=== PATIENT | male | born 1935 | race Caucasian/White ===

== ENCOUNTER → 2016-10-29 | Outpatient (CLI) | payer MEDICARE, BC ==
[2016-10-29 09:39] LABS: Anisocytosis Slight; CH 21.2; CHCM 30.3; HCT 38.3 % (39.0-53.0); HDW 3.11; HGB 11.6 gm/dL (13.0-17.5); Hypochromasia Marked; MCH 21.3 pg (25.0-35.0); MCHC 30.3 g/dL (31.0-37.0); MCV 70.6 fL (80.0-100.0); Mean Platelet Volume 7.3; Microcytosis Moderate; RBC 5.43 m/uL (4.30-5.90); RDW 16.1 % (11.5-15.5); WBC 7.7 k/uL (3.8-10.6)
[2016-10-29 09:56] LABS: Anion Gap 10 mmol/L; Blood Urea Nitrogen 33 mg/dL (9-20); Carbon Dioxide 24 mmol/L (22-30); Chloride 109 mmol/L (98-107); Non-African American GFR(MDRD) 51 (>60 ml/min/1.73 sqM); Potassium 4.8 mmol/L (3.5-5.1); Sodium 143 mmol/L (137-145)
== END | disposition home or self-care (01) ==
LOC: LABPAT 09:22
PROVIDERS: ATTEND Internal Medicine Interventional Cardiology
DX: Z01.812 Encounter for preprocedural laboratory examination (principal); I25.10 Atherosclerotic heart disease of native coronary artery without angina pectoris
CPT/HCPCS: 80051; 82565; 84520; 85027

== ENCOUNTER 2016-11-04 07:33 | Day surgery (SDC) | payer MEDICARE, BC ==
[2016-10-31 11:23] VITALS: BMI 36.6
[~2016-11-04 07:33] MED LIST: ALPRAZolam 0.25 MG TAB PO PRN; ALPRAZolam 0.5 MG TAB PO PRN; ASPIRIN 325 MG TAB PO STA; ATORVASTATIN 80 MG TAB PO STA; NITROGLYCERIN SL TABS 0.4 MG TAB SUBLINGUAL PRN
[2016-11-04] MEDS: SODIUM CHLORIDE 0.9% 1,000 ML in EMPTY BAG 1 BAG IV ONE ×2 (08:16→13:55)
[2016-11-04] MEDS ORDERED: LIDOCAINE 2% INJ 20 MG/ML (20 ML MDV) ONE (11:56)
[2016-11-04] MEDS ORDERED: MIDAZOLAM 2 MG/2 ML VIAL ONE (12:08)
[2016-11-04] MEDS ORDERED: MIDAZOLAM 2 MG/2 ML VIAL IVP ONE (12:10)
[2016-11-04] MEDS ORDERED: LIDOCAINE 2% INJ 20 MG/ML SQ ONE (12:13)
[2016-11-04] MEDS ORDERED: NITROGLYCERIN SL TABS 0.4 MG TAB SUBLINGUAL ONE ×2 (12:45→12:48)
[2016-11-04] MEDS ORDERED: RX INFO: IV CONTRAST WAS GIVEN 1 EACH MISC MISCELLANE PRN (12:56)
[2016-11-04] MEDS ORDERED: IOHEXOL 350 MG/ML 100 ML BOTTLE INJ ONE (12:58)
[2016-11-04] MEDS ORDERED: SODIUM CHLORIDE 0.9% 1,000 ML IV SCH (13:00)
[2016-11-04] MEDS ORDERED: amLODIPine 5 MG TAB ONE (13:04)
[2016-11-04 16:40] VITALS: RESP 16; TEMP 97
[2016-11-04 16:42] VITALS: BP 142/76; PULSE 59
[2016-11-04] MEDS ORDERED: ACETAMINOPHEN TAB 500 MG TAB PO STA (18:05)
[2016-11-04 20:01] LABS: Glucose,Whole Blood 139 mg/dL (75-99)
--- NOTE | 2016-11-05 05:38 | CC ---
DATE OF SERVICE: 11/04/2016 PROCEDURE: Left heart catheterization, coronary angiography, selective injection of bypass grafts. PERFORMED BY: Dr. Ha Messer. CLINICAL INFORMATION: Mr. Zoran Camp is an 81-year-old gentleman with a known history of coronary artery disease with aortocoronary bypass surgery in 2001 with a BAKER to LAD, vein graft to the PDA branch of RCA and the diagonal branch of LAD. In 2003, I performed stenting of his mid/distal RCA, which provided blood flow into PLV branch. The vein graft at that time to the PDA was widely patent. He presented to the office with increasing symptoms of angina. He has also developed some calcification of the aortic valve leaflets with mild gradient. He has developed chronic atrial fibrillation and is well anticoagulated. Given his symptoms of chest discomfort suggestive of angina, he was advised coronary angiography after adequate discussion of risks, benefits, options and oral and IV hydration. PROCEDURE NOTE: Under local anesthesia and strict aseptic precautions, a 6 Mohawk introducer was placed in the right femoral artery. I used a JL 3.5 catheter to perform selective coronary angiography of the left system. I then used a Jennifer catheter to perform selective angiography of the right coronary artery and also the BAKER injection as well as the vein graft to the PDA. Using an AR 2 catheter, I performed selective coronary angiography of the diagonal graft as well as the PDA graft again. An LV gram was not performed but LV pressures were checked using a pigtail catheter. There was no significant gradient across the aortic valve. CARDIAC CATHETERIZATION FINDINGS: The left ventricle end-diastolic pressure was about 15 mmHg and the gradient across the aortic valve was less than 10 mmHg. CORONARY ANGIOGRAPHIC FINDINGS: LEFT MAIN CORONARY ARTERY: This is a long patent, disease-free vessel that bifurcates or almost trifurcates into 3 branches. Left main is free of significant disease. LEFT ANTERIOR DESCENDING CORONARY ARTERY: This vessel is highly diseased in the midportion. There is a subtotal occlusion with competitive flow, heavy calcification. In the proximal portion, there is a 40% to 50% narrowing ( ) small diagonal comes off free of significant disease. There is a big septal which is free of significant disease. Mid LAD has a subtotal occlusion with competitive flow. LEFT POSTERIOR CIRCUMFLEX CORONARY ARTERY: Small caliber, small distribution vessel that runs in the AV groove, has minor irregularities appears to be diffusely diseased and probably totally occluded in the midportion. RAMUS INTERMEDIUS: This vessel has mild disease of about 30% to 35%, mild irregularities distally. It bifurcates into 3 branches. No significant disease in the ramus intermedius. RIGHT CORONARY ARTERY: Dominant vessel, distally at the site of prior stenting, the vessel is patent with no more than 30% to 35% narrowing. Distally it bifurcates into PLV that is totally occluded and a PDA that is patent and appears to be grafted. Very tortuous RCA. In the proximal and midportion, there is at least a 40% to 50% narrowing unchanged from 2004. The stented segment is patent. SAPHENOUS VEIN GRAFT TO THE PDA BRANCH OF RCA. This graft is widely patent at origin, course, and insertion site and opacified PDA is also free of significant disease. LEFT INTERNAL MAMMARY ARTERY GRAFT TO LEFT ANTERIOR DESCENDING ARTERY: This graft is widely patent at origin, course, and insertion site and the opacified LAD has minor diffuse irregularities and supplies a sizable amount of myocardium, runs all the way to the apex. The LAD, however, is small. SAPHENOUS VEIN GRAFT TO THE DIAGONAL BRANCH OF LEFT ANTERIOR DESCENDING ARTERY: This graft is widely patent at origin, course and insertion site and the opacified diagonal is small in caliber distribution but has no significant disease. FINAL IMPRESSION: This patient has a right dominant system, total occlusion of the PLV. Left anterior descending artery is totally occluded in the midportion. Circumflex is totally occluded in the midportion. Ramus is free of significant disease. The vein graft to the diagonal and to the PDA branch of right coronary artery are patent. Previously stented mid right coronary artery is widely patent with a 30% to 40% narrowing. The left internal mammary artery to left anterior descending artery is patent with a good distal flow. RECOMMENDATIONS: Findings were discussed with the patient in detail. I am recommending continued aggressive medical therapy with risk factor modification, but no intervention necessary at this time. He will be hydrated and discharged later in the day. I will see him in the office next week. Discharge instructions were given. Aggressive medical therapy with risk factor modification was advised. The patient will be discharged later on today. Patient received moderate conscious sedation for a total duration of 32 minutes.
--- NOTE | 2016-11-05 05:41 | LTR ---
November 04, 2016 LUCINA REESE MD RE: Conrado Zoran Alicia Dear Dr. Reese; Thank you for the opportunity to participate in the care of Mr. Camp. Please find enclosed my detailed cardiac catheterization report for your records. He has some progression of disease in the LAD system, but the BAKER to LAD is patent. I am recommending aggressive medical therapy with risk factor modification. No intervention necessary and there is no significant gradient across the aortic valve. Thank you for your referral and please call for questions. With kindest regards. Sincerely yours, TONE GILL MD
== END 2016-11-04 21:00 | disposition home or self-care (01) ==
LOC: CATHCVL 07:33 → 3OBS 12:49 → CATHCVL 21:00
PROVIDERS: ATTEND Internal Medicine Interventional Cardiology
DX: I10 Essential (primary) hypertension (principal); I25.110 Atherosclerotic heart disease of native coronary artery with unstable angina pectoris; I25.84 Coronary atherosclerosis due to calcified coronary lesion; I25.82 Chronic total occlusion of coronary artery; Z95.5 Presence of coronary angioplasty implant and graft; Z95.1 Presence of aortocoronary bypass graft; Z87.891 Personal history of nicotine dependence; I48.2 Chronic atrial fibrillation; Z79.01 Long term (current) use of anticoagulants; I35.0 Nonrheumatic aortic (valve) stenosis; Z79.82 Long term (current) use of aspirin; Z79.899 Other long term (current) drug therapy
CPT/HCPCS: 93459; C1894; C1769 ×2; J2001; J2250; Q9967

== ENCOUNTER 2018-06-01 19:49 | Inpatient (IN) | payer MEDICARE, BC ==
[2018-06-01 21:00] LABS: Amylase 59 U/L (30-110); Lipase 142 U/L (23-300)
[2018-06-01 21:30] LABS: Anisocytosis Slight; Basophils # (A) 0.1 k/uL (0-0.2); Basophils % (A) 0 %; Eosinophils # (A) 0.1 k/uL (0-0.7); Eosinophils % (A) 1 %; HCT 29.9 % (39.0-53.0); HGB 9.4 gm/dL (13.0-17.5); Hypochromasia Slight; Lymphocytes # (A) 1.7 k/uL (1.0-4.8); Lymphocytes % (A) 13 %; MCH 21.4 pg (25.0-35.0); MCHC 31.6 g/dL (31.0-37.0); MCV 67.8 fL (80.0-100.0); Mean Platelet Volume 7.1; Microcytosis Marked; Monocytes # (A) 0.4 k/uL (0-1.0); Monocytes % (A) 3 %; Neutrophils # (A) 10.8 k/uL (1.3-7.7); Neutrophils % (A) 81 %; Platelet Count 167 k/uL (150-450); Poikilocytosis Slight; RBC 4.41 m/uL (4.30-5.90); RDW 17.4 % (11.5-15.5); WBC 13.3 k/uL (3.8-10.6)
--- NOTE | 2018-06-01 21:35 | ED ---
SOB HPI - General Chief Complaint: Shortness of Breath Stated Complaint: SOB, sweaty, Abd ekg sent by dr dailey Time Seen by Provider: 06/01/18 19:54 Source: patient, RN notes reviewed Mode of arrival: wheelchair Limitations: no limitations - History of Present Illness Initial Comments: This is a 83-year-old male who presents with complaints of shortness of breath is been going on for about a week or so he does demonstrate he states exertional dyspnea. He states he did have some chest pain when he bends over. He has a nonproductive cough no fevers chills nausea vomiting sweats. No other symptoms. MD Complaint: shortness of breath - Related Data Home Medications Medication Instructions Recorded Confirmed Atorvastatin [Lipitor] 20 mg PO DAILY 02/09/16 06/01/18 Levothyroxine Sodium [Synthroid] 150 mcg PO DAILY 02/09/16 06/01/18 Ciprofloxacin HCl [Cipro] 250 mg PO Q12H 06/01/18 06/01/18 Doxazosin Mesylate [Cardura Xl] 4 mg PO HS 06/01/18 06/01/18 Finasteride [Proscar] 5 mg PO DAILY 06/01/18 06/01/18 Furosemide [Lasix] 40 mg PO DAILY 06/01/18 06/01/18 Losartan/Hydrochlorothiazide 1 tab PO DAILY 06/01/18 06/01/18 [Losartan-Hctz 100-12.5 mg Tab] Metoprolol Tartrate [Lopressor] 25 mg PO HS 06/01/18 06/01/18 Metoprolol Tartrate [Lopressor] 50 mg PO QAM 06/01/18 06/01/18 Allergies Allergy/AdvReac Type Severity Reaction Status Date / Time No Known Allergies Allergy Verified 06/01/18 20:25 Review of Systems ROS Statement: Those systems with pertinent positive or pertinent negative responses have been documented in the HPI. ROS Other: All systems not noted in ROS Statement are negative. Past Medical History Past Medical History: Atrial Fibrillation, Coronary Artery Disease (CAD), Chest Pain / Angina, CVA/TIA, GERD/Reflux, Hyperlipidemia, Hypertension, Myocardial Infarction (NC), Thyroid Disorder Additional Past Medical History / Comment(s): Thalassemia trait, chronic kidney disease stage II, elevated PSA in the past, Last Myocardial Infarction Date:: 2000 History of Any Multi-Drug Resistant Organisms: None Reported Past Surgical History: Coronary Bypass/CABG, Heart Catheterization With Stent, Tonsillectomy Additional Past Surgical History / Comment(s): CABG May 2000, angioplasty in 2000 and February 2004, bilateral cataract removal and intraocular lens implants,, 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 Past Anesthesia/Blood Transfusion Reactions: No Reported Reaction Date of Last Stent Placement:: unknown Past Psychological History: No Psychological Hx Reported Smoking Status: Never smoker Past Alcohol Use History: None Reported Past Drug Use History: None Reported - Past Family History Father Family Medical History: No Reported History Additional Family Medical History / Comment(s): Father at age 87 from myocardial infarction. Mother Family Medical History: No Reported History Additional Family Medical History / Comment(s): . Brother(s) Additional Family Medical History / Comment(s): Patient has 3 brothers and all 3 have passed. Unknown causes. Sister(s) Additional Family Medical History / Comment(s): Patient has has 4 sister that of all from old age. Daughter(s) Additional Family Medical History / Comment(s): Patient has 4 children, 2 boys and 2 girls with no major medical problems. General Exam - General Exam Comments Initial Comments: Is a well-developed well-nourished awake alert oriented 3 female Limitations: no limitations General appearance: alert, anxious Head exam: Present: atraumatic, normocephalic, normal inspection Eye exam: Present: normal appearance, PERRL, EOMI. Absent: scleral icterus, conjunctival injection, periorbital swelling ENT exam: Present: normal exam, mucous membranes moist Neck exam: Present: normal inspection. Absent: tenderness, meningismus, lymphadenopathy Respiratory exam: Present: decreased breath sounds. Absent: respiratory distress, wheezes, rales, rhonchi, stridor Cardiovascular Exam: Present: tachycardia. Absent: systolic murmur, diastolic murmur, rubs, gallop, clicks GI/Abdominal exam: Present: soft, normal bowel sounds, other (Small superior rectal hernia seen with the patient tries to sit upright. It is reducible). Absent: distended, tenderness, guarding, rebound, rigid Extremities exam: Present: normal inspection, full ROM, normal capillary refill , pedal edema. Absent: tenderness, joint swelling, calf tenderness Back exam: Present: normal inspection Neurological exam: Present: alert, oriented X3, CN II-XII intact Psychiatric exam: Present: normal affect, normal mood Skin exam: Present: warm, dry, intact, normal color. Absent: rash Course Vital Signs 06/01/18 06/01/18 06/01/18 19:51 21:45 22:10 Temperature 98.5 F Pulse Rate 109 H 88 89 Respiratory 22 16 Rate Blood Pressure 149/84 172/110 160/95 O2 Sat by Pulse 92 L 97 Oximetry - Reevaluation(s) Reevaluation #1: 06/01/18 22:43 Reevaluation patient after initial treatment reveals some improvement in his breathing he says exertional dyspnea however still demonstrates diminished breath sounds Medical Decision Making - Medical Decision Making I did discuss the findings with the patient and with Dr. Daigle. Patient will be admitted cardiology consultation morning patient does have evidence of CHF with bronchospasm. He also has a mildly elevated troponin he also does have evidence of renal insufficiency and anemia as well as chronic atrial fibrillation. - Lab Data Result diagrams: 06/01/18 20:30 06/01/18 20:30 Lab Results 06/01/18 06/01/18 06/01/18 Range/Units 20:30 20:30 20:30 WBC (3.8-10.6) k/uL RBC (4.30-5.90) m/uL Hgb (13.0-17.5) gm/dL Hct (39.0-53.0) % MCV (80.0-100.0) fL MCH (25.0-35.0) pg MCHC (31.0-37.0) g/dL RDW (11.5-15.5) % Plt Count (150-450) k/uL Neutrophils % % Lymphocytes % % Monocytes % % Eosinophils % % Basophils % % Neutrophils # (1.3-7.7) k/uL Lymphocytes # (1.0-4.8) k/uL Monocytes # (0-1.0) k/uL Eosinophils # (0-0.7) k/uL Basophils # (0-0.2) k/uL Hypochromasia Poikilocytosis Anisocytosis Microcytosis PT (9.0-12.0) sec INR (<1.2) APTT (22.0-30.0) sec Sodium (137-145) mmol/L Potassium (3.5-5.1) mmol/L Chloride (98-107) mmol/L Carbon Dioxide (22-30) mmol/L Anion Gap mmol/L BUN (9-20) mg/dL Creatinine (0.66-1.25) mg/dL Est GFR (CKD-EPI)AfAm (>60 ml/min/1.73 sqM) Est GFR (CKD-EPI)NonAf (>60 ml/min/1.73 sqM) Glucose (74-99) mg/dL Calcium (8.4-10.2) mg/dL Magnesium (1.6-2.3) mg/dL Total Bilirubin (0.2-1.3) mg/dL AST (17-59) U/L ALT (21-72) U/L Alkaline Phosphatase (38-126) U/L Total Creatine Kinase 126 (55-170) U/L CK-MB (CK-2) 1.1 (0.0-2.4) ng/mL CK-MB (CK-2) Rel Index 0.9 Troponin I 0.046 H* (0.000-0.034) ng/mL NT-Pro-B Natriuret Pep 6280 pg/mL Total Protein (6.3-8.2) g/dL Albumin (3.5-5.0) g/dL Amylase 59 (30-110) U/L Lipase 142 (23-300) U/L 06/01/18 06/01/18 06/01/18 Range/Units 20:30 20:30 20:30 WBC 13.3 H (3.8-10.6) k/uL RBC 4.41 (4.30-5.90) m/uL Hgb 9.4 L (13.0-17.5) gm/dL Hct 29.9 L (39.0-53.0) % MCV 67.8 L (80.0-100.0) fL MCH 21.4 L (25.0-35.0) pg MCHC 31.6 (31.0-37.0) g/dL RDW 17.4 H (11.5-15.5) % Plt Count 167 (150-450) k/uL Neutrophils % 81 % Lymphocytes % 13 % Monocytes % 3 % Eosinophils % 1 % Basophils % 0 % Neutrophils # 10.8 H (1.3-7.7) k/uL Lymphocytes # 1.7 (1.0-4.8) k/uL Monocytes # 0.4 (0-1.0) k/uL Eosinophils # 0.1 (0-0.7) k/uL Basophils # 0.1 (0-0.2) k/uL Hypochromasia Slight Poikilocytosis Slight Anisocytosis Slight Microcytosis Marked PT 12.1 H (9.0-12.0) sec INR 1.2 H (<1.2) APTT 28.1 (22.0-30.0) sec Sodium 141 (137-145) mmol/L Potassium 3.9 (3.5-5.1) mmol/L Chloride 110 H (98-107) mmol/L Carbon Dioxide 22 (22-30) mmol/L Anion Gap 9 mmol/L BUN 33 H (9-20) mg/dL Creatinine 1.49 H (0.66-1.25) mg/dL Est GFR (CKD-EPI)AfAm 49 (>60 ml/min/1.73 sqM) Est GFR (CKD-EPI)NonAf 43 (>60 ml/min/1.73 sqM) Glucose 109 H (74-99) mg/dL Calcium 8.8 (8.4-10.2) mg/dL Magnesium 1.6 (1.6-2.3) mg/dL Total Bilirubin 2.1 H (0.2-1.3) mg/dL AST 27 (17-59) U/L ALT 26 (21-72) U/L Alkaline Phosphatase 40 (38-126) U/L Total Creatine Kinase (55-170) U/L CK-MB (CK-2) (0.0-2.4) ng/mL CK-MB (CK-2) Rel Index Troponin I (0.000-0.034) ng/mL NT-Pro-B Natriuret Pep pg/mL Total Protein 7.2 (6.3-8.2) g/dL Albumin 3.7 (3.5-5.0) g/dL Amylase (30-110) U/L Lipase (23-300) U/L - EKG Data -: EKG Interpreted by Me (Atrial fibrillation rate of 89 QRS 110 daily since QTC 360/447 middle also ) - Radiology Data Radiology results: report reviewed (I did review the imaging and report is consistent with congestive heart failure.), image reviewed Critical Care Time Critical Care Time: Yes Critical Care Time: 33 minutes of critical care time which includes initial presentation with history physical labs x-rays several reevaluation the patient to responsive therapy review of old charting was available. Discussed with Dr. Daigle. Admission orders and documentation of the above Disposition Clinical Impression: Congestive heart failure, Acute bronchospasm, Renal insufficiency syndrome, Atrial fibrillation, Anemia, Elevated troponin Disposition: ADMITTED IP TO THIS [facility] Condition: Serious Referrals: Bhavana Dailey MD [Primary Care Provider] - 1-2 days
--- NOTE | 2018-06-01 21:37 | XR ---
EXAMINATION TYPE: XR chest 2V DATE OF EXAM: 06/01/2018 COMPARISON: 02/09/2016 HISTORY: Short of breath TECHNIQUE: Frontal and lateral views of the chest are obtained. FINDINGS: Heart is enlarged. There is pulmonary edema. There is slight blunting of the costophrenic angles. There are sternal wires. There are chest leads. IMPRESSION: Congestive heart failure. Small pleural effusions. Chest appears worse than old exam.
[2018-06-01 21:49] LABS: Creatine Kinase MB 1.1 ng/mL (0.0-2.4)
[2018-06-01] MEDS ORDERED: FUROSEMIDE 10 MG/ML 4 ML VIAL IV STA (21:52)
[2018-06-01 21:58] LABS: Troponin I 0.046 ng/mL (0.000-0.034)
[2018-06-01 22:00] LABS: Albumin 3.7 g/dL (3.5-5.0); Calcium 8.8 mg/dL (8.4-10.2); Magnesium 1.6 mg/dL (1.6-2.3); Potassium 3.9 mmol/L (3.5-5.1); Total Bilirubin 2.1 mg/dL (0.2-1.3); Total Protein 7.2 g/dL (6.3-8.2)
[2018-06-01 22:32] LABS: INR 1.2 (<1.2); Partial Thromboplastin Time 28.1 sec (22.0-30.0); Prothrombin Time 12.1 sec (9.0-12.0)
[2018-06-01] MEDS ORDERED: IPRATROPIUM-ALBUTEROL 3 ML NEB INHALATION STA (22:49)
[2018-06-01] MEDS ORDERED: HEPARIN SODIUM,PORCINE 5,000 UNIT/ML 1 ML VIAL IV ONE (22:50)
[2018-06-01] MEDS ORDERED: HEPARIN SODIUM,PORCINE 5,000 UNIT/ML 1 ML VIAL IV PRN (22:50)
[2018-06-01] MEDS ORDERED: HEPARIN SOD,PORK IN 0.45% NACL 25,000 UNIT in 0.45% NACL 1 250ML.BAG IV SCH (23:00)
[2018-06-01] MEDS ORDERED: IPRATROPIUM-ALBUTEROL 3 ML NEB INHALATION PRN (23:21)
[2018-06-01] MEDS: FUROSEMIDE 10 MG/ML 4 ML VIAL IV SCH (23:35)
[2018-06-02] MEDS ORDERED: IPRATROPIUM-ALBUTEROL 3 ML NEB INHALATION SCH
[2018-06-02] MEDS ORDERED: NITROGLYCERIN OINT 1 INCH/GM PACKET TOPICAL STA (01:02)
[2018-06-02 02:00] VITALS: BMI 37.8
[2018-06-02 04:33] VITALS: TEMP 98.9
[2018-06-02] MEDS ORDERED: LEVOTHYROXINE 50 MCG TAB PO SCH (06:30)
[2018-06-02] MEDS: FUROSEMIDE 10 MG/ML 4 ML VIAL IV SCH (06:38)
[2018-06-02] MEDS ORDERED: METOPROLOL TARTRATE 25 MG TAB PO SCH ×2 (09:00→21:00)
[2018-06-02] MEDS ORDERED: NITROGLYCERIN OINT 1 INCH/GM PACKET TOPICAL SCH (09:00)
[2018-06-02] MEDS ORDERED: FINASTERIDE 5 MG TAB PO SCH (09:00)
[2018-06-02] MEDS ORDERED: LOSARTAN 50 MG TAB PO SCH (09:00)
[2018-06-02] MEDS ORDERED: FUROSEMIDE 40 MG TAB PO SCH ×2 (09:00→16:00)
[2018-06-02] MEDS ORDERED: ATORVASTATIN 20 MG TAB PO SCH (09:00)
[2018-06-02] MEDS ORDERED: HYDROCHLOROTHIAZIDE 25 MG TAB PO SCH (09:00)
[2018-06-02] MEDS ORDERED: METOPROLOL TARTRATE 50 MG TAB PO SCH (09:00)
[2018-06-02] MEDS ORDERED: amLODIPine 5 MG TAB PO SCH (09:00)
--- NOTE | 2018-06-02 09:32 | CONS ---
CONSULTATION Zoran Camp is an 83-year-old gentleman with history of coronary artery disease, status post CABG, chronic atrial fibrillation, prior angioplasty, dyslipidemia and hypertension who presented to the hospital because of shortness of breath. He initially called our office with shortness of breath. Subsequently had been evaluated by Dr. Dailey his primary care physician who sent him to the emergency room. His predominant symptom is exertional shortness of breath that has been going on for the last one week was particularly worse over the last few days. There is no history of leg edema, paroxysmal nocturnal dyspnea or orthopnea. An EKG on him showed atrial fibrillation with rapid ventricular rate. He is admitted to hospital, treated with intravenous diuretics and IV heparin and at the time of my evaluation, he appears comfortable at rest. Heart rate is well controlled and he is eager to go home. The patient normally takes Xarelto 15 mg daily. Admission EKG showed atrial fibrillation with nonspecific ST-T wave changes. Since admission, he has had 2 sets of cardiac enzymes that are elevated at 0.04, 0.04, but there is no real pattern to it. This probably related to the renal insufficiency with a BUN of 39 and a creatinine of 1.4. BNP is elevated at 6280. Hemoglobin is low at 9.4. The patient's clinical presentation is consistent with acute exacerbation of chronic diastolic heart failure. The patient has known moderate aortic stenosis and on a cardiac catheterization in October of 2016 he was found to have patent BAKER to LAD, patent stent within the right coronary artery, patent vein graft to the diagonal and PDA. PAST MEDICAL HISTORY: Past medical history is significant for coronary artery disease, status post CABG, hypertension, hypothyroidism, and dyslipidemia. CURRENT MEDICATIONS: Current medications include Lopressor 50 in the morning, 25 in the evening, losartan 100/12.5 q. daily, Synthroid, Lasix, Proscar, Cardura, Cipro, and Lipitor 20 mg daily. ALLERGIES: There are no known drug allergies. FAMILY HISTORY: Negative for premature coronary artery disease. SOCIAL HISTORY: Negative for smoking, EtOH abuse or drug abuse. REVIEW OF SYSTEMS: HEENT is unremarkable. CARDIAC: As described above. RESPIRATORY: As described above. GI: Negative. GENITOURINARY: Negative. ALLERGY/IMMUNOLOGY: Negative. SKIN: Negative. MUSCULOSKELETAL: Significant for arthritis. PSYCHOSOCIAL: Negative. ENDOCRINE: Negative. DERM: Negative. CONSTITUTIONAL: Negative. ONCOLOGICAL: Negative. Rest of the system review is not relevant. PHYSICAL EXAMINATION: On exam, patient is comfortable at rest. O2 sat is 96% on room air. Heart rate is 86 beats per minute. Blood pressure is 136/95. Respiratory rate is 16. There is no jugular venous distention. Carotid upstroke is normal. There is no bruit. Chest exam reveals good air entry bilaterally. I do not hear any crackles or rhonchi. Heart exam reveals first and second heart sounds. A grade 4/6 ejection systolic murmur in the aortic area and an apical systolic murmur. Abdomen is soft, nontender. Examination of the extremities did not reveal any edema. Foot pulses are intact. LABS: Labs show a hemoglobin of 9.4. Potassium is 3.9. BUN is 33, creatinine is 1.4. BNP is elevated. Tropes are mildly elevated. EKG shows atrial fibrillation with controlled ventricular rate. ASSESSMENT: 1. Acute exacerbation of chronic diastolic heart failure. 2. Moderate aortic stenosis. 3. Elevated troponin probably related to renal insufficiency. 4. Coronary artery disease, status post coronary artery bypass grafting. 5. Chronic renal insufficiency. PLAN: Patient is feeling much better this morning. We can switch him to oral diuretics, DC nitro paste, put him on , obtain a 2D echo. Continue rest of his medications including beta blockers, DANIEL inhibitors. I am going to increase the dose of Lopressor to 50 b.i.d. from 50 in the morning, 25 in the evening, which helps control his heart rate also better and helps control his blood pressure is better. We can discharge him home and arrange outpatient followup through Dr. Ha Messer's office. His aortic valve needs evaluation if it has not been done in the past to see if it is significant enough to be contributing to the heart failure and needs corrective surgery. MMODL / IJN: [id number] /
[2018-06-02] MEDS: IPRATROPIUM-ALBUTEROL 3 ML NEB INHALATION SCH ×2 (09:56→10:43)
[2018-06-02 10:48] VITALS: RESP 16
--- NOTE | 2018-06-02 11:17 | ECHOF ---
Referral Reason:chf MEASUREMENTS -------- HEIGHT: 167.6 cm WEIGHT: 106.1 kg BP: 149/71 RVIDd: 4.1 cm (< 3.3) IVSd: 1.5 cm (0.6 - 1.1) LVIDd: 5.4 cm (3.9 - 5.3) LVPWd: 1.5 cm (0.6 - 1.1) IVSs: 2.0 cm LVIDs: 4.2 cm LVPWs: 2.0 cm LA Diam: 4.9 cm (2.7 - 3.8) LAESV Index (A-L): 43.26 ml/m Ao Diam: 3.8 cm (2.0 - 3.7) AV Cusp: 1.1 cm (1.5 - 2.6) MV EXCURSION: 12.907 mm (> 18.000) MV EF SLOPE: 89 mm/s (70 - 150) EPSS: 1.4 cm AV maxP.92 mmHg AV meanP.03 mmHg AR PHT: 1295 ms RAP: 5.00 mmHg RVSP: 43.81 mmHg FINDINGS -------- Atrial fibrillation. This was a technically adequate study. The left ventricular size is normal. There is moderate concentric left ventricular hypertrophy. O verall left ventricular systolic function is low-normal with, an EF between 50 - 55 %. Basal inferi or LV wall motion is hypokinetic. The right ventricle is moderately enlarged. LA is severely dilated >40 ml/m2 The right atrium is normal in size. There is severe aortic valve sclerosis. There is mild aortic regurgitation. There is mild aortic stenosis present. Peak/mean gradient across the Aortic Valve is 28.92mmHg / 15.03mmHg. The mitral valve leaflets are moderately thickened. Mild mitral annular calcification present. Mo derate mitral regurgitation is present. Mild tricuspid regurgitation present. There is mild pulmonary hypertension. The right ventricular systolic pressure, as measured by Doppler, is 43.81mmHg. Trace/mild (physiologic) pulmonic regurgitation. The aortic root is dilated measuring 3.8cm. Normal inferior vena cava with normal inspiratory collapse consistent with estimated right atrial pre ssure of 5 mmHg. The inferior vena cava is mildly dilated. There is no pericardial effusion. CONCLUSIONS -------- 1. Atrial fibrillation. 2. This was a technically adequate study. 3. The left ventricular size is normal. 4. There is moderate concentric left ventricular hypertrophy. 5. Basal inferior LV wall motion is hypokinetic. 6. The right ventricle is moderately enlarged. 7. LA is severely dilated >40 ml/m2 8. The right atrium is normal in size. 9. There is severe aortic valve sclerosis. 10. There is mild aortic regurgitation. 11. There is mild aortic stenosis present. 12. Peak/mean gradient across the Aortic Valve is 28.92mmHg / 15.03mmHg. 13. The mitral valve leaflets are moderately thickened. 14. Mild mitral annular calcification present. 15. Moderate mitral regurgitation is present. 16. Mild tricuspid regurgitation present. 17. There is mild pulmonary hypertension. 18. The right ventricular systolic pressure, as measured by Doppler, is 43.81mmHg. 19. Trace/mild (physiologic) pulmonic regurgitation. 20. The aortic root is dilated measuring 3.8cm. 21. Normal inferior vena cava with normal inspiratory collapse consistent with estimated right atrial pressure of 5 mmHg. 22. The inferior vena cava is mildly dilated. 23. There is no pericardial effusion. GOVERNMENT SERVICES PROFESSIONAL: Meche Tomlin RDCS
[2018-06-02 12:07] VITALS: BP 128/73; PULSE 111
[2018-06-02] MEDS ORDERED: DOXAZOSIN 2 MG TAB PO SCH (21:00)
--- NOTE | 2018-06-03 15:04 | P.HPIM ---
History of Present Illness H&P Date: 06/02/18 Chief Complaint: Shortness of breath with exertion This is an 83-year-old male. His primary care physician is Dr. Dailey. 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 Sethi. Patient willing to shortness of breath has been going on for about a week and worse with any exertion. He did have some chest pain when he bends over. He has a nonproductive cough. No fever or chills. No nausea or vomiting. No sweats. Patient came into [facility] emergency center for evaluation. He was afebrile, heart rate initially 109, respirations 22, blood pressure 149/ 84, pulse ox is 92% on room air. Troponin was 0.046, proBNP 6280, amylase and lipase within normal limits, white count 13.3, hemoglobin 9.4, platelet count 167, electrolytes essentially normal, BUN 33 and creatinine 1.49, total bilirubin 2.1, liver function tests within normal limits. EKG was atrial fibrillation with a rate of 89. Chest x-ray reveals congestive heart failure, small pleural effusion, chest appears worse than old exam. Patient was admitted to the selective care stepdown unit and cardiology consult requested. Echocardiogram reveals EF of 50-55%, moderate concentric left ventricular hypertrophy, LA severely dilated greater than 40, mild aortic regurgitation, mild aortic stenosis, moderate mitral regurgitation, mild tricuspid regurgitation, mild pulmonary hypertension. Patient was seen in consultation by cardiology with recommendations to switch to oral diuretics, DC Nitropaste and continue same medications. Lopressor was increased to 50 mg twice daily versus 50 mg in the morning and 25 mg in the evening. Recommended for follow- up with Dr. Rosamaria Messer in the office. Aortic valve needs evaluation if not already done. Patient's shortness of breath had resolved and he was anxious for discharge home. Patient will be discharged home today in stable condition. Discharge Medication List Atorvastatin [Lipitor] 20 mg PO DAILY 02/09/16 [History] Levothyroxine Sodium [Synthroid] 150 mcg PO DAILY 02/09/16 [History] Ciprofloxacin HCl [Cipro] 250 mg PO Q12H 06/01/18 [History] Doxazosin Mesylate [Cardura Xl] 4 mg PO HS 06/01/18 [History] Finasteride [Proscar] 5 mg PO DAILY 06/01/18 [History] Furosemide [Lasix] 40 mg PO BID@0900,1600 #60 tab 06/02/18 [Rx] 40 mg in the morning and 20 mg in the afternoon. Losartan/Hydrochlorothiazide [Losartan-Hctz 100-12.5 mg Tab] 1 tab PO DAILY #30 tablet 06/02/18 [Rx] Metoprolol Tartrate [Lopressor] 50 mg PO BID #60 tab 06/02/18 [Rx] Potassium Chloride ER [K-Dur 20] 20 meq PO DAILY #30 tab 06/02/18 [Rx] amLODIPine [Norvasc] 5 mg PO DAILY #30 tab 06/02/18 [Rx] Review of Systems All systems: negative Constitutional: Denies anorexia, Denies chills, Denies fatigue, Denies fever, Denies lethargy, Denies malaise, Denies poor appetite, Denies weakness, Denies weight loss Eyes: denies blurred vision, denies pain Ears, nose, mouth and throat: Denies dental pain, Denies dysphagia, Denies headache, Denies nasal congestion, Denies sore throat Cardiovascular: Reports decreased exercise tolerance, Reports dyspnea on exertion, Denies chest pain, Denies edema, Denies leg edema, Denies palpitations , Denies shortness of breath, Denies syncope Respiratory: Reports cough, Reports dyspnea, Denies cough with sputum, Denies excessive sputum, Denies hemoptysis, Denies home oxygen, Denies wheezing Gastrointestinal: Denies abdominal pain, Denies diarrhea, Denies nausea, Denies vomiting Genitourinary: Denies dysuria Musculoskeletal: Denies frequent falls, Denies gait dysfunction, Denies muscle weakness, Denies myalgias Integumentary: Denies pruritus, Denies rash Neurological: Denies aphasia, Denies change in mentation, Denies confusion, Denies gait dysfunction, Denies head injury, Denies headaches, Denies numbness, Denies seizures, Denies weakness Psychiatric: Denies anxiety, Denies depression Endocrine: Denies fatigue, Denies weight change Past Medical History Past Medical History: Atrial Fibrillation, Coronary Artery Disease (CAD), Chest Pain / Angina, CVA/TIA, GERD/Reflux, Hyperlipidemia, Hypertension, Myocardial Infarction (NM), Thyroid Disorder Additional Past Medical History / Comment(s): Thalassemia trait, chronic kidney disease stage II, elevated PSA in the past, Last Myocardial Infarction Date:: 2000 History of Any Multi-Drug Resistant Organisms: None Reported Past Surgical History: Coronary Bypass/CABG, Heart Catheterization With Stent, Tonsillectomy Additional Past Surgical History / Comment(s): CABG May 2000, angioplasty in 2000 and February 2004, bilateral cataract removal and intraocular lens implants,, 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 Past Anesthesia/Blood Transfusion Reactions: No Reported Reaction Date of Last Stent Placement:: unknown Past Psychological History: No Psychological Hx Reported Smoking Status: Never smoker Past Alcohol Use History: None Reported Additional Past Alcohol Use History / Comment(s): Patient is a lifelong nonsmoker. No medical marijuana, marijuana, street drug or alcohol use. Past Drug Use History: None Reported - Past Family History Father Family Medical History: No Reported History Additional Family Medical History / Comment(s): Father at age 87 from myocardial infarction. Mother Family Medical History: No Reported History Additional Family Medical History / Comment(s): Mother at age 82 from old age. Brother(s) Additional Family Medical History / Comment(s): Patient has 3 brothers and all 3 have passed. Unknown causes. Sister(s) Additional Family Medical History / Comment(s): Patient has has 4 sister that of all from old age. Daughter(s) Additional Family Medical History / Comment(s): Patient has 4 children, 2 boys and 2 girls with no major medical problems. Medications and Allergies Home Medications Medication Instructions Recorded Confirmed Type Atorvastatin [Lipitor] 20 mg PO DAILY 02/09/16 06/01/18 History Levothyroxine Sodium [Synthroid] 150 mcg PO DAILY 02/09/16 06/01/18 History Ciprofloxacin HCl [Cipro] 250 mg PO Q12H 06/01/18 06/01/18 History Doxazosin Mesylate [Cardura Xl] 4 mg PO HS 06/01/18 06/01/18 History Finasteride [Proscar] 5 mg PO DAILY 06/01/18 06/01/18 History Furosemide [Lasix] 40 mg PO BID@0900,1600 #60 tab 06/02/18 Rx Losartan/Hydrochlorothiazide 1 tab PO DAILY #30 tablet 06/02/18 Rx [Losartan-Hctz 100-12.5 mg Tab] Metoprolol Tartrate [Lopressor] 50 mg PO BID #60 tab 06/02/18 Rx Potassium Chloride ER [K-Dur 20] 20 meq PO DAILY #30 tab 06/02/18 Rx amLODIPine [Norvasc] 5 mg PO DAILY #30 tab 06/02/18 Rx Allergies Allergy/AdvReac Type Severity Reaction Status Date / Time No Known Allergies Allergy Verified 06/01/18 20:25 Physical Exam Vitals: Vital Signs Temp Pulse Pulse Resp BP BP Pulse Ox 06/02/18 12:00 111 H 16 128/73 94 L 06/02/18 10:53 104 H 06/02/18 10:47 16 06/02/18 10:44 90 14 06/02/18 08:00 86 16 136/95 96 06/02/18 04:00 98.9 F 100 18 149/71 95 06/02/18 01:52 97.8 F 98 20 162/92 96 06/02/18 01:20 92 96 06/01/18 23:44 109 H 18 163/97 96 06/01/18 23:28 88 06/01/18 23:24 89 06/01/18 22:10 89 160/95 06/01/18 21:45 88 16 172/110 97 06/01/18 19:51 98.5 F 109 H 22 149/84 92 L Intake and Output 06/01/18 06/02/18 06/02/18 22:59 06:59 14:59 Intake Total 312.638 Balance 312.638 Intake: Intake, IV Titration 72.638 Amount Heparin Sod,Pork in 0.45% 72.638 NaCl 25,000 unit In 0.45 % NaCl 1 250ml.bag @ 9 UNITS/KG/HR 9.75 mls/hr IV .Q24H [facility] Rx#: [id number] Oral 240 Other: Voiding Method Toilet Toilet # Voids 1 Weight 108.409 kg 106.4 kg 106.4 kg Gen: This is an 83-year-old male. He is sitting up in bed and appears to be in no acute distress. HEENT: Head is atraumatic, normocephalic. Pupils equal, round. Sclerae is anicteric. Conjunctiva pink. Mucous members of the mouth are somewhat dry. NECK: Supple. No JVD. No lymphadenopathy. No thyromegaly. LUNGS: Clear to auscultation. No wheezes or rhonchi. No intercostal retractions. HEART: Regular rate and rhythm. Systolic murmur right sternal border murmur. ABDOMEN: Soft. Bowel sounds are present. No masses. No tenderness. EXTREMITIES: No pedal edema. No calf tenderness. NEUROLOGICAL: Patient is awake, alert and oriented x3. Cranial nerves 2 through 12 are grossly intact. Speech is clear. Short-term memory intact. Results CBC & Chem 7: 06/01/18 20:30 06/01/18 20:30 Labs: Abnormal Lab Results - Last 24 Hours (Table) 06/01/18 06/01/18 06/01/18 Range/Units 20:30 20:30 20:30 WBC 13.3 H (3.8-10.6) k/uL Hgb 9.4 L (13.0-17.5) gm/dL Hct 29.9 L (39.0-53.0) % MCV 67.8 L (80.0-100.0) fL MCH 21.4 L (25.0-35.0) pg RDW 17.4 H (11.5-15.5) % Neutrophils # 10.8 H (1.3-7.7) k/uL PT (9.0-12.0) sec INR (<1.2) APTT (22.0-30.0) sec Chloride 110 H (98-107) mmol/L BUN 33 H (9-20) mg/dL Creatinine 1.49 H (0.66-1.25) mg/dL Glucose 109 H (74-99) mg/dL Total Bilirubin 2.1 H (0.2-1.3) mg/dL Troponin I 0.046 H* (0.000-0.034) ng/mL 06/01/18 06/02/18 06/02/18 Range/Units 20:30 05:30 05:30 WBC (3.8-10.6) k/uL Hgb (13.0-17.5) gm/dL Hct (39.0-53.0) % MCV (80.0-100.0) fL MCH (25.0-35.0) pg RDW (11.5-15.5) % Neutrophils # (1.3-7.7) k/uL PT 12.1 H (9.0-12.0) sec INR 1.2 H (<1.2) APTT 35.9 H (22.0-30.0) sec Chloride (98-107) mmol/L BUN (9-20) mg/dL Creatinine (0.66-1.25) mg/dL Glucose (74-99) mg/dL Total Bilirubin (0.2-1.3) mg/dL Troponin I 0.046 H* (0.000-0.034) ng/mL 06/02/18 Range/Units 07:53 WBC (3.8-10.6) k/uL Hgb (13.0-17.5) gm/dL Hct (39.0-53.0) % MCV (80.0-100.0) fL MCH (25.0-35.0) pg RDW (11.5-15.5) % Neutrophils # (1.3-7.7) k/uL PT (9.0-12.0) sec INR (<1.2) APTT (22.0-30.0) sec Chloride (98-107) mmol/L BUN (9-20) mg/dL Creatinine (0.66-1.25) mg/dL Glucose (74-99) mg/dL Total Bilirubin (0.2-1.3) mg/dL Troponin I 0.044 H* (0.000-0.034) ng/mL Thrombosis Risk Factor Assmnt - Choose All That Apply Any of the Below Risk Factors Present?: Yes Each Factor Represents 1 point: Obesity (BMI >25), Swollen legs (current) Other Risk Factors: Yes Each Risk Factor Represents 3 Points: Age 75 years or older Other congenital or acquired thrombophilia - If yes, enter type in comment: No Thrombosis Risk Factor Assessment Total Risk Factor Score: 5 Thrombosis Risk Factor Assessment Level: High Risk Assessment and Plan Plan: 1. Acute on chronic diastolic heart failure. 2. Atrial fibrillation, chronic. 3. Chronic kidney disease stage II, stable. 4. Hyperlipidemia. 5. Hypertension. . 6. Elevated PSA. 7. Hypothyroidism. 8. Thalassemia trait, stable. 9. Valvular heart disease with mild aortic stenosis with moderate mitral regurgitation, mild tricuspid regurgitation, mild pulmonary hypertension with previous EF 50-55%. Patient admitted to the hospital for minimum of one night stay. Discharge plan: Return home Impression and plan of care have been directed as dictated by the signing physician. Ladonna Werner nurse practitioner acting as scribe for signing physician.
== END 2018-06-02 15:30 | disposition home or self-care (01) | DRG 291 ==
LOC: EC 19:49 → 3SCARD 22:46
PROVIDERS: ADMIT Family Medicine; ATTEND Family Medicine
DX: I13.0 Hypertensive heart and chronic kidney disease with heart failure and stage 1 through stage 4 chronic kidney disease, or unspecified chronic kidney disease (principal); I50.33 Acute on chronic diastolic (congestive) heart failure; E03.9 Hypothyroidism, unspecified; E78.5 Hyperlipidemia, unspecified; I25.10 Atherosclerotic heart disease of native coronary artery without angina pectoris; I25.2 Old myocardial infarction; I35.0 Nonrheumatic aortic (valve) stenosis; I48.2 Chronic atrial fibrillation; J98.01 Acute bronchospasm; K21.9 Gastro-esophageal reflux disease without esophagitis; N18.2 Chronic kidney disease, stage 2 (mild); D56.3 Thalassemia minor; R77.9 Abnormality of plasma protein, unspecified; D64.9 Anemia, unspecified; Z79.899 Other long term (current) drug therapy; Z79.01 Long term (current) use of anticoagulants; Z79.890 Hormone replacement therapy; Z86.73 Personal history of transient ischemic attack (TIA), and cerebral infarction without residual deficits; Z95.1 Presence of aortocoronary bypass graft; Z89.021 Acquired absence of right finger(s); Z95.5 Presence of coronary angioplasty implant and graft; Z98.42 Cataract extraction status, left eye; Z98.41 Cataract extraction status, right eye; Z96.1 Presence of intraocular lens; Z82.49 Family history of ischemic heart disease and other diseases of the circulatory system
CPT/HCPCS: 36415; 71046; 80053; 82150; 82550; 82553; 83690; 83735; 83880; 84484; 85025; 85610; 85730; 93306; 94640; 96365; 96366; 96375; 96376; 99291

== ENCOUNTER → 2019-05-17 | Outpatient (CLI) | payer MEDICARE, BC ==
--- NOTE | 2019-05-17 13:15 | XR ---
EXAMINATION TYPE: XR chest 2V DATE OF EXAM: 05/17/2019 COMPARISON: 06/01/2018 HISTORY: Shortness of breath. Respiratory illness. Bronchitis. History of open heart surgery. TECHNIQUE: Frontal and lateral views of the chest are obtained. FINDINGS: There is overall improved aeration of the lungs in comparison the prior. Post CABG changes are seen in the chest with enlarged cardiac mediastinal silhouette. Interstitial prominence remains throughout. Pulmonary hyperinflation and flattening of the right compatible with COPD. Diffuse osseou s demineralization and mild degenerative change of the spine. IMPRESSION: Improved aeration of lungs. No focal consolidation remains. Underlying COPD.
== END | disposition home or self-care (01) ==
LOC: RADXRMAIN 12:49
PROVIDERS: ATTEND Internal Medicine
DX: J20.9 Acute bronchitis, unspecified (principal)
CPT/HCPCS: 71046

== ENCOUNTER → 2019-06-30 | Day surgery (SDC) | payer MEDICARE, BC ==
[2019-06-29 10:18] VITALS: BMI 36.6
[~2019-06-30] MED LIST changes: +ACETAMINOPHEN TAB 325 MG TAB ONE; +ACETAMINOPHEN TAB 325 MG TAB PO PRN; +IOPAMIDOL-370 100ML BTL INJ ONE; +IOPAMIDOL-370 50ML BTL INJ ONE; +LIDOCAINE 1% INJ 10MG/ML (20 ML MDV) ONE; +LIDOCAINE 1% INJ 10MG/ML (20 ML MDV) SQ ONE; +MIDAZOLAM 2 MG/2 ML VIAL IV ONE; +NITROGLYCERIN 1000MCG/10ML SYRINGE INTRACORON ONE; +NITROGLYCERIN SL TABS 0.4 MG TAB SUBLINGUAL ONE; +SODIUM CHLORIDE 0.9% 1,000 ML IV ONE; +SODIUM CHLORIDE 0.9% 1,000 ML IV SCH; +SODIUM CHLORIDE 0.9% 1,000 ML in EMPTY BAG 1 BAG IV ONE; +amLODIPine 5 MG TAB ONE; +amLODIPine 5 MG TAB PO ONE
[2019-06-30 07:31] VITALS: RESP 16; TEMP 97.5
--- NOTE | 2019-06-30 12:06 | CC ---
CARDIAC CATHETERIZATION REPORT DATE OF SERVICE: 06/30/2019. PROCEDURE: 1. Left heart catheterization and coronary angiography. 2. Selective injection of saphenous vein grafts and the left internal mammary artery graft. PERFORMED BY: Dr. Ha Messer. Moderate conscious sedation time was 32 minutes. The patient was administered Versed. His oxygen saturation, hemodynamics and EKG were monitored closely. CLINICAL INFORMATION: Mr. Zoran Camp is an 84-year-old gentleman with a known history of CAD, hypertension, chronic atrial fibrillation, and hyperlipidemia. In 2001, he underwent aortocoronary bypass surgery with a BAKER to LAD, vein graft to the PDA branch of RCA and diagonal branch of LAD. In 2003, I performed stenting of his mid/distal RCA which was providing blood flow into the PLV branch. Since then, he has done well. In October 2016, I performed cardiac cath which revealed that the 3 grafts were patent. The PLV branch of RCA was occluded. He was advised medical therapy. Because of increasing symptoms of angina and shortness of breath, I advised coronary angiography. Patient also has a mild aortic stenosis by echo. PROCEDURE NOTE: Under local anesthesia and strict aseptic precautions, a 6-Scottish introducer was placed in the right femoral artery. A JL3.5 catheter was used to perform selective coronary angiography of the left system. A Jennifer catheter was used to perform the BAKER injection. An AR 2 catheter was used to perform selective coronary angiography of the [place] RCA and the vein graft to the diagonal and vein graft to the PDA branch of RCA. The same AR2 catheter was used to check LV pressure but LV gram was not performed. The sheath was taken out and Angio-Seal device used to secure hemostasis and patient was sent to the room in stable condition. Results were discussed with the patient but no family was available. CARDIAC CATHETERIZATION FINDINGS: The left ventricular end-diastolic pressure was about 12 mmHg without any gradient across the aortic valve. CORONARY ANGIOGRAPHY FINDINGS: RIGHT CORONARY ARTERY: A very dominant tortuous vessel, has no significant disease at its origin. In the midportion at the site of previous stenting, the vessel is widely patent with brisk flow. Distally it bifurcates into PDA and PLV. The PDA is open. There is a stent seen in the PDA. There is a computed flow in the distal PDA. The PLV is totally occluded. The RCA therefore is a dominant vessel with total occlusion of the PLV branch. PDA is patent and there is a stent noted. Mid RCA stent is widely patent. LEFT MAIN CORONARY ARTERY: This is a long patent, disease-free vessel that bifurcates into LAD and circumflex. Left main itself is free of significant disease. LEFT ANTERIOR DESCENDING CORONARY ARTERY: This vessel is totally occluded in the midportion after the origin of a small septal and diagonal branch. RAMUS INTERMEDIUS OR HIGH OBTUSE MARGINAL BRANCH: This vessel is patent has minor irregularities no significant disease. Divides into 2 small branches and runs laterally. The ramus or high first obtuse marginal is free of significant disease. LEFT POSTERIOR CIRCUMFLEX CORONARY a small caliber vessel that runs in the AV groove has no significant disease. Minor irregularities are noted. SAPHENOUS VEIN GRAFT TO THE PDA BRANCH OF RCA: This graft is widely patent with brisk flow. No significant disease in the PDAs opacified without significant disease. SAPHENOUS VEIN GRAFT TO THE DIAGONAL BRANCH OF LAD: This graft is widely patent in its origin, course insertion site,opacified diagonal has small in caliber distribution, has no significant disease. Left internal mammary artery graft to lad this graft is widely patent in its origin course insertion site opacified LAD is small in caliber. The graft itself is free of significant disease. Compared to the previous angiogram from October 2016, there is no significant change. Left ventriculogram was not performed. FINAL IMPRESSION: This patient has a total occlusion of LAD after 2 small septal and diagonal branch. Total occlusion of the PDA, PLV branch of RCA. The [place] ramus and circumflex are free of significant disease. The vein graft to the diagonal and vein graft to the PDA branch of RCA are widely patent BAKER to LAD is patent. Overall compared to the previous angiogram from there is no significant change. RECOMMENDATIONS: I am recommending continued medical therapy with risk factor modification. No intervention necessary. I discussed my thoughts in detail with the patient and there was no family members available. He will be discharged later on today if he remains stable. MMODL / IJN: [id number] /
[2019-06-30 15:48] VITALS: BP 137/77; PULSE 80
== END ==
LOC: CATHCVL 06:41
PROVIDERS: ATTEND Internal Medicine Interventional Cardiology
DX: I25.110 Atherosclerotic heart disease of native coronary artery with unstable angina pectoris (principal); I77.1 Stricture of artery; I12.9 Hypertensive chronic kidney disease with stage 1 through stage 4 chronic kidney disease, or unspecified chronic kidney disease; N18.9 Chronic kidney disease, unspecified; I25.82 Chronic total occlusion of coronary artery; E78.5 Hyperlipidemia, unspecified; Z72.0 Tobacco use; I48.20 Chronic atrial fibrillation, unspecified; E78.00 Pure hypercholesterolemia, unspecified; I35.0 Nonrheumatic aortic (valve) stenosis; Z95.1 Presence of aortocoronary bypass graft; Z95.5 Presence of coronary angioplasty implant and graft; Z79.01 Long term (current) use of anticoagulants; Z79.82 Long term (current) use of aspirin; Z79.890 Hormone replacement therapy; Z79.899 Other long term (current) drug therapy
CPT/HCPCS: 93459; C1769 ×3; C1760; C1894; J2250; J2001; Q9967 ×2

== ENCOUNTER → 2019-10-20 | Outpatient (CLI) | payer MEDICARE, BC ==
[2019-10-20 10:39] LABS: Anisocytosis Slight; Basophils # (A) 0.1 k/uL (0-0.2); Basophils % (A) 1 %; Eosinophils # (A) 0.2 k/uL (0-0.7); Eosinophils % (A) 4 %; HCT 35.4 % (39.0-53.0); HGB 10.7 gm/dL (13.0-17.5); Hypochromasia Slight; Lymphocytes # (A) 1.9 k/uL (1.0-4.8); Lymphocytes % (A) 28 %; MCH 20.6 pg (25.0-35.0); MCHC 30.3 g/dL (31.0-37.0); MCV 67.9 fL (80.0-100.0); Mean Platelet Volume 7.6; Microcytosis Marked; Monocytes # (A) 0.5 k/uL (0-1.0); Monocytes % (A) 7 %; Neutrophils # (A) 3.9 k/uL (1.3-7.7); Neutrophils % (A) 57 %; Platelet Count 163 k/uL (150-450); RBC 5.21 m/uL (4.30-5.90); RDW 16.7 % (11.5-15.5); WBC 6.8 k/uL (3.8-10.6)
[2019-10-20 18:02] LABS: African American GFR (CKD) 32.3 (60.0-200.0); Albumin 4.2 g/dL (3.80-4.90); Albumin/Globulin Ratio 1.31 (1.60-3.17); Anion Gap 10.8 mmol/L (4.00-12.00); BUN/Creat Ratio 21.43 Ratio (12.00-20.00); Calcium 8.8 mg/dL (8.7-10.3); Carbon Dioxide 26.2 mmol/L (21.6-31.8); Chol/HDL Ratio 4.17; Globulin 3.2 g/dL (1.6-3.3); LDL Cholesterol,Calculated 78.6 mg/dL (0.0-131.0); Non-African American GFR(CKD) 27.9 (60.0-200.0); Potassium 4.4 mmol/L (3.5-5.5); Total Bilirubin 0.8 mg/dL (0.3-1.2); Total Protein 7.4 g/dL (6.2-8.2); VLDL Calculation 16.4 mg/dL (5.00-40.00)
[2019-10-20 19:06] LABS: Hemoglobin A1C 5.7 % (4.0-6.0)
== END | disposition home or self-care (01) ==
LOC: LABWHC1 09:50
PROVIDERS: ATTEND Internal Medicine
DX: Z00.00 Encounter for general adult medical examination without abnormal findings (principal); E78.2 Mixed hyperlipidemia; R73.03 Prediabetes
CPT/HCPCS: 36415; 80053; 80061; 83036; 84153; 84443; 85025

== ENCOUNTER 2020-04-27 15:17 | Observation (INO) | payer MEDICARE, BC ==
[2020-04-27 15:27] VITALS: RESP 18; TEMP 98.3
[2020-04-27] MEDS ORDERED: SODIUM CHLORIDE 0.9% 500 ML 500 ML IV STA (16:02)
[2020-04-27 16:29] LABS: Anisocytosis Slight; Basophils % (A) 1 %; Eosinophils # (A) 0.2 k/uL (0-0.7); Eosinophils % (A) 3 %; HCT 36.9 % (39.0-53.0); HGB 11.7 gm/dL (13.0-17.5); Hypochromasia Slight; Lymphocytes # (A) 1.7 k/uL (1.0-4.8); Lymphocytes % (A) 23 %; MCH 21.3 pg (25.0-35.0); MCHC 31.6 g/dL (31.0-37.0); MCV 67.3 fL (80.0-100.0); Mean Platelet Volume 7.4; Microcytosis Marked; Monocytes # (A) 0.6 k/uL (0-1.0); Monocytes % (A) 8 %; Neutrophils # (A) 4.5 k/uL (1.3-7.7); Neutrophils % (A) 61 %; Platelet Count 190 k/uL (150-450); Poikilocytosis Slight; RBC 5.49 m/uL (4.30-5.90); WBC 7.4 k/uL (3.8-10.6)
--- NOTE | 2020-04-27 16:33 | XR ---
EXAMINATION TYPE: XR chest 1V portable DATE OF EXAM: 04/27/2020 COMPARISON: Chest x-ray May 17, 2019 HISTORY: Shortness of breath. TECHNIQUE: Single AP portable frontal view of the chest is obtained. FINDINGS: Post-CABG changes with mediastinal clips and sternal wires is redemonstrated. There is personnel training officer christen parenchymal changes without suspicious new focal air space opacity, pleural effusion, or pneumoth orax seen. Cardiomegaly redemonstrated. Underlying scoliosis or scoliotic positioning on current stud y noted. IMPRESSION: Chronic changes and cardiomegaly without acute pulmonary process.
[2020-04-27 16:34] LABS: INR 1.3 (<1.2); Partial Thromboplastin Time 30.2 sec (22.0-30.0)
[2020-04-27 16:36] LABS: Albumin 4.2 g/dL (3.5-5.0); C Reactive Protein 52.2 mg/L (<10.0); Calcium 9.8 mg/dL (8.4-10.2); Magnesium 1.9 mg/dL (1.6-2.3); Potassium 4.7 mmol/L (3.5-5.1); Total Bilirubin 0.6 mg/dL (0.2-1.3); Total Protein 8.4 g/dL (6.3-8.2)
--- NOTE | 2020-04-27 16:58 | ED ---
General Adult HPI - General Source: patient, RN notes reviewed Mode of arrival: ambulatory Limitations: no limitations <Malachi Munguia - Last Filed: 04/27/20 19:00> <Raven Solares - Last Filed: 04/30/20 00:35> - General Chief complaint: Shortness of Breath Stated complaint: SOB Time Seen by Provider: 04/27/20 15:30 - History of Present Illness Initial comments: 85-year-old male with a computed past medical history including atrial fibrillation, CAD, chest pain, CVA, hyperlipidemia, GERD, hypertension, stage II chronic kidney disease presents to the emergency room for chief complaint of diarrhea. Patient states he has been more tired and had diarrhea for about a week now. Patient states his doctor tested positive for COVID and he saw him 2 weeks ago. Patient is concerned that he may have COVID. He admits to mild cough but denies shortness of breath. Denies nausea or vomiting. Patient has no other complaints at this time including shortness of breath, chest pain, abdominal pain, nausea or vomiting, headache, or visual changes. (Malachi Munguia) - Related Data Home Medications Medication Instructions Recorded Confirmed Atorvastatin [Lipitor] 20 mg PO DAILY 02/09/16 04/27/20 Finasteride [Proscar] 5 mg PO DAILY 06/01/18 04/27/20 Furosemide [Lasix] 40 mg PO MOWEFR@0800 06/29/19 04/27/20 Metoprolol Tartrate [Lopressor] 50 mg PO TID 06/29/19 04/27/20 Rivaroxaban [Xarelto] 15 mg PO DAILY 06/29/19 04/27/20 lisinopriL 20 mg PO DAILY 06/29/19 04/27/20 Furosemide [Lasix] 20 mg PO MOWEFR@1700 04/27/20 04/27/20 Meclizine [Antivert] 25 mg PO BID PRN 04/27/20 04/27/20 Allergies Allergy/AdvReac Type Severity Reaction Status Date / Time No Known Allergies Allergy Verified 04/27/20 16:35 Review of Systems ROS Other: All systems not noted in ROS Statement are negative. <Malachi Munguia - Last Filed: 04/27/20 19:00> ROS Other: All systems not noted in ROS Statement are negative. <SujathaRaven A - Last Filed: 04/30/20 00:35> ROS Statement: Those systems with pertinent positive or pertinent negative responses have been documented in the HPI. Past Medical History Past Medical History: Atrial Fibrillation, Coronary Artery Disease (CAD), Chest Pain / Angina, CVA/TIA, GERD/Reflux, Hyperlipidemia, Hypertension, Myocardial In farction ([place]), Thyroid Disorder Additional Past Medical History / Comment(s): Thalassemia trait, chronic kidney disease stage II, elevated PSA in the past, Last Myocardial Infarction Date:: 2000 History of Any Multi-Drug Resistant Organisms: None Reported Past Surgical History: Coronary Bypass/CABG, Heart Catheterization With Stent, Tonsillectomy Additional Past Surgical History / Comment(s): CABG May 2000, angioplasty in 2000 and February 2004, bilateral cataract removal and intraocular lens implants,, 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 Past Anesthesia/Blood Transfusion Reactions: No Reported Reaction Date of Last Stent Placement:: unknown Past Psychological History: No Psychological Hx Reported Smoking Status: Never smoker Past Alcohol Use History: None Reported Past Drug Use History: None Reported - Past Family History Father Family Medical History: No Reported History Mother Family Medical History: No Reported History Additional Family Medical History / Comment(s): Mother at age 82 from old age. Brother(s) Additional Family Medical History / Comment(s): Patient has 3 brothers and all 3 have passed. Unknown causes. Sister(s) Additional Family Medical History / Comment(s): Patient has has 4 sister that of all from old age. Daughter(s) Additional Family Medical History / Comment(s): Patient has 4 children, 2 boys and 2 girls with no major medical problems. <Malachi Munguia P - Last Filed: 04/27/20 19:00> General Exam Limitations: no limitations General appearance: alert, in no apparent distress Head exam: Present: atraumatic, normocephalic, normal inspection Eye exam: Present: normal appearance, PERRL, EOMI. Absent: scleral icterus, conjunctival injection, periorbital swelling ENT exam: Present: normal exam, mucous membranes moist Neck exam: Present: normal inspection. Absent: tenderness, meningismus, lymphadenopathy Respiratory exam: Present: normal lung sounds bilaterally. Absent: respiratory distress, wheezes, rales, rhonchi, stridor Cardiovascular Exam: Present: regular rate, normal rhythm, normal heart sounds. Absent: systolic murmur, diastolic murmur, rubs, gallop, clicks GI/Abdominal exam: Present: soft, normal bowel sounds. Absent: distended, tenderness, guarding, rebound, rigid Neurological exam: Present: alert <Malachi Munguia - Last Filed: 04/27/20 19:00> Course Vital Signs 04/27/20 04/27/20 04/27/20 15:21 16:18 17:13 Temperature 98.3 F Pulse Rate 72 67 68 Respiratory 18 18 18 Rate Blood Pressure 111/75 119/70 118/72 O2 Sat by Pulse 99 97 98 Oximetry 04/27/20 04/27/20 17:14 19:26 Temperature 98.3 F Pulse Rate 70 Respiratory 18 18 Rate Blood Pressure 132/92 O2 Sat by Pulse 99 Oximetry EKG Findings - EKG Comments: EKG Findings:: Atrial fibrillation, ventricular rate 64, QRS duration 108, QTC 408 <Malachi Munguia - Last Filed: 04/27/20 19:00> Medical Decision Making - Lab Data Result diagrams: 04/27/20 16:12 04/27/20 16:12 <Malachi Munguia - Last Filed: 04/27/20 19:00> - Lab Data Result diagrams: 04/27/20 16:12 04/27/20 16:12 <Raven Solares - Last Filed: 04/30/20 00:35> - Medical Decision Making Vitals are stable. Patient is well-appearing. Patient has had diarrhea for several days. He is not able to eat or drink as much and is now feeling weak. Patient is concerned he may have covid. Physical exam is unremarkable. Patient does not have any abdominal tenderness. Lab evaluation was initiated. Jones virus is negative. However CMP does show evidence of acute on chronic renal disease. Patient's creatinine is slightly elevated above patient's baseline chest x-ray unremarkable. He does also have elevated CRP which could be consistent with viral gastritis no infection. At this time he will be admitted for further management and IV hydration. Dr. Solares spoke with Dr. Rios who acce pted this admission. Patient is requesting discharge. He is aware that he is very dehydrated and it is affecting his renal function. However he states he has plenty to drink at home and is preferring to go home. He states he only came here to get tested for Covid because his neighbors wanted him to. He is aware that he could go into renal failure have other complications and is understanding of this. (Malachi Munguia) I was available for consultation in the emergency department. The history and physical exam were done by the midlevel provider. I was consulted for this patients care. I reviewed the case with the midlevel provider and based on their presentation of the patient, I agree with the assessment, medical decision making and plan of care as documented. Chart was dictated using [employer] dictation software. Attempts were made to correct any dictation errors however some typographical errors may persist. Patient was seen during a national state of emergency due to the Covid-19 pandemic. (Raven Solares) - Lab Data Lab Results 04/27/20 04/27/20 04/27/20 Range/Units 16:12 16:12 16:12 WBC 7.4 (3.8-10.6) k/uL RBC 5.49 (4.30-5.90) m/uL Hgb 11.7 L (13.0-17.5) gm/dL Hct 36.9 L (39.0-53.0) % MCV 67.3 L (80.0-100.0) fL MCH 21.3 L (25.0-35.0) pg MCHC 31.6 (31.0-37.0) g/dL RDW 16.0 H (11.5-15.5) % Plt Count 190 (150-450) k/uL MPV 7.4 Neutrophils % 61 % Lymphocytes % 23 % Monocytes % 8 % Eosinophils % 3 % Basophils % 1 % Neutrophils # 4.5 (1.3-7.7) k/uL Lymphocytes # 1.7 (1.0-4.8) k/uL Monocytes # 0.6 (0-1.0) k/uL Eosinophils # 0.2 (0-0.7) k/uL Basophils # 0.0 (0-0.2) k/uL Hypochromasia Slight Poikilocytosis Slight Anisocytosis Slight Microcytosis Marked PT 13.0 H (9.0-12.0) sec INR 1.3 H (<1.2) APTT 30.2 H (22.0-30.0) sec Sodium 142 (137-145) mmol/L Potassium 4.7 (3.5-5.1) mmol/L Chloride 110 H (98-107) mmol/L Carbon Dioxide 21 L (22-30) mmol/L Anion Gap 11 mmol/L BUN 48 H (9-20) mg/dL Creatinine 2.69 H (0.66-1.25) mg/dL Est GFR (CKD-EPI)AfAm 24 (>60 ml/min/1.73 sqM) Est GFR (CKD-EPI)NonAf 21 (>60 ml/min/1.73 sqM) Glucose 134 H (74-99) mg/dL Plasma Lactic Acid Lalit (0.7-2.0) mmol/L Calcium 9.8 (8.4-10.2) mg/dL Magnesium 1.9 (1.6-2.3) mg/dL Ferritin 137.3 (22.0-322.0) ng/mL Total Bilirubin 0.6 (0.2-1.3) mg/dL AST 33 (17-59) U/L ALT 24 (4-49) U/L Alkaline Phosphatase 63 (38-126) U/L Lactate Dehydrogenase 331 (313-618) U/L Troponin I (0.000-0.034) ng/mL C-Reactive Protein 52.2 H (<10.0) mg/L Total Protein 8.4 H (6.3-8.2) g/dL Albumin 4.2 (3.5-5.0) g/dL Procalcitonin (0.02-0.09) ng/mL Coronavirus (PCR) (Not Detectd) 04/27/20 04/27/20 04/27/20 Range/Units 16:12 16:12 16:18 WBC (3.8-10.6) k/uL RBC (4.30-5.90) m/uL Hgb (13.0-17.5) gm/dL Hct (39.0-53.0) % MCV (80.0-100.0) fL MCH (25.0-35.0) pg MCHC (31.0-37.0) g/dL RDW (11.5-15.5) % Plt Count (150-450) k/uL MPV Neutrophils % % Lymphocytes % % Monocytes % % Eosinophils % % Basophils % % Neutrophils # (1.3-7.7) k/uL Lymphocytes # (1.0-4.8) k/uL Monocytes # (0-1.0) k/uL Eosinophils # (0-0.7) k/uL Basophils # (0-0.2) k/uL Hypochromasia Poikilocytosis Anisocytosis Microcytosis PT (9.0-12.0) sec INR (<1.2) APTT (22.0-30.0) sec Sodium (137-145) mmol/L Potassium (3.5-5.1) mmol/L Chloride (98-107) mmol/L Carbon Dioxide (22-30) mmol/L Anion Gap mmol/L BUN (9-20) mg/dL Creatinine (0.66-1.25) mg/dL Est GFR (CKD-EPI)AfAm (>60 ml/min/1.73 sqM) Est GFR (CKD-EPI)NonAf (>60 ml/min/1.73 sqM) Glucose (74-99) mg/dL Plasma Lactic Acid Lalit 1.7 (0.7-2.0) mmol/L Calcium (8.4-10.2) mg/dL Magnesium (1.6-2.3) mg/dL Ferritin (22.0-322.0) ng/mL Total Bilirubin (0.2-1.3) mg/dL AST (17-59) U/L ALT (4-49) U/L Alkaline Phosphatase (38-126) U/L Lactate Dehydrogenase (313-618) U/L Troponin I (0.000-0.034) ng/mL C-Reactive Protein (<10.0) mg/L Total Protein (6.3-8.2) g/dL Albumin (3.5-5.0) g/dL Procalcitonin 0.16 H (0.02-0.09) ng/mL Coronavirus (PCR) Not Detected (Not Detectd) 04/27/20 Range/Units 16:20 WBC (3.8-10.6) k/uL RBC (4.30-5.90) m/uL Hgb (13.0-17.5) gm/dL Hct (39.0-53.0) % MCV (80.0-100.0) fL MCH (25.0-35.0) pg MCHC (31.0-37.0) g/dL RDW (11.5-15.5) % Plt Count (150-450) k/uL MPV Neutrophils % % Lymphocytes % % Monocytes % % Eosinophils % % Basophils % % Neutrophils # (1.3-7.7) k/uL Lymphocytes # (1.0-4.8) k/uL Monocytes # (0-1.0) k/uL Eosinophils # (0-0.7) k/uL Basophils # (0-0.2) k/uL Hypochromasia Poikilocytosis Anisocytosis Microcytosis PT (9.0-12.0) sec INR (<1.2) APTT (22.0-30.0) sec Sodium (137-145) mmol/L Potassium (3.5-5.1) mmol/L Chloride (98-107) mmol/L Carbon Dioxide (22-30) mmol/L Anion Gap mmol/L BUN (9-20) mg/dL Creatinine (0.66-1.25) mg/dL Est GFR (CKD-EPI)AfAm (>60 ml/min/1.73 sqM) Est GFR (CKD-EPI)NonAf (>60 ml/min/1.73 sqM) Glucose (74-99) mg/dL Plasma Lactic Acid Lalit (0.7-2.0) mmol/L Calcium (8.4-10.2) mg/dL Magnesium (1.6-2.3) mg/dL Ferritin (22.0-322.0) ng/mL Total Bilirubin (0.2-1.3) mg/dL AST (17-59) U/L ALT (4-49) U/L Alkaline Phosphatase (38-126) U/L Lactate Dehydrogenase (313-618) U/L Troponin I 0.020 (0.000-0.034) ng/mL C-Reactive Protein (<10.0) mg/L Total Protein (6.3-8.2) g/dL Albumin (3.5-5.0) g/dL Procalcitonin (0.02-0.09) ng/mL Coronavirus (PCR) (Not Detectd) Disposition Is patient prescribed a controlled substance at d/c from ED?: No Time of Disposition: 18:24 <Malachi Munguia - Last Filed: 04/27/20 19:00> <Raven Solares - Last Filed: 04/30/20 00:35> Clinical Impression: Diarrhea, Dehydration Disposition: HOME SELF-CARE
[2020-04-27] MEDS ORDERED: NALOXONE 0.4 MG/ML 1 ML VIAL IV PRN (18:21)
[2020-04-27] MEDS ORDERED: ONDANSETRON 4 MG/2 ML VIAL IVP PRN (18:22)
[2020-04-27] MEDS ORDERED: SODIUM CHLORIDE 0.9% 1,000 ML IV SCH (18:30)
[2020-04-27 19:28] VITALS: BP 132/92; PULSE 70
[2020-04-28 02:15] LABS: Ferritin 137.3 ng/mL (22.0-322.0)
== END 2020-04-27 19:31 | disposition home or self-care (01) ==
LOC: EC 15:17 → 1SOBS 18:16
PROVIDERS: ADMIT Internal Medicine; ATTEND Internal Medicine
DX: R19.7 Diarrhea, unspecified (principal); E86.0 Dehydration; R06.02 Shortness of breath; R05 Cough; I48.91 Unspecified atrial fibrillation; I25.10 Atherosclerotic heart disease of native coronary artery without angina pectoris; Z86.73 Personal history of transient ischemic attack (TIA), and cerebral infarction without residual deficits; E78.5 Hyperlipidemia, unspecified; K21.9 Gastro-esophageal reflux disease without esophagitis; I12.9 Hypertensive chronic kidney disease with stage 1 through stage 4 chronic kidney disease, or unspecified chronic kidney disease; N18.2 Chronic kidney disease, stage 2 (mild); I25.2 Old myocardial infarction; R79.82 Elevated C-reactive protein (CRP); E07.9 Disorder of thyroid, unspecified; D56.3 Thalassemia minor; Z95.5 Presence of coronary angioplasty implant and graft; Z95.1 Presence of aortocoronary bypass graft; Z89.021 Acquired absence of right finger(s); Z96.1 Presence of intraocular lens; Z79.899 Other long term (current) drug therapy; Z20.828 Contact with and (suspected) exposure to other viral communicable diseases; Z79.01 Long term (current) use of anticoagulants
CPT/HCPCS: 96360; 99285; 36415; 93005; 80053; 82728; 83605; 83615; 83735; 84484; 85025; 85610; 85730; 86140; 84145; 87635; 71045; G0378

== ENCOUNTER 2020-06-04 16:59 | Inpatient (IN) | payer MEDICARE, BC ==
[2020-06-04] MEDS ORDERED: DIAZEPAM 5 MG/ML 2 ML INJ IVP STA (17:21)
--- NOTE | 2020-06-04 17:50 | CT ---
EXAMINATION TYPE: CT brain wo con for TPA DATE OF EXAM: 06/04/2020 COMPARISON: 02/09/2016. HISTORY: cva CT DLP: 1137.6 mGycm Automated exposure control for dose reduction was used. FINDINGS: There is no acute intracranial hemorrhage, midline shift or hydrocephalus. There is mild white matter disease. The paranasal sinuses and mastoid air cells are adequately aerated. The calvarium is intact . Benign basal ganglia calcifications are noted. IMPRESSION: NO ACUTE INTRACRANIAL ABNORMALITY.
--- NOTE | 2020-06-04 18:02 | CT ---
EXAMINATION TYPE: CT abdomen pelvis w con DATE OF EXAM: 06/04/2020 COMPARISON: None available. HISTORY: abdominal pain, vomiting CT DLP: 1953.1 mGycm Automated exposure control for dose reduction was used. TECHNIQUE: Helical acquisition of images was performed from the lung bases through the pelvis. CONTRAST: Performed without Oral Contrast and with IV Contrast, patient injected with 100 mL of Isovue 370. FINDINGS: LUNG BASES: Mild atelectasis. 7 mm left lingula nodule. Cardiomegaly. LIVER/GB: No significant abnormality is appreciated. PANCREAS: No significant abnormality is seen. SPLEEN: No significant abnormality is seen. ADRENALS: No significant abnormality is seen. KIDNEYS: No significant abnormality is seen. FREE AIR: No free air is visualized. RETROPERITONEAL ADENOPATHY: None visualized REPRODUCTIVE ORGANS: No significant abnormality is seen URINARY BLADDER: Moderate circumferential wall thickening. Anterior and posterior urinary bladder di verticulum with the larger measuring up to 5.6 cm. PELVIC ADENOPATHY: None visualized. OSSEOUS STRUCTURES: No significant abnormality is seen. BOWEL: No significant abnormality is seen. Small hiatal hernia. OTHER: Prostatomegaly IMPRESSION: URINARY BLADDER WALL THICKENING, CORRELATE FOR CYSTITIS. URINARY BLADDER DIVERTICULUM AND PROSTATOMEGALY SEEN. INCIDENTAL 7 MM LEFT BASILAR NODULE. IF PATIENT IS HIGH-RISK FOR LONG MALIGNANCY, RECOMMEND FOLLOW-UP IN 6 MONTHS TO ONE YEAR. OTHERWISE NO ACUTE ABNORMALITY OF THE ABDOMEN/PELVIS.
[2020-06-04 18:09] LABS: Anisocytosis Slight; Basophils # (A) 0.1 k/uL (0-0.2); Basophils % (A) 1 %; Eosinophils % (A) 0 %; HCT 31.9 % (39.0-53.0); HGB 10.2 gm/dL (13.0-17.5); Hypochromasia Slight; Lymphocytes # (A) 0.8 k/uL (1.0-4.8); Lymphocytes % (A) 12 %; MCH 21.6 pg (25.0-35.0); MCV 67.7 fL (80.0-100.0); Mean Platelet Volume 7.3; Microcytosis Marked; Monocytes # (A) 0.3 k/uL (0-1.0); Monocytes % (A) 4 %; Neutrophils # (A) 5.6 k/uL (1.3-7.7); Neutrophils % (A) 82 %; Platelet Count 221 k/uL (150-450); Poikilocytosis Slight; RBC 4.72 m/uL (4.30-5.90); RDW 18.6 % (11.5-15.5); WBC 6.8 k/uL (3.8-10.6)
--- NOTE | 2020-06-04 18:09 | ED ---
Dizziness HPI - General Chief Complaint: Dizziness Stated Complaint: Poss Stroke Time Seen by Provider: 06/04/20 17:05 Source: patient Mode of arrival: wheelchair Limitations: no limitations - History of Present Illness Initial Comments: Patient is an 85-year-old male with past history of A. fib on anticoagulation, coronary artery disease with CABG, hypertension and hyperlipidemia presents emergency Department with altered mental status, vertiginous symptoms and ataxia. Ex- is at bedside and helps provide a history. She states that the neighbor went to check on the patient when she noted that the patient's curtains werent opened this morning. She found the patient to be confused, having difficulties with ambulation and reporting vertiginous symptoms. This was noted at 11 AM and the neighbor called the ex-. She presented to the house to be with the patient. He continued to complain of the symptoms therefore she brought him into the emergency department for evaluation. It is noted that the patient had some left-sided weakness and right-sided facial droop. Chart does state the patient has had a previous CVA however waste denies this. The patient is taking anticoagulation for his history of A. fib. The patient denies any missed doses. He does admit to a previous diagnosis of vertigo. States this is much more severe. He denies any headaches or visual changes. No neck pain. No fevers or chills. Denies any chest pain or shortness of breath. Patient reports difficulties with ambulation maintaining his balance. Denies any abdominal pain. Reports that he has not urinated since yesterday. No changes in his bowel habits. Remainder of the HPI is limited as the patient is difficult to obtain a history from - Related Data Home Medications Medication Instructions Recorded Confirmed Atorvastatin [Lipitor] 20 mg PO DAILY 02/09/16 06/04/20 Finasteride [Proscar] 5 mg PO DAILY 06/01/18 06/04/20 Furosemide [Lasix] 40 mg PO MOWEFR@0800 06/29/19 06/04/20 Metoprolol Tartrate [Lopressor] 50 mg PO TID 06/29/19 06/04/20 Rivaroxaban [Xarelto] 15 mg PO DAILY 06/29/19 06/04/20 lisinopriL 20 mg PO DAILY 06/29/19 06/04/20 Furosemide [Lasix] 20 mg PO MOWEFR@1700 04/27/20 06/04/20 Meclizine [Antivert] 25 mg PO BID PRN 04/27/20 06/04/20 Baclofen [Lioresal] 10 mg PO HS PRN 06/04/20 06/04/20 Levothyroxine Sodium 150 mcg PO DAILY 06/04/20 06/04/20 Allergies Allergy/AdvReac Type Severity Reaction Status Date / Time No Known Allergies Allergy Verified 06/04/20 18:50 Review of Systems ROS Statement: Those systems with pertinent positive or pertinent negative responses have been documented in the HPI. ROS Other: All systems not noted in ROS Statement are negative. Past Medical History Past Medical History: Atrial Fibrillation, Coronary Artery Disease (CAD), Chest Pain / Angina, CVA/TIA, GERD/Reflux, Hyperlipidemia, Hypertension, Myocardial Infarction (GA), Thyroid Disorder Additional Past Medical History / Comment(s): Thalassemia trait, chronic kidney disease stage II, elevated PSA in the past, Last Myocardial Infarction Date:: 2000 History of Any Multi-Drug Resistant Organisms: None Reported Past Surgical History: Coronary Bypass/CABG, Heart Catheterization With Stent, Tonsillectomy Additional Past Surgical History / Comment(s): CABG May 2000, angioplasty in 2000 and February 2004, bilateral cataract removal and intraocular lens implants,, 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 Past Anesthesia/Blood Transfusion Reactions: No Reported Reaction Date of Last Stent Placement:: unknown Past Psychological History: No Psychological Hx Reported Smoking Status: Never smoker Past Alcohol Use History: None Reported Past Drug Use History: None Reported - Past Family History Father Family Medical History: No Reported History Mother Family Medical History: No Reported History Additional Family Medical History / Comment(s): Mother at age 82 from old age. Brother(s) Additional Family Medical History / Comment(s): Patient has 3 brothers and all 3 have passed. Unknown causes. Sister(s) Additional Family Medical History / Comment(s): Patient has has 4 sister that of all from old age. Daughter(s) Additional Family Medical History / Comment(s): Patient has 4 children, 2 boys and 2 girls with no major medical problems. General Exam Limitations: altered mental status General appearance: anxious, in distress Head exam: Present: atraumatic, normocephalic, other (flattening of the right nasolabial fold) Eye exam: Present: normal appearance, PERRL, EOMI. Absent: scleral icterus, c onjunctival injection, periorbital swelling ENT exam: Present: normal exam, mucous membranes moist Neck exam: Present: normal inspection. Absent: tenderness, meningismus, lymphadenopathy Respiratory exam: Present: normal lung sounds bilaterally. Absent: respiratory distress, wheezes, rales, rhonchi, stridor Cardiovascular Exam: Present: regular rate, normal rhythm, normal heart sounds. Absent: systolic murmur, diastolic murmur, rubs, gallop, clicks GI/Abdominal exam: Present: soft, normal bowel sounds. Absent: distended, tenderness, guarding, rebound, rigid Extremities exam: Present: other (weakness left upper and left ) Neurological exam: Present: altered Psychiatric exam: Present: anxious Skin exam: Present: warm, dry, intact, normal color. Absent: rash Course Vital Signs 06/04/20 06/04/20 06/04/20 17:03 17:14 17:20 Temperature 98 F 98 F Pulse Rate 87 87 Pulse Rate [ Bioprocess Engineer ] Respiratory 16 16 Rate Blood Pressure 185/105 185/105 Blood Pressure [Right Arm] O2 Sat by Pulse 95 95 95 Oximetry 06/04/20 06/04/20 06/04/20 17:45 18:00 18:30 Temperature 98 F Pulse Rate 94 93 88 Pulse Rate [ Bioprocess Engineer ] Respiratory 16 17 18 Rate Blood Pressure 135/107 152/89 166/85 Blood Pressure [Right Arm] O2 Sat by Pulse 95 86 L Oximetry 06/04/20 06/04/20 06/04/20 19:57 20:12 20:31 Temperature 97.9 F 97.9 F Pulse Rate 93 104 H Pulse Rate [ 93 Bioprocess Engineer ] Respiratory 16 16 18 Rate Blood Pressure 192/92 162/102 Blood Pressure 192/92 [Right Arm] O2 Sat by Pulse 97 97 94 L Oximetry EKG Findings - EKG Comments: EKG Findings:: EKG demonstrates A. fib with a rapid ventricular response. Rate of 101. QRS 114. QTC of 469. No acute ST segment elevations or depressions Medical Decision Making - Medical Decision Making Upon arrival patient was placed into room 6. A thorough history and physical exam was performed. Patient does have right-sided facial droop and left upper and lower extremity weakness. Because of this a code stroke was activated. NIH is 6 upon presentation with a last known well greater than 11 AM this morning. Patient went over for a CT of his brain as well as CT angiography. Laboratory studies were conducted. Creatinine 1.5. INR 1.4. CT of the patient's brain demonstrates no acute intracranial abnormality. CT the patient's abdomen and pelvis was also performed as the patient is reporting abdominal pain. Demonstrates bladder wall thickening with a bladder diverticulum. Incidental 7 mm left basilar nodule. CT angiography demonstrates 50% stenosis in the bilateral proximal ICAs. A chest x-ray demonstrates findings consistent with CHF. BNP is 2950. I did discuss the case with Dr. Lugo. He does take a look at the images and calls me back. States that there are no are no acute findin gs. Recommends holding the patient Eliquis until he is evaluated by neurology. Patient is to be given a full dose aspirin. This is provided to the patient. Patient was given 2 mg of Valium for his vertiginous symptoms. Due to the signs concerning for cystitis we did request a urine specimen patient is unable to provide one and therefore he is straight cathed. He states he has not urinated since yesterday and we do obtain return of urine it is grossly bloody. I did discuss results with Dr. Dailey. He did accept admission for the patient. ALLERGY will be placed on consult. He remained in stable condition awaiting a bed on the floor - Lab Data Result diagrams: 06/07/20 07:54 06/07/20 07:54 Lab Results 06/04/20 06/04/20 06/04/20 Range/Units 17:51 17:51 17:51 WBC 6.8 (3.8-10.6) k/uL RBC 4.72 (4.30-5.90) m/uL Hgb 10.2 L (13.0-17.5) gm/dL Hct 31.9 L (39.0-53.0) % MCV 67.7 L (80.0-100.0) fL MCH 21.6 L (25.0-35.0) pg MCHC 32.0 (31.0-37.0) g/dL RDW 18.6 H (11.5-15.5) % Plt Count 221 (150-450) k/uL MPV 7.3 Neutrophils % 82 % Lymphocytes % 12 % Monocytes % 4 % Eosinophils % 0 % Basophils % 1 % Neutrophils # 5.6 (1.3-7.7) k/uL Lymphocytes # 0.8 L (1.0-4.8) k/uL Monocytes # 0.3 (0-1.0) k/uL Eosinophils # 0.0 (0-0.7) k/uL Basophils # 0.1 (0-0.2) k/uL Hypochromasia Slight Poikilocytosis Slight Anisocytosis Slight Microcytosis Marked PT 13.9 H (9.0-12.0) sec INR 1.4 H (<1.2) APTT 26.8 (22.0-30.0) sec Sodium 139 (137-145) mmol/L Potassium 4.2 (3.5-5.1) mmol/L Chloride 107 (98-107) mmol/L Carbon Dioxide 21 L (22-30) mmol/L Anion Gap 11 mmol/L BUN 34 H (9-20) mg/dL Creatinine 1.54 H (0.66-1.25) mg/dL Est GFR (CKD-EPI)AfAm 47 (>60 ml/min/1.73 sqM) Est GFR (CKD-EPI)NonAf 40 (>60 ml/min/1.73 sqM) Glucose 154 H (74-99) mg/dL Estimated Ave Glu mg/dL Hemoglobin A1c (4.0-6.0) % Calcium 9.3 (8.4-10.2) mg/dL Total Bilirubin 1.3 (0.2-1.3) mg/dL AST 31 (17-59) U/L ALT 20 (4-49) U/L Alkaline Phosphatase 70 (38-126) U/L Troponin I (0.000-0.034) ng/mL NT-Pro-B Natriuret Pep pg/mL Total Protein 8.3 H (6.3-8.2) g/dL Albumin 4.3 (3.5-5.0) g/dL Urine Color Urine Appearance (Clear) Urine pH (5.0-8.0) Ur Specific [place] (1.001-1.035) Urine Protein (Negative) Urine Glucose (UA) (Negative) Urine Ketones (Negative) Urine Blood (Negative) Urine Nitrite (Negative) Urine Bilirubin (Negative) Urine Urobilinogen (<2.0) mg/dL Ur Leukocyte Esterase (Negative) Urine RBC (0-5) /hpf Urine WBC (0-5) /hpf 06/04/20 06/04/20 06/04/20 Range/Units 17:51 17:51 18:47 WBC (3.8-10.6) k/uL RBC (4.30-5.90) m/uL Hgb (13.0-17.5) gm/dL Hct (39.0-53.0) % MCV (80.0-100.0) fL MCH (25.0-35.0) pg MCHC (31.0-37.0) g/dL RDW (11.5-15.5) % Plt Count (150-450) k/uL MPV Neutrophils % % Lymphocytes % % Monocytes % % Eosinophils % % Basophils % % Neutrophils # (1.3-7.7) k/uL Lymphocytes # (1.0-4.8) k/uL Monocytes # (0-1.0) k/uL Eosinophils # (0-0.7) k/uL Basophils # (0-0.2) k/uL Hypochromasia Poikilocytosis Anisocytosis Microcytosis PT (9.0-12.0) sec INR (<1.2) APTT (22.0-30.0) sec Sodium (137-145) mmol/L Potassium (3.5-5.1) mmol/L Chloride (98-107) mmol/L Carbon Dioxide (22-30) mmol/L Anion Gap mmol/L BUN (9-20) mg/dL Creatinine (0.66-1.25) mg/dL Est GFR (CKD-EPI)AfAm (>60 ml/min/1.73 sqM) Est GFR (CKD-EPI)NonAf (>60 ml/min/1.73 sqM) Glucose (74-99) mg/dL Estimated Ave Glu mg/dL 103 Hemoglobin A1c 5.2 (4.0-6.0) % Calcium (8.4-10.2) mg/dL Total Bilirubin (0.2-1.3) mg/dL AST (17-59) U/L ALT (4-49) U/L Alkaline Phosphatase (38-126) U/L Troponin I 0.014 (0.000-0.034) ng/mL NT-Pro-B Natriuret Pep 2950 pg/mL Total Protein (6.3-8.2) g/dL Albumin (3.5-5.0) g/dL Urine Color Urine Appearance (Clear) Urine pH (5.0-8.0) Ur Specific [place] (1.001-1.035) Urine Protein (Negative) Urine Glucose (UA) (Negative) Urine Ketones (Negative) Urine Blood (Negative) Urine Nitrite (Negative) Urine Bilirubin (Negative) Urine Urobilinogen (<2.0) mg/dL Ur Leukocyte Esterase (Negative) Urine RBC (0-5) /hpf Urine WBC (0-5) /hpf 06/04/20 Range/Units 19:35 WBC (3.8-10.6) k/uL RBC (4.30-5.90) m/uL Hgb (13.0-17.5) gm/dL Hct (39.0-53.0) % MCV (80.0-100.0) fL MCH (25.0-35.0) pg MCHC (31.0-37.0) g/dL RDW (11.5-15.5) % Plt Count (150-450) k/uL MPV Neutrophils % % Lymphocytes % % Monocytes % % Eosinophils % % Basophils % % Neutrophils # (1.3-7.7) k/uL Lymphocytes # (1.0-4.8) k/uL Monocytes # (0-1.0) k/uL Eosinophils # (0-0.7) k/uL Basophils # (0-0.2) k/uL Hypochromasia Poikilocytosis Anisocytosis Microcytosis PT (9.0-12.0) sec INR (<1.2) APTT (22.0-30.0) sec Sodium (137-145) mmol/L Potassium (3.5-5.1) mmol/L Chloride (98-107) mmol/L Carbon Dioxide (22-30) mmol/L Anion Gap mmol/L BUN (9-20) mg/dL Creatinine (0.66-1.25) mg/dL Est GFR (CKD-EPI)AfAm (>60 ml/min/1.73 sqM) Est GFR (CKD-EPI)NonAf (>60 ml/min/1.73 sqM) Glucose (74-99) mg/dL Estimated Ave Glu mg/dL Hemoglobin A1c (4.0-6.0) % Calcium (8.4-10.2) mg/dL Total Bilirubin (0.2-1.3) mg/dL AST (17-59) U/L ALT (4-49) U/L Alkaline Phosphatase (38-126) U/L Troponin I (0.000-0.034) ng/mL NT-Pro-B Natriuret Pep pg/mL Total Protein (6.3-8.2) g/dL Albumin (3.5-5.0) g/dL Urine Color Red Urine Appearance Clear (Clear) Urine pH 6.0 (5.0-8.0) Ur Specific [place] 1.038 H (1.001-1.035) Urine Protein 1+ H (Negative) Urine Glucose (UA) Negative (Negative) Urine Ketones Negative (Negative) Urine Blood Large H (Negative) Urine Nitrite Negative (Negative) Urine Bilirubin Negative (Negative) Urine Urobilinogen <2.0 (<2.0) mg/dL Ur Leukocyte Esterase Small H (Negative) Urine RBC >182 H (0-5) /hpf Urine WBC 2 (0-5) /hpf Critical Care Time Critical Care Time: Yes Critical Care Time: 32 minutes for activation of code stroke, discussion with neurointensivist and multiple NIH evaluations Disposition Clinical Impression: Transient ischemic attack (TIA), Vertigo, Urinary retention, Renal insufficiency syndrome, Congestive heart failure, Afib Disposition: ADMITTED IP TO THIS [facility] Condition: Serious Is patient prescribed a controlled substance at d/c from ED?: No Decision to Admit Reason: Admit from EC Decision Date: 06/04/20 Decision Time: 19:42
--- NOTE | 2020-06-04 18:10 | CT ---
EXAMINATION TYPE: CT angio head neck DATE OF EXAM: 06/04/2020 HISTORY: cva COMPARISON: None available. CT DLP: 557.5 mGycm. Automated Exposure Control for Dose Reduction was Utilized. TECHNIQUE: CTA scan of the neck is performed with IV Contrast, patient injected with 60cc mL of Isov ue 370, axial images are obtained, coronal and sagittal reformatted images are reviewed. Three-D aaron nstructed images are created on an independent workstation and reviewed. FINDINGS: Carotid/Vascular Structures: Moderate approximately 50% stenosis of the bilateral proximal ICAs. Othe rwise the remainder of the carotid, vertebrobasilar and cerebral vascular systems are grossly patent. No aneurysm, dissection or rupture. Other: Incidental multiple enlarged mediastinal lymph nodes with index lesion measures 1.3 cm short a xis. The visualized lungs are clear. IMPRESSION: No acute abnormality of the CTA head/neck is seen. Moderate stenosis of the bilateral proximal ICAs. Incidental enlarged mediastinal lymph nodes, nonspecific and may be reactive. However etiology and ch ronicity cannot be ascertained.
[2020-06-04 18:17] LABS: INR 1.4 (<1.2); Partial Thromboplastin Time 26.8 sec (22.0-30.0); Prothrombin Time 13.9 sec (9.0-12.0)
[2020-06-04 18:18] LABS: Albumin 4.3 g/dL (3.5-5.0); Calcium 9.3 mg/dL (8.4-10.2); Potassium 4.2 mmol/L (3.5-5.1); Total Bilirubin 1.3 mg/dL (0.2-1.3); Total Protein 8.3 g/dL (6.3-8.2)
--- NOTE | 2020-06-04 18:46 | XR ---
EXAMINATION TYPE: XR chest 2V DATE OF EXAM: 06/04/2020 COMPARISON: 04/27/2020. HISTORY: Altered mental status. TECHNIQUE: Frontal and lateral views of the chest are obtained. FINDINGS: There is moderate interstitial edema with superimposed hazy opacities. There are probable trace pleural effusions. No pneumothorax. The cardiac silhouette size is enlarged. CABG is noted. The osseous structures are otherwise intact. IMPRESSION: CHF.
[2020-06-04] MEDS ORDERED: ASPIRIN 325 MG TAB PO STA (19:34)
[2020-06-04 19:51] LABS: Appearance,Urine Clear (Clear); Bilirubin,Urine Negative (Negative); Blood,Urine Large (Negative); Color,Urine Red; Glucose,Urine (UA) Negative (Negative); Ketones,Urine Negative (Negative); Leukocyte Esterase,Urine Small (Negative); Nitrite,Urine Negative (Negative); Protein,Urine 1+ (Negative); RBC,Urine >182 /hpf (0-5); Specific Gravity,Urine 1.038 (1.001-1.035); Urobilinogen,Urine <2.0 mg/dL (<2.0); WBC,Urine 2 /hpf (0-5)
[2020-06-04] MEDS ORDERED: ATORVASTATIN 40 MG TAB PO SCH (20:00)
[2020-06-04] MEDS ORDERED: MECLIZINE 25 MG TAB PO PRN (20:35)
[2020-06-04] MEDS: FUROSEMIDE 10 MG/ML 10 ML VIAL IV SCH (21:55)
[2020-06-04] MEDS: METOPROLOL TARTRATE 25 MG TAB PO SCH (21:55)
[2020-06-05] MEDS: LEVOTHYROXINE 100 MCG TAB PO SCH (06:06)
[2020-06-05 07:33] LABS: Cholesterol 215 mg/dL (<200); HDL Cholesterol 31 mg/dL (40-60); LDL Cholesterol,Calculated 164 mg/dL (0-99); Triglycerides 99 mg/dL (<150)
[2020-06-05] MEDS: FUROSEMIDE 10 MG/ML 10 ML VIAL IV SCH (08:25)
[2020-06-05] MEDS: FINASTERIDE 5 MG TAB PO SCH (08:25)
[2020-06-05] MEDS: METOPROLOL TARTRATE 25 MG TAB PO SCH ×3 (08:26→21:11)
[2020-06-05] MEDS: lisinopriL 20 MG TAB PO SCH (08:26)
[2020-06-05] MEDS ORDERED: ATORVASTATIN 20 MG TAB PO SCH (09:00)
[2020-06-05] MEDS ORDERED: ASPIRIN 325 MG TAB PO SCH (09:00)
--- NOTE | 2020-06-05 10:17 | P.CNNES ---
History of Present Illness Consult date: 06/05/20 Requesting physician: Raven Solares Reason for Consult: dizziness and left hemiparesis History of Present Illness: This is a 85-year-old gentleman with medical history of Stroke, fibrillation on Xarelto, coronary artery disease status post CABG, cardioverter, chronic kidney disease, hypertension, hyperlipidemia and hypothyroidism that was admitted to the emergency department on 06/04/2020 for vertiginous symptoms as well as ataxia. Some of the history is obtained from medical record. Per medical record that ex- notified the emergency Department team that the neighbor went to check up on the patient and they noted that his curtains were not open in the morning. They found the patient confused, having difficulty with ambulation and having vertiginous symptoms and that was around 11 AM on 06/04/2020. As a result the neighbors called that his ex- and she came to check up on him and that his symptoms continued. As a result emergency department was contacted. Was felt that the patient had left-sided weakness as well as right facial droop. Per patient he stated that he went to bed on Friday which was on 06/03/2020 at around the 10 PM and then woke up around 3 AM with the nausea and vomiting. There will back to bed then woke up again at at 6:30 in the morning because of the alarm went off. He stated that he was feeling off, feeling dizzy as if the room is spinning and was mostly with pos ition. Patient seemed not a great historian he stated that he did have left- sided weakness but he stated that the left upper extremity and he had it for the 2-3 month and it was from the shoulder down while the left lower extremity weakness she had it now for more than a year. He does have dizziness that's been more than a year as well as ringing in the ears bilaterally going on for a year and he was told it was due to wax in his ears. He does have some hearing loss. He denies any diplopia. He states that he has some numbness in the fingertips of the right as well as left hand that's been going on for months. He is taken Xarelto and compliant with the medication as well as he takes asp irin 325 daily. He states that he takes the statin but could not tell me the dose. Per the chart it looks like he is taking Lipitor 20 mg daily. Upon asking if he had an old stroke or TIA in the past he stated that he was told that he probably had an old TIA but he cannot tell me his symptoms. Workup in the hospital consisted of: Initial vital signs: Pressure of 185/105, heart rate of 87, with 0 of 16, temperature of 98 Fahrenheit oral and pulse ox of 95% room air. CT of the head is reported as a no acute intracranial abnormality. Upon reviewing the CT of the head the there is encephalomalacia in the left medial cerebellar region. CT angiography of the head and neck is reported as no acute abnormality of the CTA of the head and neck is seen. There is moderate approximately 50% stenosis of bilateral proximal ICAs There is incidental enlarged mediastinal left note, nonspecific and may be reactive. However etiology and chronicity cannot be ascertained. Stroke team was contacted and they reviewed the image per the ED note and they stated there is no acute findings. They recommended that the anticoagulation to be held until further evaluation by the neurology team EKG is reported as atrial fibrillation with rapid ventricular response. Moderate voltage criteria for left ventricular hypertrophy, may be normal variant. Inferior infarct, age undetermined. Marketed ST abnormality, possible lateral some endocardial injury. Abnormal EKG. Hemoglobin of 10.2 Creatinine is 1.54 and BUN is 34. Lipid panel: Triglyceride of 99, cholesterol 2:15, LDL of 164 and HDL 31. Coagulation studiy: PT of 13.9, INR is 1.4 and the PTT is 26.8. Patient chest x-ray demonstrate findings consistent with congestive heart failure with a BMP of 2950. Upon reviewing medical record seems that the patient was seen by neurology team in our facility on 02/10/2016, because of word finding difficulty and garbage speech that was transient and at that time the CT of the brain showed possible old left cerebellar infarct versus arachnoid cyst. Neurology noted that the patient has a transient ischemic attack as well as they stated that that episode could be the due to high dose of aspirin. Review of Systems Review of system: The 12 point system was reviewed and apparent positive and negative per HPI. Past Medical History Past Medical History: Atrial Fibrillation, Coronary Artery Disease (CAD), Chest Pain / Angina, CVA/TIA, GERD/Reflux, Hyperlipidemia, Hypertension, Myocardial Infarction (CT), Thyroid Disorder Additional Past Medical History / Comment(s): Thalassemia trait, chronic kidney disease stage II, elevated PSA in the past, Last Myocardial Infarction Date:: 2000 History of Any Multi-Drug Resistant Organisms: None Reported Past Surgical History: Coronary Bypass/CABG, Heart Catheterization With Stent, Tonsillectomy Additional Past Surgical History / Comment(s): CABG May 2000, angioplasty in 2000 and February 2004, bilateral cataract removal and intraocular lens implants,, 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 Past Anesthesia/Blood Transfusion Reactions: No Reported Reaction Date of Last Stent Placement:: unknown Past Psychological History: No Psychological Hx Reported Smoking Status: Never smoker Past Alcohol Use History: None Reported Past Drug Use History: None Reported - Past Family History Father Family Medical History: No Reported History Mother Family Medical History: No Reported History Additional Family Medical History / Comment(s): Mother at age 82 from old age. Brother(s) Additional Family Medical History / Comment(s): Patient has 3 brothers and all 3 have passed. Unknown causes. Sister(s) Additional Family Medical History / Comment(s): Patient has has 4 sister that of all from old age. Daughter(s) Additional Family Medical History / Comment(s): Patient has 4 children, 2 boys and 2 girls with no major medical problems. Medications and Allergies Home Medications Medication Instructions Recorded Confirmed Type Atorvastatin [Lipitor] 20 mg PO DAILY 02/09/16 06/04/20 History Finasteride [Proscar] 5 mg PO DAILY 06/01/18 06/04/20 History Furosemide [Lasix] 40 mg PO MOWEFR@0800 06/29/19 06/04/20 History Metoprolol Tartrate [Lopressor] 50 mg PO TID 06/29/19 06/04/20 History Rivaroxaban [Xarelto] 15 mg PO DAILY 06/29/19 06/04/20 History lisinopriL 20 mg PO DAILY 06/29/19 06/04/20 History Furosemide [Lasix] 20 mg PO MOWEFR@1700 04/27/20 06/04/20 History Meclizine [Antivert] 25 mg PO BID PRN 04/27/20 06/04/20 History Baclofen [Lioresal] 10 mg PO HS PRN 06/04/20 06/04/20 History Levothyroxine Sodium 150 mcg PO DAILY 06/04/20 06/04/20 History Allergies Allergy/AdvReac Type Severity Reaction Status Date / Time No Known Allergies Allergy Verified 06/04/20 18:50 Physical Examination - Vital Signs Vital Signs: Vital Signs Temp Pulse Pulse Pulse Resp BP BP 06/05/20 08:20 118 H 125/84 06/05/20 08:00 98.2 F 90 18 06/05/20 06:45 98.1 F 91 16 161/92 06/05/20 04:57 98.2 F 94 16 181/87 06/05/20 04:00 98.4 F 91 16 06/05/20 02:08 98.1 F 88 15 168/95 06/05/20 02:00 82 16 06/05/20 00:57 97.9 F 102 H 15 172/84 06/05/20 00:00 98.1 F 82 16 06/04/20 22:57 98.1 F 82 16 144/86 06/04/20 22:00 91 16 06/04/20 21:53 97.9 F 93 16 192/92 06/04/20 20:44 98 F 104 H 18 162/102 06/04/20 20:31 104 H 18 162/102 06/04/20 20:12 97.9 F 93 16 06/04/20 19:57 97.9 F 93 16 192/92 06/04/20 18:30 88 18 166/85 06/04/20 18:00 93 17 152/89 06/04/20 17:45 98 F 94 16 135/107 06/04/20 17:20 98 F 87 16 185/105 06/04/20 17:14 06/04/20 17:03 98 F 87 16 185/105 BP BP Pulse Ox 06/05/20 08:20 149/95 06/05/20 08:00 164/96 98 06/05/20 06:45 96 06/05/20 04:57 98 06/05/20 04:00 178/87 100 06/05/20 02:08 97 06/05/20 02:00 06/05/20 00:57 98 06/05/20 00:00 144/86 99 06/04/20 22:57 99 06/04/20 22:00 06/04/20 21:53 97 06/04/20 20:44 94 L 06/04/20 20:31 94 L 06/04/20 20:12 192/92 97 06/04/20 19:57 97 06/04/20 18:30 06/04/20 18:00 86 L 06/04/20 17:45 95 06/04/20 17:20 95 06/04/20 17:14 95 06/04/20 17:03 95 Intake and Output 06/04/20 06/05/20 06/05/20 22:59 06:59 14:59 Intake Total 120 Output Total 1500 2600 400 Balance -1500 -2480 -400 Intake: Oral 120 Output: Urine 1500 2600 400 Other: Voiding Method Indwelling Catheter Weight 97.976 kg 88.8 kg GENERAL: The patient is lying in bed and is not in acute distress. CHEST: The heart rate is regular rate rhythm. No murmurs to auscultation. No carotid bruit bilaterally. LUNG: Clear to auscultation bilaterally no wheezing noted throughout. Not labored breathing. ABDOMEN/GI: Bowel sounds present in all 4 quadrants. No tenderness to palpation throughout. MUSCULOSKELETAL: Amputation of right most of right index finger (when patient was 3 -year-old and injury of right middle finger from old accident). NEUROLOGICAL: Higher mental function: The patient is awake, alert, oriented to self, place and time. Patient is following commands. No aphasia and no neglect. Cranial nerves: The pupils are round, equal and reactive to light and accommodation. Visual goff are full to confrontation throughout. Extraocular movement is intact no nystagmus is noted. Facial sensation is normal to touch throughout. The facial strength is normal throughout. Hearing is mildly to moderate decreased to hand rub bilaterally. Tongue is midline and moved [id number] without any difficulty. No dysarthria is noted. Shoulder shrug is normal bilaterally. Motor: Gait was attempted and was unsteady walking and kept on saying he was dizzy. The strength is 5 over 5 throughout. Normal tone and bulk. Cerebellum: Normal finger to nose bilaterally. Sensation: Sensation is normal to touch throughout. Reflexes (right/left):2+ throughout except ankles are 1+ bilaterally. Plantars are downgoing bilaterally. Results - Laboratory Findings CBC and BMP: 06/04/20 17:51 06/04/20 17:51 Abnormal Lab Findings: Abnormal Labs 01/06/04/20 06/04/20 17:51 17:51 17:51 Hgb 10.2 L Hct 31.9 L MCV 67.7 L MCH 21.6 L RDW 18.6 H Lymphocytes # 0.8 L PT 13.9 H INR 1.4 H Carbon Dioxide 21 L BUN 34 H Creatinine 1.54 H Glucose 154 H Total Protein 8.3 H Cholesterol LDL Cholesterol, Calc HDL Cholesterol Ur Specific [place] Urine Protein Urine Blood Ur Leukocyte Esterase Urine RBC 06/04/20 06/05/20 19:35 06:56 Hgb Hct MCV MCH RDW Lymphocytes # PT INR Carbon Dioxide BUN Creatinine Glucose Total Protein Cholesterol 215 H LDL Cholesterol, Calc 164 H HDL Cholesterol 31 L Ur Specific [place] 1.038 H Urine Protein 1+ H Urine Blood Large H Ur Leukocyte Esterase Small H Urine RBC >182 H Assessment and Plan Assessment: This is a 85-year-old gentleman with medical problems that presented to the emergency department on 06/04/2020 for having left-sided weakness, right facial droop, ataxia and worsening of the vertigo. Transient episode of left sided weakness, right facial droop and contionous to be vertiginous: Possibly could be due to Transient ischemic attack. History of stroke (CT head shows left medial cerebellar encephalomalacia) (seen in 2017 CT head). Reported as infarct vs arachnoid cyst but upon talking to radiologist it seems more infarct than cyst. Bilateral mild to moderate carotid stenosis (50%) Acute congestive heart failure Atrial fibrillation on anticoagulation Hyperlipidemia Coronary artery disease status post CABG Chronic kidney insufficiency Hypertension Hyperlipidemia Hypothyroidism Plan: CT of the head is reported as a no acute intracranial abnormality. Upon reviewing the CT of the head the there is encephalomalacia in the left medial cerebellar region. CT angiography of the head and neck is reported as no acute abnormality of the CTA of the head and neck is seen. There is moderate stenosis of bilateral proximal internal carotid arteries. There is incidental enlarged mediastinal left note, nonspecific and may be reactive. However etiology and chronicity cannot be ascertained. Lipid panel: Triglyceride of 99, cholesterol 2:15, LDL of 164 and HDL 31. I ordered carotid duplex as well as 2-D echo. Ordered TSH. Currently the patient is on aspirin 325 daily (On home Xarelto and ASA 325mg daily. I will stop the aspirin 325 and will start the patient on Plavix 75 mg and the reason for that is aspirin can cause tinnitus. Anticoagulation is held for now. Ordered MRI Brain and if negative for ischemic stroke then we can resume the Xarelto. I stopped the patient Lipitor 20 mg and I increased it to 40 mg. PT and OT as well as PHOTOGRAPHER[employer]S MODEL are consulted The transient episode of confusion I ordered TSH as well as vitamin B12. Also ordered hemoglobin A1c. Currently the patient is on meclizine 25 mg 1 tablet twice a day when necessary and I change it to standing dose. Because of the numbness of the distal digits of both hands would recommend an EMG with nerve conduction as an outpatient. Upon discharge the patient needs to follow-up with a neurologist within 1-2 weeks as outpatient. I will DEFER the rest of the medical management to the primary team. Thank you for the consultation. Luis Ramon MD Neuro-Hospitalist Time with Patient: Greater than 30
[2020-06-05 11:16] LABS: T4, Free (Free Thyroxine) 2.02 ng/dL (0.78-2.19)
--- NOTE | 2020-06-05 11:43 | ECHOF ---
Referral Reason:stroke MEASUREMENTS -------- HEIGHT: 172.7 cm WEIGHT: 88.5 kg BP: 125/84 RVIDd: 3.7 cm (< 3.3) IVSd: 1.5 cm (0.6 - 1.1) LVIDd: 4.5 cm (3.9 - 5.3) LVPWd: 1.5 cm (0.6 - 1.1) IVSs: 2.2 cm LVIDs: 3.6 cm LVPWs: 1.4 cm LA Diam: 4.2 cm (2.7 - 3.8) LAESV Index (A-L): 49.95 ml/m Ao Diam: 3.8 cm (2.0 - 3.7) AV Cusp: 1.9 cm (1.5 - 2.6) MV EXCURSION: 10.087 mm (> 18.000) MV EF SLOPE: 144 mm/s (70 - 150) EPSS: 1.3 cm AV maxP.81 mmHg AV meanP.73 mmHg AR PHT: 795 ms FINDINGS -------- Atrial fibrillation. This was a technically adequate study. The left ventricular size is normal. There is moderate concentric left ventricular hypertrophy. O verall left ventricular systolic function is mildly impaired with, an EF between 45 - 50 %. Basal i nferior LV wall motion is hypokinetic. Mid inferior LV wall motion is hypokinetic. The right ventricle is mildly enlarged. LA is severely dilated >40 ml/m2 The right atrial size is normal. Interatrial and interventricular septum intact. There is moderate aortic valve sclerosis. There is mild aortic regurgitation. There is moderate a ortic stenosis present. Peak/mean gradient across the Aortic Valve is 35.81mmHg / 22.73mmHg. Moderate mitral annular calcification present. Jzeflzka-[id number]-mtzgus mitral regurgitation is present. The tricuspid valve appears structurally normal. Mild tricuspid regurgitation present. Trace/mild (physiologic) pulmonic regurgitation. The aortic root is mildy dilated. IVC Not well visulized. There is no pericardial effusion. CONCLUSIONS -------- 1. There is moderate concentric left ventricular hypertrophy. 2. Overall left ventricular systolic function is mildly impaired with, an EF between 45 - 50 %. 3. Basal inferior LV wall motion is hypokinetic. 4. Mid inferior LV wall motion is hypokinetic. 5. The right ventricle is mildly enlarged. 6. LA is severely dilated >40 ml/m2 7. There is moderate aortic valve sclerosis. 8. There is mild aortic regurgitation. 9. There is moderate aortic stenosis present. 10. Peak/mean gradient across the Aortic Valve is 35.81mmHg / 22.73mmHg. 11. Moderate mitral annular calcification present. 12. Rybalkxk-ud-pshvmz mitral regurgitation is present. 13. Mild tricuspid regurgitation present. 14. Trace/mild (physiologic) pulmonic regurgitation. 15. The aortic root is mildy dilated. 16. There is no pericardial effusion. ENGINEERING PSYCHOLOGIST: Meche Tomlin RDCS
[2020-06-05] MEDS: CLOPIDOGREL 75 MG TAB PO SCH (12:21)
--- NOTE | 2020-06-05 12:52 | US ---
EXAMINATION TYPE: US carotid duplex BILAT DATE OF EXAM: 06/05/2020 COMPARISON: Correlation CTA 06/04/2020 CLINICAL HISTORY: 85-year-old male stroke. Confusion TECHNIQUE: Carotid duplex ultrasound examination. Indirect Doppler criteria is visualized. FINDINGS: EXAM MEASUREMENTS: RIGHT: Peak Systolic Velocity (PSV) cm/sec ----- Right CCA: 65.8 ----- Right ICA: 114.5 ----- Right ECA: 84.9 ICA/CCA ratio: 1.7 RIGHT: End Diastole cm/sec ----- Right CCA: 15.3 ----- Right ICA: 24.1 ----- Right ECA: 0.0 LEFT: Peak Systolic Velocity (PSV) cm/sec ----- Left CCA: 67.7 ----- Left ICA: 61.1 ----- Left ECA: 53.9 ICA/CCA ratio: 0.9 LEFT: End Diastole cm/sec ----- Left CCA: 11.7 ----- Left ICA: 9.5 ----- Left ECA: 0.0 VERTEBRALS (direction of flow): Right Vertebral: Antegrade Left Vertebral: Antegrade Rhythm: Arrhythmia noted on multiple images. Moderate atherosclerotic change seen in bilateral CCA, ECA, and ICA, but PSV is wnl bilaterally. IMPRESSION: Moderate atherosclerotic change at both bifurcations but without hemodynamically significant internal carotid artery stenosis by Doppler criteria. Despite this, based on CTA findings from 06/04/2020, erica ble to exclude a moderate proximal right ICA stenosis (50-69%) and mild (<50%) on the left. Criteria for Assigning % of Stenosis / Diameter reduction (Estimation based on the indirect measurements of the internal carotid artery velocities (ICA PSV). 1. Normal (no stenosis)=ICA PSV < 125 cm/s: ratio < 2.0: ICA EDV<40 cm/s. 2. Less than 50% stenosis=ICA PSV < 125 cm/s: ratio < 2.0: ICA EDV<40 cm/s. 3. 50 to 69% stenosis=ICA PSV of 125 to 230 cm/s: ration 2.0 ? 4.0: ICA EDV 40-100 cm/s. 4. Greater than 70% stenosis to near occlusion= ICA PSV > 230 cm/s: ratio > 4.0: ICA EDV > 100 cm/s. 5. Near occlusion= ICA PSV velocities may be low or undetectable: variable ratio and ICA EDV. 6. Total occlusion=unable to detect flow.
--- NOTE | 2020-06-05 15:01 | MR ---
EXAMINATION TYPE: MR brain wo con DATE OF EXAM: 06/05/2020 COMPARISON: CT brain from yesterday HISTORY: Right facial droop, left sided weakness TECHNIQUE: Multiplanar, multisequence imaging of the brain and brainstem is performed without IV cont rast. FINDINGS: Diffusion weighted images demonstrate no evidence of a recent infarct or other diffusion abnormality. There is no worrisome extra-axial fluid collection. Persistent mild/moderate diffuse ventricular and sulcal prominence. Scattered foci of T2 intensity are seen throughout the white matter bilaterally. T here is old infarct in the medial inferior left cerebellum on axial image 8 redemonstrated. There are smaller old infarcts in the periphery of the right parietal-occipital lobe and left frontal lobe axi al images 23 and 22 on MRI less well seen on CT. Midline structures demonstrate normal morphology. The craniocervical junction appears within normal limits. Normal vascular flow voids are present. The visualized sinuses are clear and the globes are i ntact. IMPRESSION: 1. No MRI evidence for recent infarct. 2. Background [id number] diffuse cerebral atrophy and chronic small vessel ischemic changes red emonstrated. Old inferior medial left cerebellar infarct along with smaller subcortical old infarct l eft frontal region and right parietal occipital region noted.
[2020-06-05] MEDS ORDERED: FUROSEMIDE 20 MG TAB PO SCH (17:00)
[2020-06-05] MEDS ORDERED: ATORVASTATIN 40 MG TAB PO SCH (21:00)
[2020-06-05] MEDS: MECLIZINE 25 MG TAB PO SCH (21:11)
[2020-06-05 21:18] LABS: Hemoglobin A1C 5.2 % (4.0-6.0)
[2020-06-06] MEDS: LEVOTHYROXINE 100 MCG TAB PO SCH (06:09)
[2020-06-06 08:02] LABS: Anisocytosis Slight; Basophils # (A) 0.1 k/uL (0-0.2); Basophils % (A) 1 %; Eosinophils # (A) 0.1 k/uL (0-0.7); Eosinophils % (A) 1 %; HCT 32.3 % (39.0-53.0); HGB 10.3 gm/dL (13.0-17.5); Hypochromasia Moderate; Lymphocytes # (A) 1.8 k/uL (1.0-4.8); Lymphocytes % (A) 13 %; MCH 21.8 pg (25.0-35.0); MCHC 31.8 g/dL (31.0-37.0); MCV 68.7 fL (80.0-100.0); Microcytosis Marked; Monocytes # (A) 0.8 k/uL (0-1.0); Monocytes % (A) 6 %; Neutrophils # (A) 10.9 k/uL (1.3-7.7); Neutrophils % (A) 78 %; Platelet Count 224 k/uL (150-450); Poikilocytosis Slight; RDW 18.6 % (11.5-15.5); WBC 13.9 k/uL (3.8-10.6)
[2020-06-06 08:16] LABS: Albumin 4.1 g/dL (3.5-5.0); Calcium 9.2 mg/dL (8.4-10.2); Potassium 3.9 mmol/L (3.5-5.1); Total Bilirubin 1.3 mg/dL (0.2-1.3)
[2020-06-06] MEDS: METOPROLOL TARTRATE 25 MG TAB PO SCH ×3 (08:22→21:49)
[2020-06-06] MEDS: MECLIZINE 25 MG TAB PO SCH ×2 (08:22→21:50)
[2020-06-06] MEDS: FINASTERIDE 5 MG TAB PO SCH (08:22)
[2020-06-06] MEDS: CLOPIDOGREL 75 MG TAB PO SCH (08:23)
--- NOTE | 2020-06-06 11:34 | P.PN ---
Subjective Progress Note Date: 06/06/20 The patient was seen at bedside and he feels better today compared to to his initial presentation at. He stated that he is working with physical therapy today and was able today and feels his dizziness is improving. Objective - Vital Signs Vital signs: Vital Signs Temp 97.8 F 06/06/20 08:23 Pulse 95 06/06/20 08:23 Resp 18 06/06/20 08:23 BP 109/58 06/06/20 08:23 Pulse Ox 94 L 06/06/20 08:23 Intake & Output 06/05/20 06/06/20 06/06/20 18:59 06:59 18:59 Intake Total 480 240 Output Total 1550 400 Balance -1070 -400 240 Weight 70 kg Intake: Oral 480 240 Output: Urine 1550 400 Other: Voiding Method Indwelling Catheter Indwelling Catheter Indwelling Catheter - Exam GENERAL: The patient is lying in bed and is not in acute distress. NEUROLOGICAL Exam: Higher mental function: The patient is awake, alert, oriented to self, place and time. Patient is following commands. No aphasia and no neglect. Cranial nerves: The pupils are round, equal and reactive to light and accommodation. Visual goff are full to confrontation throughout. Extraocular movement is intact no nystagmus is noted. Facial sensation is normal to touch throughout. The facial strength is normal throughout. Hearing is mildly to moderate decreased to hand rub bilaterally. Tongue is midline and moved [id number] without any difficulty. No dysarthria is noted. Shoulder shrug is normal bilaterally. Motor: Gait is deferred. The strength is 5 over 5 throughout. Normal tone and bulk. Cerebellum: Normal finger to nose bilaterally. Sensation: Sensation is normal to touch throughout. Reflexes (right/left):2+ throughout except ankles are 1+ bilaterally. Plantars are downgoing bilaterally. - Labs CBC & Chem 7: 06/06/20 06:59 06/06/20 06:59 Labs: Abnormal Lab Results - Last 24 Hours (Table) 06/06/20 06/06/20 Range/Units 06:59 06:59 WBC 13.9 H (3.8-10.6) k/uL Hgb 10.3 L (13.0-17.5) gm/dL Hct 32.3 L (39.0-53.0) % MCV 68.7 L (80.0-100.0) fL MCH 21.8 L (25.0-35.0) pg RDW 18.6 H (11.5-15.5) % Neutrophils # 10.9 H (1.3-7.7) k/uL BUN 44 H (9-20) mg/dL Creatinine 1.95 H (0.66-1.25) mg/dL Glucose 111 H (74-99) mg/dL Assessment and Plan Assessment: This is a 85-year-old gentleman with medical problems that presented to the emergency department on 9 06/04/2020 for having left-sided weakness, right facial droop, ataxia and worsening of the vertigo. Transient episode of left sided weakness, right facial droop and contionous to be vertiginous: Possibly could be due to Transient ischemic attack. 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 Per MRI Brain has Old inferior medial left cerebellar infarct along with small subcortical old infarct in the left frontal in the right parietal occipital region noted. Bilateral moderate carotid stenosis (50%) Acute congestive heart failure Atrial fibrillation on anticoagulation Hyperlipidemia Coronary artery disease status post CABG Chronic kidney insufficiency Hypertension Hyperlipidemia Hypothyroidism Plan: * CT of the head is reported as a no acute intracranial abnormality. Upon reviewing the CT of the head the there is encephalomalacia in the left medial cerebellar region. * CT angiography of the head and neck is reported as no acute abnormality of the CTA of the head and neck is seen. There is moderate stenosis of bilateral proximal internal carotid arteries. There is incidental enlarged mediastinal left note, nonspecific and may be reactive. However etiology and chronicity cannot be ascertained * MRI Brain: It is reported as no MRI evidence for recent infarct. Background mild to moderate diffuse cerebral atrophy and chronic small vessel ischemic changes redemonstrated. Old inferior medial left cerebellar infarct along with small subcortical old infarct in the left frontal in the right parietal occipital region noted. * Lipid panel: Triglyceride of 99, cholesterol 2:15, LDL of 164 and HDL 31. * Carotid duplex: It is reported as moderate atherosclerotic changes at both bifurcation without hemodynamically significant internal carotid artery stenosis by Doppler criteria. Despite this, based on CTA finding from 06/04/2020, unable to exclude moderate proximal right ICA stenosis (50-69%) and mild (<50%) and the left. * Regarding carotid stenosis I don't feel there should be at intervention and that should be treated rather with medical management first. * 2-D echo: As reported as, Atrial fibrillation. This was technically adequate study. There is moderate concentric left ventricular hypertrophy. Ejection fraction of 45-50%. Basal inferior left ventricle wall motion is hypokinetic. Left atrium is severely dilated more than 40 mL/m2. There is moderate aortic stenosis present. There is moderate to severely mitral regurgitation is present. * TSH: 0.343 which is low but the free T4 is 2.02 which is normal. * Continue Plavix 75mg daily (On home Xarelto and ASA 325mg daily. I will stop the aspirin 325 and will start the patient on Plavix 75 mg and the reason for that is aspirin can cause tinnitus). Can Resume Xarelto home dose. * Increased Lipitor from 40 mg to 80 mg because of the carotid stenosis. * PT and OT as well as MALT ROASTER are consulted. * Because of transient episode of confusion I ordered vitamin B12 which is 943 which is considered normal. * Hemoglobin A1c is 5.2 which is considered normal. * Currently the patient is on meclizine 25 mg 1 tablet twice a day when necessary and I change it to standing dose. * Because of the numbness of the distal digits of both hands would recommend an EMG with nerve conduction as an outpatient. * Upon discharge the patient needs to follow-up with a neurologist within 1-2 weeks as outpatient. I will DEFER the rest of the medical management to the primary team. There is no further neurological workup needed at this time. Luis Ramon MD Neuro-Hospitalist Time with Patient: Less than 30
[2020-06-06 11:46] LABS: Glucose,Whole Blood 119 mg/dL (75-99)
[2020-06-06] MEDS: lisinopriL 20 MG TAB PO SCH (13:10)
--- NOTE | 2020-06-06 15:57 | P.CONS ---
History of Present Illness - Chief Complaint Gait disturbance - History of Present Illness I had the opportunity to see patient for inpatient rehab consultation with regard to gait disturbance. He was admitted to [facility] June 04 with left- sided weakness and numbness of the toes. Seen by neurology, Dr. Luis Ramon for the stroke. Head CT negative. CT abdomen and pelvis demonstrates only left basilar nodule. Angiogram CT demonstrates moderate plaques of the ICAs. Chest x-ray consistent with CHF. Carotid Doppler with moderate bilateral atherosclerosis. Brain MRI with minimal to moderate diffuse atrophy and multiple old punctate lesions. Seen by therapies. PT reports supervision for functional mobility including gait 172 feet with roller walker. OT reports minimal assistance for upper dressing and moderate assistance for lower dressing and bathing and maximal assistance for toileting and 2 person minimal assistance for basic self-care transfers and functional mobility. Speech therapy reports improved but still confused and verbose. Previous functional history as elicited from patient: 69 was a 66-year-old plaques 85-year-old right-handed white male who is lives in one floor home alone. Retired. He will be moving receive assistance from ex-, who is also retired. Previously describes independent with own cooking, laundry, driving, standing shower and gait without device. PMD Dr. Dailey or Dr. NADJA Messer. Denies tobacco or alcohol. Review of Systems Review of systems: ENT: Denies sneezes or discharge. Eyes: Denies discharge or photophobia. Cardiac: Denies chest pain or palpitation. Pulmonary: Denies cough or shortness of breath. Gastrointestinal: Denies nausea, emesis, constipation, diarrhea. Genitourinary: Denies discharge or frequency. Musculoskeletal: Denies muscle or bone aches. Neurologic: Resolved or nearly so left-sided weakness and numbness. Endocrine: Denies shakes or sweats. Oncology: Denies cancers. Dermatologic: Denies rash, itching, pruritus. ALLERGY/immunology: Denies sneezes, rashes. Past Medical History Past Medical History: Atrial Fibrillation, Coronary Artery Disease (CAD), Chest Pain / Angina, CVA/TIA, GERD/Reflux, Hyperlipidemia, Hypertension, Myocardial I nfarction (SC), Thyroid Disorder Additional Past Medical History / Comment(s): Thalassemia trait, chronic kidney disease stage II, elevated PSA in the past, Last Myocardial Infarction Date:: 2000 History of Any Multi-Drug Resistant Organisms: None Reported Past Surgical History: Coronary Bypass/CABG, Heart Catheterization With Stent, Tonsillectomy Additional Past Surgical History / Comment(s): CABG May 2000, angioplasty in 2000 and February 2004, bilateral cataract removal and intraocular lens implants,, 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 Past Anesthesia/Blood Transfusion Reactions: No Reported Reaction Date of Last Stent Placement:: unknown Past Psychological History: No Psychological Hx Reported Smoking Status: Never smoker Past Alcohol Use History: None Reported Past Drug Use History: None Reported - Past Family History Father Family Medical History: No Reported History Mother Family Medical History: No Reported History Additional Family Medical History / Comment(s): Mother at age 82 from old age. Brother(s) Additional Family Medical History / Comment(s): Patient has 3 brothers and all 3 have passed. Unknown causes. Sister(s) Additional Family Medical History / Comment(s): Patient has has 4 sister that of all from old age. Daughter(s) Additional Family Medical History / Comment(s): Patient has 4 children, 2 boys and 2 girls with no major medical problems. Medications and Allergies Home Medications Medication Instructions Recorded Confirmed Type Atorvastatin [Lipitor] 20 mg PO DAILY 02/09/16 06/04/20 History Finasteride [Proscar] 5 mg PO DAILY 06/01/18 06/04/20 History Furosemide [Lasix] 40 mg PO MOWEFR@0800 06/29/19 06/04/20 History Metoprolol Tartrate [Lopressor] 50 mg PO TID 06/29/19 06/04/20 History Rivaroxaban [Xarelto] 15 mg PO DAILY 06/29/19 06/04/20 History lisinopriL 20 mg PO DAILY 06/29/19 06/04/20 History Furosemide [Lasix] 20 mg PO MOWEFR@1700 04/27/20 06/04/20 History Meclizine [Antivert] 25 mg PO BID PRN 04/27/20 06/04/20 History Baclofen [Lioresal] 10 mg PO HS PRN 06/04/20 06/04/20 History Levothyroxine Sodium 150 mcg PO DAILY 06/04/20 06/04/20 History Allergies Allergy/AdvReac Type Severity Reaction Status Date / Time No Known Allergies Allergy Verified 06/04/20 18:50 Physical Exam Vitals: Vital Signs Temp Pulse Pulse Pulse Resp BP BP 06/06/20 14:00 89 18 06/06/20 13:07 99 18 97/51 06/06/20 11:40 06/06/20 08:23 97.8 F 95 108 H 18 06/06/20 06:00 98.9 F 86 15 104/59 06/06/20 04:00 98.9 F 86 15 06/06/20 02:57 98.3 F 95 16 107/53 06/06/20 02:00 86 15 06/05/20 23:40 99.0 F 89 15 111/65 06/05/20 22:57 98.4 F 83 16 117/60 06/05/20 20:57 99.1 F 88 15 126/64 06/05/20 20:00 97.9 F 80 15 134/67 06/05/20 19:57 97.9 F 80 15 136/67 06/05/20 16:00 98.3 F 100 18 BP BP Pulse Ox Pulse Ox 06/06/20 14:00 06/06/20 13:07 99 06/06/20 11:40 100 06/06/20 08:23 109/58 94 L 06/06/20 06:00 97 06/06/20 04:00 104/59 97 06/06/20 02:57 97 06/06/20 02:00 06/05/20 23:40 96 06/05/20 22:57 92 L 06/05/20 20:57 94 L 06/05/20 20:00 94 L 06/05/20 19:57 94 L 06/05/20 16:00 124/67 95 Intake and Output 06/06/20 06/06/20 06/06/20 06:59 14:59 22:59 Intake Total 730 Output Total 400 300 Balance -400 430 Intake: Oral 730 Output: Urine 400 300 Other: Voiding Method Indwelling Catheter Indwelling Catheter Weight 70 kg Skin: Atrophic, intact. General: Medium build and comfortable appearance. Head: Normocephalic, atraumatic. Eyes: Symmetric. Pupils equal round. Ears: Symmetric. Hearing within normal limits. Mouth: Clear. Neck: Supple. Carotid without bruit. Cardiac: Regular rate and rhythm. Lungs: Clear anteriorly and posteriorly. Abdomen: Soft active nontender. Extremities: Normal tone. Neurological: Mental status: Alert, cooperative, pleasant. Cranial nerves: Symmetric facial tone and trapezius. Motor: Normal strength and isolation all 4 limbs including isolation bilaterally. Sensation: Intact throughout. DTRs: Symmetric and equal throughout. Mobility: Did not attempt to sit or stand on my own. Results CBC & Chem 7: 06/06/20 06:59 06/06/20 06:59 Labs: Abnormal Lab Results - Last 24 Hours (Table) 06/05/20 06/06/20 06/06/20 Range/Units 06:56 06:59 06:59 WBC 13.9 H (3.8-10.6) k/uL Hgb 10.3 L (13.0-17.5) gm/dL Hct 32.3 L (39.0-53.0) % MCV 68.7 L (80.0-100.0) fL MCH 21.8 L (25.0-35.0) pg RDW 18.6 H (11.5-15.5) % Neutrophils # 10.9 H (1.3-7.7) k/uL BUN 44 H (9-20) mg/dL Creatinine 1.95 H (0.66-1.25) mg/dL Glucose 111 H (74-99) mg/dL POC Glucose (mg/dL) (75-99) mg/dL RBC Folate 1,082 H (280 - 791) ng/mL 06/06/20 Range/Units 11:44 WBC (3.8-10.6) k/uL Hgb (13.0-17.5) gm/dL Hct (39.0-53.0) % MCV (80.0-100.0) fL MCH (25.0-35.0) pg RDW (11.5-15.5) % Neutrophils # (1.3-7.7) k/uL BUN (9-20) mg/dL Creatinine (0.66-1.25) mg/dL Glucose (74-99) mg/dL POC Glucose (mg/dL) 119 H (75-99) mg/dL RBC Folate (280 - 791) ng/mL Assessment and Plan (1) Transient ischemic attack (TIA) Current Visit: Yes Status: Acute Code(s): G45.9 - TRANSIENT CEREBRAL ISCHEMIC ATTACK, UNSPECIFIED SNOMED Code(s): 531773082 Plan: Impression: 1. Gait disturbance due to stroke result in left hemiparesthesias. 2. Hypertension. 3. Janene. 4. Coronary disease with history of SC, angina and atrial fibrillation. 5. Hypothyroid. 6. History of previous stroke many years ago. Comments and plan: At this time PT, OT, VULNERABILITY ASSESSMENT ANALYST ongoing. PT reports no physical assistance, supervision level for mobility. OT reports safety concerns and speech therapy reports some functional issues as well. OT and speech deficits may be enough for inpatient rehab. We'll need to determine this for patient's insurance.
[2020-06-06 17:19] LABS: Glucose,Whole Blood 96 mg/dL (75-99)
[2020-06-06] MEDS: SODIUM CHLORIDE 0.9% 1,000 ML IV SCH (17:46)
[2020-06-06 20:38] LABS: Glucose,Whole Blood 115 mg/dL (75-99)
[2020-06-06] MEDS: ATORVASTATIN 80 MG TAB PO SCH (21:50)
[2020-06-07] MEDS: LEVOTHYROXINE 100 MCG TAB PO SCH (06:25)
[2020-06-07] MEDS: SODIUM CHLORIDE 0.9% 1,000 ML IV SCH (06:30)
--- NOTE | 2020-06-07 06:41 | P.HPIM ---
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 Sethi. has been complaining of chronic dizziness and has been evaluated by neurology and cardiology in the past without obvious source for his vertigo, finally he was placed on Meclizine 25 mg orally bid without significant relief, patient was in his usual state of health till past Friday when he went to bed and woke up at around 3:00 Am with abdominal pain and nausea, went to the bathroom and vomited once and went back to bed and woke up Friday morning at around 9:00AM and he was confused, he didn't know where he was and his lady Friend Neighbor came to check on him but found his curtain down, so she came back at 11:00 AM and he usually plan to go t [facility], but he didn't his friend noticed mild right sided facial droop and appeared confused and he wanted hi to go to the Hospital but declined , then he called his X- who came and found him confused and after arguments he was brought into the ER at [facility] and a code Stroke was called and CT scan of the brai that did not show any scute abnormality, then CTA showed moderate stenosis of bilateral carotids , neurology consultation was obtained and he was started on Plavix 75 mg orally daily and was taken off Xarelto till checking MRI of the brain, neurochecks and Echocardiogram along with carotid US were ordered. Review of Systems Constitutional: Reports fatigue, Reports weakness Eyes: denies blurred vision, denies bulging eye, denies decreased vision Ears, nose, mouth and throat: Reports vertigo, Denies dysphagia, Denies neck lump, Denies sore throat Cardiovascular: Reports decreased exercise tolerance, Reports dyspnea on exertion, Reports lightheadedness, Reports shortness of breath, Denies chest pain, Denies leg edema, Denies orthopnea, Denies paroxysmal nocturnal dyspnea, Denies rapid heart beat, Denies syncope Respiratory: Denies congestion, Denies cough, Denies cough with sputum, Denies home oxygen, Denies sleep apnea, Denies snoring, Denies wheezing Gastrointestinal: Reports nausea, Reports vomiting, Denies abdominal pain, Denies belching, Denies bloating, Denies BRBPR, Denies diarrhea, Denies dys pepsia, Denies loss of appetite, Denies melena Genitourinary: Reports nocturia, Denies dysuria Musculoskeletal: Reports morning stiffness, Denies frequent falls, Denies gait dysfunction Musculoskeletal: absent: ankle pain, ankle stiffness, ankle swelling, elbow pain, elbow stiffness, elbow swelling, foot pain, foot stiffness, foot swelling, hand pain, hand stiffness, hand swelling, hip pain, hip stiffness, hip swelling, knee pain, knee stiffness, knee swelling, shoulder pain, shoulder stiffness, shoulder swelling, wrist pain, wrist stiffness, wrist swelling Integumentary: Denies pruritus, Denies rash Neurological: Reports balance difficulties, Reports change in mentation, Reports confusion, Reports gait dysfunction, Reports lack of coordination, Reports vertigo, Reports weakness, Denies headaches, Denies tremors Psychiatric: Denies anxiety, Denies depression Endocrine: Denies fatigue, Denies weight change Past Medical History Past Medical History: Atrial Fibrillation, Coronary Artery Disease (CAD), Chest Pain / Angina, CVA/TIA, GERD/Reflux, Hyperlipidemia, Hypertension, Myocardial Infarction ([place]), Osteoarthritis (OA), Prostate Disorder, Renal Disease, Thyroid Disorder Additional Past Medical History / Comment(s): Thalassemia trait, chronic kidney disease stage II, elevated PSA in the past, Last Myocardial Infarction Date:: 2000 History of Any Multi-Drug Resistant Organisms: None Reported Past Surgical History: Coronary Bypass/CABG, Heart Catheterization With Stent, Tonsillectomy Additional Past Surgical History / Comment(s): CABG May 2000, angioplasty in 2000 and February 2004, bilateral cataract removal and intraocular lens impl ants,, 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 Past Anesthesia/Blood Transfusion Reactions: No Reported Reaction Date of Last Stent Placement:: unknown Past Psychological History: No Psychological Hx Reported Smoking Status: Never smoker Past Alcohol Use History: None Reported Past Drug Use History: None Reported - Past Family History Father Family Medical History: No Reported History Mother Family Medical History: No Reported History Additional Family Medical History / Comment(s): Mother at age 82 from old a ge. Brother(s) Additional Family Medical History / Comment(s): Patient has 3 brothers and all 3 have passed. Unknown causes. Sister(s) Additional Family Medical History / Comment(s): Patient has has 4 sister that of all from old age. Daughter(s) Additional Family Medical History / Comment(s): Patient has 4 children, 2 boys and 2 girls with no major medical problems. Medications and Allergies Home Medications Medication Instructions Recorded Confirmed Type Atorvastatin [Lipitor] 20 mg PO DAILY 02/09/16 06/04/20 History Finasteride [Proscar] 5 mg PO DAILY 06/01/18 06/04/20 History Furosemide [Lasix] 40 mg PO MOWEFR@0800 06/29/19 06/04/20 History Metoprolol Tartrate [Lopressor] 50 mg PO TID 06/29/19 06/04/20 History Rivaroxaban [Xarelto] 15 mg PO DAILY 06/29/19 06/04/20 History lisinopriL 20 mg PO DAILY 06/29/19 06/04/20 History Furosemide [Lasix] 20 mg PO MOWEFR@1700 04/27/20 06/04/20 History Meclizine [Antivert] 25 mg PO BID PRN 04/27/20 06/04/20 History Baclofen [Lioresal] 10 mg PO HS PRN 06/04/20 06/04/20 History Levothyroxine Sodium 150 mcg PO DAILY 06/04/20 06/04/20 History Allergies Allergy/AdvReac Type Severity Reaction Status Date / Time No Known Allergies Allergy Verified 06/04/20 18:50 Physical Exam Vitals: Vital Signs Temp Pulse Pulse Pulse Resp BP BP 06/05/20 16:00 98.3 F 100 18 124/67 06/05/20 14:00 90 06/05/20 12:00 87 18 06/05/20 08:20 118 H 125/84 06/05/20 08:00 98.2 F 90 18 06/05/20 06:45 98.1 F 91 16 161/92 06/05/20 04:57 98.2 F 94 16 181/87 06/05/20 04:00 98.4 F 91 16 06/05/20 02:08 98.1 F 88 15 168/95 06/05/20 02:00 82 16 06/05/20 00:57 97.9 F 102 H 15 172/84 06/05/20 00:00 98.1 F 82 16 06/04/20 22:57 98.1 F 82 16 144/86 06/04/20 22:00 91 16 06/04/20 21:53 97.9 F 93 16 192/92 06/04/20 20:44 98 F 104 H 18 162/102 06/04/20 20:31 104 H 18 162/102 06/04/20 20:12 97.9 F 93 16 06/04/20 19:57 97.9 F 93 16 192/92 BP BP Pulse Ox 06/05/20 16:00 95 06/05/20 14:00 06/05/20 12:00 135/67 94 L 06/05/20 08:20 149/95 06/05/20 08:00 164/96 98 06/05/20 06:45 96 06/05/20 04:57 98 06/05/20 04:00 178/87 100 06/05/20 02:08 97 06/05/20 02:00 06/05/20 00:57 98 06/05/20 00:00 144/86 99 06/04/20 22:57 99 06/04/20 22:00 06/04/20 21:53 97 06/04/20 20:44 94 L 06/04/20 20:31 94 L 06/04/20 20:12 192/92 97 06/04/20 19:57 97 Intake and Output 06/05/20 06/05/20 06/05/20 06:59 14:59 22:59 Intake Total 120 240 240 Output Total 2600 1250 300 Balance -2480 -1010 -60 Intake: Oral 120 240 240 Output: Urine 2600 1250 300 Other: Voiding Method Indwelling Catheter Weight 88.8 kg Physical examination: General : this is and 85 year old male who is sitting up in bed with slight confusion. HEENT: head is atraumatic normocephalic Pupils ere equal round reactive to light and accommodations, extra ocular muscle movements were intact, mucous membranes of the mouth are somewhat dry. Neck: supple no JVP, decreased carotid Upstrokes bilaterally. Chest: decreased breath sounds at the bases with few ronchi no expiratory wheezes, no chest wall tenderness or intercostal retractions. Heart: First heart sound is depressed, second heart sound is normal there is TAMIKO 3/6 located at the right second intercostal space radiating to the carotids. Abdomen: soft non tender , non distended positive bowel sounds, there is no hepatosplenomegaly. Extremities: there is no edema , no calf tenderness, DP + 2 bilaterally. Neurologic Examination: Patient is awake alert and oriented X 3 CN II-XII are grossly intact, Muscle power 4/5 in bilateral upper and lower extremities, Deep tendon reflexes were hyperreflexic, Babinski's were flexor bilaterally, there is no pronation drift. . Results CBC & Chem 7: 06/06/20 06:59 06/06/20 06:59 Labs: Abnormal Lab Results - Last 24 Hours (Table) 06/04/20 06/05/20 06/05/20 Range/Units 19:35 06:56 06:56 Cholesterol 215 H (<200) mg/dL LDL Cholesterol, Calc 164 H (0-99) mg/dL HDL Cholesterol 31 L (40-60) mg/dL TSH 0.343 L (0.465-4.680) mIU/L Ur Specific [place] 1.038 H (1.001-1.035) Urine Protein 1+ H (Negative) Urine Blood Large H (Negative) Ur Leukocyte Esterase Small H (Negative) Urine RBC >182 H (0-5) /hpf Thrombosis Risk Factor Assmnt - DVT/VTE Prophylaxis DVT/VTE Prophylaxis: Pharmacologic Prophylaxis ordered, Mechanical Prophylaxis ordered - Choose All That Apply Each Factor Represents 1 point: Obesity (BMI >25) Other Risk Factors: Yes Each Risk Factor Represents 3 Points: Age 75 years or older Other congenital or acquired thrombophilia - If yes, enter type in comment: No Thrombosis Risk Factor Assessment Total Risk Factor Score: 4 Thrombosis Risk Factor Assessment Level: Moderate Risk Assessment and Plan Assessment: Assessment and Plan: 1. Acute transient ischemic attack in the distribution of the right middle cerebral artery with transient left sided weakness that have resolved in less than 24 hours, CT of the brain as well as CTA of the carotids and the wrangell of [place] were reviewed, discontinued Xarelto till obtaining MRI of the brain, we will continue with Plavix 75 mg orally daily, Lipitor 40 mg orally daily , echocardiogram along with carotids Duplex, Neurocheck around the clock, full neurologic evaluation of acute CVA was started. 2. Acute on chronic diastolic heart failure. patient did receive Lasix 80 mg IVP in the ER as his chest X-Ray reported CHF, but he is not short of breath clinically, we will discontinue lasix. 3. Chronic atrial fibrillation. patient has been on Metoprolol 5 mg orally tid and xarelto 15 mg orally daily along with ASA 162 mg orally daily. 4. Chronic kidney disease stage 3a. we will continue to monitor CMP, in view of his CTA we will discontinue Lasix and we will start IVF at 5 cc h. 5. Hyperlipidemia. we will continue with Lipitor and we will increase to 80 mg orally daily. 6. Hypertension and hypertensive cardiovascular disease. we will continue with Metoprolol 50 g orally tid and Lisinopril 20 mg orally daily. 7. Elevated PSA. has been under the care of . 8. Hypothyroidism. we will continue with Synthroid 150 mcg oraly daily. 9. Thalassemia trait, stable. 10. Valvular heart disease with moderate aortic stenosis with moderate - severemitral regurgitation, mild tricuspid regurgitation, mild pulmonary hypertension with previous EF 45-50% mildly impaired. we will continue with Metoprolol and Lisinopril, patient did have a LHC that was done in 2018 and was stable. 11. CAD post CABG with BAKER to LAD and SVG to the PDA off RCA, SVG to the DX, in 2004 had LHC with PCI of the mid/distal RCA which provide supply to PLV, in 2016 was found to have occluded PLV branch and recommended medical therapy, and in 2018 had LHC which was similar , we will continue with Plavix and we will increase Lipitor to 80 mg orally daily and we will continue with Metoprolol 50 g orally tid and Lisinopril 20 mg orally daily. 12. Chronic vertigo. may be related to the old CVA that he had in the past. 13. DVT prophylaxis. we will continue with bilateral knee -high Kyra Hernandez is on hld to Hematur[place] and await the result of the MRI of the brain. 14. Hematuria. likely traumatic Floyd catheter. we will consult Urology. 15. Admits to inpatient, estimated length of stay 2 midnights. 16. Full code. 17. PT/OT evaluation. 18. Guarded prognosis.
[2020-06-07] MEDS ORDERED: FUROSEMIDE 40 MG TAB PO SCH (08:00)
[2020-06-07 08:33] LABS: Anisocytosis Slight; Basophils # (A) 0.1 k/uL (0-0.2); Basophils % (A) 1 %; Eosinophils # (A) 0.3 k/uL (0-0.7); Eosinophils % (A) 2 %; HCT 33.7 % (39.0-53.0); HGB 10.5 gm/dL (13.0-17.5); Hypochromasia Marked; Lymphocytes # (A) 2.4 k/uL (1.0-4.8); Lymphocytes % (A) 17 %; MCH 21.9 pg (25.0-35.0); MCHC 31.1 g/dL (31.0-37.0); MCV 70.2 fL (80.0-100.0); Microcytosis Marked; Monocytes # (A) 0.8 k/uL (0-1.0); Monocytes % (A) 5 %; Neutrophils # (A) 10.7 k/uL (1.3-7.7); Neutrophils % (A) 74 %; Platelet Count 187 k/uL (150-450); Poikilocytosis Slight; RDW 18.3 % (11.5-15.5); WBC 14.5 k/uL (3.8-10.6)
[2020-06-07 08:57] LABS: Albumin 3.9 g/dL (3.5-5.0); Calcium 8.9 mg/dL (8.4-10.2); Potassium 3.8 mmol/L (3.5-5.1); Total Bilirubin 1.2 mg/dL (0.2-1.3); Total Protein 7.7 g/dL (6.3-8.2)
[2020-06-07] MEDS ORDERED: RIVAROXABAN 15 MG TAB PO SCH ×2 (09:00→17:30)
[2020-06-07] MEDS: lisinopriL 20 MG TAB PO SCH (09:06)
[2020-06-07] MEDS: CLOPIDOGREL 75 MG TAB PO SCH (09:06)
[2020-06-07] MEDS: FINASTERIDE 5 MG TAB PO SCH (09:06)
[2020-06-07] MEDS: METOPROLOL TARTRATE 25 MG TAB PO SCH ×3 (09:06→21:08)
[2020-06-07] MEDS: MECLIZINE 25 MG TAB PO SCH ×2 (09:06→21:08)
--- NOTE | 2020-06-07 11:21 | P.GSCN ---
History of Present Illness Consult date: 06/07/20 Reason for Consult: Hematuria Requesting physician: Bhavana Dailey History of present illness: The patient is an 85-year-old male well known to me. He has a history of an elevated PSA level due to BPH. Ultrasound in 2013 revealed a prostate volume of 191 mL. He has taken finasteride since November 2015. His PSA level in February 2019 was 3.60. When last seen in the office in October 2019 the postvoid residual was 295 mL. He is currently admitted with a TIA. A Floyd catheter was placed, and the urine has been noted to be bloody. A CT scan of the abdomen and pelvis with contrast showed the kidneys to be normal in appearance. Bladder wall thickening and 2 bladder diverticuli were noted, in addition to the patient's known prostatic enlargement. Review of Systems - EENT Ears, nose, mouth and throat: Reports vertigo - Genitourinary Reports as per HPI - Neurological Reports confusion Past Medical History Past Medical History: Atrial Fibrillation, Coronary Artery Disease (CAD), Chest Pain / Angina, CVA/TIA, GERD/Reflux, Hyperlipidemia, Hypertension, Myocardial Infarction ([place]), Osteoarthritis (OA), Prostate Disorder, Renal Disease, Thyroid Disorder Additional Past Medical History / Comment(s): Thalassemia trait, chronic kidney disease stage II, elevated PSA in the past, Last Myocardial Infarction Date:: 2000 History of Any Multi-Drug Resistant Organisms: None Reported Past Surgical History: Coronary Bypass/CABG, Heart Catheterization With Stent, Tonsillectomy Additional Past Surgical History / Comment(s): CABG May 2000, angioplasty in 2000 and February 2004, bilateral cataract removal and intraocular lens implants,, 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 Past Anesthesia/Blood Transfusion Reactions: No Reported Reaction Date of Last Stent Placement:: unknown Past Psychological History: No Psychological Hx Reported Smoking Status: Never smoker Past Alcohol Use History: None Reported Past Drug Use History: None Reported - Past Family History Father Family Medical History: No Reported History Mother Family Medical History: No Reported History Additional Family Medical History / Comment(s): Mother at age 82 from old age. Brother(s) Additional Family Medical History / Comment(s): Patient has 3 brothers and all 3 have passed. Unknown causes. Sister(s) Additional Family Medical History / Comment(s): Patient has has 4 sister that of all from old age. Daughter(s) Additional Family Medical History / Comment(s): Patient has 4 children, 2 boys and 2 girls with no major medical problems. Medications and Allergies Home Medications Medication Instructions Recorded Confirmed Type Atorvastatin [Lipitor] 20 mg PO DAILY 02/09/16 06/04/20 History Finasteride [Proscar] 5 mg PO DAILY 06/01/18 06/04/20 History Furosemide [Lasix] 40 mg PO MOWEFR@0800 06/29/19 06/04/20 History Metoprolol Tartrate [Lopressor] 50 mg PO TID 06/29/19 06/04/20 History Rivaroxaban [Xarelto] 15 mg PO DAILY 06/29/19 06/04/20 History lisinopriL 20 mg PO DAILY 06/29/19 06/04/20 History Furosemide [Lasix] 20 mg PO MOWEFR@1700 04/27/20 06/04/20 History Meclizine [Antivert] 25 mg PO BID PRN 04/27/20 06/04/20 History Baclofen [Lioresal] 10 mg PO HS PRN 06/04/20 06/04/20 History Levothyroxine Sodium 150 mcg PO DAILY 06/04/20 06/04/20 History Allergies Allergy/AdvReac Type Severity Reaction Status Date / Time No Known Allergies Allergy Verified 06/04/20 18:50 Surgical - Exam Vital Signs Temp Pulse Resp BP Pulse Ox 98 F 87 16 185/105 95 06/04/20 17:03 06/04/20 17:03 06/04/20 17:03 06/04/20 17:03 06/04/20 17:03 - General well developed, well nourished, no distress - Respiratory normal respiratory effort - Abdomen Abdomen: soft, non tender, no guarding, no rigid, no rebound - Genitourinary normal penis with no external lesions, testicles non-tender - Psychiatric oriented to time, oriented to person, oriented to place, speech is normal, memory intact Results - Labs 06/07/20 07:54 06/07/20 07:54 Abnormal Lab Results - Last 24 Hours (Table) 06/05/20 06/06/20 06/06/20 Range/Units 06:56 06:59 06:59 WBC 13.9 H (3.8-10.6) k/uL Hgb 10.3 L (13.0-17.5) gm/dL Hct 32.3 L (39.0-53.0) % MCV 68.7 L (80.0-100.0) fL MCH 21.8 L (25.0-35.0) pg RDW 18.6 H (11.5-15.5) % Neutrophils # 10.9 H (1.3-7.7) k/uL BUN 44 H (9-20) mg/dL Creatinine 1.95 H (0.66-1.25) mg/dL Glucose 111 H (74-99) mg/dL POC Glucose (mg/dL) (75-99) mg/dL RBC Folate 1,082 H (280 - 791) ng/mL 06/06/20 06/06/20 Range/Units 11:44 20:37 WBC (3.8-10.6) k/uL Hgb (13.0-17.5) gm/dL Hct (39.0-53.0) % MCV (80.0-100.0) fL MCH (25.0-35.0) pg RDW (11.5-15.5) % Neutrophils # (1.3-7.7) k/uL BUN (9-20) mg/dL Creatinine (0.66-1.25) mg/dL Glucose (74-99) mg/dL POC Glucose (mg/dL) 119 H 115 H (75-99) mg/dL RBC Folate (280 - 791) ng/mL Diabetes panel 06/06/20 Range/Units 06:59 Sodium 141 (137-145) mmol/L Potassium 3.9 (3.5-5.1) mmol/L Chloride 105 (98-107) mmol/L Carbon Dioxide 28 (22-30) mmol/L BUN 44 H (9-20) mg/dL Creatinine 1.95 H (0.66-1.25) mg/dL Glucose 111 H (74-99) mg/dL Calcium 9.2 (8.4-10.2) mg/dL AST 29 (17-59) U/L ALT 17 (4-49) U/L Alkaline Phosphatase 64 (38-126) U/L Total Protein 8.0 (6.3-8.2) g/dL Albumin 4.1 (3.5-5.0) g/dL Calcium panel 06/06/20 Range/Units 06:59 Calcium 9.2 (8.4-10.2) mg/dL Albumin 4.1 (3.5-5.0) g/dL Pituitary panel 06/06/20 Range/Units 06:59 Sodium 141 (137-145) mmol/L Potassium 3.9 (3.5-5.1) mmol/L Chloride 105 (98-107) mmol/L Carbon Dioxide 28 (22-30) mmol/L BUN 44 H (9-20) mg/dL Creatinine 1.95 H (0.66-1.25) mg/dL Glucose 111 H (74-99) mg/dL Calcium 9.2 (8.4-10.2) mg/dL Adrenal panel 06/06/20 Range/Units 06:59 Sodium 141 (137-145) mmol/L Potassium 3.9 (3.5-5.1) mmol/L Chloride 105 (98-107) mmol/L Carbon Dioxide 28 (22-30) mmol/L BUN 44 H (9-20) mg/dL Creatinine 1.95 H (0.66-1.25) mg/dL Glucose 111 H (74-99) mg/dL Calcium 9.2 (8.4-10.2) mg/dL Total Bilirubin 1.3 (0.2-1.3) mg/dL AST 29 (17-59) U/L ALT 17 (4-49) U/L Alkaline Phosphatase 64 (38-126) U/L Total Protein 8.0 (6.3-8.2) g/dL Albumin 4.1 (3.5-5.0) g/dL - Imaging CT scan - abdomen: report reviewed, image reviewed Assessment and Plan (1) Gross hematuria Current Visit: Yes Status: Acute Code(s): R31.0 - GROSS HEMATURIA SNOMED Code(s): 949829016 Plan: The patient has known BPH, and it is likely that his hematuria is of lower urinary tract origin. The catheter was placed due to voiding difficulty. The catheter will be removed for a voiding trial. If he is able to void and empty his bladder adequately, he will be discharged home without a catheter. He will follow-up in 1 week. Please notify me if I can be of any further assistance. Time with Patient: Greater than 30
--- NOTE | 2020-06-07 13:41 | P.PN ---
Subjective Progress Note Date: 06/07/20 The patient was seen at bedside and continues to feel improvement compared to his initial presentation. Denies of any new weakness, numbness and feels dizziness is improving. He said is walking to bathroom and back without assistance. Objective - Vital Signs Vital signs: Vital Signs Temp 98.2 F 06/07/20 11:29 Pulse 68 06/07/20 11:29 Resp 18 06/07/20 11:29 BP 130/58 06/07/20 11:29 Pulse Ox 96 06/07/20 11:29 Intake & Output 06/06/20 06/07/20 06/07/20 18:59 06:59 18:59 Intake Total 970 240 Output Total 300 400 250 Balance 670 -400 -10 Weight 91.7 kg Intake: Oral 970 240 Output: Urine 300 400 250 Uretheral (Floyd) 200 Other: Voiding Method Indwelling Catheter Indwelling Catheter Urinal # Bowel Movements 1 - Exam GENERAL: The patient is lying in bed and is not in acute distress. NEUROLOGICAL Exam: Higher mental function: The patient is awake, alert, oriented to self, place and time. Patient is following commands. No aphasia and no neglect. Cranial nerves: The pupils are round, equal and reactive to light and accommodation. Visual goff are full to confrontation throughout. Extraocular movement is intact no nystagmus is noted. Facial sensation is normal to touch throughout. The facial strength is normal throughout. Hearing is mildly to moderate decreased to hand rub bilaterally. Tongue is midline and moved [id number] without any difficulty. No dysarthria is noted. Shoulder shrug is normal bilaterally. Motor: Gait is deferred. The strength is 5 over 5 throughout. Normal tone and bulk. Cerebellum: Normal finger to nose bilaterally. Sensation: Sensation is normal to touch throughout. Reflexes (right/left):2+ throughout except ankles are 1+ bilaterally. Plantars are downgoing bilaterally. - Labs CBC & Chem 7: 06/07/20 07:54 06/07/20 07:54 Labs: Abnormal Lab Results - Last 24 Hours (Table) 06/05/20 06/06/20 06/06/20 Range/Units 06:56 11:44 20:37 WBC (3.8-10.6) k/uL Hgb (13.0-17.5) gm/dL Hct (39.0-53.0) % MCV (80.0-100.0) fL MCH (25.0-35.0) pg RDW (11.5-15.5) % Neutrophils # (1.3-7.7) k/uL BUN (9-20) mg/dL Creatinine (0.66-1.25) mg/dL Glucose (74-99) mg/dL POC Glucose (mg/dL) 119 H 115 H (75-99) mg/dL RBC Folate 1,082 H (280 - 791) ng/mL 06/07/20 06/07/20 Range/Units 07:54 07:54 WBC 14.5 H (3.8-10.6) k/uL Hgb 10.5 L (13.0-17.5) gm/dL Hct 33.7 L (39.0-53.0) % MCV 70.2 L (80.0-100.0) fL MCH 21.9 L (25.0-35.0) pg RDW 18.3 H (11.5-15.5) % Neutrophils # 10.7 H (1.3-7.7) k/uL BUN 53 H (9-20) mg/dL Creatinine 1.88 H (0.66-1.25) mg/dL Glucose 142 H (74-99) mg/dL POC Glucose (mg/dL) (75-99) mg/dL RBC Folate (280 - 791) ng/mL Assessment and Plan Assessment: This is a 85-year-old gentleman with medical problems that presented to the emergency department on 06/04/2020 for having left-sided weakness, right facial droop, ataxia and worsening of the vertigo. Transient episode of left sided weakness, right facial droop and contionous to be vertiginous: Possibly could be due to Transient ischemic attack. 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 Per MRI Brain has Old inferior medial left cerebellar infarct along with small subcortical old infarct in the left frontal in the right parietal occipital region noted. Bilateral moderate carotid stenosis (50%) Acute congestive heart failure Atrial fibrillation on anticoagulation Hyperlipidemia Coronary artery disease status post CABG Chronic kidney insufficiency Hypertension Hyperlipidemia Hypothyroidism Plan: * CT of the head is reported as a no acute intracranial abnormality. Upon reviewing the CT of the head the there is encephalomalacia in the left medial cerebellar region. * CT angiography of the head and neck is reported as no acute abnormality of the CTA of the head and neck is seen. There is moderate stenosis of bilateral proximal internal carotid arteries. There is incidental enlarged mediastinal left note, nonspecific and may be reactive. However etiology and chronicity cannot be ascertained * MRI Brain: It is reported as no MRI evidence for recent infarct. Background mild to moderate diffuse cerebral atrophy and chronic small vessel ischemic changes redemonstrated. Old inferior medial left cerebellar infarct along with small subcortical old infarct in the left frontal in the right parietal o ccipital region noted. * Lipid panel: Triglyceride of 99, cholesterol 2:15, LDL of 164 and HDL 31. * Carotid duplex: It is reported as moderate atherosclerotic changes at both bifurcation without hemodynamically significant internal carotid artery stenosis by Doppler criteria. Despite this, based on CTA finding from 06/04/2020, unable to exclude moderate proximal right ICA stenosis (50-69%) and mild (<50%) and the left. * Regarding carotid stenosis I don't feel there should be at intervention and that should be treated rather with medical management first. * 2-D echo: As reported as, Atrial fibrillation. This was technically adequate study. There is moderate concentric left ventricular hypertrophy. Ejection fraction of 45-50%. Basal inferior left ventricle wall motion is hypokinetic. Left atrium is severely dilated more than 40 mL/m2. There is moderate aortic stenosis present. There is moderate to severely mitral regurgitation is present. * TSH: 0.343 which is low but the free T4 is 2.02 which is normal. * Continue Plavix 75mg daily (On home Xarelto and ASA 325mg daily. Can Resume Xarelto home dose. * Continue Lipitor 80 mg (because of the carotid stenosis). * PT and OT as well as NURSING SURGICAL SERVICES DIRECTOR are on board. * Because of transient episode of confusion I ordered vitamin B12 which is 943 which is considered normal. * Hemoglobin A1c is 5.2 which is considered normal. * Currently the patient is on meclizine 25 mg 1 tablet twice a day when ne cessary and I change it to standing dose. * Because of the numbness of the distal digits of both hands would recommend an EMG with nerve conduction as an outpatient. * Upon discharge the patient needs to follow-up with a neurologist within 1-2 weeks as outpatient. I will DEFER the rest of the medical management to the primary team. There is no further neurological workup needed at this time. Luis Ramon MD Neuro-Hospitalist Time with Patient: Less than 30
--- NOTE | 2020-06-07 14:41 | P.PN ---
Subjective Progress Note Date: 06/06/20 This is an 85-year-old male [facility] with past medical history for thalassemia trait, hypothyroidism, chronic atrial fibrillation, chronic kidney disease stage II, coronary artery disease status post coronary artery bypass graft in 2001 and angioplasty in 2000 and 2003, 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 Sethi. has been complaining of chronic dizziness and has been evaluated by neurology and cardiology in the past without obvious source for his vertigo, finally he was placed on Meclizine 25 mg orally bid without significant relief, patient was in his usual state of health till past Friday when he went to bed and woke up at around 3:00 Am with abdominal pain and nausea, went to the bathroom and vomited once and went back to bed and woke up Friday morning at around 9:00AM and he was confused, he didn't know where he was and his lady Friend Neighbor came to check on him but found his curtain down, so she came back at 11:00 AM and he usually plan to go t [facility], but he didn't his friend noticed mild right sided facial droop and appeared confused and he wanted hi to go to the Hospital but declined , then he called his X- who came and found him confused and after arguments he was brought into the ER at [facility] and a code Stroke was called and CT scan of the brai that did not show any scute abnorma lity, then CTA showed moderate stenosis of bilateral carotids , neurology consultation was obtained and he was started on Plavix 75 mg orally daily and was taken off Xarelto till checking MRI of the brain, neurochecks and Echocardiogram along with carotid US were ordered. 06/06: MRI of the brain reveals no evidence of recent infarct. Background of [id number] diffuse renal atrophy and chronic small vessel ischemic changes redemonstrated. Old inferior medial left cerebellar infarct along with smaller subcortical old infarct left frontal region and right parietal occipital region. Echocardiogram reveals EF 45-50%, moderate aortic stenosis, moderate to severe mitral regurgitation, mild tricuspid regurgitation. Carotid ultrasound reveals moderate atherosclerotic change in both bifurcations without hemodynamically significant carotid artery stenosis. Patient continues to have hematuria and Xarelto will be held, consult with Dr. Gutierrez he follows him for elevated PSA. Lasix discontinued and patient started on 0.9 normal saline at 50 mL per hour. Patient has been afebrile, heart rate 99, blood pressure 97/51, pulse ox 99% on room air. WBC 13.9, hemoglobin 10.3, platelet count 224. Electrolytes normal, BUN 44 and creatinine 1.95. Patient continues to have some confusion. He states he ambulated well and he did well with physical therapy today. We will and consult with Dr. Vo for possible inpatient rehab. Objective - Vital Signs Vital signs: Vital Signs Temp 97.8 F 06/06/20 08:23 Pulse 95 06/06/20 08:23 Resp 18 06/06/20 08:23 BP 109/58 06/06/20 08:23 Pulse Ox 94 L 06/06/20 08:23 Intake & Output 06/05/20 06/06/20 06/06/20 18:59 06:59 18:59 Intake Total 480 240 Output Total 1550 400 Balance -1070 -400 240 Weight 70 kg Intake: Oral 480 240 Output: Urine 1550 400 Other: Voiding Method Indwelling Catheter Indwelling Catheter Indwelling Catheter - Exam Review of Systems Constitutional: Reports fatigue, Reports weakness Eyes: denies blurred vision, denies bulging eye, denies decreased vision Ears, nose, mouth and throat: Reports vertigo, Denies dysphagia, Denies neck lump, Denies sore throat Cardiovascular: Reports decreased exercise tolerance, Reports dyspnea on exer tion, Reports lightheadedness, Reports shortness of breath, Denies chest pain, Denies leg edema, Denies orthopnea, Denies paroxysmal nocturnal dyspnea, Denies rapid heart beat, Denies syncope Respiratory: Denies congestion, Denies cough, Denies cough with sputum, Denies home oxygen, Denies sleep apnea, Denies snoring, Denies wheezing Gastrointestinal: Reports nausea, Reports vomiting, Denies abdominal pain, Denies belching, Denies bloating, Denies BRBPR, Denies diarrhea, Denies dyspepsia, Denies loss of appetite, Denies melena Genitourinary: Reports nocturia, Denies dysuria Musculoskeletal: Reports morning stiffness, Denies frequent falls, Denies gait dysfunction Musculoskeletal: absent: ankle pain, ankle stiffness, ankle swelling, elbow pain, elbow stiffness, elbow swelling, foot pain, foot stiffness, foot swelling, hand pain, hand stiffness, hand swelling, hip pain, hip stiffness, hip swelling, knee pain, knee stiffness, knee swelling, shoulder pain, shoulder stiffness, shoulder swelling, wrist pain, wrist stiffness, wrist swelling Integumentary: Denies pruritus, Denies rash Neurological: Reports balance difficulties, Reports change in mentation, Reports confusion, Reports gait dysfunction, Reports lack of coordination, Reports vertigo, Reports weakness, Denies headaches, Denies tremors Psychiatric: Denies anxiety, Denies depression Endocrine: Denies fatigue, Denies weight change Physical examination: General : this is and 85 year old male who is sitting up in bed with slight confusion. HEENT: head is atraumatic normocephalic Pupils ere equal round reactive to light and accommodations, extra ocular muscle movements were intact, mucous membranes of the mouth are somewhat dry. Neck: supple no JVP, decreased carotid Upstrokes bilaterally. Chest: decreased breath sounds at the bases with few ronchi no expiratory wheezes, no chest wall tenderness or intercostal retractions. Heart: First heart sound is depressed, second heart sound is normal there is TAMIKO 3/6 located at the right second intercostal space radiating to the carotids. Abdomen: soft non tender , non distended positive bowel sounds, there is no hepatosplenomegaly. Extremities: there is no edema , no calf tenderness, DP + 2 bilaterally. Neurologic Examination: Patient is awake alert and oriented X 3 CN II-XII are grossly intact, Muscle power 4/5 in bilateral upper and lower extremities, Deep tendon reflexes were hyperreflexic, Babinski's were flexor bilaterally, there is no pronation drift. - Labs CBC & Chem 7: 06/07/20 07:54 06/07/20 07:54 Labs: Abnormal Lab Results - Last 24 Hours (Table) 06/05/20 06/06/20 06/06/20 Range/Units 06:56 06:59 06:59 WBC 13.9 H (3.8-10.6) k/uL Hgb 10.3 L (13.0-17.5) gm/dL Hct 32.3 L (39.0-53.0) % MCV 68.7 L (80.0-100.0) fL MCH 21.8 L (25.0-35.0) pg RDW 18.6 H (11.5-15.5) % Neutrophils # 10.9 H (1.3-7.7) k/uL BUN 44 H (9-20) mg/dL Creatinine 1.95 H (0.66-1.25) mg/dL Glucose 111 H (74-99) mg/dL POC Glucose (mg/dL) (75-99) mg/dL RBC Folate 1,082 H (280 - 791) ng/mL 06/06/20 Range/Units 11:44 WBC (3.8-10.6) k/uL Hgb (13.0-17.5) gm/dL Hct (39.0-53.0) % MCV (80.0-100.0) fL MCH (25.0-35.0) pg RDW (11.5-15.5) % Neutrophils # (1.3-7.7) k/uL BUN (9-20) mg/dL Creatinine (0.66-1.25) mg/dL Glucose (74-99) mg/dL POC Glucose (mg/dL) 119 H (75-99) mg/dL RBC Folate (280 - 791) ng/mL Assessment and Plan Assessment: Assessment and Plan: 1. Acute transient ischemic attack in the distribution of the right middle cerebral artery with transient left sided weakness that have resolved in less than 24 hours, CT of the brain as well as CTA of the carotids and the [place] of [place] were reviewed, discontinued Xarelto till obtaining MRI of the brain, we will continue with Plavix 75 mg orally daily, Lipitor 40 mg orally daily , echocardiogram along with carotids Duplex, Neurocheck around the clock, full neurologic evaluation of acute CVA was started. 2. Acute on chronic diastolic heart failure. patient did receive Lasix 80 mg IVP in the ER as his chest X-Ray reported CHF, but he is not short of breath clinically, we will discontinue lasix. 3. Chronic atrial fibrillation. patient has been on Metoprolol 5 mg orally tid and xarelto 15 mg orally daily along with ASA 162 mg orally daily. 4. Chronic kidney disease stage 3a. we will continue to monitor CMP, in view of his CTA we will discontinue Lasix and we will start IVF at 5 cc h. 5. Hyperlipidemia. we will continue with Lipitor and we will increase to 80 mg orally daily. 6. Hypertension and hypertensive cardiovascular disease. we will continue with Metoprolol 50 g orally tid and Lisinopril 20 mg orally daily. 7. Elevated PSA. has been under the care of . 8. Hypothyroidism. we will continue with Synthroid 150 mcg oraly daily. 9. Thalassemia trait, stable. 10. Valvular heart disease with moderate aortic stenosis with moderate - severemitral regurgitation, mild tricuspid regurgitation, mild pulmonary hypertension with previous EF 45-50% mildly impaired. we will continue with Metoprolol and Lisinopril, patient did have a LHC that was done in 2018 and was stable. 11. CAD post CABG with BAKER to LAD and SVG to the PDA off RCA, SVG to the DX, in 2003 had LHC with PCI of the mid/distal RCA which provide supply to PLV, in 2016 was found to have occluded PLV branch and recommended medical therapy, and in 2018 had LHC which was similar , we will continue with Plavix and we will increase Lipitor to 80 mg orally daily and we will continue with Metoprolol 50 g orally tid and Lisinopril 20 mg orally daily. 12. Chronic vertigo. may be related to the old CVA that he had in the past. 13. DVT prophylaxis. we will continue with bilateral knee -high Kyra Hernandez is on hld to Hematurai and await the result of the MRI of the brain. 14. Hematuria. likely traumatic Floyd catheter. we will consult Urology. 15. Admits to inpatient, estimated length of stay 2 midnights. 16. Full code. 17. PT/OT evaluation. 18. Guarded prognosis.
--- NOTE | 2020-06-07 16:35 | P.PN ---
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 Sethi. has been complaining of chronic dizziness and has been evaluated by neurology and cardiology in the past without obvious source for his vertigo, finally he was placed on Meclizine 25 mg orally bid without significant relief, patient was in his usual state of health till past Friday when he went to bed and woke up at around 3:00 Am with abdominal pain and nausea, went to the bathroom and vomited once and went back to bed and woke up Friday morning at around 9:00AM and he was confused, he didn't know where he was and his lady Friend Neighbor came to check on him but found his curtain down, so she came back at 11:00 AM and he usually plan to go t [employer], but he didn't his friend noticed mild right sided facial droop and appeared confused and he wanted hi to go to the Hospital but declined , then he called his X- who came and found him confused and after arguments he was brought into the ER at [facility] and a code Stroke was called and CT scan of the brai that did not show any scute abnorma lity, then CTA showed moderate stenosis of bilateral carotids , neurology consultation was obtained and he was started on Plavix 75 mg orally daily and was taken off Xarelto till checking MRI of the brain, neurochecks and Echocardiogram along with carotid US were ordered. 06/06: MRI of the brain reveals no evidence of recent infarct. Background of [id number] diffuse renal atrophy and chronic small vessel ischemic changes redemonstrated. Old inferior medial left cerebellar infarct along with smaller subcortical old infarct left frontal region and right parietal occipital region. Echocardiogram reveals EF 45-50%, moderate aortic stenosis, moderate to severe mitral regurgitation, mild tricuspid regurgitation. Carotid ultrasound reveals moderate atherosclerotic change in both bifurcations without hemodynamically significant carotid artery stenosis. Patient continues to have hematuria and Xarelto will be held, consult with Dr. Gutierrez he follows him for elevated PSA. Lasix discontinued and patient started on 0.9 normal saline at 50 mL per hour. Patient has been afebrile, heart rate 99, blood pressure 97/51, pulse ox 99% on room air. WBC 13.9, hemoglobin 10.3, platelet count 224. Electrolytes normal, BUN 44 and creatinine 1.95. Patient continues to have some confusion. He states he ambulated well and he did well with physical therapy today. We will and consult with Dr. Vo for possible inpatient rehab. 06/07: Patient has been seen by Dr. Sethi with recommendations to discontinue Floyd catheter which was done this morning. Residuals have been 100. He is still having some blood in his urine and small clots. Patient has been reevaluated by Dr. Ramon and recommended resuming Xarelto which will be done today. She has been evaluated by Dr. Vo for inpatient rehab and he may be a good candidate. Referral has been placed for possible discharge today to [facility] with anticipated discharge tomorrow. Patient has been afebrile, heart rate 71, blood pressure 122/71, pulse ox 97% on room air. Sandy BC 14.5, hemoglobin 10.5, platelet count 187. BUN 53 and creatinine 1.8. Electrolytes normal. Liver function tests normal.. Objective - Vital Signs Vital signs: Vital Signs Temp 98.2 F 06/07/20 11:29 Pulse 68 06/07/20 11:29 Resp 18 06/07/20 14:00 BP 130/58 06/07/20 11:29 Pulse Ox 96 06/07/20 11:29 Intake & Output 06/06/20 06/07/20 06/07/20 18:59 06:59 18:59 Intake Total 970 240 Output Total 300 400 250 Balance 670 -400 -10 Weight 91.7 kg Intake: Oral 970 240 Output: Urine 300 400 250 Uretheral (Floyd) 200 Other: Voiding Method Indwelling Catheter Indwelling Catheter Urinal # Voids 3 # Bowel Movements 1 - Exam Review of Systems Constitutional: Reports fatigue, Reports weakness Eyes: denies blurred vision, denies bulging eye, denies decreased vision Ears, nose, mouth and throat: Reports vertigo, Denies dysphagia, Denies neck lump, Denies sore throat Cardiovascular: Reports decreased exercise tolerance, Reports dyspnea on exertion, Reports lightheadedness, Reports shortness of breath, Denies chest pain, Denies leg edema, Denies orthopnea, Denies paroxysmal nocturnal dyspnea, Denies rapid heart beat, Denies syncope Respiratory: Denies congestion, Denies cough, Denies cough with sputum, Denies home oxygen, Denies sleep apnea, Denies snoring, Denies wheezing Gastrointestinal: Denies nausea, denies vomiting, Denies abdominal pain, Denies belching, Denies bloating, Denies BRBPR, Denies diarrhea, Denies dyspepsia, Denies loss of appetite, Denies melena Genitourinary: Reports nocturia, Denies dysuria Musculoskeletal: Reports morning stiffness, Denies frequent falls, Denies gait dysfunction Musculoskeletal: absent: ankle pain, ankle stiffness, ankle swelling, elbow pain, elbow stiffness, elbow swelling, foot pain, foot stiffness, foot swelling, hand pain, hand stiffness, hand swelling, hip pain, hip stiffness, hip swelling, knee pain, knee stiffness, knee swelling, shoulder pain, shoulder stiffness, shoulder swelling, wrist pain, wrist stiffness, wrist swelling Integumentary: Denies pruritus, Denies rash Neurological: Reports balance difficulties, Reports change in mentation, Reports confusion, Reports gait dysfunction, Reports lack of coordination, Reports vertigo, Reports weakness, Denies headaches, Denies tremors Psychiatric: Denies anxiety, Denies depression Endocrine: Denies fatigue, Denies weight change Physical examination: General : this is and 85 year old male who is sitting up in bed with slight confusion but is able to answer most questions appropriately.. HEENT: head is atraumatic normocephalic Pupils ere equal round reactive to light and accommodations, extra ocular muscle movements were intact, mucous membranes of the mouth are somewhat dry. Neck: supple no JVP, decreased carotid Upstrokes bilaterally. Chest: decreased breath sounds at the bases with few ronchi no expiratory wheezes, no chest wall tenderness or intercostal retractions. Heart: First heart sound is depressed, second heart sound is normal there is TAMIKO 3/6 located at the right second intercostal space radiating to the carotids. Abdomen: soft non tender , non distended positive bowel sounds, there is no hepatosplenomegaly. Extremities: there is no edema , no calf tenderness, DP + 2 bilaterally. Neurologic Examination: Patient is awake alert and oriented X 3 CN II-XII are grossly intact, Muscle power 4/5 in bilateral upper and lower extremities, Deep tendon reflexes were hyperreflexic, Babinski's were flexor bilaterally, there is no pronation drift. - Labs CBC & Chem 7: 06/07/20 07:54 06/07/20 07:54 Labs: Abnormal Lab Results - Last 24 Hours (Table) 06/06/20 06/07/20 06/07/20 Range/Units 20:37 07:54 07:54 WBC 14.5 H (3.8-10.6) k/uL Hgb 10.5 L (13.0-17.5) gm/dL Hct 33.7 L (39.0-53.0) % MCV 70.2 L (80.0-100.0) fL MCH 21.9 L (25.0-35.0) pg RDW 18.3 H (11.5-15.5) % Neutrophils # 10.7 H (1.3-7.7) k/uL BUN 53 H (9-20) mg/dL Creatinine 1.88 H (0.66-1.25) mg/dL Glucose 142 H (74-99) mg/dL POC Glucose (mg/dL) 115 H (75-99) mg/dL Assessment and Plan Plan: 1. Acute transient ischemic attack in the distribution of the right middle cerebral artery with transient left sided weakness that have resolved in less than 24 hours, CT of the brain as well as CTA of the carotids and the [place] of [place] were reviewed, resume Xarelto, MRI of the brain negative for acute bleed, we will continue with Plavix 75 mg orally daily, Lipitor 40 mg orally daily , echocardiogram and carotids Duplex aboved. 2. Acute on chronic diastolic heart failure. patient did receive Lasix 80 mg IVP in the ER as his chest X-Ray reported CHF, but he is not short of breath clinically, we will discontinue lasix. 3. Chronic atrial fibrillation. patient has been on Metoprolol 50 mg orally tid and xarelto 15 mg orally daily along with ASA 162 mg orally daily. 4. Chronic kidney disease stage 3a. Discontinue Lasix, discontinue IV fluids. 5. Hyperlipidemia. we will continue with Lipitor 80 mg orally daily. 6. Hypertension and hypertensive cardiovascular disease. we will continue with Metoprolol 50 g orally tid and Lisinopril 20 mg orally daily. 7. Elevated PSA. has been under the care of . 8. Hypothyroidism. we will continue with Synthroid 150 mcg oraly daily. 9. Thalassemia trait, stable. 10. Valvular heart disease with moderate aortic stenosis with moderate - severemitral regurgitation, mild tricuspid regurgitation, mild pulmonary hypertension with previous EF 45-50% mildly impaired. we will continue with Metoprolol and Lisinopril, patient did have a LHC that was done in 2018 and was stable. 11. CAD post CABG with BAKER to LAD and SVG to the PDA off RCA, SVG to the DX, in 2003 had LHC with PCI of the mid/distal RCA which provide supply to PLV, in 2016 was found to have occluded PLV branch and recommended medical therapy, and in 2018 had LHC which was similar , we will continue with Plavix and we will increase Lipitor to 80 mg orally daily and we will continue with Metoprolol 50 g orally tid and Lisinopril 20 mg orally daily. 12. Chronic vertigo. may be related to the old CVA that he had in the past. 13. DVT prophylaxis. we will continue with bilateral knee -high Kyra Hernandez is on hld to Hematurai and await the result of the MRI of the brain. 14. Hematuria and urinary retention likely traumatic Floyd catheter. we will consult Urology. Floyd catheter has been removed. Monitor for urinary retention 15. Full code. Discharge plan: [facility] inpatient rehab tomorrow Impression and plan of care have been directed as dictated by the signing physician. Ldaonna Werner nurse practitioner acting as scribe for signing physician.
[2020-06-07] MEDS: ATORVASTATIN 80 MG TAB PO SCH (21:08)
[2020-06-08] MEDS: LEVOTHYROXINE 100 MCG TAB PO SCH (06:40)
[2020-06-08 08:08] VITALS: BP 102/62; PULSE 93; RESP 18; TEMP 98.7
[2020-06-08] MEDS: METOPROLOL TARTRATE 25 MG TAB PO SCH (08:10)
[2020-06-08] MEDS: lisinopriL 20 MG TAB PO SCH (08:10)
[2020-06-08] MEDS: FINASTERIDE 5 MG TAB PO SCH (08:11)
[2020-06-08] MEDS: CLOPIDOGREL 75 MG TAB PO SCH (08:11)
[2020-06-08] MEDS: MECLIZINE 25 MG TAB PO SCH (08:11)
--- NOTE | 2020-06-08 09:55 | P.DS ---
Providers Date of admission: 06/04/20 19:45 Expected date of discharge: 06/08/20 Attending physician: Bhavana Dailey Consults: 06/04/20 19:48 Consult Physician Urgent Consulting Provider: Arelen Rod Consult Reason/Comments: acute vertigo, acute left hemiparesis, suspected tia Do you want consulting provider notified?: Yes 06/06/20 12:44 Consult Physician Routine Consulting Provider: Emanuel Sethi Consult Reason/Comments: hematuria, need for plavix and xarelto-on hold Do you want consulting provider notified?: Yes 06/06/20 12:52 Consult Physician Routine Consulting Provider: Homer Vo Consult Reason/Comments: inpt rehab Do you want consulting provider notified?: Yes Primary care physician: Bhavana Dailey Hospital Course: This is an 85-year-old male patient of [facility] with past medical history for thalassemia trait, hypothyroidism, chronic atrial fibrillation, chronic kidney disease stage II, coronary artery disease status post coronary artery bypass graft in 2001 and angioplasty in 2000 and 2003, 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 Sethi. has been complaining of chronic dizziness and has been evaluated by neurology and cardiology in the past without obvious source for his vertigo, finally he was placed on Meclizine 25 mg orally bid without significant relief, patient was in his usual state of health till past Friday when he went to bed and woke up at around 3:00 Am with abdominal pain and nausea, went to the bathroom and vomited once and went back to bed and woke up Friday morning at around 9:00AM and he was confused, he didn't know where he was and his lady Friend Neighbor came to check on him but found his curtain down, so she came back at 11:00 AM and he usually plan to go t [employer], but he didn't his friend noticed mild right sided facial droop and appeared confused and he wanted hi to go to the Hospital but declined , then he called his X- who came and found him confused and after arguments he was brought into the ER at [facility] and a code Stroke was called and CT scan of the brai that did not show any scute abnormality, then CTA showed moderate stenosis of bilateral carotids , neurology consultation was obtained and he was started on Plavix 75 mg orally daily and was taken off Xarelto till checking MRI of the brain, neurochecks and Echocardiogram along with carotid US were ordered. 06/06: MRI of the brain reveals no evidence of recent infarct. Background of [id number] diffuse renal atrophy and chronic small vessel ischemic changes redemonstrated. Old inferior medial left cerebellar infarct along with smaller subcortical old infarct left frontal region and right parietal occipital region. Echocardiogram reveals EF 45-50%, moderate aortic stenosis, moderate to severe mitral regurgitation, mild tricuspid regurgitation. Carotid ultrasound reveals moderate atherosclerotic change in both bifurcations without hemodynamically significant carotid artery stenosis. Patient continues to have hematuria and Xarelto will be held, consult with Dr. Gutierrez he follows him for elevated PSA. Lasix discontinued and patient started on 0.9 normal saline at 50 mL per hour. Patient has been afebrile, heart rate 99, blood pressure 97/51, pulse ox 99% on room air. WBC 13.9, hemoglobin 10.3, platelet count 224. Electrolytes normal, BUN 44 and creatinine 1.95. Patient continues to have some confusion. He states he ambulated well and he did well with physical therapy today. We will and consult with Dr. Vo for possible inpatient rehab. 06/07: Patient has been seen by Dr. Sethi with recommendations to discontinue Floyd catheter which was done this morning. Residuals have been 100. He is still having some blood in his urine and small clots. Patient has been reevaluated by Dr. Ramon and recommended resuming Xarelto which will be done today. She has been evaluated by Dr. Vo for inpatient rehab and he may be a good candidate. Referral has been placed for possible discharge today to [facility] with anticipated discharge tomorrow. Patient has been afebrile, heart rate 71, blood pressure 122/71, pulse ox 97% on room air. Sandy BC 14.5, hemoglobin 10.5, platelet count 187. BUN 53 and creatinine 1.8. Electrolytes normal. Liver function tests normal. 06/08: The patient has done well overnight. He was bladder scan this morning at 150 ML's. He is still urinating some blood with blood clots. He has been resumed on Xarelto last evening and no worsening of bleeding noted. Patient is been afebrile, heart rate 93, blood pressure 102/62, pulse ox 92% on room air. Patient has been accepted at [facility] for inpatient rehab. Patient will be discharged today in stable condition.. Discharge diagnoses: 1. Acute transient ischemic attack in the distribution of the right middle cerebral artery with transient left sided weakness that have resolved in less than 24 hours. 2. Acute on chronic diastolic heart failure. 3. Chronic atrial fibrillation. 4. Chronic kidney disease stage 3a. 5. Hyperlipidemia. 6. Hypertension and hypertensive cardiovascular disease. 7. Elevated PSA. 8. Hypothyroidism. 9. Thalassemia trait, stable. 10. Valvular heart disease with moderate aortic stenosis with moderate -severe mitral regurgitation, mild tricuspid regurgitation, mild pulmonary hypertension with previous EF 45-50% mildly impaired. 11. CAD post CABG with BAKER to LAD and SVG to the PDA off RCA, SVG to the DX, in 2003 had LHC with PCI of the mid/distal RCA which provide supply to PLV, in 2016 was found to have occluded PLV branch and recommended medical therapy, and in 2017 had LHC which was similar. 12. Chronic vertigo. 13. Hematuria and urinary retention likely traumatic Floyd catheter. Discharge plan: [facility] inpatient rehab Impression and plan of care have been directed as dictated by the signing physician. Ladonna Werner nurse practitioner acting as scribe for signing physician. Patient Condition at Discharge: Serious Plan - Discharge Summary Discharge Rx Participant: No New Discharge Prescriptions: New Atorvastatin [Lipitor] 80 mg PO HS #30 tab Clopidogrel [Plavix] 75 mg PO DAILY #30 tab Rivaroxaban [Xarelto] 15 mg PO W/SUPPER #30 tab Continue Finasteride [Proscar] 5 mg PO DAILY Metoprolol Tartrate [Lopressor] 50 mg PO TID lisinopriL 20 mg PO DAILY Furosemide [Lasix] 40 mg PO MOWEFR@0800 Furosemide [Lasix] 20 mg PO MOWEFR@1700 Meclizine [Antivert] 25 mg PO BID PRN PRN Reason: Nausea And Vomiting Baclofen [Lioresal] 10 mg PO HS PRN PRN Reason: Muscle Spasm Levothyroxine Sodium 150 mcg PO DAILY Discontinued Atorvastatin [Lipitor] 20 mg PO DAILY Rivaroxaban [Xarelto] 15 mg PO DAILY Discharge Medication List Finasteride [Proscar] 5 mg PO DAILY 01/14/19 [History] Furosemide [Lasix] 40 mg PO MOWEFR@0800 06/29/19 [History] Metoprolol Tartrate [Lopressor] 50 mg PO TID 06/29/19 [History] lisinopriL 20 mg PO DAILY 06/29/19 [History] Furosemide [Lasix] 20 mg PO MOWEFR@1700 04/27/20 [History] Meclizine [Antivert] 25 mg PO BID PRN 04/27/20 [History] Baclofen [Lioresal] 10 mg PO HS PRN 06/04/20 [History] Levothyroxine Sodium 150 mcg PO DAILY 06/04/20 [History] Atorvastatin [Lipitor] 80 mg PO HS #30 tab 06/08/20 [Rx] Clopidogrel [Plavix] 75 mg PO DAILY #30 tab 06/08/20 [Rx] Rivaroxaban [Xarelto] 15 mg PO W/SUPPER #30 tab 06/08/20 [Rx] Follow up Appointment(s)/Referral(s): Deanne Ospina MD [REFERRING] - 1 Week (EMG with nerve conduction test recommended by Dr. Luis Ramon) Emanuel Sethi MD [STAFF PHYSICIAN] - 1 Week Bhavana Dailey MD [Primary Care Provider] - 1-2 days Discharge Disposition: OTHER INSTITUTION NOT DEFINED
== END 2020-06-08 15:28 | DRG 69 ==
LOC: EC 16:59 → 3SCARD 19:45
PROVIDERS: ADMIT Internal Medicine; ATTEND Internal Medicine
DX: G45.9 Transient cerebral ischemic attack, unspecified (principal); I50.33 Acute on chronic diastolic (congestive) heart failure; I13.0 Hypertensive heart and chronic kidney disease with heart failure and stage 1 through stage 4 chronic kidney disease, or unspecified chronic kidney disease; I48.20 Chronic atrial fibrillation, unspecified; G81.94 Hemiplegia, unspecified affecting left nondominant side; Z20.822 Contact with and (suspected) exposure to COVID-19; I25.10 Atherosclerotic heart disease of native coronary artery without angina pectoris; E78.5 Hyperlipidemia, unspecified; K21.9 Gastro-esophageal reflux disease without esophagitis; E03.9 Hypothyroidism, unspecified; I08.3 Combined rheumatic disorders of mitral, aortic and tricuspid valves; I27.20 Pulmonary hypertension, unspecified; N18.31 Chronic kidney disease, stage 3a; R31.0 Gross hematuria; D56.3 Thalassemia minor; R26.9 Unspecified abnormalities of gait and mobility; R33.9 Retention of urine, unspecified; Z96.1 Presence of intraocular lens; Z95.1 Presence of aortocoronary bypass graft; I25.2 Old myocardial infarction; Z86.73 Personal history of transient ischemic attack (TIA), and cerebral infarction without residual deficits; Z95.5 Presence of coronary angioplasty implant and graft; Z90.89 Acquired absence of other organs; Z98.42 Cataract extraction status, left eye; Z98.41 Cataract extraction status, right eye; Z89.021 Acquired absence of right finger(s); Z79.890 Hormone replacement therapy; Z79.899 Other long term (current) drug therapy; Z79.01 Long term (current) use of anticoagulants; Z79.02 Long term (current) use of antithrombotics/antiplatelets
CPT/HCPCS: 36415; 70450; 70496; 70498; 70551; 71046; 74177; 80053; 80061; 81001; 82607; 82747; 83036; 83880; 84439; 84443; 84484; 85025; 85610; 85730; 87635; 93005; 93306; 93880; 96374; 99291

== ENCOUNTER → 2020-09-12 | Day surgery (SDC) | payer MEDICARE, BC ==
[2020-09-08 13:27] VITALS: BMI 28.2
[~2020-09-12] MED LIST changes: -ACETAMINOPHEN TAB 325 MG TAB ONE; -ACETAMINOPHEN TAB 325 MG TAB PO PRN; -ATORVASTATIN 80 MG TAB PO STA; +BENZOCAINE SPRAY 1 CAN MUCOUS MEM ONE; +HEPARIN SODIUM,PORCINE 10,000 UNIT in SODIUM CHLORIDE 0.9% 1,000 ML IRRIGATION PRN; +HEPARIN SODIUM,PORCINE 2,500 UNIT in SODIUM CHLORIDE 0.9% 250 ML IRRIGATION PRN; -IOPAMIDOL-370 50ML BTL INJ ONE; -MIDAZOLAM 2 MG/2 ML VIAL IV ONE; +MIDAZOLAM 2 MG/2 ML VIAL IVP ONE; -NITROGLYCERIN 1000MCG/10ML SYRINGE INTRACORON ONE; -NITROGLYCERIN SL TABS 0.4 MG TAB SUBLINGUAL ONE; +PROPOFOL 10 MG/ML 20 ML VIAL IV ONE; -SODIUM CHLORIDE 0.9% 1,000 ML IV ONE; -amLODIPine 5 MG TAB ONE; -amLODIPine 5 MG TAB PO ONE; +fentaNYL (PF) 50 MCG/ML 2 ML AMP ONE
[2020-09-12 07:22] LABS: Anisocytosis Slight; Basophils # (A) 0.1 k/uL (0-0.2); Basophils % (A) 1 %; Eosinophils # (A) 0.4 k/uL (0-0.7); Eosinophils % (A) 6 %; HCT 32.8 % (39.0-53.0); HGB 10.8 gm/dL (13.0-17.5); Lymphocytes # (A) 2.3 k/uL (1.0-4.8); Lymphocytes % (A) 34 %; MCH 21.8 pg (25.0-35.0); MCV 65.9 fL (80.0-100.0); Mean Platelet Volume 8.3; Microcytosis Marked; Monocytes # (A) 0.5 k/uL (0-1.0); Monocytes % (A) 8 %; Neutrophils # (A) 3.3 k/uL (1.3-7.7); Neutrophils % (A) 49 %; Platelet Count 186 k/uL (150-450); Poikilocytosis Slight; RBC 4.98 m/uL (4.30-5.90); RDW 16.6 % (11.5-15.5); WBC 6.7 k/uL (3.8-10.6)
[2020-09-12 07:27] VITALS: TEMP 98
[2020-09-12 07:37] LABS: Calcium 9.6 mg/dL (8.4-10.2)
[2020-09-12 07:47] LABS: Potassium 4.5 mmol/L (3.5-5.1)
[2020-09-12] MEDS: MIDAZOLAM 2 MG/2 ML VIAL IV ONE ×3 (07:55→11:56)
[2020-09-12 08:35] LABS: O2 Sat Blood Gas 66.4 %
[2020-09-12 08:36] LABS: O2 Sat Blood Gas 65.7 %
[2020-09-12 08:36] LABS: O2 Sat Blood Gas 96.4 %
--- NOTE | 2020-09-12 10:05 | CC ---
CARDIAC CATHETERIZATION REPORT DATE OF SERVICE: 09/12/2020 PROCEDURE: Right and left heart catheterization and selective injection of bypass grafts. PERFORMED BY: Dr. Ha Messer. Moderate conscious sedation time was 57 minutes. Patient was administered Versed. Oxygen saturation, hemodynamics and EKG were monitored closely. CLINICAL INFORMATION: Mr. Zoran Camp is an 85-year-old gentleman with a known history of CAD, prior PCI and bypass surgery. He underwent aortocoronary bypass surgery in May 2001 with a BAKER to LAD, vein graft to the PLV branch of RCA and diagonal branch of LAD. Since then, I had performed cardiac catheterizations. He has been having significant symptoms of shortness of breath with severe central degenerative mitral regurgitation and was considered for a mitral valve clip, but prior to the procedure was advised cardiac cath. His creatinine was 2.8. He was hydrated and repeat creatinine today was 2.2. He was brought in early and given at least a 0.5 L of 0.9 saline prior to the procedure. His last cardiac cath revealed that the grafts were patent and the previously stented distal RCA and the PDA branches were also patent. PROCEDURE NOTE: Under local anesthesia and strict aseptic precautions, a 6-Barbadian introducer was placed in the right femoral artery and 8-Barbadian introducer in the right femoral vein. A right heart catheterization was performed using a balloon tipped catheter. Thermodilution cardiac output was obtained. Lobito cardiac output was obtained. Subsequently, using a JL3.5 catheter, I performed selective coronary angiography of the left system. I used an AR 2 catheter. I performed selective coronary angiography of the [place] RCA, vein graft to the PLV branch of RCA, and also the diagonal graft. The BAKER injection was not performed. The BAKER flow was seen competitively with a left injection. The sheath was taken out and Angio-Seal device used to secure hemostasis. The venous sheath was also taken out. Manual compression applied. Results were discussed with the patient's ex- and I also called his daughter in [place], [place] and spoke to her. He will have a transesophageal echo at noon time by Dr. Guo. CARDIAC CATHETERIZATION FINDINGS: The right atrial pressure was 9 mmHg, right ventricular pressure was 45/9. Pulmonary arterial pressure was 45/15 with a mean of 28, pulmonary capillary wedge pressure was 16 mmHg, V-wave was 28 mmHg. The left ventricular end-diastolic pressure was 14 mmHg and wedge pressure was 16 mmHg. Thermodilution cardiac output was 5.67 L, femoral arterial saturation was 96%. Pulmonary arterial saturation was 66%, hemoglobin was 10.8. Lobito cardiac output was 6.3 L. CORONARY ANGIOGRAPHY FINDINGS: LEFT MAIN CORONARY ARTERY: A long patent disease-free vessel that trifurcates into LAD, ramus and circumflex. Left main itself is free of significant disease. LEFT ANTERIOR DESCENDING CORONARY ARTERY: This vessel has moderate diffuse disease throughout and after a septal and 2 or 3 diagonal branches, there is competitive flow noted. The LAD that is opacified has diffuse disease unchanged from 2020. RAMUS INTERMEDIUS: This vessel has about a 40% narrowing, fair caliber, gives off 3 branches, has no significant disease other than mild diffuse disease throughout. LEFT POSTERIOR CIRCUMFLEX CORONARY ARTERY: This vessel runs in the AV groove, has somewhat of a limited flow noted. No significant disease. Circumflex was probably a nondominant vessel. RIGHT CORONARY ARTERY: Dominant vessel, widely patent in the proximal and midportion that was stented in the past, is patent. Proximally, there is a 50% narrowing. Distal site of previous stenting is open. The PDA branch is opacified, has mild diffuse disease. SAPHENOUS VEIN GRAFT TO THE DIAGONAL BRANCH: This graft is patent, has a mid lesion of about 40%, but the flow is brisk. Diagonal is opacified, appears small in caliber. VEIN GRAFT TO THE PLV BRANCH OF RCA: This graft is patent, has mild diffuse disease and distal opacification is noted. No significant disease. BAKER injection was not performed. I used only a limited amount of contrast, probably about 70 to 75 mL. The patient tolerated the procedure well without complications. IMPRESSION: This patient has moderate pulmonary hypertension, a V-wave of 28, suggesting moderate to severe mitral regurgitation. No significant gradient across the aortic valve. The gradient was less than 15 mm on a pullback catheter with an AR2 catheter. The thermodilution and Lobito cardiac outputs were normal. Aortic valve area is about 1.6 cm based on the pullback gradient. The mean wedge is 16 mmHg. The patient has a total occlusion of the PLV branch of RCA, diffuse disease in proximal RCA and the mid RCA that was stented is patent and it opacifies the entire PDA branch which is free of significant disease and the PDA branch was also stented before. Left main is free of significant disease. The LAD has diffuse proximal and mid disease and competitive flow distally. BAKER was not injected but probably patent with competitive flow. Vein graft to the diagonal has a 40% mid lesion. Vein graft to the PLV is patent with decent flow. The aortic valve stenosis is mild and V-wave is significant suggestive of moderate to severe mitral regurgitation. RECOMMENDATIONS: Based on the anatomy, no coronary intervention is necessary. However, the patient will have a HOANG echo and following this, we will make specific recommendations with regard to the mitral valve clip. He is quite symptomatic with shortness of breath. His will be discharged later today and I will check the creatinine in 48 hours and see him in the office also. He will not be taking metolazone anymore and will reduce the Lasix to 40 mg daily instead of b.i.d. I expect he will be discharged today. MMRACHELLEL / ANTHONYN: [id number] /
[2020-09-12] MEDS: BENZOCAINE SPRAY 1 CAN MUCOUS MEM ONE ×2 (11:38→11:48)
[2020-09-12] MEDS: fentaNYL (PF) 50 MCG/ML 2 ML AMP IVP ONE ×2 (11:50→11:54)
[2020-09-12] MEDS: MIDAZOLAM 2 MG/2 ML VIAL IVP ONE ×2 (11:50→11:51)
[2020-09-12 12:18] VITALS: RESP 16
[2020-09-12 13:57] VITALS: BP 116/63; PULSE 68
--- NOTE | 2020-09-13 15:52 | P.TEE ---
Date of Procedure: 09/13/20 Preoperative Diagnosis: Aortic stenosis and mitral regurgitation Postoperative Diagnosis: Aortic stenosis which appears to be moderate to severe by planimetry. However, the gradient is sized to a Floyd mild to moderate stenosis. There is moderate to severe mitral regurgitation Procedure(s) Performed: HOANG Description of Procedure(s): INDICATION: This is a 85-year-old gentleman who is being evaluated because of symptoms of shortness of breath. Patient has history of aortic stenosis and mitral regurgitation CONSENT:. Verbal consent was obtained from the patient PROCEDURE: Patient was brought to the lab in fasting state. He was prepped and draped in the usual fashion. Patient given IV Versed and fentanyl in boluses. He was given a total of 3 mg of Versed and also 37.5 g of fentanyl. The throat was sprayed with Hurricaine. Attempts were made to intubate which was felt with difficulty. After multiple attempts, Department of anesthesia was requested to provide deep anesthesia. After that with help of a radiologist could successfully intubated the esophagus. Multiple views were obtained. Color, pulsed and continuous Doppler studies were performed. Saline contrast flow. Injection is performed FINDINGS:.Te aortic valve showed calcification and restricted opening excursion. By planimetry valve area of 0.8-1 cm was obtained suggestive of almost critical stenosis. There is mild aortic regurgitation. However, only Minimal gradient of about 20 was obtained. The mitral valve shows thickening with central regurgitation. The mitral regurgitation appears to be 3-4+. There is no reversal of flow in the pulmonary vein. The entire atrial septum appeared to be intact. There is severe left atrial enlargement. The left ventricle function appeared to be preserved Moderate to severe aortic stenosis by planimetry. However gradient is sized to a mild to moderate aortic stenosis. Moderate to severe mitral regurgitation. No PFO. Left atrial enlargement. Left ventricular function is preserved IMPRESSION: #1. Moderate to severe aortic stenosis by planimetry, though the gradient is suggestive of mild to moderate aortic stenosis. #3. 3-4+ mitral regurgitation #4. Left atrial enlargement. #5. No PFO #6. Preserved LV function PLAN: Proceed with cardiac catheterization. May get another opinion regarding aortic stenosis. May consider replacing the aortic valve and reassessing mitral regurgitation.
== END ==
LOC: CATHCVL 06:33
PROVIDERS: ATTEND Internal Medicine Interventional Cardiology
DX: I08.0 Rheumatic disorders of both mitral and aortic valves (principal); I25.10 Atherosclerotic heart disease of native coronary artery without angina pectoris; Z98.61 Coronary angioplasty status; I10 Essential (primary) hypertension; E78.5 Hyperlipidemia, unspecified; Z72.0 Tobacco use; Z95.1 Presence of aortocoronary bypass graft; I48.20 Chronic atrial fibrillation, unspecified; Z79.01 Long term (current) use of anticoagulants; Z79.890 Hormone replacement therapy; Z79.899 Other long term (current) drug therapy
CPT/HCPCS: 93312; 93320; 93325; 93461; 80048; 85018; 82810; 85025; 87635; C1769 ×4; C1760; C1894 ×2; J2250; J2001; J3010; J2704; Q9967

== ENCOUNTER → 2020-09-26 | Outpatient (CLI) | payer MEDICARE, BC ==
[2020-09-26 11:45] LABS: Partial Thromboplastin Time 25.3 sec (22.0-30.0); Prothrombin Time 11.1 sec (9.0-12.0)
[2020-09-26 11:59] LABS: Appearance,Urine Clear (Clear); Bilirubin,Urine Negative (Negative); Blood,Urine Small (Negative); Color,Urine Yellow; Glucose,Urine (UA) Negative (Negative); Ketones,Urine Negative (Negative); Leukocyte Esterase,Urine Negative (Negative); Mucus,Urine Rare /hpf; Nitrite,Urine Negative (Negative); Protein,Urine Negative (Negative); RBC,Urine 29 /hpf (0-5); Urobilinogen,Urine <2.0 mg/dL (<2.0); WBC,Urine 2 /hpf (0-5)
[2020-09-26 16:53] LABS: Basophils # (A) 0.05 X 10*3/uL (0.00-0.10); Basophils % (A) 0.6 %; Eosinophils % (A) 3.8 %; HCT 25.9 % (39.6-50.0); Lymphocytes # (A) 1.59 X 10*3/uL (0.90-5.00); Lymphocytes % (A) 20.3 %; MCH 21.2 pg (27.0-32.0); MCHC 30.9 g/dL (32.0-37.0); MCV 68.5 fL (80.0-97.0); Mean Platelet Volume 10.5 fL (9.5-12.2); Microcytosis (M) 3+; Monocytes # (A) 0.49 X 10*3/uL (0.20-1.00); Monocytes % (A) 6.2 %; Neutrophils # (A) 5.36 X 10*3/uL (1.80-7.70); Neutrophils % (A) 68.3 %; Platelet Count 198 X 10*3/uL (140-440); RBC 3.78 X 10*6/uL (4.40-5.60); RDW 18.1 % (11.5-14.5); WBC 7.85 X 10*3/uL (4.50-10.00)
[2020-09-26 19:19] LABS: Hemoglobin A1C 5.5 % (4.0-6.0)
[2020-09-27 00:30] LABS: African American GFR (CKD) 30.3 (60.0-200.0); Albumin 4.2 g/dL (3.80-4.90); Albumin/Globulin Ratio 1.4 (1.60-3.17); Anion Gap 9.2 mmol/L (4.00-12.00); BUN/Creat Ratio 13.18 Ratio (12.00-20.00); Calcium 8.9 mg/dL (8.7-10.3); Carbon Dioxide 24.8 mmol/L (21.6-31.8); Chol/HDL Ratio 4.09; LDL Cholesterol,Calculated 83.4 mg/dL (0.0-131.0); Magnesium 1.7 mg/dL (1.5-2.4); Non-African American GFR(CKD) 26.2 (60.0-200.0); Potassium 5.2 mmol/L (3.5-5.5); Total Bilirubin 1.1 mg/dL (0.3-1.2); Total Protein 7.2 g/dL (6.2-8.2); VLDL Calculation 15.6 mg/dL (5.00-40.00)
[2020-09-27 01:32] LABS: Hepatitis A Antibody IgM Non-Reactive (Non-Reactive); Hepatitis B Core IgM Non-Reactive (Non-Reactive); Hepatitis B Surface Antigen Non-Reactive (Non-Reactive); Hepatitis C IgG Antibody Non-Reactive (Non-Reactive)
== END | disposition home or self-care (01) ==
LOC: LABWHC1 10:15
PROVIDERS: ATTEND Thoracic Surgery (Cardiothoracic Vascular Surgery)
DX: Z01.812 Encounter for preprocedural laboratory examination (principal); E11.9 Type 2 diabetes mellitus without complications; I35.0 Nonrheumatic aortic (valve) stenosis; E87.8 Other disorders of electrolyte and fluid balance, not elsewhere classified; E07.9 Disorder of thyroid, unspecified; N28.9 Disorder of kidney and ureter, unspecified; E78.5 Hyperlipidemia, unspecified; R35.0 Frequency of micturition; R58 Hemorrhage, not elsewhere classified; Z79.899 Other long term (current) drug therapy
CPT/HCPCS: 36415; 80053; 80061; 80074; 81001; 83036; 83735; 83880; 84443; 85025; 85610; 85730; 87086

== ENCOUNTER 2020-11-08 15:54 | Inpatient (IN) | payer MEDICARE, BC ==
[2020-11-08] MEDS ORDERED: SODIUM CHLORIDE 0.9% 1,000 ML IV ONE (16:20)
[2020-11-08 16:37] LABS: Glucose,Whole Blood 157 mg/dL (75-99)
[2020-11-08 16:45] LABS: Anisocytosis Slight; Basophils % (A) 0 %; Eosinophils % (A) 0 %; HCT 26.2 % (39.0-53.0); Hypochromasia Moderate; Lymphocytes # (A) 0.3 k/uL (1.0-4.8); Lymphocytes % (A) 2 %; MCH 21.3 pg (25.0-35.0); MCHC 31.1 g/dL (31.0-37.0); MCV 68.4 fL (80.0-100.0); Mean Platelet Volume 7.1; Microcytosis Marked; Monocytes # (A) 0.4 k/uL (0-1.0); Monocytes % (A) 3 %; Neutrophils # (A) 11.5 k/uL (1.3-7.7); Neutrophils % (A) 93 %; Platelet Count 216 k/uL (150-450); Poikilocytosis Moderate; RBC 3.84 m/uL (4.30-5.90); RDW 16.9 % (11.5-15.5); WBC 12.4 k/uL (3.8-10.6)
[2020-11-08 16:55] LABS: HGB 8.2 gm/dL (13.0-17.5)
[2020-11-08 17:06] LABS: INR 1.2 (<1.2); Partial Thromboplastin Time 24.6 sec (22.0-30.0); Prothrombin Time 12.8 sec (9.0-12.0)
--- NOTE | 2020-11-08 17:06 | CT ---
EXAMINATION TYPE: CT brain wo con DATE OF EXAM: 11/08/2020 COMPARISON: 06/04/2020 HISTORY: Altered mental status. CT DLP: 1184.4 mGycm Automated exposure control for dose reduction was used. There is cerebral atrophy. There is dense thalamic calcification. There is no mass effect nor midline shift. There is no sign of intracranial hemorrhage. There is hypodensity in the inferior medial left cerebellar hemisphere. The calvarium is intact. Skull base is intact. IMPRESSION: Cerebral atrophy. 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 No acute intracranial abnormality. No arriaga e.
--- NOTE | 2020-11-08 17:15 | XR ---
EXAMINATION TYPE: XR chest 1V portable DATE OF EXAM: 11/08/2020 COMPARISON: 06/04/2020 HISTORY: Altered mental status TECHNIQUE: Single view FINDINGS: Heart is enlarged. There are sternal wires. There are chest leads. Costophrenic angles are clear. There is no gross heart failure. Bony thorax appears intact. IMPRESSION: Cardiomegaly. There is clearing of the pulmonary congestive changes to a large extent com pared to old exam. No obvious heart failure.
[2020-11-08 17:43] LABS: ALT 58 U/L (4-49); AST 57 U/L (17-59); African American GFR (CKD) 29 (>60 ml/min/1.73 sqM); Albumin 3.7 g/dL (3.5-5.0); Alcohol <10 mg/dL; Alkaline Phosphatase 120 U/L (38-126); Anion Gap 14 mmol/L; Blood Urea Nitrogen 44 mg/dL (9-20); Calcium 8.9 mg/dL (8.4-10.2); Carbon Dioxide 19 mmol/L (22-30); Chloride 105 mmol/L (98-107); Creatine Kinase 36 U/L (55-170); Glucose 145 mg/dL (74-99); Non-African American GFR(CKD) 25 (>60 ml/min/1.73 sqM); Sodium 138 mmol/L (137-145); Total Bilirubin 1.8 mg/dL (0.2-1.3); Total Protein 7.2 g/dL (6.3-8.2)
[2020-11-08] MEDS ORDERED: SODIUM CHLORIDE 0.9% 500 ML 250 ML IV ONE (18:08)
[2020-11-08 18:44] LABS: Appearance,Urine Cloudy (Clear); Bacteria,Urine Few /hpf; Bilirubin,Urine Negative (Negative); Blood,Urine Moderate (Negative); Color,Urine Yellow; Glucose,Urine (UA) Negative (Negative); Ketones,Urine Negative (Negative); Leukocyte Esterase,Urine Large (Negative); Mucus,Urine Rare /hpf; Nitrite,Urine Negative (Negative); PH, Urine 5.5 (5.0-8.0); Protein,Urine Trace (Negative); RBC,Urine 20 /hpf (0-5); Urobilinogen,Urine <2.0 mg/dL (<2.0); WBC,Urine >182 /hpf (0-5)
[2020-11-08 18:47] LABS: Amphetamine Screen,Urine Not Detected (NotDetected); Barbiturate Screen,Urine Not Detected (NotDetected); Benzodiazepines Screen,Urine Not Detected (NotDetected); Cocaine Screen,Urine Not Detected (NotDetected); Methadone Screen, Urine Not Detected (NotDetected); Opiate Screen,Urine Not Detected (NotDetected); Oxycodone Screen, Urine Not Detected (NotDetected); Phencyclidine Screen,Urine Not Detected (NotDetected); Tricyclic Antidepressant,Urine Not Detected (NotDetected); Urn Cannabinoid Scrn Not Detected (NotDetected)
--- NOTE | 2020-11-08 19:51 | ED ---
Altered Mental Status HPI - General Chief Complaint: Altered Mental Status Stated Complaint: dehydration Time Seen by Provider: 11/08/20 16:14 Source: patient, EMS Mode of arrival: EMS Limitations: altered mental status - History of Present Illness Initial Comments: Patient is an 85-year-old male with past medical history remarkable for atrial fibrillation on several toe, GERD, CAD, CVA/TIA, hypertension, prior [place], thyroid disorder, CHF who presents emergency department being brought in by EMS for altered mental status. Patient was found in his locked car on a hot day passed out. Bystanders called EMS. Patient was somewhat confused when they arrived. It is unknown how long the patient was in the car. Patient was somewhat confused to the [place] emergency department for evaluation. Currently the patient states she would like to go home. He is somewhat confused as to the time of year. He is oriented to place and person. He knows he was in his car earlier but cannot recall what happened while he was in his car. He denies any trauma. He states he takes his medications as prescribed. He denies any chest pain, shortness of breath, fevers, chills, cough. He denies any lightheadedness, headache, weakness, numbness. He has no other acute complaints at this time. Patient is asking to leave. - Related Data Home Medications Medication Instructions Recorded Confirmed Metoprolol Tartrate [Lopressor] 50 mg PO TID 06/29/19 11/08/20 Levothyroxine Sodium 150 mcg PO DAILY 06/04/20 11/08/20 Atorvastatin [Lipitor] 20 mg PO DAILY 09/08/20 11/08/20 Pantoprazole [Protonix] 40 mg PO DAILY 09/08/20 11/08/20 Potassium Chloride 10 meq PO DAILY 09/08/20 11/08/20 Tamsulosin HCl [Flomax] 0.4 mg PO HS 09/08/20 11/08/20 Furosemide [Lasix] 40 mg PO BID 11/08/20 11/08/20 Meclizine [Antivert] 12.5 mg PO DAILY 11/08/20 11/08/20 metOLazone 2.5 mg PO SUWE 11/08/20 11/08/20 Allergies Allergy/AdvReac Type Severity Reaction Status Date / Time No Known Allergies Allergy Verified 11/08/20 18:47 Review of Systems ROS Statement: Those systems with pertinent positive or pertinent negative responses have been documented in the HPI. Review of Systems: CONST: Denies fever EYES: Denies blurry vision ENT: Denies nasal congestion C/V: Denies Chest pain RESP: Denies shortness of breath GI: Denies abdominal pain : Denies dysuria SKIN: Denies rash. MSK: Denies joint pain. NEURO: Denies headache ROS Other: All systems not noted in ROS Statement are negative. Past Medical History Past Medical History: Atrial Fibrillation, Coronary Artery Disease (CAD), Chest Pain / Angina, CVA/TIA, GERD/Reflux, Hyperlipidemia, Hypertension, Myocardial Infarction ([place]), Thyroid Disorder Additional Past Medical History / Comment(s): Thalassemia trait, chronic kidney disease stage II, elevated PSA in the past, hx vertigo, Last Myocardial Infarction Date:: 2000 History of Any Multi-Drug Resistant Organisms: None Reported Past Surgical History: Coronary Bypass/CABG, Heart Catheterization With Stent, Tonsillectomy Additional Past Surgical History / Comment(s): CABG May 2000, angioplasty in 2000 and February 2004, bilateral cataract removal and intraocular lens implants,, 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 Past Anesthesia/Blood Transfusion Reactions: No Reported Reaction Date of Last Stent Placement:: unknown Past Psychological History: No Psychological Hx Reported Smoking Status: Never smoker Past Alcohol Use History: None Reported Past Drug Use History: None Reported - Past Family History Father Family Medical History: No Reported History Mother Family Medical History: No Reported History Additional Family Medical History / Comment(s): Mother at age 82 from old age. Brother(s) Additional Family Medical History / Comment(s): Patient has 3 brothers and all 3 have passed. Unknown causes. Sister(s) Additional Family Medical History / Comment(s): Patient has has 4 sister that of all from old age. Daughter(s) Additional Family Medical History / Comment(s): Patient has 4 children, 2 boys and 2 girls with no major medical problems. General Exam - General Exam Comments Initial Comments: Constitutional: Blood pressure was 125/68, pulse was 119, respirations were 16, pulse oximetry was 93% on room air, temperature was 97.6. General: Appears dry but otherwise in no acute distress. HEAD: Normal with no signs of head trauma. EYES: PERRLA, EOMI, conjunctiva normal, no discharge. Pupils are 3 mm bilaterally and symmetrical. ENT: Hearing is grossly intact. Mucous membranes are dry. RESPIRATORY: Clear breath sounds bilaterally. No wheezes, rales, or rhonchi. C/V: Irregular rate and rhythm. S1 and S2 auscultated. Peripheral pulses are 2+ and intact throughout. Patient does have 1+ pitting edema to bilateral shins. ABD: Abd is soft, nontender, nondistended EXT: Normal range of motion, no obvious deformity SKIN: No rashes or lesions observed on exposed skin. NEURO: Alert and oriented 3. Cranial nerves II through XII are intact. Patient's cerebellar function is intact as evident by normal finger to nose testing. No acute sensory strength deficits. NIH stroke scale is 0. GCS is 15 at this time. Limitations: altered mental status Course Vital Signs 11/08/20 11/08/20 11/08/20 16:04 17:09 18:00 Temperature 97.6 F Pulse Rate 119 H 113 H 105 H Respiratory 16 18 18 Rate Blood Pressure 125/68 115/61 114/60 O2 Sat by Pulse 93 L 100 100 Oximetry 11/08/20 11/08/20 11/08/20 19:00 19:53 21:00 Temperature 97.9 F 98.0 F Pulse Rate 101 H 109 H 94 Respiratory 18 17 17 Rate Blood Pressure 118/72 123/82 106/66 O2 Sat by Pulse 100 97 97 Oximetry Medical Decision Making - Medical Decision Making Based on the patient's presentation and physical exam, he does appear to be in atrial fibrillation with RVR which I'm suspecting is likely secondary to either an infectious or dehydration process. However due to his slightly altered mental status, and being found in his car, as well as him being on blood thinners, we will perform slightly more extensive altered mental status workup including cardiac workup with troponin, EKG, chest x-ray in addition to basic laboratory studies, alcohol level, urinalysis, CT head. Patient will be started on 1 L fluid bolus. He'll be connected to continuous cardiac monitoring. Patient was in agreement this plan. Patient's EKG revealed atrial fibrillation with RVR. Rate is 128. Chest x-ray revealed cardiomegaly with no acute cardiopulmonary findings. Patient's head CT is negative for acute intracranial hemorrhage. There is cerebral atrophy and an old infarct present.patient has a slight leukocytosis, as well as a microcytic anemia Which is chronic. Patient has an elevated BUN and creatinine in sending this EKG, slightly above his baseline of 2.2. Is currently 2.3. Patient's AST is mildly elevated at 58. CPK level is low at 36. Patient's urinalysis is concerning for an acute urinary tract infection with large number of white blood cells, few bacteria, as well as positive esterase. Nitrate is negative at this time. Remainder the patient's ultrasound is unremarkable, including a negative COVID-19 swab. On reevaluation, the patient is no longer altered. He is alert and oriented 4. He is asking what happened. Last than he remembers is being in his car. I informed him that it does look like he is dehydrated and that he has a urinary tract infection. The patient's A. fib with RVR has resolved, patient was in A. fib with a heart rate of 100. He is rate controlled. Patient's troponin is negative. I did inform the patient the results of his laboratory studies, imaging and I ad vised that he be admitted to the hospital for further fluid hydration. I'll also provide him with IV antibiotics. Patient was in agreement with this plan. Patient will be given a small fluid bolus of 250 mL based on the plantar ultrasound which revealed a non-plethoric IVC and only a small number of B lines in the lower lung goff. Was in agreement with this plan. I started that the patient 1 g of Rocephin daily. I spoke with the admitting team who agreed to accept the patient. Patient was therefore admitted in serious condition. - Lab Data Result diagrams: 11/08/20 16:38 11/08/20 16:38 Lab Results 11/08/20 11/08/20 11/08/20 Range/Units 16:33 16:38 16:38 WBC 12.4 H (3.8-10.6) k/uL RBC 3.84 L (4.30-5.90) m/uL Hgb 8.2 L D (13.0-17.5) gm/dL Hct 26.2 L (39.0-53.0) % MCV 68.4 L (80.0-100.0) fL MCH 21.3 L (25.0-35.0) pg MCHC 31.1 (31.0-37.0) g/dL RDW 16.9 H (11.5-15.5) % Plt Count 216 (150-450) k/uL MPV 7.1 Neutrophils % 93 % Lymphocytes % 2 % Monocytes % 3 % Eosinophils % 0 % Basophils % 0 % Neutrophils # 11.5 H (1.3-7.7) k/uL Lymphocytes # 0.3 L (1.0-4.8) k/uL Monocytes # 0.4 (0-1.0) k/uL Eosinophils # 0.0 (0-0.7) k/uL Basophils # 0.0 (0-0.2) k/uL Hypochromasia Moderate Poikilocytosis Moderate Anisocytosis Slight Microcytosis Marked PT 12.8 H (9.0-12.0) sec INR 1.2 H (<1.2) APTT 24.6 (22.0-30.0) sec Sodium (137-145) mmol/L Potassium (3.5-5.1) mmol/L Chloride (98-107) mmol/L Carbon Dioxide (22-30) mmol/L Anion Gap mmol/L BUN (9-20) mg/dL Creatinine (0.66-1.25) mg/dL Est GFR (CKD-EPI)AfAm (>60 ml/min/1.73 sqM) Est GFR (CKD-EPI)NonAf (>60 ml/min/1.73 sqM) Glucose (74-99) mg/dL POC Glucose (mg/dL) 157 H (75-99) mg/dL POC Glu Mattress Filler ID Desiree Forrest Calcium (8.4-10.2) mg/dL Total Bilirubin (0.2-1.3) mg/dL AST (17-59) U/L ALT (4-49) U/L Alkaline Phosphatase (38-126) U/L Ammonia (<30) umol/L Creatine Kinase (55-170) U/L Troponin I (0.000-0.034) ng/mL Total Protein (6.3-8.2) g/dL Albumin (3.5-5.0) g/dL Urine Color Urine Appearance (Clear) Urine pH (5.0-8.0) Ur Specific [place] (1.001-1.035) Urine Protein (Negative) Urine Glucose (UA) (Negative) Urine Ketones (Negative) Urine Blood (Negative) Urine Nitrite (Negative) Urine Bilirubin (Negative) Urine Urobilinogen (<2.0) mg/dL Ur Leukocyte Esterase (Negative) Urine RBC (0-5) /hpf Urine WBC (0-5) /hpf Urine WBC Clumps (None) /hpf Urine Bacteria (None) /hpf Urine Mucus (None) /hpf Urine Opiates Screen (NotDetected) Ur Oxycodone Screen (NotDetected) Urine Methadone Screen (NotDetected) Ur Propoxyphene Screen (NotDetected) Ur Barbiturates Screen (NotDetected) U Tricyclic Antidepress (NotDetected) Ur Phencyclidine Scrn (NotDetected) Ur Amphetamines Screen (NotDetected) U Methamphetamines Scrn (NotDetected) U Benzodiazepines Scrn (NotDetected) Urine Cocaine Screen (NotDetected) U Marijuana (THC) Screen (NotDetected) Serum Alcohol mg/dL Coronavirus (PCR) (Not Detectd) 11/08/20 11/08/20 11/08/20 Range/Units 16:38 16:38 16:38 WBC (3.8-10.6) k/uL RBC (4.30-5.90) m/uL Hgb (13.0-17.5) gm/dL Hct (39.0-53.0) % MCV (80.0-100.0) fL MCH (25.0-35.0) pg MCHC (31.0-37.0) g/dL RDW (11.5-15.5) % Plt Count (150-450) k/uL MPV Neutrophils % % Lymphocytes % % Monocytes % % Eosinophils % % Basophils % % Neutrophils # (1.3-7.7) k/uL Lymphocytes # (1.0-4.8) k/uL Monocytes # (0-1.0) k/uL Eosinophils # (0-0.7) k/uL Basophils # (0-0.2) k/uL Hypochromasia Poikilocytosis Anisocytosis Microcytosis PT (9.0-12.0) sec INR (<1.2) APTT (22.0-30.0) sec Sodium 138 (137-145) mmol/L Potassium 4.0 (3.5-5.1) mmol/L Chloride 105 (98-107) mmol/L Carbon Dioxide 19 L (22-30) mmol/L Anion Gap 14 mmol/L BUN 44 H (9-20) mg/dL Creatinine 2.30 H (0.66-1.25) mg/dL Est GFR (CKD-EPI)AfAm 29 (>60 ml/min/1.73 sqM) Est GFR (CKD-EPI)NonAf 25 (>60 ml/min/1.73 sqM) Glucose 145 H (74-99) mg/dL POC Glucose (mg/dL) (75-99) mg/dL POC Glu Mattress Filler ID Calcium 8.9 (8.4-10.2) mg/dL Total Bilirubin 1.8 H (0.2-1.3) mg/dL AST 57 (17-59) U/L ALT 58 H (4-49) U/L Alkaline Phosphatase 120 (38-126) U/L Ammonia 18 (<30) umol/L Creatine Kinase 36 L (55-170) U/L Troponin I 0.015 (0.000-0.034) ng/mL Total Protein 7.2 (6.3-8.2) g/dL Albumin 3.7 (3.5-5.0) g/dL Urine Color Urine Appearance (Clear) Urine pH (5.0-8.0) Ur Specific [place] (1.001-1.035) Urine Protein (Negative) Urine Glucose (UA) (Negative) Urine Ketones (Negative) Urine Blood (Negative) Urine Nitrite (Negative) Urine Bilirubin (Negative) Urine Urobilinogen (<2.0) mg/dL Ur Leukocyte Esterase (Negative) Urine RBC (0-5) /hpf Urine WBC (0-5) /hpf Urine WBC Clumps (None) /hpf Urine Bacteria (None) /hpf Urine Mucus (None) /hpf Urine Opiates Screen (NotDetected) Ur Oxycodone Screen (NotDetected) Urine Methadone Screen (NotDetected) Ur Propoxyphene Screen (NotDetected) Ur Barbiturates Screen (NotDetected) U Tricyclic Antidepress (NotDetected) Ur Phencyclidine Scrn (NotDetected) Ur Amphetamines Screen (NotDetected) U Methamphetamines Scrn (NotDetected) U Benzodiazepines Scrn (NotDetected) Urine Cocaine Screen (NotDetected) U Marijuana (THC) Screen (NotDetected) Serum Alcohol <10 mg/dL Coronavirus (PCR) (Not Detectd) 11/08/20 11/08/20 Range/Units 16:38 18:18 WBC (3.8-10.6) k/uL RBC (4.30-5.90) m/uL Hgb (13.0-17.5) gm/dL Hct (39.0-53.0) % MCV (80.0-100.0) fL MCH (25.0-35.0) pg MCHC (31.0-37.0) g/dL RDW (11.5-15.5) % Plt Count (150-450) k/uL MPV Neutrophils % % Lymphocytes % % Monocytes % % Eosinophils % % Basophils % % Neutrophils # (1.3-7.7) k/uL Lymphocytes # (1.0-4.8) k/uL Monocytes # (0-1.0) k/uL Eosinophils # (0-0.7) k/uL Basophils # (0-0.2) k/uL Hypochromasia Poikilocytosis Anisocytosis Microcytosis PT (9.0-12.0) sec INR (<1.2) APTT (22.0-30.0) sec Sodium (137-145) mmol/L Potassium (3.5-5.1) mmol/L Chloride (98-107) mmol/L Carbon Dioxide (22-30) mmol/L Anion Gap mmol/L BUN (9-20) mg/dL Creatinine (0.66-1.25) mg/dL Est GFR (CKD-EPI)AfAm (>60 ml/min/1.73 sqM) Est GFR (CKD-EPI)NonAf (>60 ml/min/1.73 sqM) Glucose (74-99) mg/dL POC Glucose (mg/dL) (75-99) mg/dL POC Glu Mattress Filler ID Calcium (8.4-10.2) mg/dL Total Bilirubin (0.2-1.3) mg/dL AST (17-59) U/L ALT (4-49) U/L Alkaline Phosphatase (38-126) U/L Ammonia (<30) umol/L Creatine Kinase (55-170) U/L Troponin I (0.000-0.034) ng/mL Total Protein (6.3-8.2) g/dL Albumin (3.5-5.0) g/dL Urine Color Yellow Urine Appearance Cloudy (Clear) Urine pH 5.5 (5.0-8.0) Ur Specific [place] 1.010 (1.001-1.035) Urine Protein Trace H (Negative) Urine Glucose (UA) Negative (Negative) Urine Ketones Negative (Negative) Urine Blood Moderate H (Negative) Urine Nitrite Negative (Negative) Urine Bilirubin Negative (Negative) Urine Urobilinogen <2.0 (<2.0) mg/dL Ur Leukocyte Esterase Large H (Negative) Urine RBC 20 H (0-5) /hpf Urine WBC >182 H (0-5) /hpf Urine WBC Clumps Few H (None) /hpf Urine Bacteria Few H (None) /hpf Urine Mucus Rare H (None) /hpf Urine Opiates Screen Not Detected (NotDetected) Ur Oxycodone Screen Not Detected (NotDetected) Urine Methadone Screen Not Detected (NotDetected) Ur Propoxyphene Screen Not Detected (NotDetected) Ur Barbiturates Screen Not Detected (NotDetected) U Tricyclic Antidepress Not Detected (NotDetected) Ur Phencyclidine Scrn Not Detected (NotDetected) Ur Amphetamines Screen Not Detected (NotDetected) U Methamphetamines Scrn Not Detected (NotDetected) U Benzodiazepines Scrn Not Detected (NotDetected) Urine Cocaine Screen Not Detected (NotDetected) U Marijuana (THC) Screen Not Detected (NotDetected) Serum Alcohol mg/dL Coronavirus (PCR) Not Detected (Not Detectd) - EKG Data -: EKG Interpreted by Me EKG Comments: 12-lead Electrocardiogram Interpretation Note EKG was reviewed and interpreted by myself. 12-lead ECG performed at 1559 is interpreted by me as revealing atrial fibrillation with RVR at a rate of 128 beats per minute. [place] is normal. AR interval is unobtainable. QRS duration is 104 ms, QTc is 484 ms.. There were no ST or T wave abnormalities to suggest myocardial ischemia or injury. R wave progression across the precordium was satisfactory. By my interpretation this EKG is non-diagnostic for acute ischemia. Disposition Clinical Impression: UTI (urinary tract infection), AMS (altered mental status), Afib, Anemia, Dehydration Disposition: ADMITTED IP TO THIS HOSP Condition: Serious
[2020-11-08] MEDS ORDERED: ACETAMINOPHEN TAB 325 MG TAB PO PRN (19:59)
[2020-11-08] MEDS ORDERED: DOCUSATE 100 MG CAP PO PRN (19:59)
[2020-11-08] MEDS ORDERED: ONDANSETRON 4 MG/2 ML VIAL IVP PRN (19:59)
[2020-11-08] MEDS: METOPROLOL TARTRATE 50 MG TAB PO SCH (21:47)
[2020-11-08] MEDS: TAMSULOSIN 0.4 MG CAP.ER.24H PO SCH (21:47)
[2020-11-08] MEDS: FUROSEMIDE 40 MG TAB PO SCH (21:50)
[2020-11-09] MEDS: LEVOTHYROXINE 75 MCG TAB PO SCH (06:09)
[2020-11-09] MEDS: RIVAROXABAN 15 MG TAB PO SCH (08:19)
[2020-11-09] MEDS: FUROSEMIDE 40 MG TAB PO SCH ×2 (08:20→16:32)
[2020-11-09] MEDS: ATORVASTATIN 20 MG TAB PO SCH (08:20)
[2020-11-09] MEDS: PANTOPRAZOLE 40 MG TABLET PO SCH (08:20)
[2020-11-09] MEDS: MECLIZINE 12.5 MG TAB PO SCH (08:20)
[2020-11-09] MEDS: METOPROLOL TARTRATE 50 MG TAB PO SCH ×3 (08:21→21:32)
--- NOTE | 2020-11-09 08:37 | P.HPIM ---
History of Present Illness H&P Date: 11/09/20 HISTORY OF PRESENT ILLNESS This is an 85-year-old male patient of Dr. 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 Sethi. Patient is scheduled for TAVR on 11/22/2020. Patient states that he took a ride in his cardiac ended up stopping in a park and was sitting in the car listening to the radio with the car turned off. He states that a good Je[employer] came to his car door and told him that he needs to go to the hospital and EMS was called and that he didn't feel well. Patient denies any loss of consciousness but apparently this was related to the ER physician. There was concern for syncopal episode as well as dehydration from sitting in the car on a hot day. There was no motor vehicle accident and no trauma. Patient was found to be afebrile, heart rate 119, blood pressure 125/68 and pulse ox 93%. EKG was atrial fibrillation at rate of 128 bpm. Chest x-ray revealed cardiomegaly with no acute cardio pulmonary findings. CAT scan of the brain showed no acute intracranial hemorrhage. There is cerebral atrophy and old infarct. Lab work revealed WBC 12.4, hemoglobin 8.2 which is patient's baseline, BUN 216. Sodium 138, potassium 4.0, chloride 105, CO2 19, BUN 44 and creatinine 2.3 which is also patient's baseline. Blood sugar 145. Blood sugar was 157. Total bilirubin 1.8, ALT 58, alkaline phosphatase 120. Troponin was negative CK 36. Ammonia level XVIII. Alcohol level less than 10. Coronavirus PCR not detected. Urine drug screen was negative. Urinalysis was positive for infection with leukoesterase large, blood moderate, WBCs greater than 182 bacter ia few. Urine culture was sent as well as blood culture. Patient received 1 L of IV fluid and placed on the cardiac stepdown unit. The patient had no arrhythmias overnight. Patient is found to be awake and alert at his baseline and is anxious to be discharged home. Patient has no neuro deficits and will be discharged home today in stable condition with antibiotics for urinary tract infection. Patient will be seen in the office next week prior to having TAVR procedure. REVIEW OF SYSTEMS Constitutional: No fever, no chills, no night sweats. No weight change. No weakness, fatigue or lethargy. No daytime sleepiness. EENT: No headache. No blurred vision or double vision, no loss of vision. No loss of Hearing, no ringing in the ears, no dizziness. No nasal drainage or congestion. No epistaxis. No sore throat. Lungs: No shortness of breath, cough, no sputum production. No wheezing. Cardiovascular: No chest pain, no lower extremity edema. No palpitations. No paroxysmal nocturnal dyspnea. No orthopnea. No lightheadedness or dizziness. Reported to ER physician as syncopal episodes. Abdominal: No abdominal pain. No nausea, vomiting. No diarrhea. No constipation. No bloody or tarry stools.. No loss of appetite. Genitourinary: No dysuria, increased frequency, urgency. No urinary retention. Musculoskeletal: No myalgias. No muscle weakness, no gait dysfunction, no frequent falls. No back pain. No neck pain. Integumentary: No wounds, no lesions. No rash or pruritus. No unusual bruising. No change in hair or nails. Neurologic: No aphasia. No facial droop. No change in mentation. No head injury. No headache. No paralysis. No paresthesia. Psychiatric: No depression. No anxiety. Endocrine: No abnormal blood sugars. MEDICAL HISTORY Thalassemia trait Hypothyroidism Chronic atrial fibrillation Moderate to severe aortic stenosis and moderate to severe mitral regurgitation Chronic kidney disease stage IV Coronary artery disease CVA with no residual deficits Hyperlipidemia Hypertension Elevated [employer] being monitored. 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 No marijuana, street drug or alcohol use. FAMILY HISTORY Father at age 87 from myocardial infarction. Mother at age 82 from old age. Patient has 3 brothers and all have of unknown causes. Patient has 4 sisters and all from old age. Patient's 4 children, 2 boys and 2 girls with no major medical problems. PHYSICAL EXAMINATION Gen: This is an 81-year-old male. He is sitting up in bed and appears to be in no acute distress. HEENT: Head is atraumatic, normocephalic. Pupils equal, round. Sclerae is anicteric. Conjunctiva pink. Mucous members of the mouth are somewhat dry. NECK: Supple. No JVD. No lymphadenopathy. No thyromegaly. LUNGS: Clear to auscultation. No wheezes or rhonchi. No intercostal retractions. HEART: Regular rate and rhythm. Systolic murmur right sternal border. ABDOMEN: Soft. Bowel sounds are present. No masses. No tenderness. EXTREMITIES: No pedal edema. No calf tenderness. NEUROLOGICAL: Patient is awake, alert and oriented x3. Cranial nerves 2 through 12 are grossly intact. Speech is clear. Short-term memory intact. ASSESSMENT AND PLAN 1. Possible syncopal episode due to dehydration and heat exposure. Patient is status post 1 L of IV fluid and appears to be stable at this time. 2. Acute urinary tract infection. Urine culture and blood culture in progress. Patient will be discharged home on Ceftin. 3. Chronic atrial fibrillation. 4. Hypothyroidism. 5. Chronic kidney disease stage IV. 6. Moderate to severe aortic stenosis with scheduled TAVR in November 22. 7. Coronary artery disease, stable. 8. Hypertension. 9. Hyperlipidemia. 10. History of CVA. 11. Anemia of chronic kidney disease. 12. Thalassemia trait. Patient placed as observation status. DISCHARGE PLAN Home. DISCHARGE MEDICATIONS Metoprolol Tartrate [Lopressor] 50 mg PO TID 06/29/19 [History] Levothyroxine Sodium 150 mcg PO DAILY 06/04/20 [History] Atorvastatin [Lipitor] 20 mg PO DAILY 09/08/20 [History] Pantoprazole [Protonix] 40 mg PO DAILY 09/08/20 [History] Potassium Chloride 10 meq PO DAILY 09/08/20 [History] Tamsulosin HCl [Flomax] 0.4 mg PO HS 09/08/20 [History] Furosemide [Lasix] 40 mg PO BID 11/08/20 [History] Meclizine [Antivert] 12.5 mg PO DAILY 11/08/20 [History] metOLazone 2.5 mg PO SUWE 11/08/20 [History] Cefuroxime [Ceftin] 250 mg PO BID 7 Days #14 tab 11/09/20 [Rx] Impression and plan of care have been directed as dictated by the signing physician. Ladonna Werner nurse practitioner acting as scribe for signing physician. Past Medical History Past Medical History: Atrial Fibrillation, Coronary Artery Disease (CAD), Chest Pain / Angina, CVA/TIA, GERD/Reflux, Hyperlipidemia, Hypertension, Myocardial Infarction ([place]), Thyroid Disorder Additional Past Medical History / Comment(s): Thalassemia trait, chronic kidney disease stage II, elevated PSA in the past, hx vertigo, Last Myocardial Infarction Date:: 2000 History of Any Multi-Drug Resistant Organisms: None Reported Past Surgical History: Coronary Bypass/CABG, Heart Catheterization With Stent, Tonsillectomy Additional Past Surgical History / Comment(s): CABG May 2000, angioplasty in 2000 and February 2004, bilateral cataract removal and intraocular lens implants,, 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 Past Anesthesia/Blood Transfusion Reactions: No Reported Reaction Date of Last Stent Placement:: unknown Past Psychological History: No Psychological Hx Reported Smoking Status: Never smoker Past Alcohol Use History: None Reported Past Drug Use History: None Reported - Past Family History Father Family Medical History: No Reported History Mother Family Medical History: No Reported History Additional Family Medical History / Comment(s): Mother at age 82 from old age. Brother(s) Additional Family Medical History / Comment(s): Patient has 3 brothers and all 3 have passed. Unknown causes. Sister(s) Additional Family Medical History / Comment(s): Patient has has 4 sister that of all from old age. Daughter(s) Additional Family Medical History / Comment(s): Patient has 4 children, 2 boys and 2 girls with no major medical problems. Medications and Allergies Home Medications Medication Instructions Recorded Confirmed Type Metoprolol Tartrate [Lopressor] 50 mg PO TID 06/29/19 11/08/20 History Levothyroxine Sodium 150 mcg PO DAILY 06/04/20 11/08/20 History Atorvastatin [Lipitor] 20 mg PO DAILY 09/08/20 11/08/20 History Pantoprazole [Protonix] 40 mg PO DAILY 09/08/20 11/08/20 History Potassium Chloride 10 meq PO DAILY 09/08/20 11/08/20 History Tamsulosin HCl [Flomax] 0.4 mg PO HS 09/08/20 11/08/20 History Furosemide [Lasix] 40 mg PO BID 11/08/20 11/08/20 History Meclizine [Antivert] 12.5 mg PO DAILY 11/08/20 11/08/20 History metOLazone 2.5 mg PO SUWE 11/08/20 11/08/20 History Cefuroxime [Ceftin] 250 mg PO BID 7 Days #14 tab 11/09/20 Rx Allergies Allergy/AdvReac Type Severity Reaction Status Date / Time No Known Allergies Allergy Verified 11/08/20 18:47 Physical Exam Vitals: Vital Signs Temp Pulse Pulse Resp BP BP Pulse Ox 11/09/20 07:29 96 11/09/20 02:00 19 11/09/20 00:36 97.6 F 70 20 95/55 96 11/08/20 21:39 98.1 F 102 H 24 118/69 97 11/08/20 21:00 98.0 F 94 17 106/66 97 11/08/20 19:53 97.9 F 109 H 17 123/82 97 11/08/20 19:00 101 H 18 118/72 100 11/08/20 18:00 105 H 18 114/60 100 11/08/20 17:09 113 H 18 115/61 100 11/08/20 16:04 97.6 F 119 H 16 125/68 93 L Intake and Output 11/08/20 11/09/20 11/09/20 22:59 06:59 14:59 Output Total 600 Balance -600 Output: Urine 600 Uretheral (Floyd) 600 Other: Voiding Method Toilet # Voids 2 1 # Bowel Movements 1 Weight 113.451 kg Results CBC & Chem 7: 11/08/20 16:38 11/08/20 16:38 Labs: Abnormal Lab Results - Last 24 Hours (Table) 11/08/20 11/08/20 11/08/20 Range/Units 16:33 16:38 16:38 WBC 12.4 H (3.8-10.6) k/uL RBC 3.84 L (4.30-5.90) m/uL Hgb 8.2 L D (13.0-17.5) gm/dL Hct 26.2 L (39.0-53.0) % MCV 68.4 L (80.0-100.0) fL MCH 21.3 L (25.0-35.0) pg RDW 16.9 H (11.5-15.5) % Neutrophils # 11.5 H (1.3-7.7) k/uL Lymphocytes # 0.3 L (1.0-4.8) k/uL PT 12.8 H (9.0-12.0) sec INR 1.2 H (<1.2) Carbon Dioxide (22-30) mmol/L BUN (9-20) mg/dL Creatinine (0.66-1.25) mg/dL Glucose (74-99) mg/dL POC Glucose (mg/dL) 157 H (75-99) mg/dL Total Bilirubin (0.2-1.3) mg/dL ALT (4-49) U/L Creatine Kinase (55-170) U/L Urine Protein (Negative) Urine Blood (Negative) Ur Leukocyte Esterase (Negative) Urine RBC (0-5) /hpf Urine WBC (0-5) /hpf Urine WBC Clumps (None) /hpf Urine Bacteria (None) /hpf Urine Mucus (None) /hpf 11/08/20 11/08/20 Range/Units 16:38 18:18 WBC (3.8-10.6) k/uL RBC (4.30-5.90) m/uL Hgb (13.0-17.5) gm/dL Hct (39.0-53.0) % MCV (80.0-100.0) fL MCH (25.0-35.0) pg RDW (11.5-15.5) % Neutrophils # (1.3-7.7) k/uL Lymphocytes # (1.0-4.8) k/uL PT (9.0-12.0) sec INR (<1.2) Carbon Dioxide 19 L (22-30) mmol/L BUN 44 H (9-20) mg/dL Creatinine 2.30 H (0.66-1.25) mg/dL Glucose 145 H (74-99) mg/dL POC Glucose (mg/dL) (75-99) mg/dL Total Bilirubin 1.8 H (0.2-1.3) mg/dL ALT 58 H (4-49) U/L Creatine Kinase 36 L (55-170) U/L Urine Protein Trace H (Negative) Urine Blood Moderate H (Negative) Ur Leukocyte Esterase Large H (Negative) Urine RBC 20 H (0-5) /hpf Urine WBC >182 H (0-5) /hpf Urine WBC Clumps Few H (None) /hpf Urine Bacteria Few H (None) /hpf Urine Mucus Rare H (None) /hpf Microbiology - Last 24 Hours (Table) 11/08/20 18:18 Urine Culture - Preliminary Urine,Clean Catch Thrombosis Risk Factor Assmnt - Choose All That Apply Any of the Below Risk Factors Present?: Yes Each Factor Represents 1 point: Obesity (BMI >25) Other Risk Factors: Yes Each Risk Factor Represents 3 Points: Age 75 years or older Other congenital or acquired thrombophilia - If yes, enter type in comment: No Thrombosis Risk Factor Assessment Total Risk Factor Score: 4 Thrombosis Risk Factor Assessment Level: Moderate Risk
[2020-11-09] MEDS: TAMSULOSIN 0.4 MG CAP.ER.24H PO SCH (21:32)
[2020-11-10] MEDS: LEVOTHYROXINE 75 MCG TAB PO SCH (06:25)
[2020-11-10 07:12] LABS: Glucose,Whole Blood 120 mg/dL (75-99)
[2020-11-10 08:01] VITALS: BP 133/78; PULSE 103; RESP 18; TEMP 98.1
--- NOTE | 2020-11-10 08:20 | P.DS ---
Providers Date of admission: 11/09/20 11:20 Expected date of discharge: 11/10/20 Attending physician: Bhavana Dailey Primary care physician: Bhavana Dailey Hospital Course: HISTORY OF PRESENT ILLNESS This is an 85-year-old male patient of Dr. 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 Sethi. Patient is scheduled for TAVR on 11/22/2020. Patient states that he took a ride in his cardiac ended up stopping in a park and was sitting in the car listening to the radio with the car turned off. He states that a good [employer] came to his car door and told him that he needs to go to the hospital and EMS was called and that he didn't feel well. Patient denies any loss of consciousness but apparently this was related to the ER physician. There was concern for syncopal episode as well as dehydration from sitting in the car on a hot day. There was no motor vehicle accident and no trauma. Patient was found to be afebrile, heart rate 119, blood pressure 125/68 and pulse ox 93%. EKG was atrial fibrillation at rate of 128 bpm. Chest x-ray revealed cardiomegaly with no acute cardio pulmonary findings. CAT scan of the brain showed no acute intracranial hemorrhage. There is cerebral atrophy and old infarct. Lab work revealed WBC 12.4, hemoglobin 8.2 which is patient's baseline, BUN 216. Sodium 138, potassium 4.0, chloride 105, CO2 19, BUN 44 and creatinine 2.3 which is also patient's baseline. Blood sugar 145. Blood sugar was 157. Total bilirubin 1.8, ALT 58, alkaline phosphatase 120. Troponin was negative CK 36. Ammonia level XVIII. Alcohol level less than 10. Coronavirus PCR not detected. Urine drug screen was negative. Urinalysis was positive for infection with leukoesterase large, blood moderate, WBCs greater than 182 bacteria few. Urine culture was sent as well as blood culture. Patient receive d 1 L of IV fluid and placed on the cardiac stepdown unit. The patient had no arrhythmias overnight. Patient is found to be awake and alert at his baseline and is anxious to be discharged home. Patient has no neuro deficits and will be discharged home today in stable condition with antibiotics for urinary tract infection. Patient will be seen in the office next week prior to having TAVR procedure. 11/10: Patient was repair for discharge home but blood culture came back positive for gram-negative bacilli and discharge was held and patient was continued on ceftriaxone. Preliminary report is now saying E. coli. Patient has been afebrile, heart rate 80, blood pressure 96/55, pulse ox 98% on room air. Patient denies having any fever or chills, no shortness of breath, no abdominal pain, no nausea, vomiting, diarrhea. Patient is anxious to be discharged home in a stable. We'll plan to provide ceftriaxone early today and patient can be discharged home later in the afternoon. Patient will be discharged on Ceftin to complete a full course of 14 days of antibiotics which will be completed on November 22 which is the date of his TAVR procedure. Cardiothoracic surgery team has been updated. Patient will be discharged home today in stable condition. ASSESSMENT AND PLAN 1. Possible syncopal episode due to dehydration and heat exposure. 2. Acute urinary tract infection with E. coli bacteremia. 3. Sepsis secondary to UTI with metabolic encephalopathy. 4. Chronic atrial fibrillation. 4. Hypothyroidism. 5. Chronic kidney disease stage IV. 6. Moderate to severe aortic stenosis with scheduled TAVR in November 22. 7. Coronary artery disease, stable. 8. Hypertension. 9. Hyperlipidemia. 10. History of CVA. 11. Anemia of chronic kidney disease. 12. Thalassemia trait. 13. Benign prostatic hypertrophy. Patient admitted to the hospital for a minimum of 2 nights stay. DISCHARGE PLAN Home. Impression and plan of care have been directed as dictated by the signing physician. Ladonna Werner nurse practitioner acting as scribe for signing physician. Patient Condition at Discharge: Good Plan - Discharge Summary Discharge Rx Participant: No New Discharge Prescriptions: New Cefuroxime [Ceftin] 250 mg PO BID 11 Days #22 tab Continue Metoprolol Tartrate [Lopressor] 50 mg PO TID Levothyroxine Sodium 150 mcg PO DAILY Tamsulosin HCl [Flomax] 0.4 mg PO HS metOLazone 2.5 mg PO SUWE Meclizine [Antivert] 12.5 mg PO DAILY Atorvastatin [Lipitor] 20 mg PO DAILY Potassium Chloride 10 meq PO DAILY Pantoprazole [Protonix] 40 mg PO DAILY Furosemide [Lasix] 40 mg PO BID Discharge Medication List Metoprolol Tartrate [Lopressor] 50 mg PO TID 06/29/19 [History] Levothyroxine Sodium 150 mcg PO DAILY 06/04/20 [History] Atorvastatin [Lipitor] 20 mg PO DAILY 09/08/20 [History] Pantoprazole [Protonix] 40 mg PO DAILY 09/08/20 [History] Potassium Chloride 10 meq PO DAILY 09/08/20 [History] Tamsulosin HCl [Flomax] 0.4 mg PO HS 09/08/20 [History] Furosemide [Lasix] 40 mg PO BID 11/08/20 [History] Meclizine [Antivert] 12.5 mg PO DAILY 11/08/20 [History] metOLazone 2.5 mg PO SUWE 11/08/20 [History] Cefuroxime [Ceftin] 250 mg PO BID 11 Days #22 tab 11/10/20 [Rx] Follow up Appointment(s)/Referral(s): Bhavana Dailey MD [Primary Care Provider] - 1 Week Patient Instructions/Handouts: Vertigo (GEN), Syncope (GEN) Activity/Diet/Wound Care/Special Instructions: Patient also on Xarelto 15 mg daily. Discharge Disposition: HOME SELF-CARE
[2020-11-10] MEDS: RIVAROXABAN 15 MG TAB PO SCH (08:25)
[2020-11-10] MEDS: PANTOPRAZOLE 40 MG TABLET PO SCH (08:25)
[2020-11-10] MEDS: FUROSEMIDE 40 MG TAB PO SCH (08:26)
[2020-11-10] MEDS: METOPROLOL TARTRATE 50 MG TAB PO SCH (08:26)
[2020-11-10] MEDS: ATORVASTATIN 20 MG TAB PO SCH (08:26)
[2020-11-10] MEDS: MECLIZINE 12.5 MG TAB PO SCH (08:26)
[2020-11-10 11:44] LABS: Glucose,Whole Blood 100 mg/dL (75-99)
[2020-11-12] MEDS ORDERED: metOLazone 2.5 MG TAB PO SCH (09:00)
== END 2020-11-10 13:07 | disposition home or self-care (01) | DRG 871 ==
LOC: EC 15:54 → 6NMEDSUR 19:59 → OBSVTOIN 11-09 11:20
PROVIDERS: ADMIT Internal Medicine; ATTEND Internal Medicine
DX: A41.51 Sepsis due to Escherichia coli [E. coli] (principal); G93.41 Metabolic encephalopathy; N39.0 Urinary tract infection, site not specified; I48.20 Chronic atrial fibrillation, unspecified; N18.4 Chronic kidney disease, stage 4 (severe); I13.0 Hypertensive heart and chronic kidney disease with heart failure and stage 1 through stage 4 chronic kidney disease, or unspecified chronic kidney disease; E86.0 Dehydration; E03.9 Hypothyroidism, unspecified; T67.1XXA Heat syncope, initial encounter; R97.20 Elevated prostate specific antigen [PSA]; I25.10 Atherosclerotic heart disease of native coronary artery without angina pectoris; R42 Dizziness and giddiness; I25.2 Old myocardial infarction; N40.0 Benign prostatic hyperplasia without lower urinary tract symptoms; E78.5 Hyperlipidemia, unspecified; D63.1 Anemia in chronic kidney disease; K21.9 Gastro-esophageal reflux disease without esophagitis; I50.9 Heart failure, unspecified; I08.0 Rheumatic disorders of both mitral and aortic valves; D56.3 Thalassemia minor; Z86.73 Personal history of transient ischemic attack (TIA), and cerebral infarction without residual deficits; Z20.822 Contact with and (suspected) exposure to COVID-19; Z98.42 Cataract extraction status, left eye; Z98.41 Cataract extraction status, right eye; Z89.021 Acquired absence of right finger(s); Z79.01 Long term (current) use of anticoagulants; Z79.890 Hormone replacement therapy; Z79.899 Other long term (current) drug therapy; Z95.1 Presence of aortocoronary bypass graft; Z96.1 Presence of intraocular lens; Z98.61 Coronary angioplasty status
CPT/HCPCS: 36415; 70450; 71045; 80053; 80306; 80320; 81001; 82140; 82550; 84484; 85025; 85610; 85730; 87040; 87077; 87086; 87186; 87635; 93005; 94760; 96360; 99285

== ENCOUNTER 2020-11-14 10:10 | Inpatient (IN) | payer MEDICARE, BC ==
[2020-11-21] MEDS ORDERED: MIDAZOLAM 2 MG/2 ML VIAL IV PRN (07:00)
[2020-11-21] MEDS ORDERED: ACETAMINOPHEN TAB 325 MG TAB PO PRN (09:59)
[2020-11-21] MEDS ORDERED: SENNOSIDES 8.6 MG TAB PO PRN (09:59)
[2020-11-21] MEDS ORDERED: IPRATROPIUM-ALBUTEROL 3 ML NEB INHALATION PRN (09:59)
--- NOTE | 2020-11-21 10:48 | P.NPCON ---
History of Present Illness - Reason for Consult chronic renal failure - History of Present Illness Reason for consultation: Chronic kidney disease History of present illness: Patient is a 85-year-old male seen in renal consultation for chronic kidney disease. Patient has chronic kidney disease stage IV secondary to nephrosclerosis with baseline creatinine in the range of 2-2.3. Patient's renal function has been fairly stable as of last month. Labs from today are pending. He was brought into the hospital today for hydration before TAVR tomorrow he has history of severe aortic stenosis. He denies chest pain or shortness of breath. Good urine output. No hematuria or dysuria. No history of diabetes. Denies family history of renal disease. No fever or chills. No hematuria or dysuria. Vital signs are stable. General: The patient appeared well nourished and normally developed. HEENT: Head exam is unremarkable. Neck is without jugular venous distension. LUNGS: Breath sounds decreased. HEART: Rate and Rhythm are regular. ABDOMEN: Soft, no distention. EXTREMITITES: No edema. Past Medical History Past Medical History: Atrial Fibrillation, Coronary Artery Disease (CAD), Chest Pain / Angina, CVA/TIA, GERD/Reflux, Hyperlipidemia, Hypertension, Myocardial Infarction ([place]), Thyroid Disorder Additional Past Medical History / Comment(s): Thalassemia trait, chronic kidney disease stage II, elevated PSA in the past, hx vertigo, Last Myocardial Infarction Date:: 2000 History of Any Multi-Drug Resistant Organisms: None Reported Past Surgical History: Coronary Bypass/CABG, Heart Catheterization With Stent, Tonsillectomy Additional Past Surgical History / Comment(s): CABG May 2000, angioplasty in 2000 and February 2004, bilateral cataract removal and intraocular lens implants,, 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 Past Anesthesia/Blood Transfusion Reactions: No Reported Reaction Date of Last Stent Placement:: unknown Past Psychological History: No Psychological Hx Reported Smoking Status: Never smoker Past Alcohol Use History: None Reported Additional Past Alcohol Use History / Comment(s): Patient is a lifelong nonsmoker. No medical marijuana, marijuana, street drug or alcohol use. Past Drug Use History: None Reported - Past Family History Father Family Medical History: No Reported History Mother Family Medical History: No Reported History Additional Family Medical History / Comment(s): Mother at age 82 from old age. Brother(s) Additional Family Medical History / Comment(s): Patient has 3 brothers and all 3 have passed. Unknown causes. Sister(s) Additional Family Medical History / Comment(s): Patient has has 4 sister that of all from old age. Daughter(s) Additional Family Medical History / Comment(s): Patient has 4 children, 2 boys and 2 girls with no major medical problems. Medications and Allergies Home Medications Medication Instructions Recorded Confirmed Type Metoprolol Tartrate [Lopressor] 50 mg PO TID 06/29/19 11/08/20 History Levothyroxine Sodium 150 mcg PO DAILY 06/04/20 11/08/20 History Atorvastatin [Lipitor] 20 mg PO DAILY 09/08/20 11/08/20 History Pantoprazole [Protonix] 40 mg PO DAILY 09/08/20 11/08/20 History Potassium Chloride 10 meq PO DAILY 09/08/20 11/08/20 History Tamsulosin HCl [Flomax] 0.4 mg PO HS 09/08/20 11/08/20 History Furosemide [Lasix] 40 mg PO BID 11/08/20 11/08/20 History Meclizine [Antivert] 12.5 mg PO DAILY 11/08/20 11/08/20 History metOLazone 2.5 mg PO SUWE 11/08/20 11/08/20 History Cefuroxime [Ceftin] 250 mg PO BID 11 Days #22 tab 11/10/20 Rx Allergies Allergy/AdvReac Type Severity Reaction Status Date / Time No Known Allergies Allergy Verified 11/08/20 18:47 Physical Exam Vitals: Vital Signs BP 11/21/20 10:06 139/70 Intake and Output 11/20/20 11/21/20 11/21/20 22:59 06:59 14:59 Other: Weight 95.2 kg Assessment and Plan Plan: Assessment: 1. Chronic kidney disease stage IV secondary to nephrosclerosis with baseline creatinine in the range of 2-2.3. 2. Aortic stenosis scheduled for TAVR tomorrow. 3. Chronic systolic CHF with ejection fraction of 45-50%. Plan: Patient took his morning dose of Lasix. Hold tonight's dose. Start normal saline at 50 mL an hour at midnight. Avoid nephrotoxins. Continue to monitor renal function and urine output. Monitor for contrast-induced acute kidney injury. Thank you for the consultation. I will continue to follow the patient with you during his hospital stay.
[2020-11-21 11:15] LABS: INR 1.1 (<1.2); Partial Thromboplastin Time 25.8 sec (22.0-30.0); Prothrombin Time 11.7 sec (9.0-12.0)
[2020-11-21 11:21] LABS: Calcium 9.6 mg/dL (8.4-10.2); Potassium 5.2 mmol/L (3.5-5.1); Total Bilirubin 0.6 mg/dL (0.2-1.3); Total Protein 7.4 g/dL (6.3-8.2)
[2020-11-21 11:31] LABS: Glucose,Whole Blood 92 mg/dL (75-99)
[2020-11-21 11:50] LABS: Anisocytosis Slight; Basophils # (A) 0.1 k/uL (0-0.2); Basophils % (A) 1 %; Eosinophils # (A) 0.2 k/uL (0-0.7); Eosinophils % (A) 2 %; HGB 8.7 gm/dL (13.0-17.5); Hypochromasia Marked; Lymphocytes # (A) 1.8 k/uL (1.0-4.8); Lymphocytes % (A) 26 %; MCHC 30.2 g/dL (31.0-37.0); MCV 69.7 fL (80.0-100.0); Microcytosis Marked; Monocytes # (A) 0.4 k/uL (0-1.0); Monocytes % (A) 5 %; Neutrophils # (A) 4.4 k/uL (1.3-7.7); Neutrophils % (A) 63 %; Platelet Count 241 k/uL (150-450); Poikilocytosis Slight; RBC 4.15 m/uL (4.30-5.90); RDW 17.2 % (11.5-15.5)
--- NOTE | 2020-11-21 12:43 | P.GSHP ---
History of Present Illness H&P Date: 11/21/20 Chief Complaint: Aortic stenosis This is an 85-year-old gentleman who follows on an outpatient basis with Dr. Dailey for primary care and Dr. NADJA Messer for cardiology. He has a previous medical history of coronary artery disease status post PCI in 2000 and 2003 and three-vessel CABG in 2001, hypertension, chronic atrial fibrillation on Xarelto for anticoagulation, chronic kidney disease stage IV, hypothyroid, previous CVA, BPH as well as severe aortic stenosis with exertional dyspnea and recent syncopal episode. He had been experiencing increased shortness of breath with exertion and had been referred to the structural heart clinic for evaluation for transcatheter aortic valve replacement after heart catheterization and transesophageal echocardiogram were completed. Echocardiography demonstrated mildly reduced left ventricular systolic function with EF 45-50%, moderate to severe left atrial enlargement, aortic valve area 0.8 cm with a peak/mean gradient 35/22 mmHg. Heart catheterization showed patent BAKER to the LAD, patent vein graft to the diagonal coronary artery, and patent vein graft to the PDA. Pulmonary function tests revealed FEV1 1.4 L which was 60% of predicted. Gated CT demonstrated excellent bilateral femoral access and he was sized for a 34 mm transfemoral Evolut pro-plus valve. STS risk score was calculated along with incremental risk and the patient was felt to be very high risk for surgical aortic valve replacement, therefore transcatheter aortic valve replacement was recommended. The usual course of TAVR was discussed in detail with the patient, risks and benefits were reviewed, and the patient consented to proceed with the procedure. He was brought in prior to procedure for hydration due to history of chronic kidney disease. - Review of Systems Comment: Review of systems is completed and is negative except as noted - Cardiovascular Cardiovascular: Reports as per HPI, Reports decreased exercise tolerance, Reports dyspnea on exertion, Reports shortness of breath Past Medical History Past Medical History: Atrial Fibrillation, Coronary Artery Disease (CAD), Chest Pain / Angina, CVA/TIA, GERD/Reflux, Hyperlipidemia, Hypertension, Myocardial Infarction ([place]), Thyroid Disorder Additional Past Medical History / Comment(s): Thalassemia trait, chronic kidney disease stage III, elevated PSA in the past, hx vertigo, Last Myocardial Infarction Date:: 2000 History of Any Multi-Drug Resistant Organisms: None Reported Past Surgical History: Coronary Bypass/CABG, Heart Catheterization With Stent, Tonsillectomy Additional Past Surgical History / Comment(s): CABG May 2000, angioplasty in 2000 and February 2004, bilateral cataract removal and intraocular lens implants,, 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 Past Anesthesia/Blood Transfusion Reactions: No Reported Reaction Date of Last Stent Placement:: unknown Past Psychological History: No Psychological Hx Reported Smoking Status: Never smoker Past Alcohol Use History: None Reported Additional Past Alcohol Use History / Comment(s): Patient is a lifelong nonsmoker. No medical marijuana, marijuana, street drug or alcohol use. Past Drug Use History: None Reported - Past Family History Father Family Medical History: No Reported History Mother Family Medical History: No Reported History Additional Family Medical History / Comment(s): Mother at age 82 from old age. Brother(s) Additional Family Medical History / Comment(s): Patient has 3 brothers and all 3 have passed. Unknown causes. Sister(s) Additional Family Medical History / Comment(s): Patient has has 4 sister that of all from old age. Daughter(s) Additional Family Medical History / Comment(s): Patient has 4 children, 2 boys and 2 girls with no major medical problems. Medications and Allergies Home Medications Medication Instructions Recorded Confirmed Type Metoprolol Tartrate [Lopressor] 50 mg PO TID 06/29/19 11/21/20 History Levothyroxine Sodium 150 mcg PO DAILY 06/04/20 11/21/20 History Atorvastatin [Lipitor] 20 mg PO DAILY 09/08/20 11/21/20 History Pantoprazole [Protonix] 40 mg PO DAILY 09/08/20 11/21/20 History Potassium Chloride 10 meq PO DAILY 09/08/20 11/21/20 History Tamsulosin HCl [Flomax] 0.4 mg PO HS 09/08/20 11/21/20 History Furosemide [Lasix] 40 mg PO BID 11/08/20 11/21/20 History Meclizine [Antivert] 12.5 mg PO DAILY 11/08/20 11/21/20 History metOLazone 2.5 mg PO SUWE 11/08/20 11/21/20 History Allergies Allergy/AdvReac Type Severity Reaction Status Date / Time No Known Allergies Allergy Verified 11/21/20 11:21 Surgical - Exam Vital Signs BP 139/70 11/21/20 10:06 CONSTITUTIONAL: Awake and alert, appears comfortable, cooperative, well-dev eloped, well-nourished, no pain, no acute distress EYES: Pupils equal, round, reactive to light, normal ocular movement ENT: Moist mucous membranes without oral lesions present, full dentures present NECK: No masses, no bruits, trachea midline RESPIRATORY: Lungs sounds clear to auscultation bilaterally. Respirations even, nonlabored. Currently on room air with oxygen saturation 98%. Strong cough. No clubbing or cyanosis present CARDIOVASCULAR: S1, S2 present, positive systolic murmur. Irregular rate and rhythm, controlled atrial fibrillation on telemetry. Palpable peripheral pulses bilaterally. No edema present. No calf pain or tenderness noted. GASTROINTESTINAL: Abdomen soft, nontender, nondistended without masses or organomegaly noted. There is no rebound or guarding present. Active bowel sounds present 4 quadrants. GENITOURINARY: Deferred INTEGUMENTARY: Skin is warm and dry with evidence of good perfusion. NEUROLOGIC: Cranial nerves II through XII intact, normal coordination, no obvious motor or sensory deficits, speech is normal MUSKULOSKELETAL: Able to move all extremities, strength equal bilaterally, normal posture PSYCHIATRIC: Alert and oriented to person place and time, appropriate affect, intact judgment and insight although forgetful at times Results - Labs 11/21/20 10:32 11/21/20 10:32 Abnormal Lab Results - Last 24 Hours (Table) 11/21/20 11/21/20 11/21/20 Range/Units 10:32 10:32 10:32 RBC 4.15 L (4.30-5.90) m/uL Hgb 8.7 L (13.0-17.5) gm/dL Hct 29.0 L (39.0-53.0) % MCV 69.7 L (80.0-100.0) fL MCH 21.0 L (25.0-35.0) pg MCHC 30.2 L (31.0-37.0) g/dL RDW 17.2 H (11.5-15.5) % Potassium 5.2 H (3.5-5.1) mmol/L BUN 39 H (9-20) mg/dL Creatinine 1.93 H (0.66-1.25) mg/dL Crossmatch See Detail Diabetes panel 11/21/20 Range/Units 10:32 Sodium 138 (137-145) mmol/L Potassium 5.2 H (3.5-5.1) mmol/L Chloride 101 (98-107) mmol/L Carbon Dioxide 29 (22-30) mmol/L BUN 39 H (9-20) mg/dL Creatinine 1.93 H (0.66-1.25) mg/dL Glucose 94 (74-99) mg/dL Calcium 9.6 (8.4-10.2) mg/dL AST 30 (17-59) U/L ALT 19 (4-49) U/L Alkaline Phosphatase 55 (38-126) U/L Total Protein 7.4 (6.3-8.2) g/dL Albumin 4.0 (3.5-5.0) g/dL Calcium panel 11/21/20 Range/Units 10:32 Calcium 9.6 (8.4-10.2) mg/dL Albumin 4.0 (3.5-5.0) g/dL Pituitary panel 11/21/20 Range/Units 10:32 Sodium 138 (137-145) mmol/L Potassium 5.2 H (3.5-5.1) mmol/L Chloride 101 (98-107) mmol/L Carbon Dioxide 29 (22-30) mmol/L BUN 39 H (9-20) mg/dL Creatinine 1.93 H (0.66-1.25) mg/dL Glucose 94 (74-99) mg/dL Calcium 9.6 (8.4-10.2) mg/dL Adrenal panel 11/21/20 Range/Units 10:32 Sodium 138 (137-145) mmol/L Potassium 5.2 H (3.5-5.1) mmol/L Chloride 101 (98-107) mmol/L Carbon Dioxide 29 (22-30) mmol/L BUN 39 H (9-20) mg/dL Creatinine 1.93 H (0.66-1.25) mg/dL Glucose 94 (74-99) mg/dL Calcium 9.6 (8.4-10.2) mg/dL Total Bilirubin 0.6 (0.2-1.3) mg/dL AST 30 (17-59) U/L ALT 19 (4-49) U/L Alkaline Phosphatase 55 (38-126) U/L Total Protein 7.4 (6.3-8.2) g/dL Albumin 4.0 (3.5-5.0) g/dL - Imaging Additional studies: All TAVR workup has been evaluated Assessment and Plan Assessment: 1. Severe aortic stenosis with exertional dyspnea and recent syncopal episode 2. History of coronary artery disease status post PCI in 2000 and 2003 and three-vessel CABG in 2001 3. Hypertension 4. Chronic atrial fibrillation on Xarelto for anticoagulation 5. Chronic kidney disease stage III-IV with chronic anemia 6. Hypothyroid 7. Previous CVA without residual 8. BPH 9. Recent admission for E. coli UTI and bacteremia, treated for 2 weeks Plan: 1. Continue statin, beta manda, Synthroid, Flomax. 2. Our plan is for transcatheter aortic valve replacement tomorrow, 11/22/2020. Nothing by mouth after midnight 3. Per nephrology recommendations we will start 0.9 normal saline at 50 mL per hour at midnight, hold tonight's dose of Lasix. We will continue normal saline for 6-8 hours post procedure tomorrow and resume his Lasix tomorrow evening. 4. Incentive spirometry ordered and encouraged. Death Claim Examiner consulted due to ICU stay 5. Dr. Mueller/Dr. Green to participate with Dr. Escobar for TAVR tomorrow 6. Increase activity, ambulate as tolerated 7. Continue preprocedure teaching 8. Type and screen completed, labs/chest x-ray/EKG ordered 9. Dr. Dailey consulted for medical management 10. More recommendations to follow Time with Patient: Greater than 30
--- NOTE | 2020-11-21 13:36 | XR ---
EXAMINATION TYPE: XR chest 1V DATE OF EXAM: 11/21/2020 COMPARISON: 11/08/2020 HISTORY: Preop TAVR TECHNIQUE: Single frontal view of the chest is obtained. FINDINGS: Status post median sternotomy. The third sternal wire is fractured. Heart size is mildly e nlarged. No pleural effusion or pneumothorax. Mild left basilar atelectasis or pneumonitis.. IMPRESSION: 1. Mild cardiomegaly. Status post median sternotomy. The third sternal wire from superior to inferior is fractured. 2. Left basilar airspace opacities suggestive of atelectasis or developing pneumonitis.
[2020-11-21 14:20] LABS: Appearance,Urine Clear (Clear); Bilirubin,Urine Negative (Negative); Blood,Urine Negative (Negative); Color,Urine Light Yellow; Glucose,Urine (UA) Negative (Negative); Ketones,Urine Negative (Negative); Leukocyte Esterase,Urine Negative (Negative); Nitrite,Urine Negative (Negative); PH, Urine 5.5 (5.0-8.0); Protein,Urine Negative (Negative); Specific Gravity,Urine 1.005 (1.001-1.035); Urobilinogen,Urine <2.0 mg/dL (<2.0)
[2020-11-21] MEDS: METOPROLOL TARTRATE 50 MG TAB PO SCH ×2 (16:43→21:48)
[2020-11-21] MEDS: HEPARIN SODIUM,PORCINE/PF 5,000 UNIT/0.5 ML SYRINGE SQ SCH (16:43)
[2020-11-21 17:27] LABS: Hemoglobin A1C 5.3 % (4.0-6.0)
[2020-11-21] MEDS ORDERED: LIDOCAINE 1% (10MG/ML) FOR IV START INTRADERMA PRN (20:10)
[2020-11-21] MEDS ORDERED: ONDANSETRON 4 MG/2 ML VIAL IVP ONE (20:10)
[2020-11-21] MEDS ORDERED: DEXAMETHASONE SOD PHOSPHATE 4 MG/ML 1 ML VIAL IV ONE (20:10)
[2020-11-21] MEDS ORDERED: LACTATED RINGERS 1,000 ML IV SCH (20:15)
[2020-11-21] MEDS ORDERED: FUROSEMIDE 40 MG TAB PO SCH (21:00)
[2020-11-21] MEDS ORDERED: CEFDINIR 300 MG CAP PO SCH (21:00)
[2020-11-21] MEDS: TAMSULOSIN 0.4 MG CAP.ER.24H PO SCH (21:48)
[2020-11-22] MEDS: HEPARIN SODIUM,PORCINE/PF 5,000 UNIT/0.5 ML SYRINGE SQ SCH ×3 (00:30→16:59)
[2020-11-22 03:46] LABS: Anisocytosis Slight; Hypochromasia Slight; MCH 21.8 pg (25.0-35.0); MCHC 32.2 g/dL (31.0-37.0); MCV 67.7 fL (80.0-100.0); Mean Platelet Volume 6.6; Microcytosis Marked; Platelet Count 213 k/uL (150-450); Poikilocytosis Slight; RBC 4.14 m/uL (4.30-5.90); RDW 16.9 % (11.5-15.5); WBC 7.3 k/uL (3.8-10.6)
[2020-11-22 03:58] LABS: Calcium 9.3 mg/dL (8.4-10.2); Potassium 5.3 mmol/L (3.5-5.1)
[2020-11-22] MEDS ORDERED: SODIUM CHLORIDE 0.9% 1,000 ML IV SCH ×2 (05:00)
[2020-11-22] MEDS ORDERED: ASPIRIN 325 MG TAB PO ONE (05:00)
[2020-11-22] MEDS ORDERED: CLOPIDOGREL 75 MG TAB PO ONE (05:00)
[2020-11-22] MEDS ORDERED: PROTAMINE SULFATE 250 MG in EMPTY BAG 1 BAG IV PRN (05:00)
[2020-11-22] MEDS ORDERED: INSULIN REGULAR 100 UNIT in SODIUM CHLORIDE 0.9% 100 ML IV PRN (05:00)
[2020-11-22] MEDS ORDERED: NITROGLYCERIN-D5W PMX 25 MG/250 ML BTL IV PRN (05:00)
[2020-11-22] MEDS ORDERED: METOPROLOL TARTRATE 25 MG TAB PO ONE (05:00)
[2020-11-22] MEDS ORDERED: CARDIOPLEGIC SOLN (K+ 16 MEQ/L 1,000 ML with SOD BICARB SYR 8.4% (1 MEQ/ML) 20 ML, LIDO... PERFUSION PRN ×3 (05:00)
[2020-11-22] MEDS ORDERED: CLEVIDIPINE BUTYRATE 25 MG in EMPTY BAG 1 BAG IV PRN (05:00)
[2020-11-22] MEDS ORDERED: ATORVASTATIN 10 MG TAB PO ONE (05:00)
[2020-11-22] MEDS ORDERED: TRANEXAMIC ACID 2,000 MG in SODIUM CHLORIDE 0.9% 80 ML IV PRN (05:00)
[2020-11-22] MEDS: PANTOPRAZOLE 40 MG TABLET PO SCH (06:29)
[2020-11-22] MEDS: LEVOTHYROXINE 75 MCG TAB PO SCH (06:29)
[2020-11-22] MEDS ORDERED: fentaNYL (PF) 50 MCG/ML 2 ML AMP IVP PRN (07:00)
[2020-11-22] MEDS: ATORVASTATIN 20 MG TAB PO SCH (08:08)
[2020-11-22] MEDS: MECLIZINE 12.5 MG TAB PO SCH (08:09)
[2020-11-22] MEDS: METOPROLOL TARTRATE 50 MG TAB PO SCH ×3 (08:09→23:10)
[2020-11-22] MEDS: POTASSIUM CHLORIDE ER 10 MEQ TAB.ER.PRT PO SCH (08:10)
--- NOTE | 2020-11-22 08:23 | P.CNPUL ---
History of Present Illness Consult date: 11/21/20 Chief complaint: Pre-op evaluation History of present illness: 85-year-old male patient, admitted to the intensive care unit. The patient is scheduled to have a TaVR procedure tomorrow for severe aortic stenosis. The patient is also known to have chronic stage IV kidney disease. He was hospitalized a day prior to his procedure for hydration. He is known to have CAD, aortic stenosis, chronic atrial fibrillation, previous history of CVA/TIA, hypertension and hyperlipidemia and thyroid disease. His current white cell count is at 7 with a hemoglobin of 8.7. His creatinine is at 1.9 with a GFR of 36. Electrolytes are showing a slight elevation of the potassium at 5.2. COVID-19 testing was negative. A computed tomography scan of the chest abdomen and pelvis that was done for a TAVR planning procedure showed evidence of old girl of active disease involving the lung. There is cardiomegaly. There is cholelithiasis. Small bilateral pleural effusions were also present. Note that the nodularities in the lungs were tiny involving the right middle lobe and in the lingula measuring 8 mm in size. No significant mediastinal lymphadenopathy. Note that the patient has symptomatic aortic stenosis. The patient has had previous history of syncope. Echocardiogram in the form of a HOANG that was done showed a valve area of 0.8 cm consistent with moderate to severe aortic stenosis. A pulmonary function test was done and the patient has an FEV1 of 60% of predicted. Note that the patient was in the hospital on 11/10/2020 for E. coli bacteremia/sepsis, treated and the patient was discharged home on antibiotics. Completed his antibiotic course. Currently afebrile. Review of Systems Constitutional: Reports fatigue, Reports weakness Eyes: denies blurred vision, denies bulging eye, denies decreased vision Ears, nose, mouth and throat: Reports vertigo, Denies dysphagia, Denies neck lump, Denies sore throat Cardiovascular: Reports decreased exercise tolerance, Reports dyspnea on ex ertion, Reports lightheadedness, Reports shortness of breath, Denies chest pain, Denies leg edema, Denies orthopnea, Denies paroxysmal nocturnal dyspnea, Denies rapid heart beat, Denies syncope Respiratory: Denies congestion, Denies cough, Denies cough with sputum, Denies home oxygen, Denies sleep apnea, Denies snoring, Denies wheezing Gastrointestinal: Reports nausea, Reports vomiting, Denies abdominal pain, Denies belching, Denies bloating, Denies BRBPR, Denies diarrhea, Denies dyspepsia, Denies loss of appetite, Denies melena Genitourinary: Reports nocturia, Denies dysuria Musculoskeletal: Reports morning stiffness, Denies frequent falls, Denies gait dysfunction Musculoskeletal: absent: ankle pain, ankle stiffness, ankle swelling, elbow pain, elbow stiffness, elbow swelling, foot pain, foot stiffness, foot swelling, hand pain, hand stiffness, hand swelling, hip pain, hip stiffness, hip swelling, knee pain, knee stiffness, knee swelling, shoulder pain, shoulder stiffness, shoulder swelling, wrist pain, wrist stiffness, wrist swelling Integumentary: Denies pruritus, Denies rash Neurological: Reports balance difficulties, Reports change in mentation, Reports confusion, Reports gait dysfunction, Reports lack of coordination, Reports vertigo, Reports weakness, Denies headaches, Denies tremors Psychiatric: Denies anxiety, Denies depression Endocrine: Denies fatigue, Denies weight change Past Medical History Past Medical History: Atrial Fibrillation, Coronary Artery Disease (CAD), Chest Pain / Angina, CVA/TIA, GERD/Reflux, Hyperlipidemia, Hypertension, Myocardial Infarction ([place]), Thyroid Disorder Additional Past Medical History / Comment(s): Thalassemia trait, chronic kidney disease stage III, elevated PSA in the past, hx vertigo, Last Myocardial Infarction Date:: 2000 History of Any Multi-Drug Resistant Organisms: None Reported Past Surgical History: Coronary Bypass/CABG, Heart Catheterization With Stent, Tonsillectomy Additional Past Surgical History / Comment(s): CABG May 2000, angioplasty in 2000 and February 2004, bilateral cataract removal and intraocular lens implants ,, 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 Past Anesthesia/Blood Transfusion Reactions: No Reported Reaction Date of Last Stent Placement:: unknown Past Psychological History: No Psychological Hx Reported Smoking Status: Never smoker Past Alcohol Use History: None Reported Additional Past Alcohol Use History / Comment(s): Patient is a lifelong nonsmoker. No medical marijuana, marijuana, street drug or alcohol use. Past Drug Use History: None Reported - Past Family History Father Family Medical History: No Reported History Mother Family Medical History: No Reported History Additional Family Medical History / Comment(s): Mother at age 82 from old age. Brother(s) Additional Family Medical History / Comment(s): Patient has 3 brothers and all 3 have passed. Unknown causes. Sister(s) Additional Family Medical History / Comment(s): Patient has has 4 sister that of all from old age. Daughter(s) Additional Family Medical History / Comment(s): Patient has 4 children, 2 boys and 2 girls with no major medical problems. Medications and Allergies Home Medications Medication Instructions Recorded Confirmed Type Metoprolol Tartrate [Lopressor] 50 mg PO TID 06/29/19 11/21/20 History Levothyroxine Sodium 150 mcg PO DAILY 06/04/20 11/21/20 History Atorvastatin [Lipitor] 20 mg PO DAILY 09/08/20 11/21/20 History Pantoprazole [Protonix] 40 mg PO DAILY 09/08/20 11/21/20 History Potassium Chloride 10 meq PO DAILY 09/08/20 11/21/20 History Tamsulosin HCl [Flomax] 0.4 mg PO HS 09/08/20 11/21/20 History Furosemide [Lasix] 40 mg PO BID 11/08/20 11/21/20 History Meclizine [Antivert] 12.5 mg PO DAILY 11/08/20 11/21/20 History metOLazone 2.5 mg PO SUWE 11/08/20 11/21/20 History Allergies Allergy/AdvReac Type Severity Reaction Status Date / Time No Known Allergies Allergy Verified 11/21/20 11:21 Physical Exam Vitals: Vital Signs Pulse Resp BP BP Pulse Ox 11/21/20 11:00 61 11 L 134/73 98 11/21/20 10:12 57 L 13 98 11/21/20 10:06 139/70 Intake and Output 11/20/20 11/21/20 11/21/20 22:59 06:59 14:59 Intake Total 0 Balance 0 Intake: Blood Product 0 Other: Weight 95.2 kg General : this is and 85 year old male , awake and oriented 3 Head exam was generally normal. There was no scleral icterus or corneal arcus. Mucous membranes were moist. Neck was supple and without jugular venous distension, thyromegaly, or carotid bruits. Carotids were easily palpable bilaterally. There was no adenopathy. Chest: decreased breath sounds at the bases with few ronchi no expiratory wheezes, no chest wall tenderness or intercostal retractions. Heart: First heart sound is depressed, second heart sound is normal there is TAMIKO 3/6 located at the right second intercostal space radiating to the carotids. Abdomen: soft non tender , non distended positive bowel sounds, there is no hepatosplenomegaly. Extremities: there is no edema , no calf tenderness, DP + 2 bilaterally. Neurologic Examination: Patient is awake alert and oriented X 3 CN II-XII are gr ossly intact, Muscle power 4/5 in bilateral upper and lower extremities, Deep tendon reflexes were hyperreflexic, Babinski's were flexor bilaterally, there is no pronation drift. . Results - Laboratory Findings CBC and BMP: 11/21/20 10:32 11/21/20 10:32 ABG WBC 7.0 k/uL (3.8-10.6) 11/21/20 10:32 RBC 4.15 m/uL (4.30-5.90) L 11/21/20 10:32 Hgb 8.7 gm/dL (13.0-17.5) L 11/21/20 10:32 Hct 29.0 % (39.0-53.0) L 11/21/20 10:32 MCV 69.7 fL (80.0-100.0) L 11/21/20 10:32 MCH 21.0 pg (25.0-35.0) L 11/21/20 10:32 MCHC 30.2 g/dL (31.0-37.0) L 11/21/20 10:32 RDW 17.2 % (11.5-15.5) H 11/21/20 10:32 Plt Count 241 k/uL (150-450) 11/21/20 10:32 MPV 8.0 11/21/20 10:32 Neutrophils % 63 % 11/21/20 10:32 Lymphocytes % 26 % 11/21/20 10:32 Monocytes % 5 % 11/21/20 10:32 Eosinophils % 2 % 11/21/20 10:32 Basophils % 1 % 11/21/20 10:32 Neutrophils # 4.4 k/uL (1.3-7.7) 11/21/20 10:32 Lymphocytes # 1.8 k/uL (1.0-4.8) 11/21/20 10:32 Monocytes # 0.4 k/uL (0-1.0) 11/21/20 10:32 Eosinophils # 0.2 k/uL (0-0.7) 11/21/20 10:32 Basophils # 0.1 k/uL (0-0.2) 11/21/20 10:32 Hypochromasia Marked 11/21/20 10:32 Poikilocytosis Slight 11/21/20 10:32 Anisocytosis Slight 11/21/20 10:32 Microcytosis Marked 11/21/20 10:32 PT 11.7 sec (9.0-12.0) 11/21/20 10:32 INR 1.1 (<1.2) 11/21/20 10:32 APTT 25.8 sec (22.0-30.0) 11/21/20 10:32 Sodium 138 mmol/L (137-145) 11/21/20 10:32 Potassium 5.2 mmol/L (3.5-5.1) H 11/21/20 10:32 Chloride 101 mmol/L (98-107) 11/21/20 10:32 Carbon Dioxide 29 mmol/L (22-30) 11/21/20 10:32 Anion Gap 8 mmol/L 11/21/20 10:32 BUN 39 mg/dL (9-20) H 11/21/20 10:32 Creatinine 1.93 mg/dL (0.66-1.25) H 11/21/20 10:32 Est GFR (CKD-EPI)AfAm 36 (>60 ml/min/1.73 sqM) 11/21/20 10:32 Est GFR (CKD-EPI)NonAf 31 (>60 ml/min/1.73 sqM) 11/21/20 10:32 Glucose 94 mg/dL (74-99) 11/21/20 10:32 POC Glucose (mg/dL) 92 mg/dL (75-99) 11/21/20 11:30 POC Glu [employer] Facilities Operator ID Nanda De La Cruz 11/21/20 11:30 Calcium 9.6 mg/dL (8.4-10.2) 11/21/20 10:32 Magnesium 2.0 mg/dL (1.6-2.3) 11/21/20 10:32 Total Bilirubin 0.6 mg/dL (0.2-1.3) 11/21/20 10:32 AST 30 U/L (17-59) 11/21/20 10:32 ALT 19 U/L (4-49) 11/21/20 10:32 Alkaline Phosphatase 55 U/L (38-126) 11/21/20 10:32 Total Protein 7.4 g/dL (6.3-8.2) 11/21/20 10:32 Albumin 4.0 g/dL (3.5-5.0) 11/21/20 10:32 Coronavirus (PCR) Not Detected (Not Detectd) 11/21/20 10:54 PT/INR, D-dimer PT 11.7 sec (9.0-12.0) 11/21/20 10:32 INR 1.1 (<1.2) 11/21/20 10:32 Abnormal lab findings: Abnormal Labs 11/21/20 11/21/20 10:32 10:32 RBC 4.15 L Hgb 8.7 L Hct 29.0 L MCV 69.7 L MCH 21.0 L MCHC 30.2 L RDW 17.2 H Potassium 5.2 H BUN 39 H Creatinine 1.93 H - Diagnostic Findings Chest x-ray: image reviewed U/S of Legs: image reviewed Assessment and Plan Plan: 1 symptomatic aortic stenosis, referred to the most recent HOANG revealing a 0.8 cm aortic valve with a preserved LV function. Awaiting a TaVR procedure. 2 recent hospitalization for possible syncope/UTI. The patient E. coli septicemia treated with antibiotics, currently free of any infections 3 chronic stage III kidney disease 4 coronary artery disease which is currently inactive in stable 5 hypertension 6 hyperlipidemia 7 history of CVA 8 history of anemia of chronic disease in addition to his status and make titrate 9 chronic atrial fibrillation 10 hypothyroidism maintained on levothyroxine Plan IV hydration and monitor renal function Repeat urinalysis IV cefazolin 2 g pre-op Hold Xarelto for now we'll follow
--- NOTE | 2020-11-22 09:13 | P.PN ---
Subjective Patient is seen in follow-up for chronic kidney disease. Renal function stable. No chest pain or shortness of breath. Scheduled for TAVR today. Vital signs are stable. General: The patient appeared well nourished and normally developed. HEENT: Head exam is unremarkable. Neck is without jugular venous distension. LUNGS: Lungs are clear to auscultation and percussion. Breath sounds decreased. HEART: Rate and Rhythm are regular. ABDOMEN: Soft, no distention. EXTREMITITES: No edema. Objective - Vital Signs Vital signs: Vital Signs Temp 98.1 F 11/22/20 08:21 Pulse 70 11/22/20 08:00 Resp 26 H 11/22/20 08:00 BP 147/81 11/22/20 08:00 Pulse Ox 97 11/22/20 08:00 Intake & Output 11/21/20 11/22/20 11/22/20 18:59 06:59 18:59 Intake Total 740 710 50 Output Total 1200 1800 Balance -460 -1090 50 Weight 95.2 kg 97.8 kg Intake: Intake, IV Titration 410 50 Amount Lactated Ringers 1,000 ml 60 @ 20 mls/hr IV .Q24H SARAH Rx#:[id number] Sodium Chloride 0.9% 1, 350 50 000 ml @ 50 mls/hr IV . Q20H SARAH Rx#:[id number] Oral 740 300 Blood Product 0 Output: Urine 1200 1800 Other: Voiding Method Toilet Toilet # Voids 1 1 - Labs CBC & Chem 7: 11/22/20 03:16 11/22/20 03:16 Labs: Abnormal Lab Results - Last 24 Hours (Table) 11/21/20 11/21/20 11/21/20 Range/Units 10:32 10:32 10:32 RBC 4.15 L (4.30-5.90) m/uL Hgb 8.7 L (13.0-17.5) gm/dL Hct 29.0 L (39.0-53.0) % MCV 69.7 L (80.0-100.0) fL MCH 21.0 L (25.0-35.0) pg MCHC 30.2 L (31.0-37.0) g/dL RDW 17.2 H (11.5-15.5) % Sodium (137-145) mmol/L Potassium 5.2 H (3.5-5.1) mmol/L BUN 39 H (9-20) mg/dL Creatinine 1.93 H (0.66-1.25) mg/dL Glucose (74-99) mg/dL Crossmatch See Detail 11/22/20 11/22/20 Range/Units 03:16 03:16 RBC 4.14 L (4.30-5.90) m/uL Hgb 9.0 L (13.0-17.5) gm/dL Hct 28.0 L (39.0-53.0) % MCV 67.7 L (80.0-100.0) fL MCH 21.8 L (25.0-35.0) pg MCHC (31.0-37.0) g/dL RDW 16.9 H (11.5-15.5) % Sodium 136 L (137-145) mmol/L Potassium 5.3 H (3.5-5.1) mmol/L BUN 42 H (9-20) mg/dL Creatinine 1.97 H (0.66-1.25) mg/dL Glucose 157 H (74-99) mg/dL Crossmatch Assessment and Plan Plan: Assessment: 1. Chronic kidney disease stage IV secondary to nephrosclerosis with baseline creatinine in the range of 2-2.3. UA benign. 2. Aortic stenosis scheduled for TAVR today. 3. Chronic systolic CHF with ejection fraction of 45-50%. 4. Mild hyperkalemia secondary to chronic kidney disease and potassium supplementation. Stable. Plan: Lasix and potassium supplementation held. Maintain gentle IV hydration. Hep-Lock IV fluids at 7 PM tonight. Okay to resume Lasix tonight. Avoid nephrotoxins. Continue to monitor renal function and urine output. Monitor for contrast-induced acute kidney injury.
[2020-11-22] MEDS ORDERED: fentaNYL (PF) 50 MCG/ML 2 ML AMP ONE (11:01)
[2020-11-22] MEDS ORDERED: PROTAMINE SULFATE 10 MG/ML 5 ML VIAL IV ONE (11:01)
[2020-11-22] MEDS ORDERED: PHENYLEPHRINE-0.9% NACL SYG 1,000 MCG/10 ML SYRINGE ONE (11:01)
[2020-11-22] MEDS ORDERED: PROPOFOL 10 MG/ML 20 ML VIAL IV ONE (11:01)
[2020-11-22] MEDS ORDERED: MIDAZOLAM 2 MG/2 ML VIAL ONE (11:01)
[2020-11-22] MEDS ORDERED: LABETALOL 5 MG/ML VIAL MDV ONE (11:01)
[2020-11-22] MEDS ORDERED: ROCURONIUM 10 MG/ML (5 ML VIAL) IV ONE (11:01)
--- NOTE | 2020-11-22 11:49 | P.PN ---
Subjective Progress Note Date: 11/22/20 Principal diagnosis: Severe aortic valve stenosis 85-year-old male patient, admitted to the intensive care unit. The patient is scheduled to have a TaVR procedure tomorrow for severe aortic stenosis. The patient is also known to have chronic stage IV kidney disease. He was hos pitalized a day prior to his procedure for hydration. He is known to have CAD, aortic stenosis, chronic atrial fibrillation, previous history of CVA/TIA, hypertension and hyperlipidemia and thyroid disease. His current white cell count is at 7 with a hemoglobin of 8.7. His creatinine is at 1.9 with a GFR of 36. Electrolytes are showing a slight elevation of the potassium at 5.2. COVID-19 testing was negative. A computed tomography scan of the chest abdomen and pelvis that was done for a TAVR planning procedure showed evidence of old girl of active disease involving the lung. There is cardiomegaly. There is cholelithiasis. Small bilateral pleural effusions were also present. Note that the nodularities in the lungs were tiny involving the right middle lobe and in the lingula measuring 8 mm in size. No significant mediastinal lymphadenopathy. Note that the patient has symptomatic aortic stenosis. The patient has had previous history of syncope. Echocardiogram in the form of a HOANG that was done showed a valve area of 0.8 cm consistent with moderate to severe aortic stenosi s. A pulmonary function test was done and the patient has an FEV1 of 60% of predicted. Note that the patient was in the hospital on 11/10/2020 for E. coli bacteremia/sepsis, treated and the patient was discharged home on antibiotics. Completed his antibiotic course. Currently afebrile. On 11/22/2020 patient in follow-up in the intensive care unit, room air pulse ox is 98%. He stopped up in the chair, breathing comfortably, he is afebrile, no complaints of chest pain, vital signs have been stable overnight, patient's Lasix has been placed on hold overnight he has received IV hydration with 0.9 normal saline at rate of 50 ML per hour. Today's labs have been reviewed, his renal function is relatively stable, with B UN of 42, and creatinine of 1.97. Potassium is 5.3, sodium is 136, respiratory electrolytes were within normal limits. His white count is within normal limits at 7.3, hemoglobin is 9.0. No fever or chills, urinalysis without sign of infection. COVID-19 PCR was negat deja. Patient is in atrial fibrillation with a controlled rate Patient is awake and alert, oriented 3, no confusion, answering questions appropriately, he is using incentive spirometer. he is voiding and he has been ambulating to the bathroom, tolerating activity well. Patient has been nothing by mouth after midnight for TAVR today Objective - Vital Signs Vital signs: Vital Signs Temp 98.1 F 11/22/20 08:21 Pulse 68 11/22/20 09:00 Resp 14 11/22/20 09:00 BP 147/81 11/22/20 09:00 Pulse Ox 98 11/22/20 09:00 Intake & Output 11/21/20 11/22/20 11/22/20 18:59 06:59 18:59 Intake Total 740 710 150 Output Total 1200 1800 Balance -460 -1090 150 Weight 95.2 kg 97.8 kg Intake: IV 100 Sodium Chloride 0.9% 1, 100 000 ml @ 50 mls/hr IV . Q20H SARAH Rx#:[id number] Intake, IV Titration 410 50 Amount Lactated Ringers 1,000 ml 60 @ 20 mls/hr IV .Q24H SARAH Rx#:[id number] Sodium Chloride 0.9% 1, 350 50 000 ml @ 50 mls/hr IV . Q20H SARAH Rx#:[id number] Oral 740 300 Blood Product 0 Output: Urine 1200 1800 Other: Voiding Method Toilet Toilet Toilet # Voids 1 1 - Exam GENERAL EXAM: Alert, very pleasant, 85-year-old white male, on room air with pulse ox of 98%, comfortable in no apparent distress. HEAD: Normocephalic/atraumatic. EYES: Normal reaction of pupils, equal size. Conjunctiva pink, sclera white. NOSE: Clear with pink turbinates. THROAT: No erythema or exudates. NECK: No masses, no JVD, no thyroid enlargement, no adenopathy. CHEST: No chest wall deformity. Symmetrical expansion. LUNGS: Equal air entry with no crackles, wheeze, rhonchi or dullness. CVS: Irregular rate and rhythm, normal S1 and S2, no gallops, no murmurs, no rubs ABDOMEN: Soft, nontender. No hepatosplenomegaly, normal bowel sounds, no guarding or rigidity. EXTREMITIES: No clubbing, no edema, no cyanosis, 2+ pulses and upper and lower extremities. MUSCULOSKELETAL: Muscle strength and tone normal. SPINE: No scoliosis or deformity SKIN: No rashes CENTRAL NERVOUS SYSTEM: Alert and oriented -3. No focal deficits, tone is normal in all 4 extremities. PSYCHIATRIC: Alert and oriented -3. Appropriate affect. Intact judgment and insight. - Labs CBC & Chem 7: 11/22/20 03:16 11/22/20 03:16 Labs: Abnormal Lab Results - Last 24 Hours (Table) 11/21/20 11/21/20 11/22/20 Range/Units 10:32 10:32 03:16 RBC 4.15 L 4.14 L (4.30-5.90) m/uL Hgb 8.7 L 9.0 L (13.0-17.5) gm/dL Hct 29.0 L 28.0 L (39.0-53.0) % MCV 69.7 L 67.7 L (80.0-100.0) fL MCH 21.0 L 21.8 L (25.0-35.0) pg MCHC 30.2 L (31.0-37.0) g/dL RDW 17.2 H 16.9 H (11.5-15.5) % Sodium (137-145) mmol/L Potassium (3.5-5.1) mmol/L BUN (9-20) mg/dL Creatinine (0.66-1.25) mg/dL Glucose (74-99) mg/dL Crossmatch See Detail 11/22/20 Range/Units 03:16 RBC (4.30-5.90) m/uL Hgb (13.0-17.5) gm/dL Hct (39.0-53.0) % MCV (80.0-100.0) fL MCH (25.0-35.0) pg MCHC (31.0-37.0) g/dL RDW (11.5-15.5) % Sodium 136 L (137-145) mmol/L Potassium 5.3 H (3.5-5.1) mmol/L BUN 42 H (9-20) mg/dL Creatinine 1.97 H (0.66-1.25) mg/dL Glucose 157 H (74-99) mg/dL Crossmatch Assessment and Plan Plan: 1 symptomatic aortic stenosis, referred to the most recent HOANG revealing a 0.8 cm aortic valve with a preserved LV function. Awaiting a TaVR procedure today on 11/22/2020 2 recent hospitalization for possible syncope/UTI. The patient E. coli septicemia treated with antibiotics, currently free of any infections 3 chronic stage III kidney disease 4 coronary artery disease which is currently inactive in stable 5 hypertension 6 hyperlipidemia 7 history of CVA 8 history of anemia of chronic disease in addition to his status and make titrate 9 chronic atrial fibrillation 10 hypothyroidism maintained on levothyroxine Plan: Continue diuretics and IV hydration per CT surgery Hemodynamically patient is stable, no acute events overnight, No comments of chest pain no worsening dyspnea or hypoxia We'll continue to follow the patient in the postoperative period Patient has been nothing by mouth after midnight for a TAVR procedure today I performed a history & physical examination of the patient and discussed their management with my nurse practitioner, Lisa Bolden. I reviewed the nurse practitioner's note and agree with the documented findings and plan of care. Lung sounds are positive for diminished throughout the lung goff. The findings and the impression was discussed with the patient. I attest to the doc umentation by the nurse practitioner. Time with Patient: Less than 30
[2020-11-22] MEDS ORDERED: IOPAMIDOL-370 100ML BTL INJ ONE (12:30)
--- NOTE | 2020-11-22 13:09 | P.OP ---
Date of Procedure: 11/22/20 Preoperative Diagnosis: Aortic valve stenosis Postoperative Diagnosis: Same Procedure(s) Performed: Transcutaneous aortic valve replacement with 34 mm pro plus evolute cor valve Implants: 34 mm pro-plus evolute cor valve Anesthesia: GETA Surgeon: Marcellus Escobar Heel Finisher #1: Roby Green (design printing machine set up operator) Estimated Blood Loss (ml): 20 IV fluids (ml): 1,000 Urine output (ml): 500 Pathology: none sent Condition: stable Disposition: ICU Indications for Procedure: 85-year-old male with symptomatic severe aortic valvular stenosis presents for elective transcatheter aortic valve replacement Operative Findings: Tricuspid heavily calcified aortic valve. The valve implanted at 2 of the right and 5 on the left. Only mild paravalvular leak near large piece of calcium. The valve was expanded well. Was no significant gradient. Excellent hemodynamics. Description of Procedure: The patient was brought to the catheterization laboratory, the supine on the table anesthetized and intubated. HOANG probe was placed. Anterior torso and bilateral groins sterilely prepped and draped in standard fashion for TAVR. Right subclavian venous access was obtained and a screw-in ventricular lead was placed through the right subclavian vein into the apex of the right ventricle by Dr. Escobar. Thresholds were below 1 V. Lead was secured to the skin with 2-0 silk sutures. Bilateral femoral access was obtained under ultrasound guidance by Dr. Green. On the right a short 6-Welsh sheath was placed and on the lef t along 6-Welsh sheath was placed. On the right the 6-Welsh sheath was exchanged for deployment of 2 preclosed devices and then an 8-Welsh sheath was placed. The patient was systemically heparinized and ACT is maintained greater than 250 during the procedure. On the left the pigtail catheter was advanced and placed in the noncoronary sinus of Valsalva. On the right a stiff wire was placed and the 8-Welsh sheath exchanged for a 18-Welsh sheath which was guided into the proximal abdominal/distal thoracic aorta. Through this the valve was crossed with a straight wire and a pigtail catheter positioned in the apex of the left ventricle. Hemodynamics were obtained. Lunderquist wire was placed in the apex of the ventricle and predilatation with a 26 true balloon was performed under rapid ventricular pacing. Balloon catheter was removed and the 34 core valve was brought up onto the field having been loaded on the back table. Was checked under fluoroscopy and then the delivery system for the core valve was exchanged for the 18-Welsh sheath. There was guided fluoroscopically through the iliofemoral system up the abdominal and descending thoracic aorta around the arch of the aorta and across the valve. It was deployed under rapid ventricular pacing deployment levels of 2 on the right and 5 on the left. The bowel delivery system was then pulled back. HOANG demonstrated only very mild paravalvular leak and no region of a large bar of calcium posteriorly. This of been expected. Hemodynamics were excellent and we felt that we were happy with the deployment and an result. Heparin was reversed with protamine and the valve delivery system was removed. Preclosed devices were deployed in good hemostasis was obtained bilaterally by Dr. Green. Dry sterile dressings were applied and the patient was transferred to ICU in stable condition.
--- NOTE | 2020-11-22 13:19 | P.ANPRN ---
Procedure Note - Anesthesia - Invasive Line Left Arterial Line Time Out Performed: Yes Date of Procedure: 11/22/20 Time of Procedure: 10:20 Location of Patient: Phase I Preparation: Sterile Prep, Sterile Dressing Arterial Line Location: Radial Ultrasound Used: Yes Purpose - Visualization and Identification of Vasculature: Yes Needle Guage: 20 Image Stored and Saved: Yes Narrative: Left radial arterial line placed under sterile conditions Right Central Line Time Out Performed: Yes Date of Procedure: 11/22/20 Time of Procedure: 10:30 Location of Patient: Phase I Preparation: Sterile Prep, Sterile Dressing Ultrasound Used: Yes Purpose - Visualization and Identification of Vasculature: Yes Needle Guage: 18 Image Stored and Saved: Yes Narrative: Central line placement per sterile protocol utilized.
--- NOTE | 2020-11-22 13:33 | P.ANPRN ---
Procedure Note - Anesthesia - HOANG Intraop Pre Bypass HOANG Intraop - Anesthesia Indication: Aortic stenosis Date of Procedure: 11/22/20 Pre-operative Diagnosis: Aortic stenosis Post-operative Diagnosis: same Surgeon: Marcellus Escobar Left Ventricle: EF 45% Ejection Fraction: Other Regional Wall Motion Abnormalities: None Left Ventricle Hypertrophy: Yes R. Ventricle Function: Normal Aortic Valve: Calcified with poor opening. Gradient 35/18 consistent with mild , but area by planimetry 0.7. Flow acceleration on color flow consistent with severe Anatomy: Trileaflet Aortic Stenosis: Severe Aortic Regurgitation: Trace Mitral Valve: Significant mitral annular calcification with calcification and poor opening of A2 Mitral Stenosis: None Mitral Regurgitation: Severe Tricuspid Stenosis: None Tricuspid Regurgitation: Mild Pulmonic Stenosis: None Pulmonic Regurgitation: None R. Atrial Dilation: No R. Atrial PFO: No L. Atrial Dilation: Yes Aortic Dissection: No Aortic Calcification: Moderate Plural Effusion: None - HOANG Intraop Post Bypass HOANG Intraop Post Bypass Procedure Performed: TAVR Left Ventricle: EF 45% Ejection Fraction: Other Regional Wall Motion Abnormalities: None R. Ventricle Function: Normal Aortic Valve: s/p TAVR. Gradient 14/8. Mild perivalvular leak 12 " Mitral Valve: Unchanged Tricuspid: Unchanged Pulmonic: Unchanged Aortic Dissection: No
[2020-11-22] MEDS ORDERED: ONDANSETRON 4 MG/2 ML VIAL IVP PRN (13:51)
[2020-11-22] MEDS ORDERED: HYDROcodone/APAP 5-325MG 1 EACH TAB PO PRN (13:51)
[2020-11-22 14:08] LABS: Anisocytosis Slight; Basophils % (A) 0 %; Eosinophils % (A) 0 %; HCT 27.2 % (39.0-53.0); HGB 8.3 gm/dL (13.0-17.5); Hypochromasia Moderate; Lymphocytes # (A) 1.4 k/uL (1.0-4.8); Lymphocytes % (A) 15 %; MCH 20.9 pg (25.0-35.0); MCHC 30.6 g/dL (31.0-37.0); MCV 68.5 fL (80.0-100.0); Mean Platelet Volume 7.6; Microcytosis Marked; Monocytes # (A) 0.6 k/uL (0-1.0); Monocytes % (A) 6 %; Neutrophils # (A) 6.9 k/uL (1.3-7.7); Neutrophils % (A) 77 %; Platelet Count 190 k/uL (150-450); Poikilocytosis Slight; RBC 3.98 m/uL (4.30-5.90)
[2020-11-22 14:18] LABS: INR 1.1 (<1.2); Partial Thromboplastin Time 22.8 sec (22.0-30.0); Prothrombin Time 11.7 sec (9.0-12.0)
--- NOTE | 2020-11-22 14:32 | P.CONS ---
History of Present Illness - Reason for Consult Consult date: 11/22/20 - History of Present Illness HISTORY OF PRESENT ILLNESS This is an 85-year-old male patient of Dr. 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 Sethi. He had a recent hospitalization for UTI and discharged w ith ceftin for a 11 day course which was completed and repeat urine was clear of UTI. Patient has been brought into the hospital for TAVR scheduled for today. At 11 AM. Patient feels good about moving forward with surgery. He denies having any chest pain, shortness of breath, lightheadedness or dizziness, no palpitations. No fever or chills. REVIEW OF SYSTEMS Constitutional: No fever, no chills, no night sweats. No weight change. No weakness, fatigue or lethargy. No daytime sleepiness. EENT: No headache. No blurred vision or double vision, no loss of vision. No loss of Hearing, no ringing in the ears, no dizziness. No nasal drainage or congestion. No epistaxis. No sore throat. Lungs: No shortness of breath, cough, no sputum production. No wheezing. Cardiovascular: No chest pain, no lower extremity edema. No palpitations. No paroxysmal nocturnal dyspnea. No orthopnea. No lightheadedness or dizziness. Reported to ER physician as syncopal episodes. Abdominal: No abdominal pain. No nausea, vomiting. No diarrhea. No constipation. No bloody or tarry stools. No loss of appetite. Genitourinary: No dysuria, increased frequency, urgency. No urinary retention. Musculoskeletal: No myalgias. No muscle weakness, no gait dysfunction, no frequent falls. No back pain. No neck pain. Integumentary: No wounds, no lesions. No rash or pruritus. No unusual bruising. No change in hair or nails. Neurologic: No aphasia. No facial droop. No change in mentation. No head injury. No headache. No paralysis. No paresthesia. Psychiatric: No depression. No anxiety. Endocrine: No abnormal blood sugars. 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 No marijuana, street drug or alcohol use. FAMILY HISTORY Father at age 87 from myocardial infarction. Mother at age 82 from old age. Patient has 3 brothers and all have of unknown causes. Patient has 4 sisters and all from old age. Patient's 4 children, 2 boys and 2 girls with no major medical problems. PHYSICAL EXAMINATION Gen: This is an 81-year-old male. He is sitting up in bed in the ICU and appears to be in no acute distress. HEENT: Head is atraumatic, normocephalic. Pupils equal, round. Sclerae is anicteric. Conjunctiva pink. Mucous members of the mouth are slightly dry. NECK: Supple. No JVD. No lymphadenopathy. No thyromegaly. LUNGS: Clear to auscultation. No wheezes or rhonchi. No intercostal retractions. HEART: Regular rate and rhythm. Systolic murmur right sternal border. ABDOMEN: Soft. Bowel sounds are present. No masses. No tenderness. EXTREMITIES: No pedal edema. No calf tenderness. NEUROLOGICAL: Patient is awake, alert and oriented x3. Cranial nerves 2 through 12 are grossly intact. Speech is clear. Short-term memory intact. ASSESSMENT AND PLAN 1. Moderate to severe aortic stenosis with scheduled TAVR today. Continue plan per cardiothoracic surgical team. 2. Recent acute E. coli urinary tract infection, resolved. 3. Chronic atrial fibrillation. Continue Lopressor 50 mg 3 times daily. 4. Hypothyroidism. Continue levothyroxine 150 g daily. 5. Chronic kidney disease stage IV. Avoid nephrotoxic agents, monitor renal function. 6. Coronary artery disease, stable. Continue Lasix 40 mg twice daily, hold metolazone. 7. Hypertension. Continue Lopressor. 9. Hyperlipidemia. Continue Lipitor 20 mg daily. 10. History of CVA, stable without new deficits. 11. Anemia of chronic kidney disease. 12. Thalassemia trait. 13. Benign prostatic hypertrophy. Continue Flomax 0.4 mg at bedtime. 14. Gastroesophageal reflux disease and GI prophylaxis. Continue Protonix 40 mg daily CODE STATUS: FULL DISCHARGE PLAN Home most likely with home care. Impression and plan of care have been directed as dictated by the signing physician. Ladonna Werner nurse practitioner acting as scribe for signing physician. Past Medical History Past Medical History: Atrial Fibrillation, Coronary Artery Disease (CAD), Chest Pain / Angina, CVA/TIA, GERD/Reflux, Hyperlipidemia, Hypertension, Myocardial Infarction ([place]), Thyroid Disorder Additional Past Medical History / Comment(s): Thalassemia trait, chronic kidney disease stage III, elevated PSA in the past, hx vertigo, Last Myocardial Infarction Date:: 2000 History of Any Multi-Drug Resistant Organisms: None Reported Past Surgical History: Coronary Bypass/CABG, Heart Catheterization With Stent, Tonsillectomy Additional Past Surgical History / Comment(s): CABG May 2000, angioplasty in 2000 and February 2004, bilateral cataract removal and intraocular lens implants,, 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 Past Anesthesia/Blood Transfusion Reactions: No Reported Reaction Date of Last Stent Placement:: unknown Past Psychological History: No Psychological Hx Reported Smoking Status: Never smoker Past Alcohol Use History: None Reported Additional Past Alcohol Use History / Comment(s): Patient is a lifelong nonsmoker. No medical marijuana, marijuana, street drug or alcohol use. Past Drug Use History: None Reported - Past Family History Father Family Medical History: No Reported History Mother Family Medical History: No Reported History Additional Family Medical History / Comment(s): Mother at age 82 from old age. Brother(s) Additional Family Medical History / Comment(s): Patient has 3 brothers and all 3 have passed. Unknown causes. Sister(s) Additional Family Medical History / Comment(s): Patient has has 4 sister that of all from old age. Daughter(s) Additional Family Medical History / Comment(s): Patient has 4 children, 2 boys and 2 girls with no major medical problems. Medications and Allergies Home Medications Medication Instructions Recorded Confirmed Type Metoprolol Tartrate [Lopressor] 50 mg PO TID 06/29/19 11/21/20 History Levothyroxine Sodium 150 mcg PO DAILY 06/04/20 11/21/20 History Atorvastatin [Lipitor] 20 mg PO DAILY 09/08/20 11/21/20 History Pantoprazole [Protonix] 40 mg PO DAILY 09/08/20 11/21/20 History Potassium Chloride 10 meq PO DAILY 09/08/20 11/21/20 History Tamsulosin HCl [Flomax] 0.4 mg PO HS 09/08/20 11/21/20 History Furosemide [Lasix] 40 mg PO BID 11/08/20 11/21/20 History Meclizine [Antivert] 12.5 mg PO DAILY 11/08/20 11/21/20 History metOLazone 2.5 mg PO SUWE 11/08/20 11/21/20 History Allergies Allergy/AdvReac Type Severity Reaction Status Date / Time No Known Allergies Allergy Verified 11/21/20 11:21 Physical Exam Vitals: Vital Signs Temp Pulse Resp BP BP Pulse Ox 11/22/20 08:21 98.1 F 11/22/20 08:00 98.1 F 70 26 H 147/81 97 11/22/20 07:00 64 11 L 95 11/22/20 06:00 124/82 11/22/20 05:00 64 17 136/78 96 11/22/20 04:00 98.1 F 65 20 131/79 99 11/22/20 03:00 73 22 131/79 97 11/22/20 02:00 61 20 123/71 98 11/22/20 01:00 64 16 123/71 98 11/22/20 00:06 96 11/22/20 00:00 98.0 F 64 8 L 120/80 96 11/21/20 23:33 68 18 120/80 94 L 11/21/20 23:00 68 18 120/80 94 L 11/21/20 22:00 63 19 135/81 97 11/21/20 21:00 67 7 L 162/87 97 11/21/20 20:00 98.1 F 66 15 133/90 99 11/21/20 19:00 52 L 21 133/90 98 11/21/20 18:00 63 20 156/87 95 11/21/20 17:00 76 151/82 96 11/21/20 16:00 97.6 F 63 140/80 99 11/21/20 15:00 62 13 140/80 96 11/21/20 14:00 67 27 H 121/81 95 11/21/20 13:00 73 12 127/113 99 11/21/20 12:00 97.8 F 65 32 H 134/73 98 11/21/20 11:00 61 11 L 134/73 98 11/21/20 10:12 57 L 13 98 11/21/20 10:06 139/70 Intake and Output 11/21/20 11/22/20 11/22/20 22:59 06:59 14:59 Intake Total 600 370 50 Output Total 1150 1150 Balance -550 -780 50 Intake: Intake, IV Titration 40 370 50 Amount Lactated Ringers 1,000 ml 40 20 @ 20 mls/hr IV .Q24H SARAH Rx#:[id number] Sodium Chloride 0.9% 1, 350 50 000 ml @ 50 mls/hr IV . Q20H SARAH Rx#:[id number] Oral 560 Output: Urine 1150 1150 Other: Voiding Method Toilet Toilet # Voids 1 Weight 97.8 kg Results CBC & Chem 7: 11/22/20 13:55 11/22/20 03:16 Labs: Abnormal Lab Results - Last 24 Hours (Table) 11/21/20 11/21/20 11/21/20 Range/Units 10:32 10:32 10:32 RBC 4.15 L (4.30-5.90) m/uL Hgb 8.7 L (13.0-17.5) gm/dL Hct 29.0 L (39.0-53.0) % MCV 69.7 L (80.0-100.0) fL MCH 21.0 L (25.0-35.0) pg MCHC 30.2 L (31.0-37.0) g/dL RDW 17.2 H (11.5-15.5) % Sodium (137-145) mmol/L Potassium 5.2 H (3.5-5.1) mmol/L BUN 39 H (9-20) mg/dL Creatinine 1.93 H (0.66-1.25) mg/dL Glucose (74-99) mg/dL Crossmatch See Detail 11/22/20 11/22/20 Range/Units 03:16 03:16 RBC 4.14 L (4.30-5.90) m/uL Hgb 9.0 L (13.0-17.5) gm/dL Hct 28.0 L (39.0-53.0) % MCV 67.7 L (80.0-100.0) fL MCH 21.8 L (25.0-35.0) pg MCHC (31.0-37.0) g/dL RDW 16.9 H (11.5-15.5) % Sodium 136 L (137-145) mmol/L Potassium 5.3 H (3.5-5.1) mmol/L BUN 42 H (9-20) mg/dL Creatinine 1.97 H (0.66-1.25) mg/dL Glucose 157 H (74-99) mg/dL Crossmatch
[2020-11-22 14:35] LABS: Albumin 3.5 g/dL (3.5-5.0); Magnesium 1.7 mg/dL (1.6-2.3); Potassium 4.4 mmol/L (3.5-5.1); Total Bilirubin 0.7 mg/dL (0.2-1.3); Total Protein 6.8 g/dL (6.3-8.2)
--- NOTE | 2020-11-22 15:26 | XR ---
EXAMINATION TYPE: XR chest 1V portable DATE OF EXAM: 11/22/2020 COMPARISON: 11/21/2020 HISTORY: Postoperative cardiac surgery TECHNIQUE: Single frontal view of the chest is obtained. FINDINGS: Heart size is enlarged. Status post median sternotomy. Right internal jugular catheter wit h its tip at the right atrium. Single right ventricular lead. No focal consolidation, pneumothorax or pleural effusion. IMPRESSION: 1. Status post median sternotomy. 2. Right ventricular lead. Cardiomegaly. 3. Right IJ catheter with its tip at the right atrium.
--- NOTE | 2020-11-22 20:45 | P.OP ---
Description of Procedure: PROCEDURE PERFORMED: 1. Percutaneous Aortic Valve Implantation using a 34 mm Core-Valve Evolut-Pro Plus. 2. Access and repair of right femoral artery access site by Perclose. 3. Pre TAVR balloon aortic valvuloplasty with a 27mm True balloon INDICATIONS: 1. 85 year-old with a history of severe symptomatic aortic valve stenosis. 2. Thalassemia trait, hypothyroidism, moderate to severe mitral regurgitation, CKD, CAD s/p CABG, CVA, HLD, HTN, UTI PERFORMING PHYSICIANS: 1. Roby Green DO., Interventional Cardiology 2. Marcellus Escobar M.D., Cardiothoracic Surgeon. 3. Roberth Davila MD, Proctoring upsetter helper SEDATION: General anesthesia by anesthesia, see separate note APPROACH: Right femoral artery via percutaneous approach with 2 Perclose preclose for closure PROCEDURE DESCRIPTION: The patient was discussed at valve clinic and thought better treated with TAVR. Risks, benefits, and alternatives of the procedure had been explained to the patient who understood the risks and agreed to proceed. After consents were obtained, patient was brought to the transcatheter aortic valve implantation room in the cardiac microbiology lab assistant and general anesthesia was provided by the anesthesiologist (see separate report). Once full body sterile prep was performed, the left femoral artery was accessed using a modified Seldinger technique. A 6 Honduran Rabbe sheath was placed in the left femoral artery. Next, a 6-Honduran pigtail catheter was advanced into the aorta and positioned in the aortic root, aortic root angiography was performed to determine optimal deployment angle. The right femoral artery was accessed using modified Seldinger technique, micropuncture technique and under direct ultrasound guidance. A right femoral angiogram was done showing access in the common femoral artery and a 6Fr sheath was placed. Next preclose technique was performed with 2 6Fr Percloses at the 10 oclock and 2 oclock position. Next a 0.035 Lunderquist wire was placed in the Aorta via a pigtail catheter. Over that serial dilations were made and then an 18F cook sheath was advanced. Next a 6F- AL1 catheter was advanced over a wire to the aortic root. A straight wire was advanced through the catheter and used to cross the severely stenotic valve. The AL1 was then exchanged for a pigtail and pressure measurements were obtained. The pigtail was exchanged for a 0.035 Lunderquist wire. Next a 27mm True balloon was advanced and balloon aortic valvulpolasty was performed with rapid pacing. Next a 34mm Corevalve Evolut-Pro Plus was advanced. The valve was then positioned across the aortic valve and confirmed with aortic root angiography. The 34 mm valve was then deployed in a proper position using slow deployment in conjuncture with aortic root angiography and HOANG. There was temporary 3rd degree block which improved by the end of the case. The delivery system was withdrawn back into the arch and an aortic root injection in conjunction with HOANG demonstrated a satisfactory result. There was trace to mild para valvular leak felt best treated medically. There was no evidence of any other significant abnormalities. The closure of the right femoral artery access site was then performed with the 2 Precloses and hemostasis was achieved. A 6fr pigtail catheter was then advanced via the left femoral access and femoral angiogram showed no extravasation. The left femoral angiogram then demonstrated an arteriotomy in the common femoral artery. This was repaired using a 6F angioseal device with complete hemostasis. The pacemaker wire placed by the surgery team was left in place to be pulled later. The patient was then transported to the [facility] in hemodynamically stable condition, requiring no pressor support. COMPLICATIONS: None CONCLUSION: 1. Implantaion of a 34mm Core-Valve Evolut-Pro Plus transcatheter aortic valve via right femoral approach under HOANG and fluoro guidance with no coco-valvular aortic regurgitation. 2. Pre TAVR balloon aortic valvoloplasty with a 27mm balloon RECOMMENDATIONS: The patient will be monitored in the ICU for hemodynamic and electrical stability. Patient will be on aspirin and Plavix.
[2020-11-22] MEDS ORDERED: FUROSEMIDE 40 MG TAB PO SCH (21:00)
[2020-11-22] MEDS: TAMSULOSIN 0.4 MG CAP.ER.24H PO SCH (21:09)
[2020-11-22] MEDS: FUROSEMIDE 40 MG TAB PO SCH (21:10)
[2020-11-23] MEDS: HEPARIN SODIUM,PORCINE/PF 5,000 UNIT/0.5 ML SYRINGE SQ SCH ×2 (00:29→08:12)
[2020-11-23 03:41] LABS: Anisocytosis Slight; Basophils # (A) 0.1 k/uL (0-0.2); Basophils % (A) 1 %; Eosinophils # (A) 0.1 k/uL (0-0.7); Eosinophils % (A) 1 %; HCT 26.1 % (39.0-53.0); HGB 8.1 gm/dL (13.0-17.5); Hypochromasia Moderate; Lymphocytes # (A) 2.1 k/uL (1.0-4.8); Lymphocytes % (A) 21 %; MCH 21.5 pg (25.0-35.0); MCHC 31.2 g/dL (31.0-37.0); MCV 69.1 fL (80.0-100.0); Mean Platelet Volume 8.3; Microcytosis Marked; Monocytes # (A) 0.5 k/uL (0-1.0); Monocytes % (A) 5 %; Neutrophils # (A) 6.8 k/uL (1.3-7.7); Neutrophils % (A) 70 %; Platelet Count 160 k/uL (150-450); Poikilocytosis Slight; RBC 3.78 m/uL (4.30-5.90); RDW 17.2 % (11.5-15.5); WBC 9.7 k/uL (3.8-10.6)
[2020-11-23 05:43] LABS: Ionized Calcium 5.1 mg/dL (4.5-5.3)
[2020-11-23 05:56] LABS: Albumin 3.7 g/dL (3.5-5.0); Calcium 9.3 mg/dL (8.4-10.2); Magnesium 1.8 mg/dL (1.6-2.3); Potassium 4.9 mmol/L (3.5-5.1); Total Bilirubin 0.5 mg/dL (0.2-1.3)
[2020-11-23] MEDS: LEVOTHYROXINE 75 MCG TAB PO SCH (06:15)
[2020-11-23] MEDS: PANTOPRAZOLE 40 MG TABLET PO SCH (07:12)
--- NOTE | 2020-11-23 07:47 | P.PN ---
Subjective Progress Note Date: 11/23/20 Principal diagnosis: Severe aortic valve stenosis with exertional dyspnea and recent syncopal episode. Previous medical history of coronary artery disease status post PCI in 2000 and 2003 and three-vessel CABG in 2001, hypertension, chronic atrial fibrillation on Xarelto for anticoagulation, chronic kidney disease stage IV with chronic anemia, hypothyroidism, previous CVA without residual, BPH, recent admission for E. coli UTI and bacteremia, treated POD #1 transcatheter aortic valve replacement with 34 mm ProPlus Evolut core valve, access and repair of right femoral artery access site by Perclose, pre- TAVR balloon aortic valvuloplasty with a 27 mm True balloon The patient is currently sitting up in a recliner in the intensive care unit in no acute distress eating breakfast. Denies any pain or shortness of breath. Remains in controlled atrial fibrillation, hemodynamically stable. Bilateral groin access site soft without any drainage. No significant episodes of bradycardia overnight. No new concerns Objective - Vital Signs Vital signs: Vital Signs Temp 97.7 F 11/23/20 04:00 Pulse 63 11/23/20 06:00 Resp 17 11/23/20 06:00 BP 125/86 11/23/20 06:00 Pulse Ox 94 L 11/23/20 06:00 Intake & Output 11/22/20 11/23/20 11/23/20 18:59 06:59 18:59 Intake Total 450 170 Output Total 800 Balance -350 170 Weight 97.8 kg Intake: IV 400 70 Sodium Chloride 0.9% 1, 400 70 000 ml @ 50 mls/hr IV . Q20H SARAH Rx#:[id number] Intake, IV Titration 50 100 Amount Sodium Chloride 0.9% 1, 50 000 ml @ 50 mls/hr IV . Q20H SARAH Rx#:[id number] ceFAZolin 2 gm In Sodium 100 Chloride 0.9% 50 ml @ 100 mls/hr IVPB Q8HR SARAH Rx# :[id number] Output: Urine 800 Other: Voiding Method Toilet Toilet # Voids 1 ABP, PAP, CO, CI - Last Documented Arterial Blood Pressure 157/55 - Exam CONSTITUTIONAL: Appears comfortable, cooperative, no acute distress RESPIRATORY: Lungs sounds diminished bilaterally. Respirations even, nonlabored. Currently on room air with oxygen saturation 94%. Able to achieve 1000 mL on incentive spirometry. Strong cough. CARDIOVASCULAR: S1, S2 present. Irregular rate and rhythm, controlled atrial f ibrillation on telemetry. Palpable peripheral pulses bilaterally. No edema present. No calf pain or tenderness noted. Antiembolism stockings, SCDs present. GASTROINTESTINAL: Abdomen soft, nontender, nondistended. Active bowel sounds present 4 quadrants. Tolerating diet. GENITOURINARY: Continues to void clear, yellow urine. INTEGUMENTARY: Skin is warm and dry with evidence of good perfusion. Bilateral groins soft without redness or drainage NEUROLOGIC: Cranial nerves II through XII intact MUSKULOSKELETAL: Able to move all extremities, strength equal bilaterally, gait normal PSYCHIATRIC: Alert and oriented to person place and time, appropriate affect, intact judgment and insight although forgetful at times INVASIVE LINES AND TUBES: Temporary transvenous pacemaker wire present - Allied health notes Allied health notes reviewed: nursing - Labs CBC & Chem 7: 11/23/20 03:30 11/23/20 03:30 Labs: Abnormal Lab Results - Last 24 Hours (Table) 11/21/20 11/22/20 11/22/20 Range/Units 10:32 13:55 13:55 RBC 3.98 L (4.30-5.90) m/uL Hgb 8.3 L (13.0-17.5) gm/dL Hct 27.2 L (39.0-53.0) % MCV 68.5 L (80.0-100.0) fL MCH 20.9 L (25.0-35.0) pg MCHC 30.6 L (31.0-37.0) g/dL RDW 17.0 H (11.5-15.5) % BUN 38 H (9-20) mg/dL Creatinine 1.70 H (0.66-1.25) mg/dL Glucose 130 H (74-99) mg/dL Crossmatch See Detail 11/23/20 11/23/20 Range/Units 03:30 03:30 RBC 3.78 L (4.30-5.90) m/uL Hgb 8.1 L (13.0-17.5) gm/dL Hct 26.1 L (39.0-53.0) % MCV 69.1 L (80.0-100.0) fL MCH 21.5 L (25.0-35.0) pg MCHC (31.0-37.0) g/dL RDW 17.2 H (11.5-15.5) % BUN 41 H (9-20) mg/dL Creatinine 1.89 H (0.66-1.25) mg/dL Glucose 112 H (74-99) mg/dL Crossmatch - Imaging and Cardiology Chest x-ray: image reviewed Assessment and Plan Assessment: 1. Severe aortic stenosis with exertional dyspnea and recent syncopal episode, status post TAVR with 34 mm ProPlus Evolut Core Valve 2. History of coronary artery disease status post PCI in 2000 and 2003 and three-vessel CABG in 2001 3. Hypertension 4. Chronic atrial fibrillation on Xarelto for anticoagulation 5. Chronic kidney disease stage III-IV with chronic anemia 6. Hypothyroid 7. Previous CVA without residual 8. BPH 9. Recent admission for E. coli UTI and bacteremia, treated for 2 weeks Plan: 1. Continue aspirin, Plavix, statin, beta manda, Synthroid, Flomax. 2. Continue to encourage incentive spirometry increase activity, ambulate as tolerated 3. Increase activity, ambulate as tolerated 4. Will obtain a 2-D echocardiogram today to evaluate valve function and review for presence of perivalvular leak 5. Will discontinue transvenous pacemaker wire today 6. Will make follow-up appointments with cardiology and valve clinic for 1 month, as well as one week with cardiology for groin check 7. Plan is to discharge patient to home with home care later today Time with Patient: Greater than 30
[2020-11-23] MEDS: MECLIZINE 12.5 MG TAB PO SCH (08:11)
[2020-11-23] MEDS: ATORVASTATIN 20 MG TAB PO SCH (08:11)
[2020-11-23] MEDS: METOPROLOL TARTRATE 50 MG TAB PO SCH (08:12)
[2020-11-23 08:13] VITALS: TEMP 98.3
[2020-11-23] MEDS: POTASSIUM CHLORIDE ER 10 MEQ TAB.ER.PRT PO SCH (08:31)
--- NOTE | 2020-11-23 08:56 | P.PN ---
Subjective Progress Note Date: 11/23/20 HISTORY OF PRESENT ILLNESS This is an 85-year-old male patient of Dr. 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 Sethi. He had a recent hospitalization for UTI and discharged with ceftin for a 11 day course which was completed and repeat urine was clear of UTI. Patient has been brought into the hospital for TAVR scheduled for today. At 11 AM. Patient feels good about moving forward with surgery. He denies having any chest pain, shortness of breath, lightheadedness or dizziness, no palpitations. No fever or chills. 11/23: Yesterday, patient underwent percutaneous aortic valve implantation and he remains in the intensive care unit. He has been afebrile, heart rate running in the 50s to 80, blood pressure 125/86, pulse ox 94%. monitoring engineer his atrial fibrillation. Patient is reaching 1000 ML's on incentive spirometry. Repeat blood work reveals WBC 9.7, hemoglobin 8.1, platelet count 160. Electrolytes are within normal limits. BUN 41 creatinine 1.89. Liver function tests are normal. Patient has had no postop complications overnight. Patient is awake and alert and oriented 3 but he is slightly off mentally from his baseline. Patient did not sleep during the night and this may be the underlying issue. Repeat echocardiogram has been obtained this morning Patient is not on Xarelto from home which will be resumed today once cleared with cardiothoracic team. REVIEW OF SYSTEMS Constitutional: No fever, no chills, no night sweats. No weight change. No weakness, fatigue or lethargy. No daytime sleepiness. EENT: No headache. No blurred vision or double vision, no loss of vision. No loss of Hearing, no ringing in the ears, no dizziness. No nasal drainage or congestion. No epistaxis. No sore throat. Lungs: No shortness of breath, cough, no sputum production. No wheezing. Cardiovascular: No chest pain, no lower extremity edema. No palpitations. No paroxysmal nocturnal dyspnea. No orthopnea. No lightheadedness or dizziness. Reported to ER physician as syncopal episodes. Abdominal: No abdominal pain. No nausea, vomiting. No diarrhea. No constipation. No bloody or tarry stools. No loss of appetite. Genitourinary: No dysuria, increased frequency, urgency. No urinary retention. Musculoskeletal: No myalgias. No muscle weakness, no gait dysfunction, no frequent falls. No back pain. No neck pain. Integumentary: No wounds, no lesions. No rash or pruritus. No unusual bruising. No change in hair or nails. Neurologic: No aphasia. No facial droop. No change in mentation. No head injury. No headache. No paralysis. No paresthesia. Psychiatric: No depression. No anxiety. Endocrine: No abnormal blood sugars. PHYSICAL EXAMINATION Gen: This is an 81-year-old male. He is sitting up in bed in the ICU and appears to be in no acute distress. HEENT: Head is atraumatic, normocephalic. Pupils equal, round. Sclerae is anicteric. Conjunctiva pink. Mucous members of the mouth are slightly dry. NECK: Supple. No JVD. No lymphadenopathy. No thyromegaly. LUNGS: Clear to auscultation. No wheezes or rhonchi. No intercostal retractions. HEART: Irregular rate and rhythm. Systolic murmur right sternal border. ABDOMEN: Soft. Bowel sounds are present. No masses. No tenderness. EXTREMITIES: No pedal edema. No calf tenderness. NEUROLOGICAL: Patient is awake, alert and oriented x3. Cranial nerves 2 through 12 are grossly intact. Speech is clear. Short-term memory intact. ASSESSMENT AND PLAN 1. Moderate to severe aortic stenosis status post TAVR 11/22. Continue plan per cardiology and cardiothoracic surgical team. Continue aspirin 81 mg daily, Lipitor 20 mg daily, Plavix 75 mg daily, Lasix 40 mg oral every 12 hours, Lopressor 50 mg 3 times daily. 2. Recent acute E. coli urinary tract infection, resolved. 3. Chronic atrial fibrillation. Continue Lopressor 50 mg 3 times daily. Plan to resume Xarelto if okay with cardiology and cardiothoracic team. 4. Hypothyroidism. Continue levothyroxine 150 g daily. 5. Chronic kidney disease stage IV. Avoid nephrotoxic agents, monitor renal function. 6. Coronary artery disease, stable. Continue aspirin 81 mg daily, Lipitor 20 mg daily, Plavix 75 mg daily, Lasix 40 mg oral every 12 hours, Lopressor 50 mg 3 times daily. Hold metolazone. 7. Hypertension. Continue Lopressor. 9. Hyperlipidemia. Continue Lipitor. 10. History of CVA, stable without new deficits. 11. Anemia of chronic kidney disease. 12. Thalassemia trait. 13. Benign prostatic hypertrophy. Continue Flomax 0.4 mg at bedtime. 14. Gastroesophageal reflux disease and GI prophylaxis. Continue Protonix 40 mg daily CODE STATUS: FULL DISCHARGE PLAN Home with [facility]. Impression and plan of care have been directed as dictated by the signing physician. Ladonna Werner nurse practitioner acting as scribe for signing physician. Objective - Vital Signs Vital signs: Vital Signs Temp 97.7 F 11/23/20 04:00 Pulse 63 11/23/20 06:00 Resp 17 11/23/20 06:00 BP 125/86 11/23/20 06:00 Pulse Ox 94 L 11/23/20 06:00 Intake & Output 11/22/20 11/23/20 11/23/20 18:59 06:59 18:59 Intake Total 450 170 Output Total 800 Balance -350 170 Weight 97.8 kg Intake: IV 400 70 Sodium Chloride 0.9% 1, 400 70 000 ml @ 50 mls/hr IV . Q20H SARAH Rx#:[id number] Intake, IV Titration 50 100 Amount Sodium Chloride 0.9% 1, 50 000 ml @ 50 mls/hr IV . Q20H SARAH Rx#:[id number] ceFAZolin 2 gm In Sodium 100 Chloride 0.9% 50 ml @ 100 mls/hr IVPB Q8HR SARAH Rx# :[id number] Output: Urine 800 Other: Voiding Method Toilet Toilet # Voids 1 ABP, PAP, CO, CI - Last Documented Arterial Blood Pressure 157/55 - Labs CBC & Chem 7: 11/23/20 03:30 11/23/20 03:30 Labs: Abnormal Lab Results - Last 24 Hours (Table) 11/21/20 11/22/20 11/22/20 Range/Units 10:32 13:55 13:55 RBC 3.98 L (4.30-5.90) m/uL Hgb 8.3 L (13.0-17.5) gm/dL Hct 27.2 L (39.0-53.0) % MCV 68.5 L (80.0-100.0) fL MCH 20.9 L (25.0-35.0) pg MCHC 30.6 L (31.0-37.0) g/dL RDW 17.0 H (11.5-15.5) % BUN 38 H (9-20) mg/dL Creatinine 1.70 H (0.66-1.25) mg/dL Glucose 130 H (74-99) mg/dL Crossmatch See Detail 11/23/20 11/23/20 Range/Units 03:30 03:30 RBC 3.78 L (4.30-5.90) m/uL Hgb 8.1 L (13.0-17.5) gm/dL Hct 26.1 L (39.0-53.0) % MCV 69.1 L (80.0-100.0) fL MCH 21.5 L (25.0-35.0) pg MCHC (31.0-37.0) g/dL RDW 17.2 H (11.5-15.5) % BUN 41 H (9-20) mg/dL Creatinine 1.89 H (0.66-1.25) mg/dL Glucose 112 H (74-99) mg/dL Crossmatch
[2020-11-23] MEDS ORDERED: bisacodyL 10 MG SUPP RECTAL PRN (09:00)
[2020-11-23] MEDS ORDERED: CLOPIDOGREL 75 MG TAB PO SCH (09:00)
[2020-11-23] MEDS ORDERED: MAGNESIUM HYDROXIDE 2,400 MG/10 ML CUP PO PRN (09:00)
[2020-11-23] MEDS ORDERED: ASPIRIN 81 MG PO SCH (09:00)
--- NOTE | 2020-11-23 09:04 | XR ---
EXAMINATION TYPE: XR chest 1V portable DATE OF EXAM: 11/23/2020 COMPARISON: 11/22/2020 HISTORY: Postoperative cardiac surgery TECHNIQUE: Single frontal view of the chest is obtained. FINDINGS: Heart size is enlarged. Status post median sternotomy. Right IJ catheter has been removed. Single right ventricular lead. No focal consolidation, pneumothorax or pleural effusion. IMPRESSION: 1. Status post median sternotomy. 2. Right ventricular lead. Cardiomegaly.
--- NOTE | 2020-11-23 09:08 | P.PN ---
Subjective Patient is seen in follow-up for chronic kidney disease. Renal function stable. No chest pain or shortness of breath. Wants to go home. Good urine output. Vital signs are stable. General: The patient appeared well nourished and normally developed. HEENT: Head exam is unremarkable. Neck is without jugular venous distension. LUNGS: Lungs are clear to auscultation and percussion. Breath sounds decreased. HEART: Rate and Rhythm are regular. ABDOMEN: Soft, no distention. EXTREMITITES: No edema. Objective - Vital Signs Vital signs: Vital Signs Temp 98.3 F 11/23/20 08:00 Pulse 65 11/23/20 08:00 Resp 14 11/23/20 08:00 BP 124/57 11/23/20 08:00 Pulse Ox 93 L 11/23/20 08:00 Intake & Output 11/22/20 11/23/20 11/23/20 18:59 06:59 18:59 Intake Total 450 170 Output Total 800 Balance -350 170 Weight 97.8 kg Intake: IV 400 70 Sodium Chloride 0.9% 1, 400 70 000 ml @ 50 mls/hr IV . Q20H SARAH Rx#:[id number] Intake, IV Titration 50 100 Amount Sodium Chloride 0.9% 1, 50 000 ml @ 50 mls/hr IV . Q20H SARAH Rx#:[id number] ceFAZolin 2 gm In Sodium 100 Chloride 0.9% 50 ml @ 100 mls/hr IVPB Q8HR SARAH Rx# :[id number] Output: Urine 800 Other: Voiding Method Toilet Toilet # Voids 1 1 ABP, PAP, CO, CI - Last Documented Arterial Blood Pressure 157/55 - Labs CBC & Chem 7: 11/23/20 03:30 11/23/20 03:30 Labs: Abnormal Lab Results - Last 24 Hours (Table) 11/21/20 11/22/20 11/22/20 Range/Units 10:32 13:55 13:55 RBC 3.98 L (4.30-5.90) m/uL Hgb 8.3 L (13.0-17.5) gm/dL Hct 27.2 L (39.0-53.0) % MCV 68.5 L (80.0-100.0) fL MCH 20.9 L (25.0-35.0) pg MCHC 30.6 L (31.0-37.0) g/dL RDW 17.0 H (11.5-15.5) % BUN 38 H (9-20) mg/dL Creatinine 1.70 H (0.66-1.25) mg/dL Glucose 130 H (74-99) mg/dL Crossmatch See Detail 11/23/20 11/23/20 Range/Units 03:30 03:30 RBC 3.78 L (4.30-5.90) m/uL Hgb 8.1 L (13.0-17.5) gm/dL Hct 26.1 L (39.0-53.0) % MCV 69.1 L (80.0-100.0) fL MCH 21.5 L (25.0-35.0) pg MCHC (31.0-37.0) g/dL RDW 17.2 H (11.5-15.5) % BUN 41 H (9-20) mg/dL Creatinine 1.89 H (0.66-1.25) mg/dL Glucose 112 H (74-99) mg/dL Crossmatch Assessment and Plan Plan: Assessment: 1. Chronic kidney disease stage IV secondary to nephrosclerosis with baseline creatinine in the range of 2-2.3. UA benign. 2. Aortic stenosis s/p TAVR November 22. 3. Chronic systolic CHF with ejection fraction of 45-50%. 4. Mild hyperkalemia secondary to chronic kidney disease and potassium supplementation. Resolved. Plan: Maintain oral Lasix. Avoid nephrotoxins. Continue to monitor renal function and urine output. Monitor for contrast-induced acute kidney injury. Patient was to go home. Repeat BMP and magnesium level 2-3 days postdischarge. Follow up outpatient in 1 week.
[2020-11-23] MEDS: FUROSEMIDE 40 MG TAB PO SCH (10:14)
--- NOTE | 2020-11-23 10:24 | P.PN ---
Subjective Progress Note Date: 11/23/20 Principal diagnosis: Severe aortic stenosis 85-year-old male patient, admitted to the intensive care unit. The patient is scheduled to have a TaVR procedure tomorrow for severe aortic stenosis. The patient is also known to have chronic stage IV kidney disease. He was hospital ized a day prior to his procedure for hydration. He is known to have CAD, aortic stenosis, chronic atrial fibrillation, previous history of CVA/TIA, hypertension and hyperlipidemia and thyroid disease. His current white cell count is at 7 with a hemoglobin of 8.7. His creatinine is at 1.9 with a GFR of 36. Electrolytes are showing a slight elevation of the potassium at 5.2. COVID-19 testing was negative. A computed tomography scan of the chest abdomen and pelvis that was done for a TAVR planning procedure showed evidence of old girl of active disease involving the lung. There is cardiomegaly. There is cholelithiasis. Small bilateral pleural effusions were also present. Note that the nodularities in the lungs were tiny involving the right middle lobe and in the lingula measuring 8 mm in size. No significant mediastinal lymphadenopathy. Note that the patient has symptomatic aortic stenosis. The patient has had previous history of syncope. Echocardiogram in the form of a HONAG that was done showed a valve area of 0.8 cm consistent with moderate to severe aortic stenosis. A pulmonary function test was done and the patient has an FEV1 of 60% of predicted. Note that the patient was in the hospital on 11/10/2020 for E. coli bacteremia/sepsis, treated and the patient was discharged home on antibiotics. Completed his antibiotic course. Currently afebrile. On 11/22/2020 patient in follow-up in the intensive care unit, room air pulse ox is 98%. He stopped up in the chair, breathing comfortably, he is afebrile, no complaints of chest pain, vital signs have been stable overnight, patient's Lasix has been placed on hold overnight he has received IV hydration with 0.9 normal saline at rate of 50 ML per hour. Today's labs have been reviewed, his renal function is relatively stable, with B UN of 42, and creatinine of 1.97. Potassium is 5.3, sodium is 136, respiratory electrolytes were within normal limits. His white count is within normal limits at 7.3, hemoglobin is 9.0. No fever or chills, urinalysis without sign of infection. COVID-19 PCR was negative. Patient is in atrial fibrillation with a controlled rate Patient is awake and alert, oriented 3, no confusion, answering questions appropriately, he is using incentive spirometer. he is voiding and he has been ambulating to the bathroom, tolerating activity well. Patient has been nothing by mouth after midnight for TAVR today The patient is seen today 11/23/2020 in follow-up in the intensive care unit. He is currently sitting up in a chair at the bedside. Alert in no acute distress. Maintaining good O2 saturations in the 90s on room air. He's been afebrile. Hemodynamically stable. Maintaining controlled atrial fibrillation. Anticoagulated with Xarelto. Bilateral groin sites without drainage. Pacemaker wire removed per CT services. Chest x-ray reveals no focal consolidation, pneumothorax or pleural effusions. A well with the incentive spirometer. White count 9.7. Hemoglobin 8.1. Platelets 160. Sodium 139. Potassium 4.9. Creatinine 1.89 Objective - Vital Signs Vital signs: Vital Signs Temp 98.3 F 11/23/20 08:00 Pulse 69 11/23/20 10:00 Resp 14 11/23/20 10:00 BP 131/59 11/23/20 10:00 Pulse Ox 97 11/23/20 10:00 Intake & Output 11/22/20 11/23/20 11/23/20 18:59 06:59 18:59 Intake Total 450 170 0 Output Total 800 250 Balance -350 170 -250 Weight 97.8 kg Intake: IV 400 70 0 Sodium Chloride 0.9% 1, 400 70 0 000 ml @ 50 mls/hr IV . Q20H SARAH Rx#:[id number] Intake, IV Titration 50 100 Amount Sodium Chloride 0.9% 1, 50 000 ml @ 50 mls/hr IV . Q20H SARAH Rx#:[id number] ceFAZolin 2 gm In Sodium 100 Chloride 0.9% 50 ml @ 100 mls/hr IVPB Q8HR SARAH Rx# :[id number] Output: Urine 800 250 Other: Voiding Method Toilet Toilet # Voids 1 1 ABP, PAP, CO, CI - Last Documented Arterial Blood Pressure 157/55 - Exam GENERAL EXAM: Alert, very pleasant, 85-year-old male patient, on room air with pulse ox of 93%, comfortable in no apparent distress. HEAD: Normocephalic/atraumatic. EYES: Normal reaction of pupils, equal size. Conjunctiva pink, sclera white. NOSE: Clear with pink turbinates. THROAT: No erythema or exudates. NECK: No masses, no JVD, no thyroid enlargement, no adenopathy. CHEST: No chest wall deformity. Symmetrical expansion. LUNGS: Equal air entry with no crackles, wheeze, rhonchi or dullness. CVS: Irregular rate and rhythm, normal S1 and S2, no gallops, no murmurs, no rubs ABDOMEN: Soft, nontender. No hepatosplenomegaly, normal bowel sounds, no guarding or rigidity. EXTREMITIES: No clubbing, no edema, no cyanosis, 2+ pulses and upper and lower extremities. MUSCULOSKELETAL: Muscle strength and tone normal. SPINE: No scoliosis or deformity SKIN: No rashes CENTRAL NERVOUS SYSTEM: No focal deficits, tone is normal in all 4 extremities. PSYCHIATRIC: Alert and oriented -3. Appropriate affect. Intact judgment and insight. - Labs CBC & Chem 7: 11/23/20 03:30 11/23/20 03:30 Labs: Abnormal Lab Results - Last 24 Hours (Table) 11/21/20 11/22/20 11/22/20 Range/Units 10:32 13:55 13:55 RBC 3.98 L (4.30-5.90) m/uL Hgb 8.3 L (13.0-17.5) gm/dL Hct 27.2 L (39.0-53.0) % MCV 68.5 L (80.0-100.0) fL MCH 20.9 L (25.0-35.0) pg MCHC 30.6 L (31.0-37.0) g/dL RDW 17.0 H (11.5-15.5) % BUN 38 H (9-20) mg/dL Creatinine 1.70 H (0.66-1.25) mg/dL Glucose 130 H (74-99) mg/dL Crossmatch See Detail 11/23/20 11/23/20 Range/Units 03:30 03:30 RBC 3.78 L (4.30-5.90) m/uL Hgb 8.1 L (13.0-17.5) gm/dL Hct 26.1 L (39.0-53.0) % MCV 69.1 L (80.0-100.0) fL MCH 21.5 L (25.0-35.0) pg MCHC (31.0-37.0) g/dL RDW 17.2 H (11.5-15.5) % BUN 41 H (9-20) mg/dL Creatinine 1.89 H (0.66-1.25) mg/dL Glucose 112 H (74-99) mg/dL Crossmatch Assessment and Plan Assessment: 1 symptomatic aortic stenosis, referred to the most recent HOANG revealing a 0.8 cm aortic valve with a preserved LV function. Awaiting a TaVR procedure today on 11/22/2020 2 recent hospitalization for possible syncope/UTI. The patient E. coli septicemia treated with antibiotics, currently free of any infections 3 chronic stage III kidney disease 4 coronary artery disease which is currently inactive in stable 5 hypertension 6 hyperlipidemia 7 history of CVA 8 history of anemia of chronic disease in addition to his status and make titrate 9 chronic atrial fibrillation 10 hypothyroidism maintained on levothyroxine Plan: The patient was seen and evaluated by Dr. Glover Chest x-ray and labs reviewed Home once cleared by CT surfaces I, the cosigning physician, performed a history & physical examination of the patient. Lungs sounds are clear. Maintaining good O2 saturations in the 90s on room air. I discussed the assessment and plan of care with my nurse practitioner, Nelia Madsen. I attest to the above note as dictated by her.
--- NOTE | 2020-11-23 11:00 | ECHOF ---
Referral Reason:post tavr MEASUREMENTS -------- HEIGHT: 167.6 cm WEIGHT: 97.5 kg BP: 125/86 IVSd: 1.4 cm (0.6 - 1.1) LVIDd: 3.4 cm (3.9 - 5.3) LVPWd: 1.6 cm (0.6 - 1.1) IVSs: 2.1 cm LVIDs: 2.1 cm LVPWs: 2.3 cm MV EXCURSION: 8.677 mm (> 18.000) MV EF SLOPE: 45 mm/s (70 - 150) EPSS: 2.0 cm MV E Anastacio: 1.22 m/s MV DecT: 244 ms MV A Anastacio: 0.24 m/s MV E/A Ratio: 5.08 AV maxP.17 mmHg AV meanP.75 mmHg AR PHT: 773 ms RAP: 5.00 mmHg RVSP: 35.64 mmHg FINDINGS -------- This was a technically difficult study with suboptimal views. The left ventricular size is normal. There is moderate concentric left ventricular hypertrophy. O verall left ventricular systolic function is low-normal with, an EF between 50 - 55 %. The right ventricle is mildly enlarged. Lumason used Peak/mean gradient across the Aortic Valve is 10.17mmHg / 6.75mmHg. There is trivial coco-prostheti c regurgitation of the bioprosthetic aortic valve. TAVR procedure done The mitral valve is normal. Mild mitral annular calcification present. Boui-ha-oobmghpt mitral re gurgitation is present. The tricuspid valve appears structurally normal. Mild tricuspid regurgitation present. There is b orderline pulmonary hypertension. The right ventricular systolic pressure, as measured by Doppler, is 35.64mmHg. There is no pulmonic regurgitation present. The aortic root size is normal. IVC Not well visulized. There is no pericardial effusion. CONCLUSIONS -------- 1. The left ventricular size is normal. 2. There is moderate concentric left ventricular hypertrophy. 3. The right ventricle is mildly enlarged. 4. Peak/mean gradient across the Aortic Valve is 10.17mmHg / 6.75mmHg. 5. There is trivial coco-prosthetic regurgitation of the bioprosthetic aortic valve. 6. TAVR procedure done 7. Mild mitral annular calcification present. 8. Fkal-no-fgibxyqj mitral regurgitation is present. 9. Mild tricuspid regurgitation present. 10. There is borderline pulmonary hypertension. 11. The right ventricular systolic pressure, as measured by Doppler, is 35.64mmHg. 12. There is no pericardial effusion. FOOD ASSEMBLER: Dalia Yang RDCS
--- NOTE | 2020-11-23 11:08 | P.DS ---
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 Severe aortic valve stenosis with exertional dyspnea and recent syncopal episode 2. History of coronary artery disease status post PCI and three-vessel CABG 3. Hypertension 4. Chronic atrial fibrillation 5. Chronic kidney disease stage IV with chronic anemia 6. Hypothyroid 7. Previous CVA without residual 8. BPH 9. Recent admission for E. coli UTI and bacteremia, treated PRINCIPAL PROCEDURE: 1. Transcatheter aortic valve replacement with 34 mm ProPlus Evolut Core valve 2. Access and repair of right femoral artery access site by Perclose 3. Pre-TAVR balloon aortic valvuloplasty with a 27 mm true balloon HISTORY OF PRESENT ILLNESS: This is an 85-year-old gentleman who follows on an outpatient basis with Dr. Dailey for primary care and Dr. NADJA Messer for cardiology. He has a known history of severe aortic stenosis and has been symptomatic with increased exertional dyspnea as well as recent syncopal episode. He had been referred to structural heart clinic for evaluation for transcatheter aortic valve replacement after heart catheterization and transesophageal echocardiogram were completed. Echocardiography demonstrated mildly reduced left ventricular systolic function with EF 45-50%, moderate to severe left atrial enlargement, aortic valve area 0.8 cm with a peak/mean gradient 35/22 mmHg. Heart catheterization showed patent BAKER to the LAD, patent vein graft to the diet diagonal coronary artery, and patent vein graft to the PDA. After workup was completed STS risk score was calculated along with incremental risk and the patient was felt to be very high risk for surgical aortic valve replacement, therefore transcatheter aortic valve replacement was recommended. The usual course of TAVR was discussed in detail the patient, risks and benefits were reviewed, and the patient consented to proceed with the procedure. HOSPITAL COURSE: The patient was brought to the hospital on 11/21/20 for pre-TAVR IV hydration due to his kidney disease. On 11/22/2020 he was taken to the extended stay area, prepared in the usual fashion, and subsequently taken to the cardiac catheterization laboratory where Dr. Green and Dr. Escobar completed TAVR procedure under general anesthesia with fluoroscopy and HOANG. The valve was deployed under rapid ventricular pacing and proceeded without event. At the end of the procedure there was no evidence of gradient, hemodynamics were felt to be excellent, and there is no evidence of significant perivalvular leak. Upon completion of the procedure the patient was extubated and was transferred to the cardiovascular intensive care unit where he was recovered and monitored hemodynamically. His oxygen was titrated down, he was tolerating oral diet, his pain was controlled, follow-up TTE demonstrated normal left ventricular systolic function with EF 50-55%, mean gradient across the aortic valve 6.75mmHg, trivial coco-prosthetic regurgitation, and he was ready to be discharged to home with [facility] care on postoperative day #1. He received written and verbal instruction regarding his medications, activity restrictions, signs and symptoms requiring physician notification, and follow-up appointments. COMPLICATIONS: The patient experienced no postoperative complications. Patient Condition at Discharge: Stable Plan - Discharge Summary New Discharge Prescriptions: New Clopidogrel [Plavix] 75 mg PO DAILY #30 tab Acetaminophen Tab [Tylenol] 650 mg PO Q4HR PRN tab PRN Reason: Fever And/Or Mild Pain Rivaroxaban [Xarelto] 15 mg PO W/SUPPER tab Continue Metoprolol Tartrate [Lopressor] 50 mg PO TID Levothyroxine Sodium 150 mcg PO DAILY Tamsulosin HCl [Flomax] 0.4 mg PO HS metOLazone 2.5 mg PO SUWE Meclizine [Antivert] 12.5 mg PO DAILY Atorvastatin [Lipitor] 20 mg PO DAILY Potassium Chloride 10 meq PO DAILY Pantoprazole [Protonix] 40 mg PO DAILY Furosemide [Lasix] 40 mg PO BID Discharge Medication List Metoprolol Tartrate [Lopressor] 50 mg PO TID 06/29/19 [History] Levothyroxine Sodium 150 mcg PO DAILY 06/04/20 [History] Atorvastatin [Lipitor] 20 mg PO DAILY 09/08/20 [History] Pantoprazole [Protonix] 40 mg PO DAILY 09/08/20 [History] Potassium Chloride 10 meq PO DAILY 09/08/20 [History] Tamsulosin HCl [Flomax] 0.4 mg PO HS 09/08/20 [History] Furosemide [Lasix] 40 mg PO BID 11/08/20 [History] Meclizine [Antivert] 12.5 mg PO DAILY 11/08/20 [History] metOLazone 2.5 mg PO SUWE 11/08/20 [History] Acetaminophen Tab [Tylenol] 650 mg PO Q4HR PRN tab 11/23/20 [Rx] Clopidogrel [Plavix] 75 mg PO DAILY #30 tab 11/23/20 [Rx] Rivaroxaban [Xarelto] 15 mg PO W/SUPPER tab 11/23/20 [Rx] Follow up Appointment(s)/Referral(s): Erendira Funes MD [STAFF PHYSICIAN] - 1 Week Salbador Messer MD [STAFF PHYSICIAN] - 11/28/20 9:45 am (11/28/[address] Messer for groin check, will have echo with Dr. Messer 12/29/20 @ 9:45 am) Bhavana Dailey MD [Primary Care Provider] - As Needed Tawanda Roberson NPC [Nurse Practitioner] - 12/29/20 11:00 am (to follow in the v alve clinic at [facility], [address]) [facility], [NON-STAFF] - 1-2 Days Activity/Diet/Wound Care/Special Instructions: DISCHARGE INSTRUCTIONS: 1. No driving for 1 week, or until physician gives their ok. 2. No lifting, pushing, or pulling more than 5-10 pounds for 1 week. 3. Hold both groins when you cough or sneeze for the next 2 weeks. Bruising is common, but report increased swelling, pain or fever >101F 4. Shower daily. No pool, hot tub, or bathtub for 1 week 5. No powders, lotions, ointments on incisions. 6. No straining, including for bowel movements. Use stool softner if necessary 7. Stairs are not an issue. Go slowly, using handrail and take 1 step at a time. Ambulate several times daily 8. Continue pain control per as needed orders. 9. Take only the medications listed on your discharge form 10. Eat low salt (limited to 2 grams or 2000 milligrams) daily, avoid adding salt, avoid canned/processed foods 11. Take your weight daily in the morning and record, bring with you to your follow up appointments 12. Keep all follow up appointments. You will need a valve clinic appointment at 30 days and 1 year post procedure for follow up 13. You have been referred to and are expected to begin Cardiac Rehab in approximately 4 weeks. 14. You will need antibiotics prior to any dental work, including cleanings, and any surgeries to prevent Endocarditis (bacterial infection in your heart) For any questions or concerns please call your valve coordinators: Dalia @ or Pablo @ Discharge/Stand Alone Forms: Who Do I Call?, Help In The Home Discharge Disposition: HOME WITH HOME HEALTH SERVICES
[2020-11-23 11:45] VITALS: BMI 34.7
[2020-11-23 12:09] VITALS: BP 122/51; PULSE 73; RESP 17
[2020-11-23] MEDS ORDERED: RIVAROXABAN 15 MG TAB PO SCH (17:30)
== END 2020-11-23 12:55 | disposition home health service (06) | DRG 267 ==
LOC: 2SICU 11-21 09:42
PROVIDERS: ADMIT Surgery; ATTEND Internal Medicine
PROC: 02RF38Z Replacement of Aortic Valve with Zooplastic Tissue, Percutaneous Approach (ICD-10-PCS; principal; 2020-11-21)
PROC: B24BZZ4 Ultrasonography of Heart with Aorta, Transesophageal (ICD-10-PCS; principal; 2020-11-21)
PROC: B41D1ZZ Fluoroscopy of Aorta and Bilateral Lower Extremity Arteries using Low Osmolar Contrast (ICD-10-PCS; 2020-11-21)
DX: I08.0 Rheumatic disorders of both mitral and aortic valves (principal); I13.0 Hypertensive heart and chronic kidney disease with heart failure and stage 1 through stage 4 chronic kidney disease, or unspecified chronic kidney disease; I48.20 Chronic atrial fibrillation, unspecified; N18.4 Chronic kidney disease, stage 4 (severe); I50.22 Chronic systolic (congestive) heart failure; Z00.6 Encounter for examination for normal comparison and control in clinical research program; D63.1 Anemia in chronic kidney disease; Z20.822 Contact with and (suspected) exposure to COVID-19; E87.5 Hyperkalemia; E03.9 Hypothyroidism, unspecified; I25.10 Atherosclerotic heart disease of native coronary artery without angina pectoris; D56.3 Thalassemia minor; E78.5 Hyperlipidemia, unspecified; N40.0 Benign prostatic hyperplasia without lower urinary tract symptoms; K21.9 Gastro-esophageal reflux disease without esophagitis; K80.20 Calculus of gallbladder without cholecystitis without obstruction; I25.2 Old myocardial infarction; Z79.890 Hormone replacement therapy; Z79.899 Other long term (current) drug therapy; Z95.1 Presence of aortocoronary bypass graft; Z86.73 Personal history of transient ischemic attack (TIA), and cerebral infarction without residual deficits; Z95.5 Presence of coronary angioplasty implant and graft; Z90.89 Acquired absence of other organs; Z96.1 Presence of intraocular lens; Z98.42 Cataract extraction status, left eye; Z98.41 Cataract extraction status, right eye; Z89.021 Acquired absence of right finger(s); Z86.19 Personal history of other infectious and parasitic diseases; Z87.440 Personal history of urinary (tract) infections; Z98.890 Other specified postprocedural states; Z82.49 Family history of ischemic heart disease and other diseases of the circulatory system
CPT/HCPCS: 33361; 71045; 80048; 80053; 81003; 82330; 83036; 83735; 85025; 85027; 85520; 85610; 85730; 86850; 86891; 86900; 86901; 86920; 87635; 93306; 93312; 93320; 93325

== ENCOUNTER 2020-11-30 09:36 | Inpatient (IN) | payer MEDICARE, BC ==
[2020-11-30] MEDS ORDERED: MECLIZINE 12.5 MG TAB PO STA (09:53)
[2020-11-30 10:13] LABS: INR 1.2 (<1.2); Partial Thromboplastin Time 26.4 sec (22.0-30.0); Prothrombin Time 12.2 sec (9.0-12.0)
[2020-11-30 10:14] LABS: Anisocytosis Slight; HCT 26.8 % (39.0-53.0); HGB 8.4 gm/dL (13.0-17.5); Hypochromasia Slight; MCH 21.1 pg (25.0-35.0); MCHC 31.2 g/dL (31.0-37.0); MCV 67.7 fL (80.0-100.0); Mean Platelet Volume 7.4; Microcytosis Marked; Platelet Count 165 k/uL (150-450); Poikilocytosis Slight; RBC 3.96 m/uL (4.30-5.90); RDW 17.2 % (11.5-15.5); WBC 4.9 k/uL (3.8-10.6)
[2020-11-30 10:28] LABS: Albumin 4.1 g/dL (3.5-5.0); Calcium 9.4 mg/dL (8.4-10.2); Potassium 4.3 mmol/L (3.5-5.1); Total Bilirubin 0.8 mg/dL (0.2-1.3); Total Protein 7.5 g/dL (6.3-8.2)
--- NOTE | 2020-11-30 10:31 | XR ---
EXAMINATION TYPE: XR chest 2V DATE OF EXAM: 11/30/2020 COMPARISON: 11/23/2020 HISTORY: Heart valve surgery 1 week ago TECHNIQUE: Frontal and lateral views of the chest are obtained. FINDINGS: Lungs are grossly clear. Cardiac silhouette is enlarged but unchanged. Postoperative changes overlie the cardiac silhouette. IMPRESSION: No significant change since the prior exam.
--- NOTE | 2020-11-30 10:31 | ED ---
General Adult HPI - General Chief complaint: Dizziness Stated complaint: Vomiting, post surgery Time Seen by Provider: 11/30/20 09:46 Source: patient, family, RN notes reviewed, old records reviewed Mode of arrival: wheelchair Limitations: no limitations - History of Present Illness Initial comments: 85-year-old male with a history of chronic kidney disease, atrial fibrillation, CAD, recent TAVR on November 22. Patient is presenting for evaluation of dizziness. He states the room is spinning. He has a history of vertigo in the past as well as history of CVA. He is on Xarelto. He denies chest pain. Denies fever. He had one episode of vomiting associated with the vertigo. He states that this is similar to previous episodes. He denies abdominal pain. States that his dyspnea has improved status post valve replacement. He denies any pain or s welling in his groin status post vascular access. - Related Data Home Medications Medication Instructions Recorded Confirmed Metoprolol Tartrate [Lopressor] 50 mg PO TID 06/29/19 11/30/20 Levothyroxine Sodium 150 mcg PO DAILY 06/04/20 11/30/20 Atorvastatin [Lipitor] 20 mg PO HS 09/08/20 11/30/20 Pantoprazole [Protonix] 40 mg PO DAILY 09/08/20 11/30/20 Potassium Chloride 10 meq PO DAILY 09/08/20 11/30/20 Tamsulosin HCl [Flomax] 0.4 mg PO HS 09/08/20 11/30/20 Furosemide [Lasix] 40 mg PO BID 11/08/20 11/30/20 Meclizine [Antivert] 12.5 mg PO DAILY 11/08/20 11/30/20 metOLazone 2.5 mg PO SUWE 11/08/20 11/30/20 Previous Rx's Medication Instructions Recorded Acetaminophen Tab [Tylenol] 650 mg PO Q4HR PRN tab 11/23/20 Clopidogrel [Plavix] 75 mg PO DAILY #30 tab 11/23/20 Rivaroxaban [Xarelto] 15 mg PO W/SUPPER tab 11/23/20 Allergies Allergy/AdvReac Type Severity Reaction Status Date / Time No Known Allergies Allergy Verified 11/30/20 11:12 Review of Systems ROS Statement: Those systems with pertinent positive or pertinent negative responses have been documented in the HPI. ROS Other: All systems not noted in ROS Statement are negative. Past Medical History Past Medical History: Atrial Fibrillation, Coronary Artery Disease (CAD), Chest Pain / Angina, CVA/TIA, GERD/Reflux, Hyperlipidemia, Hypertension, Myocardial Infarction ([place]), Thyroid Disorder Additional Past Medical History / Comment(s): Thalassemia trait, chronic kidney disease stage III, elevated PSA in the past, hx vertigo, Last Myocardial Infarction Date:: 2000 History of Any Multi-Drug Resistant Organisms: None Reported Past Surgical History: Coronary Bypass/CABG, Heart Catheterization With Stent, Tonsillectomy Additional Past Surgical History / Comment(s): CABG May 2000, angioplasty in 2000 and February 2004, bilateral cataract removal and intraocular lens implants,, 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 valve replacement Past Anesthesia/Blood Transfusion Reactions: No Reported Reaction Date of Last Stent Placement:: unknown Past Psychological History: No Psychological Hx Reported Smoking Status: Never smoker Past Alcohol Use History: None Reported Past Drug Use History: None Reported - Past Family History Father Family Medical History: No Reported History Mother Family Medical History: No Reported History Additional Family Medical History / Comment(s): Mother at age 82 from old age. Brother(s) Additional Family Medical History / Comment(s): Patient has 3 brothers and all 3 have passed. Unknown causes. Sister(s) Additional Family Medical History / Comment(s): Patient has has 4 sister that of all from old age. Daughter(s) Additional Family Medical History / Comment(s): Patient has 4 children, 2 boys and 2 girls with no major medical problems. General Exam Limitations: no limitations General appearance: alert, in no apparent distress Head exam: Present: atraumatic, normocephalic Eye exam: Present: normal appearance, PERRL ENT exam: Present: mucous membranes dry Neck exam: Present: normal inspection. Absent: tenderness, meningismus Respiratory exam: Present: normal lung sounds bilaterally. Absent: respiratory distress, wheezes Cardiovascular Exam: Present: regular rate, irregular rhythm GI/Abdominal exam: Present: soft. Absent: distended, tenderness, guarding Extremities exam: Present: normal inspection, normal capillary refill, other (Bilateral groins, minimal ecchymosis, no pulsatile mass, no swelling.) Neurological exam: Present: alert, oriented X3, CN II-XII intact. Absent: motor sensory deficit Psychiatric exam: Present: normal affect, normal mood Skin exam: Present: warm, dry, intact. Absent: cyanosis, diaphoretic Course Vital Signs 11/30/20 11/30/20 11/30/20 09:37 09:43 10:00 Temperature 97.7 F Pulse Rate 51 L 61 57 L Respiratory 18 18 18 Rate Blood Pressure 136/68 145/62 132/61 O2 Sat by Pulse 100 91 L 99 Oximetry 11/30/20 11:23 Temperature Pulse Rate 61 Respiratory 18 Rate Blood Pressure 138/75 O2 Sat by Pulse 95 Oximetry EKG Findings - EKG Comments: EKG Findings:: EKG: Atrial fibrillation right bundle-branch block ventricular rate is 62 QRS duration 152, QTC 483 Medical Decision Making - Medical Decision Making 85-year-old male presenting with lightheadedness, dizziness. History of vertigo. Previous TIA, CVA. Patient does have a nonfocal neurologic exam. He is very uncomfortable with any movement. Workup initiated including head CT, chest x-ray, EKG, lab testing. He has CT showing old cerebellar infarction with no intracranial hemorrhage or acute findings. Chest x-ray is relatively clear. He has a hemoglobin which is stable at 8.4. Stable chronic kidney disease with a creatinine of 2. He remains symptomatic. He will be admitted for neurology consultation and symptomatic relief. Case is discussed with Dr. Dr. Dailey who will admit. - Lab Data Result diagrams: 11/30/20 09:55 11/30/20 09:55 Lab Results 11/30/20 11/30/20 11/30/20 Range/Units 09:55 09:55 09:55 WBC 4.9 (3.8-10.6) k/uL RBC 3.96 L (4.30-5.90) m/uL Hgb 8.4 L (13.0-17.5) gm/dL Hct 26.8 L (39.0-53.0) % MCV 67.7 L (80.0-100.0) fL MCH 21.1 L (25.0-35.0) pg MCHC 31.2 (31.0-37.0) g/dL RDW 17.2 H (11.5-15.5) % Plt Count 165 (150-450) k/uL MPV 7.4 Neutrophils % (Manual) 69 % Lymphocytes % (Manual) 21 % Monocytes % (Manual) 6 % Eosinophils % (Manual) 4 % Neutrophils # (Manual) 3.38 (1.3-7.7) k/uL Lymphocytes # (Manual) 1.03 (1.0-4.8) k/uL Monocytes # (Manual) 0.29 (0-1.0) k/uL Eosinophils # (Manual) 0.20 (0-0.7) k/uL Nucleated RBCs 0 (0-0) /100 WBC Manual Slide Review Performed Hypochromasia Slight Poikilocytosis Slight Anisocytosis Slight Microcytosis Marked Target Cells Present PT 12.2 H (9.0-12.0) sec INR 1.2 H (<1.2) APTT 26.4 (22.0-30.0) sec Sodium 139 (137-145) mmol/L Potassium 4.3 (3.5-5.1) mmol/L Chloride 103 (98-107) mmol/L Carbon Dioxide 26 (22-30) mmol/L Anion Gap 10 mmol/L BUN 42 H (9-20) mg/dL Creatinine 2.07 H (0.66-1.25) mg/dL Est GFR (CKD-EPI)AfAm 33 (>60 ml/min/1.73 sqM) Est GFR (CKD-EPI)NonAf 28 (>60 ml/min/1.73 sqM) Glucose 120 H (74-99) mg/dL Calcium 9.4 (8.4-10.2) mg/dL Total Bilirubin 0.8 (0.2-1.3) mg/dL AST 27 (17-59) U/L ALT 12 (4-49) U/L Alkaline Phosphatase 67 (38-126) U/L Troponin I (0.000-0.034) ng/mL NT-Pro-B Natriuret Pep pg/mL Total Protein 7.5 (6.3-8.2) g/dL Albumin 4.1 (3.5-5.0) g/dL 11/30/20 11/30/20 Range/Units 09:55 09:55 WBC (3.8-10.6) k/uL RBC (4.30-5.90) m/uL Hgb (13.0-17.5) gm/dL Hct (39.0-53.0) % MCV (80.0-100.0) fL MCH (25.0-35.0) pg MCHC (31.0-37.0) g/dL RDW (11.5-15.5) % Plt Count (150-450) k/uL MPV Neutrophils % (Manual) % Lymphocytes % (Manual) % Monocytes % (Manual) % Eosinophils % (Manual) % Neutrophils # (Manual) (1.3-7.7) k/uL Lymphocytes # (Manual) (1.0-4.8) k/uL Monocytes # (Manual) (0-1.0) k/uL Eosinophils # (Manual) (0-0.7) k/uL Nucleated RBCs (0-0) /100 WBC Manual Slide Review Hypochromasia Poikilocytosis Anisocytosis Microcytosis Target Cells PT (9.0-12.0) sec INR (<1.2) APTT (22.0-30.0) sec Sodium (137-145) mmol/L Potassium (3.5-5.1) mmol/L Chloride (98-107) mmol/L Carbon Dioxide (22-30) mmol/L Anion Gap mmol/L BUN (9-20) mg/dL Creatinine (0.66-1.25) mg/dL Est GFR (CKD-EPI)AfAm (>60 ml/min/1.73 sqM) Est GFR (CKD-EPI)NonAf (>60 ml/min/1.73 sqM) Glucose (74-99) mg/dL Calcium (8.4-10.2) mg/dL Total Bilirubin (0.2-1.3) mg/dL AST (17-59) U/L ALT (4-49) U/L Alkaline Phosphatase (38-126) U/L Troponin I 0.023 (0.000-0.034) ng/mL NT-Pro-B Natriuret Pep 4400 pg/mL Total Protein (6.3-8.2) g/dL Albumin (3.5-5.0) g/dL Disposition Clinical Impression: Vertigo, Atrial fibrillation Disposition: ADMITTED IP TO THIS [facility] Condition: Stable Is patient prescribed a controlled substance at d/c from ED?: No Referrals: Bhavaan Dailey MD [Primary Care Provider] - 1-2 days Decision to Admit Reason: Admit from EC Decision Date: 11/30/20 Decision Time: 12:09
[2020-11-30 10:42] LABS: Lymphocytes # (M) 1.03 k/uL (1.0-4.8); Monocytes # (M) 0.29 k/uL (0-1.0); Neutrophils # (M) 3.38 k/uL (1.3-7.7); Neutrophils % (M) 69 %; Nucleated Red Blood Cells 0 /100 WBC (0-0); Total Cells Counted 100
--- NOTE | 2020-11-30 10:42 | CT ---
EXAMINATION TYPE: CT brain wo con DATE OF EXAM: 11/30/2020 COMPARISON: 11/08/2020, 02/09/2016 INDICATION: vertigo DLP: 1098.4 mGycm, Automated exposure control for dose reduction was used. CONTRAST: None CT of the brain is performed utilizing 3 mm thick sections through the posterior fossa and 3 mm thick sections through the remaining calvarium. Study is performed within 24 hours of arrival to the hosp ital. No abnormal hyperdensity is present to suggest an acute intracranial hemorrhage. No mass lesion is evident. Physiologic basal ganglion calcification is present. No acute infarcts are evident. There may be an old infarct along the inferior medial left cerebellum. Ventricles and sulci are prominent for the patient age. Paranasal sinuses and mastoid air cells within the [id number] are clear. IMPRESSIONS: 1. Atrophy. 2. 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
[2020-11-30 10:43] LABS: Target Cells Present
[2020-11-30] MEDS ORDERED: LORazepam 2 MG/ML INJ IV STA (11:34)
[2020-11-30] MEDS ORDERED: NALOXONE 0.4 MG/ML 1 ML VIAL IV PRN (12:01)
[2020-11-30] MEDS ORDERED: ACETAMINOPHEN TAB 325 MG TAB PO PRN ×2 (12:01→14:50)
[2020-11-30] MEDS ORDERED: MECLIZINE 25 MG TAB PO PRN (12:03)
[2020-11-30 15:35] LABS: Appearance,Urine Clear (Clear); Bilirubin,Urine Negative (Negative); Blood,Urine Large (Negative); Color,Urine Yellow; Glucose,Urine (UA) Negative (Negative); Ketones,Urine Negative (Negative); Leukocyte Esterase,Urine Negative (Negative); Mucus,Urine Rare /hpf; Nitrite,Urine Negative (Negative); PH, Urine 5.5 (5.0-8.0); Protein,Urine Negative (Negative); RBC,Urine >182 /hpf (0-5); Urobilinogen,Urine <2.0 mg/dL (<2.0); WBC,Urine 8 /hpf (0-5)
[2020-11-30] MEDS: METOPROLOL TARTRATE 50 MG TAB PO SCH ×2 (16:47→21:36)
[2020-11-30] MEDS ORDERED: RIVAROXABAN 15 MG TAB PO SCH (17:30)
[2020-11-30] MEDS: TAMSULOSIN 0.4 MG CAP.ER.24H PO SCH (21:36)
[2020-11-30] MEDS: ATORVASTATIN 20 MG TAB PO SCH (21:37)
[2020-11-30 23:06] LABS: Anisocytosis Slight; Basophils # (A) 0.1 k/uL (0-0.2); Basophils % (A) 1 %; Eosinophils # (A) 0.4 k/uL (0-0.7); Eosinophils % (A) 7 %; HGB 7.9 gm/dL (13.0-17.5); Hypochromasia Slight; Lymphocytes # (A) 2.1 k/uL (1.0-4.8); Lymphocytes % (A) 36 %; MCH 22.3 pg (25.0-35.0); MCV 67.5 fL (80.0-100.0); Mean Platelet Volume 6.8; Microcytosis Marked; Monocytes # (A) 0.4 k/uL (0-1.0); Monocytes % (A) 7 %; Neutrophils # (A) 2.7 k/uL (1.3-7.7); Neutrophils % (A) 47 %; Platelet Count 155 k/uL (150-450); Poikilocytosis Slight; RBC 3.56 m/uL (4.30-5.90); RDW 17.1 % (11.5-15.5); WBC 5.9 k/uL (3.8-10.6)
[2020-12-01] MEDS: LEVOTHYROXINE 75 MCG TAB PO SCH (05:30)
[2020-12-01 06:12] LABS: Anisocytosis Slight; HCT 23.2 % (39.0-53.0); HGB 7.6 gm/dL (13.0-17.5); Hypochromasia Slight; MCH 22.5 pg (25.0-35.0); MCV 68.1 fL (80.0-100.0); Mean Platelet Volume 6.8; Microcytosis Marked; Platelet Count 157 k/uL (150-450); Poikilocytosis Slight; RDW 17.2 % (11.5-15.5); WBC 5.5 k/uL (3.8-10.6)
[2020-12-01 06:23] LABS: African American GFR (CKD) 36 (>60 ml/min/1.73 sqM); Anion Gap 6 mmol/L; Blood Urea Nitrogen 34 mg/dL (9-20); Carbon Dioxide 28 mmol/L (22-30); Chloride 102 mmol/L (98-107); Glucose 97 mg/dL (74-99); Non-African American GFR(CKD) 31 (>60 ml/min/1.73 sqM); Potassium 4.4 mmol/L (3.5-5.1); Sodium 136 mmol/L (137-145)
[2020-12-01] MEDS: METOPROLOL TARTRATE 50 MG TAB PO SCH ×3 (08:11→22:00)
[2020-12-01] MEDS: MECLIZINE 12.5 MG TAB PO SCH (08:11)
[2020-12-01] MEDS: PANTOPRAZOLE 40 MG TABLET PO SCH (08:11)
[2020-12-01] MEDS: SODIUM CHLORIDE 0.9% 1,000 ML IV SCH ×2 (08:11→17:18)
[2020-12-01] MEDS ORDERED: CLOPIDOGREL 75 MG TAB PO SCH (09:00)
[2020-12-01] MEDS ORDERED: ONDANSETRON 4 MG/2 ML VIAL IVP PRN (09:51)
--- NOTE | 2020-12-01 12:18 | P.CNNES ---
History of Present Illness Consult date: 12/01/20 Requesting physician: Dmitri Gale Reason for Consult: Vertigo, history of cerebellar CVA History of Present Illness: Patient is a 85-year-old male with history of chronic renal disease, atrial fibrillation, CAD, recent TAVR on 05/25/2020 was brought to the hospital yesterday at 9:36 AM for evaluation of dizziness, vertigo nausea vomiting. Patient is currently on Xarelto due to atrial fibrillation and recent TAVR. No fever. Patient not able to provide any history, therefore I have to call patient's daughter who provided the history. She states that patient woke up yesterday morning following up, confused, disoriented, fuzzy, hard time thinking. He was not able to remember anything. He could not talk straight. His balance was off, could not stand properly, also complaining of vertigo and vomited once. Patient's vitals on arrival was blood pressure 136/68, pulse rate 51, temperature 97.7. Patient underwent computed tomography scan of the head which revealed atrophy, old left inferior medial cerebellar infarct. Chest x-ray showed no significant change since prior exam. EKG shows atrial fibrillation with competing junctional pacemaker. Right bundle branch block. Blood tests shows normal WBC hemoglobin 8.4, platelets 165. INR 1.2, electrolytes are normal, BUN 42, creatinine 2.07. Hepatic panel normal, troponin negative, UA negative for infection. Patient's recent B12 was 943 on 06/05/2020, RBC folate was normal. TFTs normal with TSH 1.86. Patient's lipid panel with cholesterol 131, LDL 83, HDL 32 and triglycerides 78 on 09/26/2020. Patient's last hemoglobin A1c 5.3 on 11/21/2020. Patient had a carotid Doppler on 06/05/2020, revealed moderate atherosclerotic change at both bifurcations but without hemodynamically significance stenosis. Despite this, based on CTA findings from 06/04/2020, unable to exclude a moderate proximal right ICA stenosis 50-69% and mild less than 50% on the left. CTA of head and neck from 06/04/2020 showed no acute abnormality of the CTA head and neck. Moderate stenosis of bilateral proximal ICA. Incidental enlarged mediastinal lymph node, nonspecific and may be reactive. 2-D echo from 11/23/2020 showed normal left-ventricular size. Moderate concentric LVH. TAVR procedure done. Mild MR. Mild to moderate MR. Patient has presented with facial droop and left-sided weakness with vertigo, on 06/05/2020, for which MRI was done which was negative for an acute stroke. Patient apparently was admitted to Hospital for similar symptomatology on 06/04/2020 when he underwent workup as above. He was diagnosed with dehydration and UTI. MRI of the brain was negative. Patient's daughter also mentions that before he underwent TAVR, he had similar symptoms. As I was coming to see the patient, the nurse reported that patient has dev eloped mental status change this morning. He was more responsive comer sitting last night. This morning patient has been more confused, less responsive morning. He has been having vomiting. Patient has developed hematuria, therefore Xarelto has been put on hold. He did not receive Xarelto last night. The last dose was on Friday night. Review of Systems Denies headache. ROS unobtainable: due to mental status Past Medical History Past Medical History: Atrial Fibrillation, Coronary Artery Disease (CAD), Chest Pain / Angina, CVA/TIA, GERD/Reflux, Hyperlipidemia, Hypertension, Myocardial Infarction ([place]), Thyroid Disorder Additional Past Medical History / Comment(s): Thalassemia trait, chronic kidney disease stage III, elevated PSA in the past, hx vertigo, Last Myocardial Infarction Date:: 2000 History of Any Multi-Drug Resistant Organisms: None Reported Past Surgical History: Coronary Bypass/CABG, Heart Catheterization With Stent, Tonsillectomy Additional Past Surgical History / Comment(s): CABG May 2000, angioplasty in 2000 and February 2004, bilateral cataract removal and intraocular lens implants,, 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 valve replacement Past Anesthesia/Blood Transfusion Reactions: No Reported Reaction Date of Last Stent Placement:: unknown Past Psychological History: No Psychological Hx Reported Smoking Status: Never smoker Past Alcohol Use History: None Reported Additional Past Alcohol Use History / Comment(s): Patient is a lifelong nonsmoker. No medical marijuana, marijuana, street drug or alcohol use. Past Drug Use History: None Reported - Past Family History Father Family Medical History: No Reported History Mother Family Medical History: No Reported History Additional Family Medical History / Comment(s): Mother at age 82 from old age. Brother(s) Additional Family Medical History / Comment(s): Patient has 3 brothers and all 3 have passed. Unknown causes. Sister(s) Additional Family Medical History / Comment(s): Patient has has 4 sister that of all from old age. Daughter(s) Additional Family Medical History / Comment(s): Patient has 4 children, 2 boys and 2 girls with no major medical problems. Medications and Allergies Home Medications Medication Instructions Recorded Confirmed Type Metoprolol Tartrate [Lopressor] 50 mg PO TID 06/29/19 11/30/20 History Levothyroxine Sodium 150 mcg PO DAILY 06/04/20 11/30/20 History Atorvastatin [Lipitor] 20 mg PO HS 09/08/20 11/30/20 History Pantoprazole [Protonix] 40 mg PO DAILY 09/08/20 11/30/20 History Potassium Chloride 10 meq PO DAILY 09/08/20 11/30/20 History Tamsulosin HCl [Flomax] 0.4 mg PO HS 09/08/20 11/30/20 History Furosemide [Lasix] 40 mg PO BID 11/08/20 11/30/20 History Meclizine [Antivert] 12.5 mg PO DAILY 11/08/20 11/30/20 History metOLazone 2.5 mg PO SUWE 11/08/20 11/30/20 History Acetaminophen Tab [Tylenol] 650 mg PO Q4HR PRN tab 11/23/20 11/30/20 Rx Clopidogrel [Plavix] 75 mg PO DAILY #30 tab 11/23/20 11/30/20 Rx Rivaroxaban [Xarelto] 15 mg PO W/SUPPER tab 11/23/20 11/30/20 Rx Allergies Allergy/AdvReac Type Severity Reaction Status Date / Time No Known Allergies Allergy Verified 11/30/20 11:12 Physical Examination - Vital Signs Vital Signs: Vital Signs Temp Pulse Pulse Resp BP BP Pulse Ox 12/01/20 07:50 98.7 F 109 H 18 152/80 97 12/01/20 07:00 98.7 F 93 18 135/75 99 12/01/20 02:36 43 L 18 12/01/20 00:41 97.8 F 67 18 94/52 98 11/30/20 20:18 18 11/30/20 18:53 97.7 F 55 L 18 112/60 99 11/30/20 14:00 71 17 11/30/20 13:07 97.6 F 71 17 160/69 98 11/30/20 11:23 61 18 138/75 95 Intake and Output 11/30/20 12/01/20 12/01/20 22:59 06:59 14:59 Intake Total 450 Balance 450 Intake: Oral 450 Other: Voiding Method Toilet Toilet Diaper # Voids 3 On examination patient is an elderly male, who is laying in the bed on the right side. He has a bucket in front of him, which has small amount of clear biliary vomitus. Patient was very groggy, needed repeated attempts to wak e him up and get answers from him. Once he was lifted up in the bed, he became more awake. Speech and language functions are normal. Attention, concentration and fund of knowledge is limited. Patient's mouth is very dry, therefore speech is slightly slurred. No aphasia. On cranial examination, pupils are round and reacting to light, patient has gaze deviation to the right. He would bring the gaze to the left on repeated attempts, but preferred on the right. Once he was more awake, lifted up in the bed, his gaze appeared more midline. visual goff are full on confrontation, No nystagmus. Face is symmetric, tongue protrudes to the midline. Palatal elevation and sensation normal, hearing and shoulder shrug normal, facial sensation normal. Shoulder shrug normal. Patient has very prominent left sternocleidomastoid muscle sticking out, almost like torticollis. On muscle strength testing, there is no pronator drift and the strength is normal in arms distally and proximally. In the lower extremities, his ankles and toes are normal. Hip flexion appears slightly weaker on the left as compared to right. He did not cooperate well for hip flexion testing. Deep tendon reflexes are 1+ and plantars downgoing. Sensory to touch is equal with no neglect. Cerebellar function showed no ataxia for [id number] testing. Tone and bulk of muscles normal. Gait not checked. On general examination, there is no carotid bruit, S1-S2 audible. Abdomen is soft nontender. Chest is clear. Peripheral pulses are present. No edema. Results - Laboratory Findings CBC and BMP: 12/03/20 07:38 12/03/20 07:38 Abnormal Lab Findings: Abnormal Labs 11/30/20 11/30/20 11/30/20 09:55 09:55 09:55 RBC 3.96 L Hgb 8.4 L Hct 26.8 L MCV 67.7 L MCH 21.1 L RDW 17.2 H PT 12.2 H INR 1.2 H Sodium BUN 42 H Creatinine 2.07 H Glucose 120 H Urine Blood Urine RBC Urine WBC Urine Mucus 11/30/20 11/30/20 12/01/20 15:16 22:46 05:11 RBC 3.56 L 3.40 L Hgb 7.9 L 7.6 L Hct 24.0 L 23.2 L MCV 67.5 L 68.1 L MCH 22.3 L 22.5 L RDW 17.1 H 17.2 H PT INR Sodium BUN Creatinine Glucose Urine Blood Large H Urine RBC >182 H Urine WBC 8 H Urine Mucus Rare H 12/01/20 05:11 RBC Hgb Hct MCV MCH RDW PT INR Sodium 136 L BUN 34 H Creatinine 1.93 H Glucose Urine Blood Urine RBC Urine WBC Urine Mucus Assessment and Plan Assessment: * Recurrent episodes of nausea vomiting, confusion, mental status change of unclear etiology. Rule out stroke/TIAs. Rule out focal seizures. Patient appears to have some focal signs, rule out stroke TIA. Patient not a candidate for TPA because of acute hematuria and unclear onset of neuro symptoms. * New onset left torticollis, unclear etiology. * Atrial fibrillation, on long-term anticoagulation with Xarelto. * New onset hematuria since yesterday, Xarelto on hold. * Recent history of TAVR on 11/22/2020. * Hyperlipidemia * CAD * Chronic renal disease * Hypothyroidism. Plan: * Patient's NIH stroke scale is 2. Computed tomography scan of the head will be performed rule out CVA. CTA was recommended but patient's renal function precludes CTA. We will also check computed tomography scan of the cervical spine for new onset torticollis. No reported history of trauma or fall. * Stat EEG to rule out any epileptiform activity. * Patient's Xarelto has been on hold because of hematuria. Suggest resuming Xarelto as early as possible to prevent cardioembolic strokes. * Urology has been consulted. * Discussed with patient's daughter in detail. * We will follow. Time with Patient: Greater than 30
--- NOTE | 2020-12-01 12:32 | CT ---
EXAMINATION TYPE: CT brain cspine wo con DATE OF EXAM: 12/01/2020 COMPARISON: 11/30/2020 HISTORY: Mental status changes. CT DLP: 2486.1 mGycm Automated exposure control for dose reduction was used. TECHNIQUE: CT scan of the head and cervical spine are performed without contrast. FINDINGS: There appears to be encephalomalacia involving the left cerebellar hemisphere compatible with previous infarct. Dense calcification in the basal ganglia noted. Moderate degenerative change w ith low attenuation in the white matter most typical remote ischemia. Calvarium is intact. Multilevel hypertrophic and degenerative change of the spine with severe changes noted at C3-C4 with multilevel facet arthropathy. Multilevel facet arthropathy. There is multilevel foraminal encroachmen t. Slight anterolisthesis of C6 on C7. IMPRESSION: 1. There is no acute fracture or dislocation evident in the cervical spine. Multilevel degenerative d isc disease and facet arthropathy with suspected foraminal encroachment. Recommend follow-up MRI. 2. No acute intracranial hemorrhage, mass effect, or midline shift is seen. Degenerative change and n onspecific white matter changes most typical remote ischemia. Remote left cerebellar hemispheric infa rct.
--- NOTE | 2020-12-01 13:10 | XR ---
EXAMINATION TYPE: XR abdomen 2V DATE OF EXAM: 12/01/2020 12:02 PM CLINICAL HISTORY: nausea and vomiting TECHNIQUE: Single supine KUB image of the abdomen is obtained. COMPARISON: None. FINDINGS: Scattered gas is seen in non-distended small bowel loops. Gas and fecal material is seen in non-distended colon. IMPRESSION: Overall nonobstructive bowel gas pattern.
[2020-12-01 14:49] LABS: Anisocytosis Slight; HGB 7.9 gm/dL (13.0-17.5); Hypochromasia Slight; MCH 22.2 pg (25.0-35.0); MCHC 32.8 g/dL (31.0-37.0); MCV 67.6 fL (80.0-100.0); Mean Platelet Volume 7.7; Microcytosis Marked; Platelet Count 129 k/uL (150-450); Poikilocytosis Slight; RBC 3.54 m/uL (4.30-5.90); RDW 17.4 % (11.5-15.5); WBC 11.5 k/uL (3.8-10.6)
--- NOTE | 2020-12-01 14:54 | P.GSCN ---
History of Present Illness Consult date: 12/01/20 History of present illness: 85 yo male admitted with vertigo. He was found to be in retention with hematuria. Dr Sethi who has seen the patient in the past was asked to see the patient. The patient has anemia. His cr is 1.9 He has hematuria.He had a trus in 2013 identifiying a 191 ml prostate. He had been on tamsulosin and finasteride. He has had chronic incomplete bladder emptying. He was last seen in 2019. Review of Systems All systems: negative - Constitutional Denies fever, Denies weight loss - EENT Eyes: denies blurred vision Ears, nose, mouth and throat: Denies dysphagia - Cardiovascular Denies chest pain, Denies shortness of breath - Respiratory Denies cough, Denies 7 - Gastrointestinal Reports as per HPI - Genitourinary Denies dysuria, Denies hematuria - Integumentary Denies rash, Denies unusual bruising - Neurological Denies headaches, Denies syncope - Hematologic/Lymphatic Denies easy bleeding, Denies easy bruising Past Medical History Past Medical History: Atrial Fibrillation, Coronary Artery Disease (CAD), Chest Pain / Angina, CVA/TIA, GERD/Reflux, Hyperlipidemia, Hypertension, Myocardial Infarction ([place]), Thyroid Disorder Additional Past Medical History / Comment(s): Thalassemia trait, chronic kidney disease stage III, elevated PSA in the past, hx vertigo, Last Myocardial Infarction Date:: 2000 History of Any Multi-Drug Resistant Organisms: None Reported Past Surgical History: Coronary Bypass/CABG, Heart Catheterization With Stent, Tonsillectomy Additional Past Surgical History / Comment(s): CABG May 2000, angioplasty in 2000 and February 2004, bilateral cataract removal and intraocular lens implants,, 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 valve replacement Past Anesthesia/Blood Transfusion Reactions: No Reported Reaction Date of Last Stent Placement:: unknown Past Psychological History: No Psychological Hx Reported Smoking Status: Never smoker Past Alcohol Use History: None Reported Additional Past Alcohol Use History / Comment(s): Patient is a lifelong nonsmoker. No medical marijuana, marijuana, street drug or alcohol use. Past Drug Use History: None Reported - Past Family History Father Family Medical History: No Reported History Mother Family Medical History: No Reported History Additional Family Medical History / Comment(s): Mother at age 82 from old age. Brother(s) Additional Family Medical History / Comment(s): Patient has 3 brothers and all 3 have passed. Unknown causes. Sister(s) Additional Family Medical History / Comment(s): Patient has has 4 sister that of all from old age. Daughter(s) Additional Family Medical History / Comment(s): Patient has 4 children, 2 boys and 2 girls with no major medical problems. Medications and Allergies Home Medications Medication Instructions Recorded Confirmed Type Metoprolol Tartrate [Lopressor] 50 mg PO TID 06/29/19 11/30/20 History Levothyroxine Sodium 150 mcg PO DAILY 06/04/20 11/30/20 History Atorvastatin [Lipitor] 20 mg PO HS 09/08/20 11/30/20 History Pantoprazole [Protonix] 40 mg PO DAILY 09/08/20 11/30/20 History Potassium Chloride 10 meq PO DAILY 09/08/20 11/30/20 History Tamsulosin HCl [Flomax] 0.4 mg PO HS 09/08/20 11/30/20 History Furosemide [Lasix] 40 mg PO BID 11/08/20 11/30/20 History Meclizine [Antivert] 12.5 mg PO DAILY 11/08/20 11/30/20 History metOLazone 2.5 mg PO SUWE 11/08/20 11/30/20 History Acetaminophen Tab [Tylenol] 650 mg PO Q4HR PRN tab 11/23/20 11/30/20 Rx Clopidogrel [Plavix] 75 mg PO DAILY #30 tab 11/23/20 11/30/20 Rx Rivaroxaban [Xarelto] 15 mg PO W/SUPPER tab 11/23/20 11/30/20 Rx Allergies Allergy/AdvReac Type Severity Reaction Status Date / Time No Known Allergies Allergy Verified 11/30/20 11:12 Surgical - Exam Vital Signs Temp Pulse Resp BP Pulse Ox 97.7 F 51 L 18 136/68 100 11/30/20 09:37 11/30/20 09:37 11/30/20 09:37 11/30/20 09:37 11/30/20 09:37 - General well developed, well nourished - Eyes PERRL - ENT no hearing loss - Neck trachea midline - Respiratory normal expansion, normal respiratory effort - Cardiovascular Rhythm: regular - Abdomen Abdomen: soft, non tender - Genitourinary Indwelling catheter with clear urine. Prostate is very enlarged but benign. - Integumentary no growths - Neurologic The patient is slightly lethargic. normal sensation - Musculoskeletal normal posture - Psychiatric oriented to person, oriented to place Results - Labs 12/01/20 14:30 12/01/20 05:11 Abnormal Lab Results - Last 24 Hours (Table) 11/30/20 11/30/20 12/01/20 Range/Units 15:16 22:46 05:11 RBC 3.56 L 3.40 L (4.30-5.90) m/uL Hgb 7.9 L 7.6 L (13.0-17.5) gm/dL Hct 24.0 L 23.2 L (39.0-53.0) % MCV 67.5 L 68.1 L (80.0-100.0) fL MCH 22.3 L 22.5 L (25.0-35.0) pg RDW 17.1 H 17.2 H (11.5-15.5) % Sodium (137-145) mmol/L BUN (9-20) mg/dL Creatinine (0.66-1.25) mg/dL Urine Blood Large H (Negative) Urine RBC >182 H (0-5) /hpf Urine WBC 8 H (0-5) /hpf Urine Mucus Rare H (None) /hpf 12/01/20 Range/Units 05:11 RBC (4.30-5.90) m/uL Hgb (13.0-17.5) gm/dL Hct (39.0-53.0) % MCV (80.0-100.0) fL MCH (25.0-35.0) pg RDW (11.5-15.5) % Sodium 136 L (137-145) mmol/L BUN 34 H (9-20) mg/dL Creatinine 1.93 H (0.66-1.25) mg/dL Urine Blood (Negative) Urine RBC (0-5) /hpf Urine WBC (0-5) /hpf Urine Mucus (None) /hpf Diabetes panel 12/01/20 Range/Units 05:11 Sodium 136 L (137-145) mmol/L Potassium 4.4 (3.5-5.1) mmol/L Chloride 102 (98-107) mmol/L Carbon Dioxide 28 (22-30) mmol/L BUN 34 H (9-20) mg/dL Creatinine 1.93 H (0.66-1.25) mg/dL Glucose 97 (74-99) mg/dL Calcium 9.0 (8.4-10.2) mg/dL Calcium panel 12/01/20 Range/Units 05:11 Calcium 9.0 (8.4-10.2) mg/dL Pituitary panel 12/01/20 Range/Units 05:11 Sodium 136 L (137-145) mmol/L Potassium 4.4 (3.5-5.1) mmol/L Chloride 102 (98-107) mmol/L Carbon Dioxide 28 (22-30) mmol/L BUN 34 H (9-20) mg/dL Creatinine 1.93 H (0.66-1.25) mg/dL Glucose 97 (74-99) mg/dL Calcium 9.0 (8.4-10.2) mg/dL Adrenal panel 12/01/20 Range/Units 05:11 Sodium 136 L (137-145) mmol/L Potassium 4.4 (3.5-5.1) mmol/L Chloride 102 (98-107) mmol/L Carbon Dioxide 28 (22-30) mmol/L BUN 34 H (9-20) mg/dL Creatinine 1.93 H (0.66-1.25) mg/dL Glucose 97 (74-99) mg/dL Calcium 9.0 (8.4-10.2) mg/dL Assessment and Plan Assessment: Impression: Neurologic changes of indeterminate etiology, dizziness. Urinary retention [600ml] acute and chronic. Hematuria secondary to cath trauma Recommendations: The patient has a known very large prostate. It was 191 mL in 2013 in our office. The patient generally carries a large residual between 250 and 350 mL. had placed him on Flomax and finasteride. From a uro logic standpoint I would leave indwelling catheter until he is more stable neurologically and then we can remove it for voiding trial. In the meanwhile I would leave it indwelling.
--- NOTE | 2020-12-01 15:03 | EEG ---
ELECTROENCEPHALOGRAM REPORT DATE OF SERVICE: 12/01/2020 PREAMBLE: This is an 85-year-old male with episodic altered mental status, nausea, vomiting. This study is performed to evaluate for any epileptiform activity. EEG FINDINGS: This is a 21 channel routine EEG recording in a patient utilizing 10/20 international system with referential and bipolar montages. The recording starts and continues with presence of diffuse moderate voltage activity in mixed theta and some delta range in bihemispheric region. Background does not seem to be reactive to eye opening and closing. Photic driving response was not seen. Different stages of sleep were not clearly seen. Hyperventilation was not done. No focal or generalized epileptiform activity was seen. EKG channel showed some arrhythmia. IMPRESSION: This is an abnormal EEG due to background slowing of at least moderate degree. This is suggestive of generalized cerebral dysfunction as can be seen with toxic metabolic encephalopathy or due to diffuse structural brain abnormality. No epileptiform activity was seen. MMODL / IJN: [id number] /
--- NOTE | 2020-12-01 15:16 | P.HPIM ---
History of Present Illness H&P Date: 12/01/20 HISTORY OF PRESENT ILLNESS This is an 85-year-old male patient of Dr. 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 Sethi. He had a recent hospitalization for UTI and discharged with ceftin which was completed and repeat urine was clear of UTI. Patient has been brought into the hospital for TAVR performed on November 22. Patient was discharged home in stable condition. Patient presented to [facility] emergency center due to dizziness like the room is spinning. He states he has a history of vertigo in the past. No chest pain. No fever or chills. He had one episode of vomiting associated with vertigo. No abdominal pain. Patient was found to be afebrile, heart rate 51, blood pressure 136/60, pulse ox 100%. EKG was a atrial fibrillation, right bundle branch block. WBC 4.9, hemoglobin 8.4, platelet count 165. Electrolytes normal. BUN 42 and creatinine 2.07 which is patient's normal range. Blood sugar 120. Liver function tests were normal. BNP 4400, troponin 0.0-3. Patient admitted to the observation floor and neurology consult was requested. Patient for some reason had a straight cath done no documentation of this is found in the chart. Nurses state that patient had urinated through the night but was very bloody. This morning, patient is complaining of of vomiting green bile, fever and chills and mental status is slightly off. A consult was added for urology. REVIEW OF SYSTEMS Constitutional: No fever, no chills, no night sweats. No weight change. No weakness, fatigue or lethargy. No daytime sleepiness. EENT: No headache. No blurred vision or double vision, no loss of vision. No loss of Hearing, no ringing in the ears, no dizziness. No nasal drainage or congestion. No epistaxis. No sore throat. Lungs: No shortness of breath, cough, no sputum production. No wheezing. Cardiovascular: No chest pain, no lower extremity edema. No palpitations. No paroxysmal nocturnal dyspnea. No orthopnea. No lightheadedness or dizziness. Reported to ER physician as syncopal episodes. Abdominal: No abdominal pain. No nausea, vomiting. No diarrhea. No constipation. No bloody or tarry stools. No loss of appetite. Genitourinary: No dysuria, increased frequency, urgency. No urinary retention. Musculoskeletal: No myalgias. No muscle weakness, no gait dysfunction, no frequent falls. No back pain. No neck pain. Integumentary: No wounds, no lesions. No rash or pruritus. No unusual bruising. No change in hair or nails. Neurologic: No aphasia. No facial droop. No change in mentation. No head injury. No headache. No paralysis. No paresthesia. Psychiatric: No depression. No anxiety. Endocrine: No abnormal blood sugars. 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 Gastroesophageal reflux disease SURGICAL HISTORY Coronary artery bypass graft in 2001 Coronary angioplasty in 2000 and 2003 Tonsillectomy Bilateral cataract removal and intraocular lens implants Right index finger to monitor amputation as a child SOCIAL HISTORY Patient is a lifelong nonsmoker. No marijuana, street drug or alcohol use. FAMILY HISTORY Father at age 87 from myocardial infarction. Mother at age 82 from old age. Patient has 3 brothers and all have of unknown causes. Patient has 4 sisters and all from old age. Patient's 4 children, 2 boys and 2 girls with no major medical problems. PHYSICAL EXAMINATION Gen: This is an 81-year-old male. He is sitting up in bed in the ICU and appears to be in no acute distress. HEENT: Head is atraumatic, normocephalic. Pupils equal, round. Sclerae is anicteric. Conjunctiva pink. Mucous members of the mouth are slightly dry. NECK: Supple. No JVD. No lymphadenopathy. No thyromegaly. LUNGS: Clear to auscultation. No wheezes or rhonchi. No intercostal retractions. HEART: Regular rate and rhythm. Systolic murmur right sternal border. ABDOMEN: Soft. Bowel sounds are present. No masses. No tenderness. EXTREMITIES: No pedal edema. No calf tenderness. NEUROLOGICAL: Patient is awake, alert and oriented x3. Cranial nerves 2 through 12 are grossly intact. Speech is clear. Short-term memory intact. ASSESSMENT AND PLAN 1. Metabolic encephalopathy along with nausea vomiting. Neurology consult. EEG was ordered. Zofran 4 mg IV push every 6 hours as needed, abdominal x-rays 2. Dizziness secondary to vertigo. Meclizine 25 mg 3 times daily and 12.5 mg daily. 3. Hematuria secondary to traumatic straight catheterization. Consult with urology. Hold Plavix and Xarelto. 4. Rule out urinary tract infection. Patient started on ceftriaxone and obtain urine culture. 5. Urinary retention. Urology consult, Floyd catheter placement. 6. Moderate to severe aortic stenosis status post TAVR 11/22. Hold Plavix. 7. Recent acute E. coli urinary tract infection, completed course of antibiotics. 8. Chronic atrial fibrillation. Continue Lopressor 50 mg 3 times daily. Hold Xarelto 9. Hypothyroidism. Continue levothyroxine 150 g daily. 10. Chronic kidney disease stage IV. Avoid nephrotoxic agents, monitor renal function. 11. Coronary artery disease, stable. Hold Lasix 40 mg twice daily, hold metolazone. 12. Hypertension. Continue Lopressor. 13. Hyperlipidemia. Continue Lipitor 20 mg daily. 14. History of CVA, stable without new deficits. 15. Anemia of chronic kidney disease. 16. Thalassemia trait. 17. Benign prostatic hypertrophy. Continue Flomax 0.4 mg at bedtime. 18. Gastroesophageal reflux disease and GI prophylaxis. Continue Protonix 40 mg daily 19. DVT prophylaxis. Xarelto on hold. Patient admitted to the hospital for a minimum of 2 night stay. CODE STATUS: FULL DISCHARGE PLAN Home most likely with home care. Impression and plan of care have been directed as dictated by the signing physician. Ladonna Werner nurse practitioner acting as scribe for signing physician. Past Medical History Past Medical History: Atrial Fibrillation, Coronary Artery Disease (CAD), Chest Pain / Angina, CVA/TIA, GERD/Reflux, Hyperlipidemia, Hypertension, Myocardial Infarction ([place]), Thyroid Disorder Additional Past Medical History / Comment(s): Thalassemia trait, chronic kidney disease stage III, elevated PSA in the past, hx vertigo, Last Myocardial Infarction Date:: 2000 History of Any Multi-Drug Resistant Organisms: None Reported Past Surgical History: Coronary Bypass/CABG, Heart Catheterization With Stent, Tonsillectomy Additional Past Surgical History / Comment(s): CABG May 2000, angioplasty in 2000 and February 2004, bilateral cataract removal and intraocular lens implants,, 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 valve replacement Past Anesthesia/Blood Transfusion Reactions: No Reported Reaction Date of Last Stent Placement:: unknown Past Psychological History: No Psychological Hx Reported Smoking Status: Never smoker Past Alcohol Use History: None Reported Additional Past Alcohol Use History / Comment(s): Patient is a lifelong nonsmoker. No medical marijuana, marijuana, street drug or alcohol use. Past Drug Use History: None Reported - Past Family History Father Family Medical History: No Reported History Mother Family Medical History: No Reported History Additional Family Medical History / Comment(s): Mother at age 82 from old age. Brother(s) Additional Family Medical History / Comment(s): Patient has 3 brothers and all 3 have passed. Unknown causes. Sister(s) Additional Family Medical History / Comment(s): Patient has has 4 sister that of all from old age. Daughter(s) Additional Family Medical History / Comment(s): Patient has 4 children, 2 boys and 2 girls with no major medical problems. Medications and Allergies Home Medications Medication Instructions Recorded Confirmed Type Metoprolol Tartrate [Lopressor] 50 mg PO TID 06/29/19 11/30/20 History Levothyroxine Sodium 150 mcg PO DAILY 06/04/20 11/30/20 History Atorvastatin [Lipitor] 20 mg PO HS 09/08/20 11/30/20 History Pantoprazole [Protonix] 40 mg PO DAILY 09/08/20 11/30/20 History Potassium Chloride 10 meq PO DAILY 09/08/20 11/30/20 History Tamsulosin HCl [Flomax] 0.4 mg PO HS 09/08/20 11/30/20 History Furosemide [Lasix] 40 mg PO BID 11/08/20 11/30/20 History Meclizine [Antivert] 12.5 mg PO DAILY 11/08/20 11/30/20 History metOLazone 2.5 mg PO SUWE 11/08/20 11/30/20 History Acetaminophen Tab [Tylenol] 650 mg PO Q4HR PRN tab 11/23/20 11/30/20 Rx Clopidogrel [Plavix] 75 mg PO DAILY #30 tab 11/23/20 11/30/20 Rx Rivaroxaban [Xarelto] 15 mg PO W/SUPPER tab 11/23/20 11/30/20 Rx Allergies Allergy/AdvReac Type Severity Reaction Status Date / Time No Known Allergies Allergy Verified 11/30/20 11:12 Physical Exam Vitals: Vital Signs Temp Pulse Pulse Resp BP BP Pulse Ox 12/01/20 07:00 98.7 F 93 18 135/75 99 12/01/20 02:36 43 L 18 12/01/20 00:41 97.8 F 67 18 94/52 98 11/30/20 20:18 18 11/30/20 18:53 97.7 F 55 L 18 112/60 99 11/30/20 14:00 71 17 11/30/20 13:07 97.6 F 71 17 160/69 98 11/30/20 11:23 61 18 138/75 95 11/30/20 10:00 57 L 18 132/61 99 11/30/20 09:43 61 18 145/62 91 L 11/30/20 09:37 97.7 F 51 L 18 136/68 100 Intake and Output 11/30/20 12/01/20 12/01/20 22:59 06:59 14:59 Intake Total 450 Balance 450 Intake: Oral 450 Other: Voiding Method Toilet Toilet Diaper # Voids 3 Results CBC & Chem 7: 12/01/20 14:30 12/01/20 05:11 Labs: Abnormal Lab Results - Last 24 Hours (Table) 11/30/20 11/30/20 11/30/20 Range/Units 09:55 09:55 09:55 RBC 3.96 L (4.30-5.90) m/uL Hgb 8.4 L (13.0-17.5) gm/dL Hct 26.8 L (39.0-53.0) % MCV 67.7 L (80.0-100.0) fL MCH 21.1 L (25.0-35.0) pg RDW 17.2 H (11.5-15.5) % PT 12.2 H (9.0-12.0) sec INR 1.2 H (<1.2) Sodium (137-145) mmol/L BUN 42 H (9-20) mg/dL Creatinine 2.07 H (0.66-1.25) mg/dL Glucose 120 H (74-99) mg/dL Urine Blood (Negative) Urine RBC (0-5) /hpf Urine WBC (0-5) /hpf Urine Mucus (None) /hpf 11/30/20 11/30/20 12/01/20 Range/Units 15:16 22:46 05:11 RBC 3.56 L 3.40 L (4.30-5.90) m/uL Hgb 7.9 L 7.6 L (13.0-17.5) gm/dL Hct 24.0 L 23.2 L (39.0-53.0) % MCV 67.5 L 68.1 L (80.0-100.0) fL MCH 22.3 L 22.5 L (25.0-35.0) pg RDW 17.1 H 17.2 H (11.5-15.5) % PT (9.0-12.0) sec INR (<1.2) Sodium (137-145) mmol/L BUN (9-20) mg/dL Creatinine (0.66-1.25) mg/dL Glucose (74-99) mg/dL Urine Blood Large H (Negative) Urine RBC >182 H (0-5) /hpf Urine WBC 8 H (0-5) /hpf Urine Mucus Rare H (None) /hpf 12/01/20 Range/Units 05:11 RBC (4.30-5.90) m/uL Hgb (13.0-17.5) gm/dL Hct (39.0-53.0) % MCV (80.0-100.0) fL MCH (25.0-35.0) pg RDW (11.5-15.5) % PT (9.0-12.0) sec INR (<1.2) Sodium 136 L (137-145) mmol/L BUN 34 H (9-20) mg/dL Creatinine 1.93 H (0.66-1.25) mg/dL Glucose (74-99) mg/dL Urine Blood (Negative) Urine RBC (0-5) /hpf Urine WBC (0-5) /hpf Urine Mucus (None) /hpf Thrombosis Risk Factor Assmnt - Choose All That Apply Each Factor Represents 1 point: Obesity (BMI >25) Thrombosis Risk Factor Assessment Total Risk Factor Score: 1 Thrombosis Risk Factor Assessment Level: Low Risk
[2020-12-01] MEDS ORDERED: SODIUM CHLORIDE 0.9% 500 ML 500 ML IV ONE ×2 (17:08→18:55)
[2020-12-01] MEDS: TAMSULOSIN 0.4 MG CAP.ER.24H PO SCH (20:17)
[2020-12-01] MEDS: ATORVASTATIN 20 MG TAB PO SCH (20:17)
--- NOTE | 2020-12-01 22:14 | MR ---
EXAMINATION TYPE: MR brain wo con DATE OF EXAM: 12/01/2020 COMPARISON: 05/26/2020 HISTORY: Vertigo, evaluate for CVA. CONTRAST: Performed utilizing 0 mL intravenous Gadavist gadolinium contrast. TECHNIQUE: Multiplanar, multiecho imaging on a 3.0 Stella magnet is performed through the brain. Stud y is performed within 24 hours of arrival to the hospital. The craniovertebral junction is normal. The pituitary is normal. Diffusion-weighted imaging is performed. There are punctate hyperintensities within the deep white m atter compatible with acute ischemic changes. This would include left centrum semiovale,, image 176, left frontal lobe, image 168 left saba radiata, image 160 right occipital lobe, image 144. Addition al cortical hyperintensity may be present in the midline image 120, the right occipital lobe, image 1 52 the right parietal lobe, image 184. Findings are suspicious for acute ischemic changes. These are not present previously. There is a normal inferior medial left cerebellar infarct. There are additional periventricular white matter hyperintensities better visualized on the inversion recovery weighted sequences likely related to chronic white matter ischemic changes Ventricles and sulci are prominent for the patient age. IMPRESSIONS: 1. Acute punctate ischemic changes present bilaterally within the deep white matter and cortical minoo ons. 2. Mild chronic appearing periventricular white matter ischemic changes. 3. 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
[2020-12-02] MEDS: SODIUM CHLORIDE 0.9% 1,000 ML IV SCH ×3 (03:36→23:51)
[2020-12-02] MEDS: LEVOTHYROXINE 75 MCG TAB PO SCH (05:42)
[2020-12-02] MEDS: MECLIZINE 12.5 MG TAB PO SCH (08:49)
[2020-12-02] MEDS: METOPROLOL TARTRATE 50 MG TAB PO SCH ×3 (08:49→20:43)
[2020-12-02] MEDS: PANTOPRAZOLE 40 MG TABLET PO SCH (08:49)
[2020-12-02 09:17] LABS: Albumin/Globulin Ratio 1.15 (1.60-3.17); Anion Gap 5.7 mmol/L (4.00-12.00); BUN/Creat Ratio 20.5 Ratio (12.00-20.00); Calcium 7.8 mg/dL (8.7-10.3); Carbon Dioxide 25.3 mmol/L (21.6-31.8); Globulin 2.6 g/dL (1.6-3.3); Non-African American GFR(CKD) 29.3 (60.0-200.0); Potassium 4.1 mmol/L (3.5-5.5); Total Bilirubin 0.8 mg/dL (0.3-1.2); Total Protein 5.6 g/dL (6.2-8.2)
[2020-12-02 09:33] LABS: HCT 20.1 % (39.6-50.0); HGB 6.4 g/dL (13.0-17.0); MCH 21.6 pg (27.0-32.0); MCHC 31.8 g/dL (32.0-37.0); MCV 67.9 fL (80.0-97.0); Platelet Count 126 X 10*3/uL (140-440); RBC 2.96 X 10*6/uL (4.40-5.60); RDW 17.4 % (11.5-14.5); WBC 18.58 X 10*3/uL (4.50-10.00)
[2020-12-02] MEDS: RIVAROXABAN 15 MG TAB PO SCH (17:04)
[2020-12-02 18:04] LABS: Anisocytosis Slight; Basophils # (A) 0.1 k/uL (0-0.2); Basophils % (A) 1 %; Eosinophils # (A) 0.5 k/uL (0-0.7); Eosinophils % (A) 2 %; HCT 25.4 % (39.0-53.0); HGB 8.4 gm/dL (13.0-17.5); Hypochromasia Slight; Lymphocytes # (A) 1.7 k/uL (1.0-4.8); Lymphocytes % (A) 8 %; MCH 23.2 pg (25.0-35.0); MCHC 33.2 g/dL (31.0-37.0); MCV 69.8 fL (80.0-100.0); Mean Platelet Volume 7.2; Microcytosis Marked; Monocytes # (A) 0.8 k/uL (0-1.0); Monocytes % (A) 4 %; Neutrophils # (A) 17.4 k/uL (1.3-7.7); Neutrophils % (A) 84 %; Platelet Count 133 k/uL (150-450); Poikilocytosis Slight; RBC 3.64 m/uL (4.30-5.90); RDW 18.5 % (11.5-15.5); WBC 20.6 k/uL (3.8-10.6)
[2020-12-02] MEDS: ATORVASTATIN 20 MG TAB PO SCH (20:43)
[2020-12-02] MEDS: TAMSULOSIN 0.4 MG CAP.ER.24H PO SCH (20:44)
[2020-12-03] MEDS: LEVOTHYROXINE 75 MCG TAB PO SCH (05:55)
[2020-12-03] MEDS: PANTOPRAZOLE 40 MG TABLET PO SCH (05:56)
[2020-12-03 08:08] LABS: Anisocytosis Slight; Basophils # (A) 0.1 k/uL (0-0.2); Basophils % (A) 0 %; Eosinophils # (A) 0.5 k/uL (0-0.7); Eosinophils % (A) 3 %; HCT 24.6 % (39.0-53.0); Hypochromasia Moderate; Lymphocytes # (A) 1.4 k/uL (1.0-4.8); Lymphocytes % (A) 10 %; MCH 22.8 pg (25.0-35.0); MCHC 32.5 g/dL (31.0-37.0); MCV 70.3 fL (80.0-100.0); Mean Platelet Volume 7.1; Microcytosis Marked; Monocytes # (A) 0.5 k/uL (0-1.0); Monocytes % (A) 4 %; Neutrophils # (A) 11.3 k/uL (1.3-7.7); Neutrophils % (A) 81 %; Platelet Count 117 k/uL (150-450); Poikilocytosis Slight; RDW 18.5 % (11.5-15.5); WBC 13.9 k/uL (3.8-10.6)
[2020-12-03 08:24] LABS: Albumin 2.8 g/dL (3.5-5.0); Calcium 8.4 mg/dL (8.4-10.2); Potassium 4.4 mmol/L (3.5-5.1); Total Bilirubin 0.8 mg/dL (0.2-1.3); Total Protein 5.9 g/dL (6.3-8.2)
[2020-12-03 09:50] VITALS: RESP 18
[2020-12-03] MEDS: METOPROLOL TARTRATE 50 MG TAB PO SCH ×3 (09:51→20:42)
[2020-12-03] MEDS: MECLIZINE 12.5 MG TAB PO SCH (12:04)
[2020-12-03] MEDS: SODIUM CHLORIDE 0.9% 1,000 ML IV SCH (12:05)
--- NOTE | 2020-12-03 12:40 | P.PN ---
Subjective Progress Note Date: 12/02/20 HISTORY OF PRESENT ILLNESS This is an 85-year-old male patient of Dr. 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 Sethi. He had a recent hospitalization for UTI and discharged with ceftin which was completed and repeat urine was clear of UTI. Patient has been brought into the hospital for TAVR performed on November 22. Patient was discharged home in stable condition. Patient presented to [facility] emergency center due to dizziness like the room is spinning. He states he has a history of vertigo in the past. No chest pain. No fever or chills. He had one episode of vomiting associated with vertigo. No abdominal pain. Patient was found to be afebrile, heart rate 51, blood pressure 136/60, pulse ox 100%. EKG was a atrial fibrillation, right bundle branch block. WBC 4.9, hemoglobin 8.4, platelet count 165. Electrolytes normal. BUN 42 and creatinine 2.07 which is patient's normal range. Blood sugar 120. Liver function tests were normal. BNP 4400, troponin 0.0-3. Patient admitted to the observation floor and neurology consult was requested. Patient for some reason had a straight cath done no documentation of this is found in the chart. Nurses state that patient had urinated through the night but was very bloody. This morning, patient is compl aining of of vomiting green bile, fever and chills and mental status is slightly off. A consult was added for urology. 12/02: Patient is laying down but it dropped to 6.4, and cross and transfuse 1 u nit of packed red blood cells, continue IV fluid resuscitation the form of normal saline at 100 mL an hour, keep the diuretics on hold, resume the patient Xarelto 15 mg orally once every day to avoid any from embolic disease, monitor the patient very closely, patient to be transferred to the 3 S. cardiac unit. REVIEW OF SYSTEMS Constitutional: No fever, no chills, no night sweats. No weight change. No weakness, fatigue or lethargy. No daytime sleepiness. EENT: No headache. No blurred vision or double vision, no loss of vision. No loss of Hearing, no ringing in the ears, no dizziness. No nasal drainage or congestion. No epistaxis. No sore throat. Lungs: No shortness of breath, cough, no sputum production. No wheezing. Cardiovascular: No chest pain, no lower extremity edema. No palpitations. No paroxysmal nocturnal dyspnea. No orthopnea. No lightheadedness or dizziness. Reported to ER physician as syncopal episodes. Abdominal: No abdominal pain. No nausea, vomiting. No diarrhea. No constipation. No bloody or tarry stools. No loss of appetite. Genitourinary: No dysuria, increased frequency, urgency. No urinary retention. Musculoskeletal: No myalgias. No muscle weakness, no gait dysfunction, no frequent falls. No back pain. No neck pain. Integumentary: No wounds, no lesions. No rash or pruritus. No unusual bruising. No change in hair or nails. Neurologic: No aphasia. No facial droop. No change in mentation. No head injury. No headache. No paralysis. No paresthesia. Psychiatric: No depression. No anxiety. Endocrine: No abnormal blood sugars. PHYSICAL EXAMINATION Gen: This is an 81-year-old male. He is sitting up in bed in the ICU and appears to be in no acute distress. HEENT: Head is atraumatic, normocephalic. Pupils equal, round. Sclerae is anicteric. Conjunctiva pink. Mucous members of the mouth are slightly dry. NECK: Supple. No JVD. No lymphadenopathy. No thyromegaly. LUNGS: Clear to auscultation. No wheezes or rhonchi. No intercostal retractions. HEART: Regular rate and rhythm. Systolic murmur right sternal border. ABDOMEN: Soft. Bowel sounds are present. No masses. No tenderness. EXTREMITIES: No pedal edema. No calf tenderness. NEUROLOGICAL: Patient is awake, alert and oriented x3. Cranial nerves 2 through 12 are grossly intact. Speech is clear. Short-term memory intact. ASSESSMENT AND PLAN 1. Metabolic encephalopathy along with nausea vomiting. Patient was seen in consultation by neurology and EEG was done, computed tomography scan of the cervical spine showed spondylosis with disc disease without evidence of any acut e abnormalities, we'll continue the patient reports closely. Restart the patient back on his Xarelto 15 mg orally once every day. 2. Acute blood loss anemia. And cross and transfuse 1 unit of packed red blood cells. 3. Hematuria secondary to traumatic straight catheterization. Consult with eveline grace. Hold Plavix resume Xarelto. 4. Rule out urinary tract infection. Patient started on ceftriaxone and obtain urine culture. 5. Urinary retention. Urology consult, Floyd catheter placement. 6. Moderate to severe aortic stenosis status post TAVR 11/22. Hold Plavix. 7. Recent acute E. coli urinary tract infection, completed course of antibiotics. 8. Chronic atrial fibrillation. Continue Lopressor 50 mg 3 times daily. we will resume Xarelto 15 mg orally once every day. 9. Hypothyroidism. Continue levothyroxine 150 g daily. 10. Chronic kidney disease stage IV. Avoid nephrotoxic agents, monitor renal function. 11. Coronary artery disease, stable. Hold Lasix 40 mg twice daily, hold metolazone. 12. Hypertension. Continue Lopressor 50 mg orally 3 times every day, hold for systolic blood pressure less than 110. 13. Hyperlipidemia. Continue Lipitor 20 mg daily. 14. History of CVA, stable without new deficits. resume Xarelto 15 mg orally once every day. 15. Anemia of chronic kidney disease. 16. Thalassemia trait. 17. Benign prostatic hypertrophy. Continue Flomax 0.4 mg at bedtime. 18. Gastroesophageal reflux disease and GI prophylaxis. Continue Protonix 40 mg daily 19. DVT prophylaxis. We will resume Xarelto. Objective - Vital Signs Vital signs: Vital Signs Temp 98.1 F 12/02/20 07:00 Pulse 76 12/02/20 07:00 Resp 18 12/02/20 07:00 BP 94/48 12/02/20 07:00 Pulse Ox 97 12/02/20 08:52 Intake & Output 12/01/20 12/02/20 12/02/20 18:59 06:59 18:59 Output Total 600 300 Balance -600 -300 Output: Urine 600 300 Other: Voiding Method Indwelling Catheter Indwelling Catheter # Voids 2 - Labs CBC & Chem 7: 12/03/20 07:38 12/03/20 07:38 Labs: Abnormal Lab Results - Last 24 Hours (Table) 12/01/20 12/02/20 12/02/20 Range/Units 14:30 06:35 06:35 WBC 11.5 H 18.58 H (3.8-10.6) k/uL RBC 3.54 L 2.96 L (4.30-5.90) m/uL Hgb 7.9 L 6.4 L* (13.0-17.5) gm/dL Hct 24.0 L 20.1 L (39.0-53.0) % MCV 67.6 L 67.9 L (80.0-100.0) fL MCH 22.2 L 21.6 L (25.0-35.0) pg MCHC 31.8 L (32.0-37.0) g/dL RDW 17.4 H 17.4 H (11.5-15.5) % Plt Count 129 L 126 L (150-450) k/uL BUN 41.0 H (9.0-27.0) mg/dL Creatinine 2.0 H (0.6-1.5) mg/dL Est GFR (CKD-EPI)AfAm 34.0 L (60.0-200.0) Est GFR (CKD-EPI)NonAf 29.3 L (60.0-200.0) BUN/Creatinine Ratio 20.50 H (12.00-20.00) Ratio Calcium 7.8 L (8.7-10.3) mg/dL Total Protein 5.6 L (6.2-8.2) g/dL Albumin 3.00 L (3.80-4.90) g/dL Albumin/Globulin Ratio 1.15 L (1.60-3.17) g/dL Microbiology - Last 24 Hours (Table) 12/01/20 08:01 Blood Culture - Preliminary Blood No Growth after 24 hours
--- NOTE | 2020-12-03 13:04 | P.PN ---
Subjective Progress Note Date: 12/03/20 HISTORY OF PRESENT ILLNESS This is an 85-year-old male patient of Dr. 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 Sethi. He had a recent hospitalization for UTI and discharged with ceftin which was completed and repeat urine was clear of UTI. Patient has been brought into the hospital for TAVR performed on November 22. Patient was discharged home in stable condition. Patient presented to [facility] emergency center due to dizziness like the room is spinning. He states he has a history of vertigo in the past. No chest pain. No fever or chills. He had one episode of vomiting associated with vertigo. No abdominal pain. Patient was found to be afebrile, heart rate 51, blood pressure 136/60, pulse ox 100%. EKG was a atrial fibrillation, right bundle branch block. WBC 4.9, hemoglobin 8.4, platelet count 165. Electrolytes normal. BUN 42 and creatinine 2.07 which is patient's normal range. Blood sugar 120. Liver function tests were normal. BNP 4400, troponin 0.0-3. Patient admitted to the observation floor and neurology consult was requested. Patient for some reason had a straight cath done no documentation of this is found in the chart. Nurses state that patient had urinated through the night but was very bloody. This morning, patient is compl aining of of vomiting green bile, fever and chills and mental status is slightly off. A consult was added for urology. 12/02: Patient is laying down but it dropped to 6.4, and cross and transfuse 1 u nit of packed red blood cells, continue IV fluid resuscitation the form of normal saline at 100 mL an hour, keep the diuretics on hold, resume the patient Xarelto 15 mg orally once every day to avoid any from embolic disease, monitor the patient very closely, patient to be transferred to the 3 S. cardiac unit. 12/03: Patient is laying in bed in no apparent distress, he did receive 1 unit of packed cells yesterday, his hemoglobin is down at his feeling better and has no chest pain or shortness breath, nausea or vomiting continues to have some sore throat. Patient likely will be discharged home tomorrow if everything is okay, discontinue Floyd catheter and heplock IV and likely home in Am REVIEW OF SYSTEMS Constitutional: No fever, no chills, no night sweats. No weight change. No weakness, fatigue or lethargy. No daytime sleepiness. EENT: No headache. No blurred vision or double vision, no loss of vision. No loss of Hearing, no ringing in the ears, no dizziness. No nasal drainage or congestion. No epistaxis. No sore throat. Lungs: No shortness of breath, cough, no sputum production. No wheezing. Cardiovascular: No chest pain, no lower extremity edema. No palpitations. No paroxysmal nocturnal dyspnea. No orthopnea. No lightheadedness or dizziness. Reported to ER physician as syncopal episodes. Abdominal: No abdominal pain. No nausea, vomiting. No diarrhea. No constipation. No bloody or tarry stools. No loss of appetite. Genitourinary: No dysuria, increased frequency, urgency. No urinary retention. Musculoskeletal: No myalgias. No muscle weakness, no gait dysfunction, no frequent falls. No back pain. No neck pain. Integumentary: No wounds, no lesions. No rash or pruritus. No unusual bruising. No change in hair or nails. Neurologic: No aphasia. No facial droop. No change in mentation. No head injury. No headache. No paralysis. No paresthesia. Psychiatric: No depression. No anxiety. Endocrine: No abnormal blood sugars. PHYSICAL EXAMINATION Gen: This is an 81-year-old male. He is sitting up in bed in the ICU and appears to be in no acute distress. HEENT: Head is atraumatic, normocephalic. Pupils equal, round. Sclerae is anicteric. Conjunctiva pink. Mucous members of the mouth are slightly dry. NECK: Supple. No JVD. No lymphadenopathy. No thyromegaly. LUNGS: Clear to auscultation. No wheezes or rhonchi. No intercostal retractions. HEART: Regular rate and rhythm. Systolic murmur right sternal border. ABDOMEN: Soft. Bowel sounds are present. No masses. No tenderness. EXTREMITIES: No pedal edema. No calf tenderness. NEUROLOGICAL: Patient is awake, alert and oriented x3. Cranial nerves 2 through 12 are grossly intact. Speech is clear. Short-term memory intact. ASSESSMENT AND PLAN 1. Metabolic encephalopathy along with nausea vomiting. Patient was seen in consultation by neurology and EEG was done, computed tomography scan of the cervical spine showed spondylosis with disc disease without evidence of any acute abnormalities, we'll continue to monitor the patient closely. Restart the patient back on his Xarelto 15 mg orally once every day. 2. Acute blood loss anemia. Status post 1 unit of packed red blood cells ye sterday HGB 8 3. Hematuria secondary to traumatic straight catheterization.discontinue Floyd catherization and monitor PVR. 4. Rule out urinary tract infection. continue Ceftriaxone daily. 5. Urinary retention. Urology consult, Floyd catheter placement we will attempt void trial today. 6. Moderate to severe aortic stenosis status post TAVR 11/22. Hold Plavix. 7. Recent acute E. coli urinary tract infection, completed course of antibiotics. 8. Chronic atrial fibrillation. Continue Lopressor 50 mg 3 times daily. we will continue Xarelto 15 mg orally once every day. 9. Hypothyroidism. Continue levothyroxine 150 g daily. 10. Chronic kidney disease stage IV. Avoid nephrotoxic agents, monitor renal function. 11. Coronary artery disease, stable. Hold Lasix 40 mg twice daily, hold metolazone. 12. Hypertension. Continue Lopressor 50 mg orally 3 times every day, hold for systolic blood pressure less than 110. 13. Hyperlipidemia. Continue Lipitor 20 mg daily. 14. History of CVA, stable without new deficits. continue Xarelto 15 mg orally once every day. 15. Anemia of chronic kidney disease. 16. Thalassemia trait. 17. Benign prostatic hypertrophy. Continue Flomax 0.4 mg at bedtime. 18. Gastroesophageal reflux disease and GI prophylaxis. Continue Protonix 40 mg daily 19. DVT prophylaxis. On Xarelto 15 mg orally once every day. 20. Home in AM. Objective - Vital Signs Vital signs: Vital Signs Temp 97.9 F 12/03/20 12:07 Pulse 60 12/03/20 12:07 Resp 18 12/03/20 12:07 BP 148/70 12/03/20 12:07 Pulse Ox 98 12/03/20 12:07 Intake & Output 12/02/20 12/03/20 12/03/20 18:59 06:59 18:59 Intake Total 790 290 Output Total 600 960 Balance 190 -960 290 Weight 101 kg Intake: Intake, IV Titration 50 Amount cefTRIAXone 1 gm In 50 Sodium Chloride 0.9% 50 ml @ 100 mls/hr IVPB Q24HR [facility] Rx#:[id number] Oral 480 240 Blood Product 310 Rc As-1 Unit 310 [id number] Output: Urine 600 960 Other: Voiding Method Indwelling Catheter Indwelling Catheter Indwelling Catheter - Labs CBC & Chem 7: 12/03/20 07:38 12/03/20 07:38 Labs: Abnormal Lab Results - Last 24 Hours (Table) 12/02/20 12/02/20 12/03/20 Range/Units 11:30 17:46 07:38 WBC 20.6 H 13.9 H (3.8-10.6) k/uL RBC 3.64 L 3.50 L (4.30-5.90) m/uL Hgb 8.4 L 8.0 L (13.0-17.5) gm/dL Hct 25.4 L 24.6 L (39.0-53.0) % MCV 69.8 L 70.3 L (80.0-100.0) fL MCH 23.2 L 22.8 L (25.0-35.0) pg RDW 18.5 H 18.5 H (11.5-15.5) % Plt Count 133 L 117 L (150-450) k/uL Neutrophils # 17.4 H 11.3 H (1.3-7.7) k/uL Chloride (98-107) mmol/L BUN (9-20) mg/dL Creatinine (0.66-1.25) mg/dL Total Protein (6.3-8.2) g/dL Albumin (3.5-5.0) g/dL Crossmatch See Detail 12/03/20 Range/Units 07:38 WBC (3.8-10.6) k/uL RBC (4.30-5.90) m/uL Hgb (13.0-17.5) gm/dL Hct (39.0-53.0) % MCV (80.0-100.0) fL MCH (25.0-35.0) pg RDW (11.5-15.5) % Plt Count (150-450) k/uL Neutrophils # (1.3-7.7) k/uL Chloride 110 H (98-107) mmol/L BUN 34 H (9-20) mg/dL Creatinine 1.94 H (0.66-1.25) mg/dL Total Protein 5.9 L (6.3-8.2) g/dL Albumin 2.8 L (3.5-5.0) g/dL Crossmatch Microbiology - Last 24 Hours (Table) 12/01/20 08:01 Blood Culture - Preliminary Blood No Growth after 48 hours
[2020-12-03] MEDS: RIVAROXABAN 15 MG TAB PO SCH (16:35)
--- NOTE | 2020-12-03 18:25 | P.PN ---
Subjective Progress Note Date: 12/02/20 Patient was seen by Teleneurology. Patient has improved remarkably. Patient is sitting in the bed, having his lunch. Still feels slightly dizzy in the head "not too bad". Denies headache. Patient states that he follows up with Dr. Ospina. Patient states that he does get sometimes spasm of the left side of the neck in sternocleidomastoid muscle. Sometimes he gets a similar spasms in the forehead also. Objective - Vital Signs Vital signs: Vital Signs Temp 98.1 F 12/03/20 16:30 Pulse 77 12/03/20 16:30 Resp 18 12/03/20 16:30 BP 156/73 12/03/20 16:30 Pulse Ox 96 12/03/20 16:30 Intake & Output 12/02/20 12/03/20 12/03/20 18:59 06:59 18:59 Intake Total 790 770 Output Total 256 201 4887 Balance 190 -960 -430 Weight 101 kg Intake: Intake, IV Titration 50 Amount cefTRIAXone 1 gm In 50 Sodium Chloride 0.9% 50 ml @ 100 mls/hr IVPB Q24HR [facility] Rx#:[id number] Oral 480 720 Blood Product 310 Rc As-1 Unit 310 [id number] Output: Urine 773 526 3781 Other: Voiding Method Indwelling Catheter Indwelling Catheter Indwelling Catheter - Exam Patient is alert and awake in no distress. Speech and language functions are normal. Visual goff are full. Face is symmetric. Tongue protrudes the midline. On muscle strength testing there is no drift and there is no ataxia. Sensations are equal. - Labs CBC & Chem 7: 12/03/20 07:38 12/03/20 07:38 Labs: Abnormal Lab Results - Last 24 Hours (Table) 12/03/20 12/03/20 Range/Units 07:38 07:38 WBC 13.9 H (3.8-10.6) k/uL RBC 3.50 L (4.30-5.90) m/uL Hgb 8.0 L (13.0-17.5) gm/dL Hct 24.6 L (39.0-53.0) % MCV 70.3 L (80.0-100.0) fL MCH 22.8 L (25.0-35.0) pg RDW 18.5 H (11.5-15.5) % Plt Count 117 L (150-450) k/uL Neutrophils # 11.3 H (1.3-7.7) k/uL Chloride 110 H (98-107) mmol/L BUN 34 H (9-20) mg/dL Creatinine 1.94 H (0.66-1.25) mg/dL Total Protein 5.9 L (6.3-8.2) g/dL Albumin 2.8 L (3.5-5.0) g/dL Microbiology - Last 24 Hours (Table) 12/01/20 08:01 Blood Culture - Preliminary Blood No Growth after 48 hours Assessment and Plan Assessment: * Altered mental status, nausea and vomiting, soft focal findings on examination consistent with acute punctate ischemic changes present bilaterally within the deep white matter and cortical regions, probable from cardioembolism. * New onset left torticollis, unclear etiology. * Atrial fibrillation, on long-term anticoagulation with Xarelto. * New onset hematuria since 11/30/2020, Xarelto on hold. * Recent history of TAVR on 11/22/2020. * Hyperlipidemia * CAD * Chronic renal disease * Hypothyroidism. Plan: * Computed tomography scan of head showed no acute intracranial process. Degenerative changes. Remote left cerebellar hemispheric infarct. CT of the cervical spine showed no fracture, mild degenerative disc disease and facet arthropathy with suspected foraminal encroachment. * Subsequently MRI was performed, which revealed acute punctate ischemic changes present bilaterally within the deep white matter and cortical regions. Mild chronic-appearing periventricular white matter ischemic changes. 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 * EEG revealed background slowing of at least moderate degree. This suggestive of generalized cerebral dysfunction as can be seen with toxic metabolic encephalopathy or due to diffuse structural brain abnormality. No epileptiform activity was seen. * Carotid Doppler from 06/05/2020 showed moderate sclerotic change at both bifurcations but without hemodynamically significant internal carotid artery stenosis. Despite this, based on CTA findings from 06/04/2020, unable to exclude a moderate proximal right ICA stenosis 50-69% and mild < 50% on the left. * Patient's Xarelto has been on hold because of hematuria. Suggest resuming Xarelto as early as possible to prevent cardioembolic strokes.
--- NOTE | 2020-12-03 18:42 | P.PN ---
Subjective Progress Note Date: 12/03/20 Patient was seen by Teleneurology. Patient has improved remarkably. Still feels slightly dizzy, but is not new, has been present since his last stroke. He takes Antivert for it. Denies headache. Patient states that he follows up with Dr. Ospina. Patient states that he does get sometimes spasm of the left side of the neck in sternocleidomastoid muscle. Sometimes he gets a similar spasms in the forehead also. States Foleys catheter is out. He is no more bleeding. Objective - Vital Signs Vital signs: Vital Signs Temp 97.9 F 12/03/20 12:07 Pulse 60 12/03/20 12:07 Resp 18 12/03/20 12:07 BP 148/70 12/03/20 12:07 Pulse Ox 98 12/03/20 12:07 Intake & Output 12/02/20 12/03/20 12/03/20 18:59 06:59 18:59 Intake Total 790 290 Output Total 600 960 650 Balance 190 -960 -360 Weight 101 kg Intake: Intake, IV Titration 50 Amount cefTRIAXone 1 gm In 50 Sodium Chloride 0.9% 50 ml @ 100 mls/hr IVPB Q24HR [facility] Rx#:[id number] Oral 480 240 Blood Product 310 Rc As-1 Unit 310 [id number] Output: Urine 600 960 650 Other: Voiding Method Indwelling Catheter Indwelling Catheter Indwelling Catheter - Exam Patient is alert and awake in no distress. Speech and language functions are normal. Visual goff are full. Face is symmetric. Tongue protrudes the midline. - Labs CBC & Chem 7: 12/03/20 07:38 12/03/20 07:38 Labs: Abnormal Lab Results - Last 24 Hours (Table) 12/02/20 12/02/20 12/03/20 Range/Units 11:30 17:46 07:38 WBC 20.6 H 13.9 H (3.8-10.6) k/uL RBC 3.64 L 3.50 L (4.30-5.90) m/uL Hgb 8.4 L 8.0 L (13.0-17.5) gm/dL Hct 25.4 L 24.6 L (39.0-53.0) % MCV 69.8 L 70.3 L (80.0-100.0) fL MCH 23.2 L 22.8 L (25.0-35.0) pg RDW 18.5 H 18.5 H (11.5-15.5) % Plt Count 133 L 117 L (150-450) k/uL Neutrophils # 17.4 H 11.3 H (1.3-7.7) k/uL Chloride (98-107) mmol/L BUN (9-20) mg/dL Creatinine (0.66-1.25) mg/dL Total Protein (6.3-8.2) g/dL Albumin (3.5-5.0) g/dL Crossmatch See Detail 12/03/20 Range/Units 07:38 WBC (3.8-10.6) k/uL RBC (4.30-5.90) m/uL Hgb (13.0-17.5) gm/dL Hct (39.0-53.0) % MCV (80.0-100.0) fL MCH (25.0-35.0) pg RDW (11.5-15.5) % Plt Count (150-450) k/uL Neutrophils # (1.3-7.7) k/uL Chloride 110 H (98-107) mmol/L BUN 34 H (9-20) mg/dL Creatinine 1.94 H (0.66-1.25) mg/dL Total Protein 5.9 L (6.3-8.2) g/dL Albumin 2.8 L (3.5-5.0) g/dL Crossmatch Microbiology - Last 24 Hours (Table) 12/01/20 08:01 Blood Culture - Preliminary Blood No Growth after 48 hours Assessment and Plan Assessment: * Altered mental status, nausea and vomiting, soft focal findings on examination consistent with acute punctate ischemic changes present bilaterally within the deep white matter and cortical regions, probable from cardioembolism. Patient's mentation, and focal neurological signs all resolved. * New onset left torticollis, unclear etiology, improved. * Atrial fibrillation, on long-term anticoagulation with Xarelto. * New onset hematuria since 11/30/2020, Xarelto on hold. * Recent history of TAVR on 11/22/2020. * Hyperlipidemia * CAD * Chronic renal disease * Hypothyroidism. Plan: * Patient's mentation is back to normal. Examination also improved. Patient has been resumed on Xarelto for stroke prevention. * Computed tomography scan of head showed no acute intracranial process. D egenerative changes. Remote left cerebellar hemispheric infarct. CT of the cervical spine showed no fracture, mild degenerative disc disease and facet arthropathy with suspected foraminal encroachment. * MRI of brain revealed acute punctate ischemic changes present bilaterally within the deep white matter and cortical regions. Mild chronic-appearing periventricular white matter ischemic changes. 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 * EEG revealed background slowing of at least moderate degree. This suggestive of generalized cerebral dysfunction as can be seen with toxic metabolic encephalopathy or due to diffuse structural brain abnormality. No epileptifo rm activity was seen. * Carotid Doppler from 06/05/2020 showed moderate sclerotic change at both bi furcations but without hemodynamically significant internal carotid artery stenosis. Despite this, based on CTA findings from 06/04/2020, unable to exclude a moderate proximal right ICA stenosis 50-69% and mild < 50% on the left. * Patient's Xarelto has been resumed as of yesterday evening. Hematuria has resolved. * Patient also has a carotid cerebrovascular disease based upon last Carotid Doppler and CTA. Suggest aspirin 81 mg as well, if no medical contra indications. * Neurologically patient is clear. Dr. Luis Ramon Will resume neurology service from the morning, in case if there is any neurological concerns.
[2020-12-03] MEDS: ATORVASTATIN 20 MG TAB PO SCH (20:42)
[2020-12-03] MEDS: TAMSULOSIN 0.4 MG CAP.ER.24H PO SCH (20:42)
[2020-12-04 01:19] VITALS: TEMP 98
[2020-12-04] MEDS: PANTOPRAZOLE 40 MG TABLET PO SCH (05:44)
[2020-12-04] MEDS: LEVOTHYROXINE 75 MCG TAB PO SCH (05:44)
--- NOTE | 2020-12-04 08:12 | P.DS ---
Providers Date of admission: 12/01/20 07:55 Expected date of discharge: 12/04/20 Attending physician: Bhavana Dailey Consults: 11/30/20 12:02 Consult Physician Routine Consulting Provider: Sherwin Vasquez Consult Reason/Comments: Vertigo, history of cerebellar stroke Do you want consulting provider notified?: Yes 12/01/20 07:52 Consult Physician Routine Consulting Provider: Emanuel Sethi Consult Reason/Comments: hematuria, retention Do you want consulting provider notified?: Yes Primary care physician: Bhavana Dailey Hospital Course: HISTORY OF PRESENT ILLNESS This is an 85-year-old male patient of Dr. 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 Sethi. He had a recent hospitalization for UTI and discharged with ceftin which was completed and repeat urine was clear of UTI. Patient has been brought into the hospital for TAVR performed on November 22. Patient was discharged home in stable condition. Patient presented to [facility] emergency center due to dizziness like the room is spinning. He states he has a history of vertigo in the past. No chest pain. No fever or chills. He had one episode of vomiting associated with vertigo. No abdominal pain. Patient was found to be afebrile, heart rate 51, blood pressure 136/60, pulse ox 100%. EKG was a atrial fibrillation, right bundle branch block. WBC 4.9, hemoglobin 8.4, platelet c ount 165. Electrolytes normal. BUN 42 and creatinine 2.07 which is patient's normal range. Blood sugar 120. Liver function tests were normal. BNP 4400, troponin 0.0-3. Patient admitted to the observation floor and neurology consult was requested. Patient for some reason had a straight cath done no documentation of this is found in the chart. Nurses state that patient had urinated through the night but was very bloody. This morning, patient is complaining of of vomiting green bile, fever and chills and mental status is slightly off. A consult was added for urology. 12/02: Patient is laying down but it dropped to 6.4, and cross and transfuse 1 unit of packed red blood cells, continue IV fluid resuscitation the form of normal saline at 100 mL an hour, keep the diuretics on hold, resume the patient Xarelto 15 mg orally once every day to avoid any from embolic disease, monitor the patient very closely, patient to be transferred to the 3 S. cardiac unit. 12/03: Patient is laying in bed in no apparent distress, he did receive 1 unit of packed cells yesterday, his hemoglobin is down at his feeling better and has no chest pain or shortness breath, nausea or vomiting continues to have some sore throat. Patient likely will be discharged home tomorrow if everything is okay, discontinue Floyd catheter and heplock IV and likely home in Am CT of the cervical spine showed spondylosis with disc disease without evidence of any acute abnormalities. 12/04: Patient states he has not had any hematuria since a Floyd catheter was removed. He denies any fever or chills. He is eating well with no nausea or vomiting., Blood pressure 132/78, pulse ox 94% on room air. Dr. Roca has recommended continuing Xarelto and add aspirin 81 mg daily. Patient will be discharged with no Plavix. This is been explained to the patient and will be on his discharge instructions. Patient will be discharged home today in stable condition. DISCHARGE DIAGNOSES 1. Metabolic encephalopathy along with nausea vomiting. 2. Acute blood loss anemia. Status post 1 unit of packed red blood cells. 3. Hematuria secondary to traumatic straight catheterization. 4. Urinary tract infection suspected. 5. Urinary retention. 6. Moderate to severe aortic stenosis status post TAVR 11/22. 7. Recent acute E. coli urinary tract infection, completed course of antibiotics. 8. Chronic atrial fibrillation. 9. Hypothyroidism. 10. Chronic kidney disease stage IV. 11. Coronary artery disease, stable. 12. Hypertension. 13. Hyperlipidemia. 14. History of CVA, stable without new deficits. 15. Anemia of chronic kidney disease. 16. Thalassemia trait. 17. Benign prostatic hypertrophy. 18. Gastroesophageal reflux disease DISCHARGE PLAN Home Impression and plan of care have been directed as dictated by the signing physician. Ladonna Werner nurse practitioner acting as scribe for signing physician. Patient Condition at Discharge: Good Plan - Discharge Summary Discharge Rx Participant: No New Discharge Prescriptions: New Cefuroxime [Ceftin] 250 mg PO BID 7 Days #14 tab Aspirin EC [Ecotrin Low Dose] 81 mg PO DAILY #30 tablet. Continue Metoprolol Tartrate [Lopressor] 50 mg PO TID Levothyroxine Sodium 150 mcg PO DAILY Tamsulosin HCl [Flomax] 0.4 mg PO HS metOLazone 2.5 mg PO SUWE Meclizine [Antivert] 12.5 mg PO DAILY Atorvastatin [Lipitor] 20 mg PO HS Potassium Chloride 10 meq PO DAILY Pantoprazole [Protonix] 40 mg PO DAILY Furosemide [Lasix] 40 mg PO BID Acetaminophen Tab [Tylenol] 650 mg PO Q4HR PRN tab PRN Reason: Fever And/Or Mild Pain Rivaroxaban [Xarelto] 15 mg PO W/SUPPER tab Discontinued Clopidogrel [Plavix] 75 mg PO DAILY #30 tab Discharge Medication List Metoprolol Tartrate [Lopressor] 50 mg PO TID 06/29/19 [History] Levothyroxine Sodium 150 mcg PO DAILY 06/04/20 [History] Atorvastatin [Lipitor] 20 mg PO HS 09/08/20 [History] Pantoprazole [Protonix] 40 mg PO DAILY 09/08/20 [History] Potassium Chloride 10 meq PO DAILY 09/08/20 [History] Tamsulosin HCl [Flomax] 0.4 mg PO HS 09/08/20 [History] Furosemide [Lasix] 40 mg PO BID 11/08/20 [History] Meclizine [Antivert] 12.5 mg PO DAILY 11/08/20 [History] metOLazone 2.5 mg PO SUWE 11/08/20 [History] Acetaminophen Tab [Tylenol] 650 mg PO Q4HR PRN tab 11/23/20 [Rx] Rivaroxaban [Xarelto] 15 mg PO W/SUPPER tab 11/23/20 [Rx] Aspirin EC [Ecotrin Low Dose] 81 mg PO DAILY #30 tablet. 12/04/20 [Rx] Cefuroxime [Ceftin] 250 mg PO BID 7 Days #14 tab 12/04/20 [Rx] Follow up Appointment(s)/Referral(s): Bhavana Dailey MD [Primary Care Provider] - 1 Week Discharge Disposition: HOME WITH HOME HEALTH SERVICES
[2020-12-04] MEDS: METOPROLOL TARTRATE 50 MG TAB PO SCH (09:29)
[2020-12-04 10:26] VITALS: BP 153/89; PULSE 76
== END 2020-12-04 10:58 | disposition home health service (06) | DRG 689 ==
LOC: EC 09:36 → 6NMEDSUR 12:07 → OBSVTOIN 12-01 07:55 → 3SCARD 12-02 16:42
PROVIDERS: ADMIT Internal Medicine; ATTEND Internal Medicine
PROC: 30233N1 Transfusion of Nonautologous Red Blood Cells into Peripheral Vein, Percutaneous Approach (ICD-10-PCS; principal; 2020-12-02)
DX: N39.0 Urinary tract infection, site not specified (principal); G93.41 Metabolic encephalopathy; I48.20 Chronic atrial fibrillation, unspecified; N18.4 Chronic kidney disease, stage 4 (severe); D62 Acute posthemorrhagic anemia; S37.30XA Unspecified injury of urethra, initial encounter; Z95.4 Presence of other heart-valve replacement; D63.1 Anemia in chronic kidney disease; I12.9 Hypertensive chronic kidney disease with stage 1 through stage 4 chronic kidney disease, or unspecified chronic kidney disease; E86.0 Dehydration; R31.9 Hematuria, unspecified; I08.0 Rheumatic disorders of both mitral and aortic valves; I45.10 Unspecified right bundle-branch block; E78.5 Hyperlipidemia, unspecified; D56.3 Thalassemia minor; M47.812 Spondylosis without myelopathy or radiculopathy, cervical region; I25.2 Old myocardial infarction; K21.9 Gastro-esophageal reflux disease without esophagitis; E03.9 Hypothyroidism, unspecified; I25.10 Atherosclerotic heart disease of native coronary artery without angina pectoris; M43.6 Torticollis; N40.1 Benign prostatic hyperplasia with lower urinary tract symptoms; R33.8 Other retention of urine; R39.14 Feeling of incomplete bladder emptying; R59.0 Localized enlarged lymph nodes; R97.20 Elevated prostate specific antigen [PSA]; Z79.02 Long term (current) use of antithrombotics/antiplatelets; Z79.01 Long term (current) use of anticoagulants; Z79.890 Hormone replacement therapy; Z79.899 Other long term (current) drug therapy; Z86.73 Personal history of transient ischemic attack (TIA), and cerebral infarction without residual deficits; Z89.021 Acquired absence of right finger(s); Z98.42 Cataract extraction status, left eye; Z98.41 Cataract extraction status, right eye; Z96.1 Presence of intraocular lens; Z98.61 Coronary angioplasty status; Z95.1 Presence of aortocoronary bypass graft; Z95.5 Presence of coronary angioplasty implant and graft; Z90.89 Acquired absence of other organs; Z87.440 Personal history of urinary (tract) infections; Z98.890 Other specified postprocedural states; Y84.6 Urinary catheterization as the cause of abnormal reaction of the patient, or of later complication, without mention of misadventure at the time of the procedure; Z82.49 Family history of ischemic heart disease and other diseases of the circulatory system
CPT/HCPCS: 36415; 70450; 70551; 71046; 72125; 74019; 80048; 80053; 81001; 83605; 83880; 84484; 85025; 85027; 85610; 85730; 86850; 86900; 86901; 86920; 87040; 93005; 94760; 95816; 96374; 99285

== ENCOUNTER → 2021-02-28 | Outpatient (CLI) | payer MEDICARE, BC ==
[2021-02-28 14:19] LABS: Anisocytosis Slight; Basophils # (A) 0.1 k/uL (0-0.2); Basophils % (A) 1 %; Eosinophils # (A) 0.3 k/uL (0-0.7); Eosinophils % (A) 4 %; HCT 23.7 % (39.0-53.0); Hypochromasia Slight; INR 1.2 (<1.2); Lymphocytes # (A) 1.8 k/uL (1.0-4.8); Lymphocytes % (A) 30 %; MCH 22.7 pg (25.0-35.0); MCHC 32.6 g/dL (31.0-37.0); Mean Platelet Volume 8.6; Microcytosis Marked; Monocytes # (A) 0.3 k/uL (0-1.0); Monocytes % (A) 5 %; Neutrophils # (A) 3.4 k/uL (1.3-7.7); Neutrophils % (A) 56 %; Platelet Count 213 k/uL (150-450); Poikilocytosis Slight; RDW 18.4 % (11.5-15.5); WBC 6.1 k/uL (3.8-10.6)
[2021-02-28 14:23] LABS: HGB 7.7 gm/dL (13.0-17.5); MCV 69.7 fL (80.0-100.0)
[2021-02-28 14:24] LABS: ALT 20 U/L (4-49); AST 37 U/L (17-59); African American GFR (CKD) 30 (>60 ml/min/1.73 sqM); Albumin 4.5 g/dL (3.5-5.0); Albumin/Globulin Ratio 1.3; Alkaline Phosphatase 68 U/L (38-126); Anion Gap 11 mmol/L; Blood Urea Nitrogen 42 mg/dL (9-20); Calcium 9.6 mg/dL (8.4-10.2); Carbon Dioxide 26 mmol/L (22-30); Chloride 99 mmol/L (98-107); Globulin 3.4 g/dL; Glucose 117 mg/dL (74-99); Non-African American GFR(CKD) 26 (>60 ml/min/1.73 sqM); Potassium 4.7 mmol/L (3.5-5.1); Sodium 136 mmol/L (137-145); Total Bilirubin 0.9 mg/dL (0.2-1.3); Total Protein 7.9 g/dL (6.3-8.2)
== END | disposition home or self-care (01) ==
LOC: LABWHC1 13:30
PROVIDERS: ATTEND Internal Medicine
DX: K62.5 Hemorrhage of anus and rectum (principal)
CPT/HCPCS: 36415; 80053; 85025; 85610

== ENCOUNTER → 2021-07-25 | Outpatient (CLI) | payer MEDICARE, BC ==
--- NOTE | 2021-07-25 10:01 | ECHOF ---
Referral Reason:R06.02 SOB, I25.10 CAD MEASUREMENTS -------- HEIGHT: 165.1 cm WEIGHT: 97.5 kg BP: RVIDd: 3.5 cm (< 3.3) IVSd: 1.3 cm (0.6 - 1.1) LVIDd: 6.3 cm (3.9 - 5.3) LVPWd: 1.3 cm (0.6 - 1.1) IVSs: 1.6 cm LVIDs: 5.0 cm LVPWs: 1.5 cm LAESV Index (A-L): 65.42 ml/m Ao Diam: 3.3 cm (2.0 - 3.7) LA Diam: 6.9 cm (2.7 - 3.8) MV EXCURSION: 24.729 mm (> 18.000) MV EF SLOPE: 72 mm/s (70 - 150) EPSS: 0.6 cm MV E Anastacio: 1.29 m/s MV DecT: 113 ms MV A Anastacio: 0.58 m/s MV E/A Ratio: 2.24 AV maxP.44 mmHg AV meanP.49 mmHg RAP: 5.00 mmHg RVSP: 35.44 mmHg FINDINGS -------- Atrial fibrillation. Pt is S/P CABG and TAVR This was a technically good study. The left ventricular size is normal. There is mild concentric left ventricular hypertrophy. Overa ll left ventricular systolic function is low-normal with, an EF between 50 - 55 %. The right ventricle is normal in size. LA is severely dilated >40 ml/m2 The right atrial size is normal. Trace to mild aortic regurgitation. Peak/mean gradient across the Aortic Valve is 10.44mmHg / 5.49m mHg. Pt had TAVR. Moderate mitral annular calcification present. Severe mitral regurgitation is present. The peak and mean MV gradients are 10.80mmHg 3.06mmHg as measured by doppler. Mild tricuspid regurgitation present. There is mild pulmonary hypertension. There is no pulmonic regurgitation present. There is no pericardial effusion. CONCLUSIONS -------- 1. Pt is S/P CABG and TAVR 2. The left ventricular size is normal. 3. There is mild concentric left ventricular hypertrophy. 4. Overall left ventricular systolic function is low-normal with, an EF between 50 - 55 %. 5. The right ventricle is normal in size. 6. LA is severely dilated >40 ml/m2 7. The right atrial size is normal. 8. Trace to mild aortic regurgitation. 9. Peak/mean gradient across the Aortic Valve is 10.44mmHg / 5.49mmHg. 10. Pt had TAVR. 11. Moderate mitral annular calcification present. 12. Severe mitral regurgitation is present. 13. The peak and mean MV gradients are 10.80mmHg 3.06mmHg as measured by doppler. 14. Mild tricuspid regurgitation present. 15. There is mild pulmonary hypertension. 16. There is no pericardial effusion. HOSTESS: Tabitha Yang RDCS
== END | disposition home or self-care (01) ==
LOC: RADECHMAIN 08:57
PROVIDERS: ATTEND Internal Medicine Interventional Cardiology
DX: I08.3 Combined rheumatic disorders of mitral, aortic and tricuspid valves (principal); I27.20 Pulmonary hypertension, unspecified; Z95.1 Presence of aortocoronary bypass graft; Z95.2 Presence of prosthetic heart valve
CPT/HCPCS: 93306

== ENCOUNTER 2021-08-08 06:35 | Day surgery (SDC) | payer MEDICARE, BC ==
[2021-08-06 12:08] VITALS: BMI 33.9
[2021-08-08] MEDS ORDERED: SODIUM CHLORIDE 0.9% 500 ML 500 ML IV ONE (07:08)
[2021-08-08 07:12] VITALS: TEMP 97.8
[2021-08-08] MEDS ORDERED: fentaNYL (PF) 50 MCG/ML 2 ML AMP ONE (07:18)
[2021-08-08] MEDS: BENZOCAINE SPRAY 1 CAN TOPICAL ONE ×2 (07:24→07:46)
[2021-08-08] MEDS: MIDAZOLAM 2 MG/2 ML VIAL IV ONE ×5 (07:40→07:52)
[2021-08-08] MEDS: fentaNYL (PF) 50 MCG/ML 2 ML AMP IV ONE ×2 (07:46→07:52)
[2021-08-08] MEDS ORDERED: MIDAZOLAM 2 MG/2 ML VIAL IV ONE ×2 (07:49→07:58)
[2021-08-08 10:21] VITALS: RESP 16
[2021-08-08] MEDS ORDERED: LIDOCAINE 1% INJ 10MG/ML (20 ML MDV) ONE (10:34)
[2021-08-08] MEDS ORDERED: PROPOFOL 10 MG/ML 20 ML VIAL IV ONE (10:34)
[2021-08-08] MEDS ORDERED: IV FLUID CONTINUATION 400 ML IV ONE (10:55)
--- NOTE | 2021-08-08 12:30 | P.PCN ---
Date of Procedure: 08/08/21 Operative Findings: TRANSESOPHAGEAL ECHOCARDIOGRAM GEODESIST: ELLIS DUBOSE MD, RPVI INDICATION: Mitral regurgitation SEDATION: Conscious sedation with sedation duration of 12 minutes COMPLICATION: None PROCEDURE DESCRIPTION: After obtaining an informed consent, the patient was brought to transesophageal echocardiogram room. Pulse oximetry and heart monitors were attached to the patient. The patient throat was sprayed using lidocaine. The patient was turned into left lateral position. After that a bite guard was placed. After an appropriate conscious sedation was initiated, the transesophageal echocardiogram was advanced through a bite guard into the mid esophagus. A 2-D echocardiogram images, color Doppler images, continuous wave images, pulse-wave images, of various cardiac structure were performed. After that the transesophageal echocardiogram probe was advanced into the stomach and fixed to obtain transgastric view was. The probe was brought into the mid esophagus. Inter-atrial septum was interrogated using 2D images, color Doppler images, and then contrast study. After that transesophageal echocardiogram was withdrawn out and upon withdrawing the descending thoracic aorta all the way up to the arch was evaluated. FINDING: The left ventricular dimension and systolic function appeared to be within normal limits. The ejection fraction appears to be in the range of 50-55%. The right ventricle appeared to be dilated with normal function. The aortic valve appeared to be transcatheter valve with evidence of mild perivalvular leak. The mitral valve appeared to be mildly thickened with evidence of severe mitral regurgitation by color flow Doppler as well as by quantitative measurements. The Pisa radius was 0.9 cm at aliasing velocity of 50 cm/s. There is evidence of reversal flow in all 4 pulmonary vein. The tricuspid valve appears to have evidence of [id number] tricuspid regurgitation. No pulmonic insufficiency seen. No evidence of pericardial effusion identified. CONCLUSION: 1. Severe mitral regurgitation by color-flow as well as by quantitative measurements. The PISA radius was 0.9 cm at aliasing velocity of 50 cm/s. There is three-vessel flow in all pulmonary vein 2. Transcatheter aortic valve was identified with evidence of mild perivalvular regurgitation 3. The left ventricular systolic function appeared to be in the range of 55%. 4. Dilated right ventricle with a normal function 5. Normal left atrial appendage 6. Small patent foramen ovale identified
[2021-08-08 12:57] VITALS: BP 165/80
[2021-08-08 13:05] VITALS: PULSE 72
== END 2021-08-08 12:15 | disposition home or self-care (01) ==
LOC: CATHCVL 06:35
PROVIDERS: ATTEND Internal Medicine Interventional Cardiology
DX: I34.0 Nonrheumatic mitral (valve) insufficiency (principal); I25.10 Atherosclerotic heart disease of native coronary artery without angina pectoris; I10 Essential (primary) hypertension; E78.5 Hyperlipidemia, unspecified; I48.21 Permanent atrial fibrillation; D64.9 Anemia, unspecified; Z20.822 Contact with and (suspected) exposure to COVID-19; Z95.1 Presence of aortocoronary bypass graft; Z95.2 Presence of prosthetic heart valve; Z79.899 Other long term (current) drug therapy; Z79.01 Long term (current) use of anticoagulants; Z79.82 Long term (current) use of aspirin
CPT/HCPCS: 93312; 93320; 93325; 87635; J2250; J2001; J3010; J2704

== ENCOUNTER 2021-12-19 10:47 | Inpatient (IN) | payer MEDICARE, BC ==
--- NOTE | 2021-12-19 15:00 | XR ---
EXAMINATION TYPE: XR chest 2V DATE OF EXAM: 12/19/2021 COMPARISON: Chest x-ray 11/30/2020 HISTORY: Difficulty breathing TECHNIQUE: Frontal and lateral views of the chest are obtained. FINDINGS: Patient is rotated. There is perihilar vascular indistinctness, patchy density present in t he left midlung. The cardiac silhouette size is stable and enlarged. Osseous structures are intact. IMPRESSION: Difficult to exclude early interstitial edema, atelectasis versus pneumonia
[2021-12-19 15:16] LABS: Anisocytosis Slight; Basophils % (A) 1 %; Eosinophils % (A) 1 %; HCT 39.7 % (39.0-53.0); HGB 12.7 gm/dL (13.0-17.5); Hypochromasia Slight; Lymphocytes # (A) 0.8 k/uL (1.0-4.8); Lymphocytes % (A) 10 %; MCH 22.7 pg (25.0-35.0); MCV 70.9 fL (80.0-100.0); Mean Platelet Volume 7.3; Microcytosis Moderate; Monocytes # (A) 0.5 k/uL (0-1.0); Monocytes % (A) 6 %; Neutrophils # (A) 6.7 k/uL (1.3-7.7); Neutrophils % (A) 81 %; Platelet Count 122 k/uL (150-450); WBC 8.3 k/uL (3.8-10.6)
[2021-12-19 15:29] LABS: INR 1.4 (<1.2); Partial Thromboplastin Time 34.6 sec (22.0-30.0); Prothrombin Time 14.1 sec (9.0-12.0)
[2021-12-19 15:43] LABS: Albumin 4.1 g/dL (3.5-5.0); Calcium 8.9 mg/dL (8.4-10.2); Magnesium 1.9 mg/dL (1.6-2.3); Potassium 4.4 mmol/L (3.5-5.1); Total Bilirubin 1.6 mg/dL (0.2-1.3); Total Protein 7.8 g/dL (6.3-8.2)
--- NOTE | 2021-12-19 16:15 | ED ---
General Adult HPI - General Chief complaint: Upper Respiratory Infection Stated complaint: chest pain Coughing Time Seen by Provider: 12/19/21 13:36 Source: patient, RN notes reviewed Mode of arrival: wheelchair Limitations: no limitations - History of Present Illness Initial comments: 86-year-old male presents emergency Department with chief complaint of cough, chest and rib pain. Patient states that he is been increasing symptoms last 4-5 days. Patient states he has a deep productive white phlegm cough. Patient denies any fevers states he tested negative covid 19 At home. Patient does have a stent and cardiac history including valve replacement currently on Xarelto. Patient denies any history of atrial fibrillation fibrillation, CHF, currently on Lasix. Patient denies any reported fever or chills Usually does complain of some right foot, ankle pain related to gout. Patient denies any sick contacts no back pain - Related Data Home Medications Medication Instructions Recorded Confirmed Metoprolol Tartrate [Lopressor] 25 mg PO TID 06/29/19 11/22/21 Levothyroxine Sodium 150 mcg PO DAILY 06/04/20 11/22/21 Pantoprazole [Protonix] 40 mg PO DAILY 09/08/20 11/22/21 Furosemide [Lasix] 40 mg PO BID 11/08/20 11/22/21 Meclizine [Antivert] 12.5 mg PO DAILY PRN 11/08/20 11/22/21 metOLazone 2.5 mg PO SUWE 11/08/20 11/22/21 Tamsulosin HCl [Flomax] 0.4 mg PO DAILY 06/18/21 11/22/21 Multivitamins, Thera [Multivitamin 1 tab PO DAILY 08/06/21 11/22/21 (formulary)] Procrit(Dose Unknown) 1 applicate IV TH 08/06/21 11/22/21 Sennosides [Senokot] 8.6 mg PO Q2D 08/06/21 11/22/21 Previous Rx's Medication Instructions Recorded Acetaminophen Tab [Tylenol] 650 mg PO Q4HR PRN tab 11/23/20 Rivaroxaban [Xarelto] 15 mg PO W/SUPPER tab 11/23/20 Aspirin EC [Ecotrin Low Dose] 81 mg PO DAILY #30 tablet. 12/04/20 Allergies Allergy/AdvReac Type Severity Reaction Status Date / Time No Known Allergies Allergy Verified 12/19/21 12:25 Review of Systems ROS Statement: Those systems with pertinent positive or pertinent negative responses have been documented in the HPI. ROS Other: All systems not noted in ROS Statement are negative. Past Medical History Past Medical History: Atrial Fibrillation, Coronary Artery Disease (CAD), Chest Pain / Angina, CVA/TIA, GERD/Reflux, Hyperlipidemia, Hypertension, Myocardial Infarction ([place]), Thyroid Disorder Additional Past Medical History / Comment(s): Thalassemia trait, chronic kidney disease stage III, elevated PSA in the past, hx vertigo, Last Myocardial Infarction Date:: 2000 History of Any Multi-Drug Resistant Organisms: None Reported Past Surgical History: Coronary Bypass/CABG, Heart Catheterization With Stent, Tonsillectomy Additional Past Surgical History / Comment(s): CABG May 2000, angioplasty in 2000 and February 2004, bilateral cataract removal and intraocular lens implants,, 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 valve replacement Past Anesthesia/Blood Transfusion Reactions: No Reported Reaction Date of Last Stent Placement:: unknown Past Psychological History: No Psychological Hx Reported Smoking Status: Former smoker Past Alcohol Use History: None Reported Past Drug Use History: None Reported - Past Family History Father Family Medical History: No Reported History Mother Family Medical History: No Reported History Additional Family Medical History / Comment(s): . Brother(s) Additional Family Medical History / Comment(s): Patient has 3 brothers and all 3 have passed. Unknown causes. Sister(s) Additional Family Medical History / Comment(s): Patient has has 4 sister that of all from old age. Daughter(s) Additional Family Medical History / Comment(s): Patient has 4 children, 2 boys and 2 girls with no major medical problems. General Exam Limitations: no limitations General appearance: alert, in no apparent distress Head exam: Present: atraumatic, normocephalic, normal inspection Eye exam: Present: normal appearance, PERRL, EOMI. Absent: scleral icterus, conjunctival injection, periorbital swelling ENT exam: Present: normal exam, normal oropharynx, mucous membranes moist Neck exam: Present: normal inspection, full ROM. Absent: tenderness, meningi smus, lymphadenopathy Respiratory exam: Present: rales. Absent: normal lung sounds bilaterally, respiratory distress, wheezes, rhonchi, stridor Cardiovascular Exam: Present: regular rate, normal rhythm, normal heart sounds. Absent: systolic murmur, diastolic murmur, rubs, gallop, clicks GI/Abdominal exam: Present: soft, normal bowel sounds. Absent: distended, tenderness, guarding, rebound, rigid Neurological exam: Present: alert, oriented X3, CN II-XII intact Course Vital Signs 12/19/21 12:22 Temperature 98.4 F Pulse Rate 65 Respiratory 18 Rate Blood Pressure 128/61 O2 Sat by Pulse 97 Oximetry Medical Decision Making - Medical Decision Making Chest x-ray shows pulmonary edema, patient does have mildly elevated troponin given clinical picture patient has acute CHF exacerbation was given Lasix, cardiology evaluation. - Lab Data Result diagrams: 12/19/21 14:11 12/19/21 14:11 Lab Results 12/19/21 12/19/21 12/19/21 Range/Units 12:28 14:11 14:11 WBC 8.3 (3.8-10.6) k/uL RBC 5.60 (4.30-5.90) m/uL Hgb 12.7 L (13.0-17.5) gm/dL Hct 39.7 (39.0-53.0) % MCV 70.9 L (80.0-100.0) fL MCH 22.7 L (25.0-35.0) pg MCHC 32.0 (31.0-37.0) g/dL RDW 17.0 H (11.5-15.5) % Plt Count 122 L (150-450) k/uL MPV 7.3 Neutrophils % 81 % Lymphocytes % 10 % Monocytes % 6 % Eosinophils % 1 % Basophils % 1 % Neutrophils # 6.7 (1.3-7.7) k/uL Lymphocytes # 0.8 L (1.0-4.8) k/uL Monocytes # 0.5 (0-1.0) k/uL Eosinophils # 0.0 (0-0.7) k/uL Basophils # 0.0 (0-0.2) k/uL Hypochromasia Slight Anisocytosis Slight Microcytosis Moderate PT 14.1 H (9.0-12.0) sec INR 1.4 H (<1.2) APTT 34.6 H (22.0-30.0) sec Sodium (137-145) mmol/L Potassium (3.5-5.1) mmol/L Chloride (98-107) mmol/L Carbon Dioxide (22-30) mmol/L Anion Gap mmol/L BUN (9-20) mg/dL Creatinine (0.66-1.25) mg/dL Est GFR (CKD-EPI)AfAm (>60 ml/min/1.73 sqM) Est GFR (CKD-EPI)NonAf (>60 ml/min/1.73 sqM) Glucose (74-99) mg/dL Plasma Lactic Acid Lalit (0.7-2.0) mmol/L Calcium (8.4-10.2) mg/dL Magnesium (1.6-2.3) mg/dL Total Bilirubin (0.2-1.3) mg/dL AST (17-59) U/L ALT (4-49) U/L Alkaline Phosphatase (38-126) U/L Troponin I (0.000-0.034) ng/mL Total Protein (6.3-8.2) g/dL Albumin (3.5-5.0) g/dL Coronavirus (PCR) Not Detected (Not Detectd) 12/19/21 12/19/21 12/19/21 Range/Units 14:11 14:11 14:11 WBC (3.8-10.6) k/uL RBC (4.30-5.90) m/uL Hgb (13.0-17.5) gm/dL Hct (39.0-53.0) % MCV (80.0-100.0) fL MCH (25.0-35.0) pg MCHC (31.0-37.0) g/dL RDW (11.5-15.5) % Plt Count (150-450) k/uL MPV Neutrophils % % Lymphocytes % % Monocytes % % Eosinophils % % Basophils % % Neutrophils # (1.3-7.7) k/uL Lymphocytes # (1.0-4.8) k/uL Monocytes # (0-1.0) k/uL Eosinophils # (0-0.7) k/uL Basophils # (0-0.2) k/uL Hypochromasia Anisocytosis Microcytosis PT (9.0-12.0) sec INR (<1.2) APTT (22.0-30.0) sec Sodium 137 (137-145) mmol/L Potassium 4.4 (3.5-5.1) mmol/L Chloride 101 (98-107) mmol/L Carbon Dioxide 25 (22-30) mmol/L Anion Gap 11 mmol/L BUN 41 H (9-20) mg/dL Creatinine 1.99 H (0.66-1.25) mg/dL Est GFR (CKD-EPI)AfAm 34 (>60 ml/min/1.73 sqM) Est GFR (CKD-EPI)NonAf 29 (>60 ml/min/1.73 sqM) Glucose 118 H (74-99) mg/dL Plasma Lactic Acid Lalit 1.0 (0.7-2.0) mmol/L Calcium 8.9 (8.4-10.2) mg/dL Magnesium 1.9 (1.6-2.3) mg/dL Total Bilirubin 1.6 H (0.2-1.3) mg/dL AST 41 (17-59) U/L ALT 32 (4-49) U/L Alkaline Phosphatase 99 (38-126) U/L Troponin I 0.068 H* (0.000-0.034) ng/mL Total Protein 7.8 (6.3-8.2) g/dL Albumin 4.1 (3.5-5.0) g/dL Coronavirus (PCR) (Not Detectd) Disposition Clinical Impression: Congestive heart failure, Elevated troponin, Renal insufficiency syndrome, Gout Disposition: ADMITTED IP TO THIS [facility] Condition: Fair Referrals: Bhavana Dailey MD [Primary Care Provider] - 1-2 days Time of Disposition: 16:37
[2021-12-19] MEDS ORDERED: methylPREDNISolone SOD SUCCI 125 MG/2 ML VIAL IV STA (16:37)
[2021-12-19] MEDS ORDERED: FUROSEMIDE 10 MG/ML 4 ML VIAL IV STA (16:37)
[2021-12-19] MEDS ORDERED: MECLIZINE 12.5 MG TAB PO PRN (16:39)
[2021-12-19] MEDS ORDERED: metOLazone 2.5 MG TAB PO SCH (17:00)
[2021-12-19] MEDS ORDERED: RIVAROXABAN 15 MG TAB PO SCH (17:30)
[2021-12-19] MEDS: FUROSEMIDE 10 MG/ML 4 ML VIAL IV SCH (18:10)
[2021-12-19] MEDS: METOPROLOL TARTRATE 25 MG TAB PO SCH (21:19)
[2021-12-20] MEDS: FUROSEMIDE 10 MG/ML 4 ML VIAL IV SCH ×2 (07:03→17:40)
[2021-12-20] MEDS: LEVOTHYROXINE 75 MCG TAB PO SCH (07:08)
[2021-12-20] MEDS: METOPROLOL TARTRATE 25 MG TAB PO SCH (08:05)
[2021-12-20] MEDS: ASPIRIN 81 MG PO SCH (09:21)
[2021-12-20] MEDS: ATORVASTATIN 20 MG TAB PO SCH (09:21)
[2021-12-20] MEDS ORDERED: SENNOSIDES 8.6 MG TAB PO PRN (11:01)
[2021-12-20] MEDS ORDERED: COLCHICINE 0.6 MG PO PRN (11:01)
[2021-12-20 11:13] LABS: Anisocytosis Slight; Basophils % (A) 0 %; Eosinophils % (A) 0 %; HCT 31.8 % (39.0-53.0); Hypochromasia Slight; Lymphocytes # (A) 0.8 k/uL (1.0-4.8); Lymphocytes % (A) 4 %; MCH 22.2 pg (25.0-35.0); MCHC 31.3 g/dL (31.0-37.0); MCV 70.9 fL (80.0-100.0); Mean Platelet Volume 7.3; Microcytosis Moderate; Monocytes # (A) 0.6 k/uL (0-1.0); Monocytes % (A) 3 %; Neutrophils # (A) 16.6 k/uL (1.3-7.7); Neutrophils % (A) 91 %; Platelet Count 160 k/uL (150-450); RBC 4.49 m/uL (4.30-5.90); RDW 16.7 % (11.5-15.5); WBC 18.1 k/uL (3.8-10.6)
--- NOTE | 2021-12-20 11:15 | P.HPIM ---
History of Present Illness 86-year-old male came in with complains of cough and chest and rib pain found to be in the heart failure exacerbation patient received Lasix with significant improvement patient is also complaining of gouty attack symptoms of which i mproved with a dose of steroid. Patient takes colchicine at home patient is a chronic kidney disease stage IV. Patient baseline creatinine is around 1.9-2. Patient does have chronic diastolic dysfunction. Patient does have history of atrial fibrillation for which he is on anti-correlation with his alto patient had aortic valvular replacement in the past. Patient is Soniya Virk This time. Patient was having mild nosebleed is on aspirin as well. She was having shortness of breath as well which improved at this time. REVIEW OF SYSTEMS: CONSTITUTIONAL: No fever, no malaise, no fatigue. HEENT: No recent visual problems or hearing problems. Denied any sore throat. CARDIOVASCULAR:no palpitations, no syncope. PULMONARY: No shortness of breath, no cough, no hemoptysis. GASTROINTESTINAL: No diarrhea, no nausea, no vomiting, no abdominal pain. NEUROLOGICAL: No headaches, no weakness, no numbness. HEMATOLOGICAL: Denies any bleeding or petechiae. GENITOURINARY: Denies any burning micturition, frequency, or urgency. MUSCULOSKELETAL/RHEUMATOLOGICAL: Denies any joint pain, swelling, or any muscle pain. ENDOCRINE: Denies any polyuria or polydipsia. The rest of the 14-point review of systems is negative. PHYSICAL EXAMINATION: GENERAL: The patient is alert and oriented x3, not in any acute distress. Well developed, well nourished. HEENT: Pupils are round and equally reacting to light. EOMI. No scleral icterus. No conjunctival pallor. Normocephalic, atraumatic. No pharyngeal erythema. No thyromegaly. CARDIOVASCULAR: S1 and S2 present. No murmurs, rubs, or gallops. PULMONARY: Chest is clear to auscultation, no wheezing or crackles. ABDOMEN: Soft, nontender, nondistended, normoactive bowel sounds. No palpable organomegaly. MUSCULOSKELETAL: No joint swelling or deformity. EXTREMITIES: No cyanosis, clubbing, or pedal edema. NEUROLOGICAL: Gross neurological examination did not reveal any focal deficits. SKIN: No rashes. Assessment and plan -Congestive failure chronic diastolic dysfunction with mild acute exacerbation patient improved with IV Lasix which will be continued tonight and possibility of discharge tomorrow -Gouty attack patient's colchicine will be held temporarily because of her his chronic kidney disease and patient will be started on low-dose of prednisone -Mild nosebleed which is presently controlled because of which are will not holding off on aspirin and Xarelto be switched to low-dose Eliquis because of renal dysfunction The kidney disease stage IV next and-chronic atrial fibrillation presently rate controlled continue with Lopressor and anti-correlation as mentioned above -Coronary artery disease -Hypertension hyperlipidemia -Benign prostatic hypertrophy -Gastroesophageal reflux disease hold off on proton pump inhibitor and can considering chronic kidney disease patient will be started on Pepcid DVT prophylaxis: As mentioned above Past Medical History Past Medical History: Atrial Fibrillation, Coronary Artery Disease (CAD), Chest Pain / Angina, CVA/TIA, GERD/Reflux, Hyperlipidemia, Hypertension, Myocardial Infarction ([place]), Thyroid Disorder Additional Past Medical History / Comment(s): Thalassemia trait, chronic kidney disease stage III, elevated PSA in the past, hx vertigo, Last Myocardial Infarction Date:: 2000 History of Any Multi-Drug Resistant Organisms: None Reported Past Surgical History: Coronary Bypass/CABG, Heart Catheterization With Stent, Tonsillectomy Additional Past Surgical History / Comment(s): CABG May 2000, angioplasty in 2000 and February 2004, bilateral cataract removal and intraocular lens implants,, 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 valve replacement Past Anesthesia/Blood Transfusion Reactions: No Reported Reaction Date of Last Stent Placement:: unknown Past Psychological History: No Psychological Hx Reported Smoking Status: Former smoker Past Alcohol Use History: None Reported Additional Past Alcohol Use History / Comment(s): Patient is a lifelong nonsmoker. No medical marijuana, marijuana, street drug or alcohol use. Past Drug Use History: None Reported - Past Family History Father Family Medical History: No Reported History Mother Family Medical History: No Reported History Additional Family Medical History / Comment(s): . Brother(s) Additional Family Medical History / Comment(s): Patient has 3 brothers and all 3 have passed. Unknown causes. Sister(s) Additional Family Medical History / Comment(s): Patient has has 4 sister that of all from old age. Daughter(s) Additional Family Medical History / Comment(s): Patient has 4 children, 2 boys and 2 girls with no major medical problems. Medications and Allergies Home Medications Medication Instructions Recorded Confirmed Type Pantoprazole [Protonix] 40 mg PO DAILY PRN 09/08/20 12/19/21 History Furosemide [Lasix] 40 mg PO BID 11/08/20 12/19/21 History Rivaroxaban [Xarelto] 15 mg PO W/SUPPER tab 11/23/20 12/19/21 Rx Aspirin EC [Ecotrin Low Dose] 81 mg PO DAILY #30 tablet. 12/04/20 12/19/21 Rx Tamsulosin HCl [Flomax] 0.4 mg PO DAILY 06/18/21 12/19/21 History Multivitamins, Thera [Multivitamin 1 tab PO DAILY 08/06/21 12/19/21 History (formulary)] Sennosides [Senokot] 8.6 mg PO DAILY PRN 08/06/21 12/19/21 History Atorvastatin [Lipitor] 20 mg PO DAILY 12/19/21 12/19/21 History Colchicine See Taper PO DIRECTED PRN 12/19/21 12/19/21 History Donepezil [Aricept] 5 mg PO DAILY 12/19/21 12/19/21 History Finasteride [Proscar] 5 mg PO DAILY 12/19/21 12/19/21 History Levothyroxine Sodium [Euthyrox] 150 mcg PO DAILY 12/19/21 12/19/21 History Meclizine HCl [Antivert] 25 mg PO TID PRN 12/19/21 12/19/21 History Metoprolol Tartrate [Lopressor] 50 mg PO TID-W/MEALS 12/19/21 12/19/21 History Allergies Allergy/AdvReac Type Severity Reaction Status Date / Time No Known Allergies Allergy Verified 12/19/21 12:25 Physical Exam Vitals: Vital Signs Temp Pulse Pulse Resp BP BP Pulse Ox 12/20/21 08:46 98 12/20/21 07:28 97.8 F 75 16 136/65 97 12/20/21 04:00 97.6 F 69 18 96/50 91 L 12/20/21 02:00 18 12/20/21 00:00 98 F 89 18 126/60 96 12/19/21 21:34 18 12/19/21 20:56 98.6 F 91 18 131/70 95 12/19/21 17:00 80 20 142/74 95 12/19/21 12:22 98.4 F 65 18 128/61 97 Intake and Output 12/19/21 12/20/21 12/20/21 22:59 06:59 14:59 Intake Total 358 Output Total 675 Balance -317 Intake: Oral 358 Output: Urine 675 Other: Voiding Method Toilet Toilet Urinal Urinal # Voids 1 1 Weight 97.522 kg 94.1 kg Results CBC & Chem 7: 12/19/21 14:11 12/19/21 14:11 Labs: Abnormal Lab Results - Last 24 Hours (Table) 12/19/21 12/19/21 12/19/21 Range/Units 14:11 14:11 14:11 Hgb 12.7 L (13.0-17.5) gm/dL MCV 70.9 L (80.0-100.0) fL MCH 22.7 L (25.0-35.0) pg RDW 17.0 H (11.5-15.5) % Plt Count 122 L (150-450) k/uL Lymphocytes # 0.8 L (1.0-4.8) k/uL PT 14.1 H (9.0-12.0) sec INR 1.4 H (<1.2) APTT 34.6 H (22.0-30.0) sec BUN 41 H (9-20) mg/dL Creatinine 1.99 H (0.66-1.25) mg/dL Glucose 118 H (74-99) mg/dL Total Bilirubin 1.6 H (0.2-1.3) mg/dL Troponin I (0.000-0.034) ng/mL 12/19/21 Range/Units 14:11 Hgb (13.0-17.5) gm/dL MCV (80.0-100.0) fL MCH (25.0-35.0) pg RDW (11.5-15.5) % Plt Count (150-450) k/uL Lymphocytes # (1.0-4.8) k/uL PT (9.0-12.0) sec INR (<1.2) APTT (22.0-30.0) sec BUN (9-20) mg/dL Creatinine (0.66-1.25) mg/dL Glucose (74-99) mg/dL Total Bilirubin (0.2-1.3) mg/dL Troponin I 0.068 H* (0.000-0.034) ng/mL Thrombosis Risk Factor Assmnt - Choose All That Apply Any of the Below Risk Factors Present?: Yes Each Risk Factor Represents 3 Points: Age 75 years or older Thrombosis Risk Factor Assessment Total Risk Factor Score: 3 Thrombosis Risk Factor Assessment Level: Moderate Risk
[2021-12-20 11:20] LABS: Calcium 9.6 mg/dL (8.4-10.2)
--- NOTE | 2021-12-20 12:10 | P.CRDCN ---
History of Present Illness History of present illness: HISTORY OF PRESENTING ILLNESS This is a pleasant 86-year-old male past medical history significant for coronary artery disease status post prior PCI and 3 vessel CABG in 2001, severe aortic stenosis status post TAVR in 11/2020, persistent atrial fibrillation on Xarelto, hypertension, dyslipidemia, severe mitral regurgitation. Being evaluated for mitral valve clip procedure as an outpatient. He follows in the office with Dr. Messer. We have been asked to see in consultation for congestive heart failure. Patient presents emergency department with complaints of cough, productive with white/brown sputum, shortness of breath, lower extremity edema. Symptoms worsening for the past 5 days. He denies any fever, chills. He denies any chest pain, symptoms of orthopnea or PND, palpitations, lightheadedness, dizziness, syncope or near syncope. No change in his medications, he is complia nt. Denies any increased salt intake. Denies any increased weight gain. DIAGNOSTICS * EKG reveals atrial fibrillation, heart rate 70, right bundle-branch block, nonspecific T-wave abnormalities in the inferior anterior leads, not new. Prior EKG was similar findings. * Telemetry tracings indicate atrial fibrillation with controlled ventricular rates * Most recent echocardiogram, HOANG, 07/2021 revealed an EF of 5055%, severe mitral regurgitation, PISA radius 0.9cm with velocity of 50cm/s, small PFO, mild perivalvular regurgitation of the replaced aortic valve * Chest xray left mid lung with patchy density, heart is enlarged, interstitial edema present, vs pneumonia * Laboratory reviewed, WBC 18.1, hemoglobin 10, platelets 160, sodium 140, potassium 5.0, BUN 52, serum creatinine 2.1, magnesium 1.9, proBNP 7610, troponin negative, COVID-19 negative * Current home cardiac medications include aspirin 81 mg daily, Lasix 40 mg twice a day, Xarelto 15 mg nightly, atorvastatin 20 mg daily, metoprolol titrate 50 mg 3 times a day REVIEW OF SYSTEMS At the time of my exam: CONSTITUTIONAL: Denies fever or chills. CARDIOVASCULAR: Denies chest pain, +shortness of breath, Denies orthopnea, PND or palpitations. RESPIRATORY: +Reports cough. GASTROINTESTINAL: Denies abdominal pain, diarrhea, constipation, nausea or vomiting. MUSCULOSKELETAL: Denies myalgias. NEUROLOGIC: Denies numbness, tingling, headacbe or weakness. ENDOCRINE: Denies fatigue, weight change, polydipsia or polyurina. GENITOURINARY: Denies burning, hematuria or urgency with micturation. HEMATOLOGIC: Denies history of anemia or bleeding. PHYSICAL EXAMINATION Blood pressure 136/65 HR 75, afebrile 97% on room air CONSTITUTIONAL: No apparent distress. HEENT: Head is normocephalic. Pupils are equal, round. Sclerae anicteric. Mucous membranes of the mouth are moist. No JVD. CHEST EXAMINATION: Lungs are clear to auscultation. No chest wall tenderness is noted on palpation or with deep breathing. HEART EXAMINATION:Irregular rate and rhythm. S1, S2 heard. Systolic murmur at apex ABDOMEN: Soft, nontender. Positive bowel sounds. EXTREMITIES: 2+ peripheral pulses, mild bilateral R>L lower extremity edema and no calf tenderness. NEUROLOGIC EXAMINATION: Patient is awake, alert and oriented x3. ASSESSMENT Cough, Shortness of breath Acute on chronic heart failure with preserved ejection fraction Severe mitral regurgitation Leukocytosis Coronary artery disease status post prior PCI and 3 vessel CABG in 2001 Severe aortic stenosis status post TAVR in 11/2020 Persistent atrial fibrillation on Xarelto Hypertension Dyslipidemia Anemia PLAN Limited Echo Continue IV Lasix 40mg BID for additional 24 hours, hopefully transition to PO tomorrow Monitor I/Os, renal function and electrolytes Continue Xarelto 15mg dose for renal dysfunction and age Continue home cardiac medications with aspirin, statin, beta manda Further recommendations based on clinical course Nurse practitioner note has been reviewed by physician. Signing provider agrees with the documented findings, assessment, and plan of care. Past Medical History Past Medical History: Atrial Fibrillation, Coronary Artery Disease (CAD), Chest Pain / Angina, CVA/TIA, GERD/Reflux, Hyperlipidemia, Hypertension, Myocardial Infarction (RI), Thyroid Disorder Additional Past Medical History / Comment(s): Thalassemia trait, chronic kidney disease stage III, elevated PSA in the past, hx vertigo, Last Myocardial Infarction Date:: 2000 History of Any Multi-Drug Resistant Organisms: None Reported Past Surgical History: Coronary Bypass/CABG, Heart Catheterization With Stent, Tonsillectomy Additional Past Surgical History / Comment(s): CABG May 2000, angioplasty in 2000 and February 2004, bilateral cataract removal and intraocular lens implants,, 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 valve replacement Past Anesthesia/Blood Transfusion Reactions: No Reported Reaction Date of Last Stent Placement:: unknown Past Psychological History: No Psychological Hx Reported Smoking Status: Former smoker Past Alcohol Use History: None Reported Additional Past Alcohol Use History / Comment(s): Patient is a lifelong no nsmoker. No medical marijuana, marijuana, street drug or alcohol use. Past Drug Use History: None Reported - Past Family History Father Family Medical History: No Reported History Mother Family Medical History: No Reported History Additional Family Medical History / Comment(s): . Brother(s) Additional Family Medical History / Comment(s): Patient has 3 brothers and all 3 have passed. Unknown causes. Sister(s) Additional Family Medical History / Comment(s): Patient has has 4 sister that of all from old age. Daughter(s) Additional Family Medical History / Comment(s): Patient has 4 children, 2 boys and 2 girls with no major medical problems. Medications and Allergies Home Medications Medication Instructions Recorded Confirmed Type Pantoprazole [Protonix] 40 mg PO DAILY PRN 09/08/20 12/19/21 History Furosemide [Lasix] 40 mg PO BID 11/08/20 12/19/21 History Rivaroxaban [Xarelto] 15 mg PO W/SUPPER tab 11/23/20 12/19/21 Rx Aspirin EC [Ecotrin Low Dose] 81 mg PO DAILY #30 tablet. 12/04/20 12/19/21 Rx Tamsulosin HCl [Flomax] 0.4 mg PO DAILY 06/18/21 12/19/21 History Multivitamins, Thera [Multivitamin 1 tab PO DAILY 08/06/21 12/19/21 History (formulary)] Sennosides [Senokot] 8.6 mg PO DAILY PRN 08/06/21 12/19/21 History Atorvastatin [Lipitor] 20 mg PO DAILY 12/19/21 12/19/21 History Colchicine See Taper PO DIRECTED PRN 12/19/21 12/19/21 History Donepezil [Aricept] 5 mg PO DAILY 12/19/21 12/19/21 History Finasteride [Proscar] 5 mg PO DAILY 12/19/21 12/19/21 History Levothyroxine Sodium [Euthyrox] 150 mcg PO DAILY 12/19/21 12/19/21 History Meclizine HCl [Antivert] 25 mg PO TID PRN 12/19/21 12/19/21 History Metoprolol Tartrate [Lopressor] 50 mg PO TID-W/MEALS 12/19/21 12/19/21 History Allergies Allergy/AdvReac Type Severity Reaction Status Date / Time No Known Allergies Allergy Verified 12/19/21 12:25 Physical Exam Vitals: Vital Signs Temp Pulse Pulse Resp BP BP Pulse Ox 12/20/21 07:28 97.8 F 75 16 136/65 97 12/20/21 04:00 97.6 F 69 18 96/50 91 L 12/20/21 02:00 18 12/20/21 00:00 98 F 89 18 126/60 96 12/19/21 21:34 18 12/19/21 20:56 98.6 F 91 18 131/70 95 12/19/21 17:00 80 20 142/74 95 12/19/21 12:22 98.4 F 65 18 128/61 97 Intake and Output 12/19/21 12/20/21 12/20/21 22:59 06:59 14:59 Other: Voiding Method Toilet Toilet Urinal Urinal # Voids 1 1 Weight 97.522 kg 94.1 kg Results 12/20/21 10:05 12/20/21 10:05 Cardiac Enzymes 12/19/21 12/19/21 Range/Units 14:11 14:11 AST 41 (17-59) U/L Troponin I 0.068 H* (0.000-0.034) ng/mL Coagulation 12/19/21 Range/Units 14:11 PT 14.1 H (9.0-12.0) sec APTT 34.6 H (22.0-30.0) sec CBC 12/19/21 Range/Units 14:11 WBC 8.3 (3.8-10.6) k/uL RBC 5.60 (4.30-5.90) m/uL Hgb 12.7 L (13.0-17.5) gm/dL Hct 39.7 (39.0-53.0) % Plt Count 122 L (150-450) k/uL Comprehensive Metabolic Panel 12/19/21 Range/Units 14:11 Sodium 137 (137-145) mmol/L Potassium 4.4 (3.5-5.1) mmol/L Chloride 101 (98-107) mmol/L Carbon Dioxide 25 (22-30) mmol/L BUN 41 H (9-20) mg/dL Creatinine 1.99 H (0.66-1.25) mg/dL Glucose 118 H (74-99) mg/dL Calcium 8.9 (8.4-10.2) mg/dL AST 41 (17-59) U/L ALT 32 (4-49) U/L Alkaline Phosphatase 99 (38-126) U/L Total Protein 7.8 (6.3-8.2) g/dL Albumin 4.1 (3.5-5.0) g/dL Current Medications Generic Name Dose Route Start Last Admin Trade Name Freq PRN Reason Stop Dose Admin Furosemide 40 mg 12/19/21 17:30 12/20/21 07:03 Furosemide 10 Mg/Ml 4 Ml Vial IV 40 mg Q12HR@0600,1800 [facility] Administration Levothyroxine Sodium 150 mcg 12/20/21 06:30 12/20/21 07:08 Levothyroxine 75 Mcg Tab PO 150 mcg DAILY@0630 [facility] Administration Meclizine HCl 12.5 mg 12/19/21 16:39 Meclizine 12.5 Mg Tab PO DAILY PRN dizziness Metolazone 2.5 mg 12/19/21 17:00 12/19/21 18:55 Metolazone 2.5 Mg Tab PO 2.5 mg SuWe@0900 [facility] Administration Metoprolol Tartrate 25 mg 12/19/21 22:00 12/19/21 21:19 Metoprolol Tartrate 25 Mg Tab PO 25 mg TID SARAH Administration Rivaroxaban 15 mg 12/19/21 17:30 12/19/21 18:55 Rivaroxaban 15 Mg Tab PO 15 mg W/SUPPER [facility] Administration Protocol Intake and Output 12/19/21 12/20/21 12/20/21 22:59 06:59 14:59 Other: Voiding Method Toilet Toilet Urinal Urinal # Voids 1 1 Weight 97.522 kg 94.1 kg 12/19/21 14:11 12/19/21 14:11
[2021-12-20] MEDS: METOPROLOL TARTRATE 50 MG TAB PO SCH ×2 (12:16→17:40)
[2021-12-20] MEDS: predniSONE 20 MG TAB PO SCH (12:16)
--- NOTE | 2021-12-20 15:11 | CA ---
Transthoracic Echo Report Name: Zoran Camp Age: 86 Gender: M : 1935 Exam Date: 12/20/2021 07:50 Exam Location: [place] Echo Ht (in): 66 Wt (lb): 207 Ordering Physician: Zia Reynaga Attending/Referring Phys: [id number], Juhi Blender Conveyor Operator Dalia Valle RDCS Procedure CPT: Indications: chf Cardiac Hx: HX OF TAVR, STENTING Technical Quality: Good Contrast 1: Total Dose (mL): Contrast 2: Total Dose (mL): MEASUREMENTS (Male / Female) Normal Values 2D ECHO LV Diastolic Diameter PLAX 3.5 cm 4.2 - 5.9 / 3.9 - 5.3 cm LV Systolic Diameter PLAX 2.0 cm IVS Diastolic Thickness 1.3 cm 0.6 - 1.0 / 0.6 - 0.9 cm LVPW Diastolic Thickness 1.6 cm 0.6 - 1.0 / 0.6 - 0.9 cm LV Relative Wall Thickness 0.8 LA Volume 94.2 cm??? 18 - 58 / 22 - 52 cm??? M-MODE MV E Point Septal Separation 2.1 cm DOPPLER AV Peak Velocity 211.4 cm/s AV Peak Gradient 17.9 mmHg AV Mean Velocity 135.9 cm/s AV Mean Gradient 8.5 mmHg AV Velocity Time Integral 34.3 cm LVOT Peak Velocity 70.3 cm/s LVOT Peak Gradient 2.0 mmHg MV Peak Velocity 141.7 cm/s MV Peak Gradient 8.0 mmHg MV Mean Velocity 79.9 cm/s MV Mean Gradient 3.0 mmHg MV Velocity Time Integral 35.4 cm MV Area PHT 7.0 cm??? MR Peak Velocity 563.6 cm/s MR Peak Gradient 127.1 mmHg Mitral E Point Velocity 118.2 cm/s Mitral A Point Velocity 52.4 cm/s Mitral E to A Ratio 2.3 MV Deceleration Time 107.7 ms TR Peak Velocity 325.8 cm/s TR Peak Gradient 42.5 mmHg Right Ventricular Systolic Press 47.5 mmHg FINDINGS Left Ventricle Mildly increased septal wall thickness. Left ventricular ejection fraction is estimated at 55-60 %. Left ventricular cavity size normal. Right Ventricle The right ventricle is normal in size and function. Mild pulmonary hypertension. Right Atrium The right atrium is normal in size. Left Atrium Severely increased left atrial volume. Moderately increased left atrial area. Mitral Valve Structurally normal mitral valve without significant stenosis or prolapse. There is moderate to severe mitral regurgitation. Mitral valve thickened. Mitral annular calcification. Aortic Valve Normally functioning bioprosthetic aortic valve without stenosis with a peak gradient 18 mmHg, mean gradient 8 mmHg . There is no aortic regurgitation. Tavr procedure. Tricuspid Valve Structurally normal tricuspid valve without significant stenosis. Mild tricuspid regurgitation. Pulmonic Valve Structurally normal pulmonic valve without significant stenosis. There is no pulmonic regurgitation. Pericardium Normal pericardium without effusion. Aorta Normal aortic root dimension. CONCLUSIONS Left ventricle hypertrophy with ejection fraction greater than 50-55% Bioprosthetic aortic valve the peak gradient of 20 mmHg At least moderate mitral regurgitation Suboptimal acoustic windows Previewed by: Dr. Bharat Calderon MD (Electronically Signed) Final Date: 20 December 2021 15:10
[2021-12-20] MEDS: APIXABAN 2.5 MG TABLET PO SCH (20:02)
[2021-12-20] MEDS ORDERED: FAMOTIDINE 20 MG TAB PO SCH (21:00)
[2021-12-21 03:46] VITALS: RESP 18
[2021-12-21] MEDS: FUROSEMIDE 10 MG/ML 4 ML VIAL IV SCH (06:30)
[2021-12-21] MEDS: LEVOTHYROXINE 75 MCG TAB PO SCH (06:30)
[2021-12-21] MEDS: METOPROLOL TARTRATE 50 MG TAB PO SCH ×2 (06:30→12:00)
[2021-12-21] MEDS ORDERED: TAMSULOSIN 0.4 MG CAP.ER.24H PO SCH (09:00)
[2021-12-21] MEDS ORDERED: FAMOTIDINE 20 MG TAB PO SCH (09:00)
[2021-12-21] MEDS ORDERED: LEVOTHYROXINE SODIUM 150 MCG PO SCH (09:00)
[2021-12-21] MEDS ORDERED: FINASTERIDE 5 MG TAB PO SCH (09:00)
[2021-12-21] MEDS: ASPIRIN 81 MG PO SCH (09:05)
[2021-12-21] MEDS: predniSONE 20 MG TAB PO SCH (09:05)
[2021-12-21] MEDS: APIXABAN 2.5 MG TABLET PO SCH (09:05)
[2021-12-21] MEDS: ATORVASTATIN 20 MG TAB PO SCH (09:05)
[2021-12-21 09:24] VITALS: TEMP 97.9
[2021-12-21 12:14] VITALS: BP 138/76; PULSE 81
[2021-12-21 12:21] LABS: Calcium 9.6 mg/dL (8.4-10.2); Magnesium 1.9 mg/dL (1.6-2.3); Potassium 4.8 mmol/L (3.5-5.1)
--- NOTE | 2021-12-21 13:47 | P.PN ---
Subjective This is a pleasant 86-year-old male past medical history significant for coronary artery disease status post prior PCI and 3 vessel CABG in 2001, severe aortic stenosis status post TAVR in 11/2020, persistent atrial fibrillation on Xarelto, hypertension, dyslipidemia, severe mitral regurgitation. Being evaluated for mitral valve clip procedure as an outpatient. He follows in the office with Dr. Messer. We have been asked to see in consultation for congestive heart failure. Patient presents emergency department with complaints of cough, productive with white/brown sputum, shortness of breath, lower extremity edema. Symptoms worsening for the past 5 days. He denies any fever, chills. He denies any chest pain, symptoms of orthopnea or PND, palpitations, lightheadedness, dizziness, syncope or near syncope. No change in his medications, he is compliant. Denies any increased salt intake. Denies any increased weight gain. 12/21/2021 Patient seen and examined at bedside, no acute distress. He feels well, no compl aints. He is breathing well, no chest pain or shortness of breath. sCr 2.52 today. Echo EF 55-60%, moderate to severe MR, severely increased left atrial volume, normally functioning bioprosthetic AV. peak gradient 20mmHg. PHYSICAL EXAMINATION Vitals reviewed CONSTITUTIONAL: No apparent distress. HEENT: Neck Supple. No JVD. CHEST EXAMINATION: Lungs are clear to auscultation. No chest wall tenderness is noted on palpation or with deep breathing. HEART EXAMINATION:Irregular rate and rhythm. S1, S2 heard. Systolic murmur at apex ABDOMEN: Soft, nontender. Positive bowel sounds. EXTREMITIES: 2+ peripheral pulses, mild bilateral R>L lower extremity edema and no calf tenderness. NEUROLOGIC EXAMINATION: Patient is awake, alert and oriented x3. ASSESSMENT Cough, Shortness of breath, possible pneumonia component Acute on chronic heart failure with preserved ejection fraction Severe mitral regurgitation Leukocytosis Coronary artery disease status post prior PCI and 3 vessel CABG in 2001 Severe aortic stenosis status post TAVR in 11/2020 Persistent atrial fibrillation on Xarelto Hypertension Dyslipidemia Anemia PLAN Transition to PO Lasix Continue Xarelto 15mg dose for renal dysfunction and age Continue home cardiac medications with aspirin, statin, beta manda From a cardiology perspective, patient can be discharged home and follow up outpatient with Dr. Messer in 1-2 weeks. Further management of MR as an outpatient. Nurse practitioner note has been reviewed by physician. Signing provider agrees with the documented findings, assessment, and plan of care. Objective - Vital Signs Vital signs: Vital Signs Temp 97.9 F 12/21/21 12:13 Pulse 81 12/21/21 12:13 Resp 18 12/21/21 12:13 BP 138/76 12/21/21 12:13 Pulse Ox 98 12/21/21 12:13 FiO2 Intake & Output 12/20/21 12/21/21 12/21/21 18:59 06:59 18:59 Intake Total 1016 358 Output Total 885 800 Balance 131 -800 358 Weight 92.9 kg Intake: Oral 1016 358 Output: Urine 885 800 Other: Voiding Method Toilet Urinal - Labs CBC & Chem 7: 12/20/21 10:05 12/21/21 10:44 Labs: Abnormal Lab Results - Last 24 Hours (Table) 12/21/21 Range/Units 10:44 Chloride 96 L (98-107) mmol/L BUN 68 H (9-20) mg/dL Creatinine 2.52 H (0.66-1.25) mg/dL
[2021-12-21] MEDS ORDERED: FUROSEMIDE 40 MG TAB PO SCH (16:00)
--- NOTE | 2021-12-21 23:53 | P.DS ---
Providers Date of admission: 12/19/21 16:26 Attending physician: Ted Mast Consults: 12/19/21 16:38 Consult Physician Routine Consulting Provider: Efe Mueller Consult Reason/Comments: chf Do you want consulting provider notified?: Yes Primary care physician: Bhavana Dailey Hospital Course: Diagnosis -Acute on chronic congestive heart failure, diastolic dysfunction -Gout attack -Mild epistaxis, resolved -Chronic Kidney Disease Stage IV -Chronic a. fib rate controlled -Coronary artery disease status post PCI -History Aortic valve replacement -Hypertension -Hyperlipidemia -Benign prostatic hyperplasia -Gastroesophageal reflux disease DVT prophylaxis on xarelto GI prophylaxis on pepcid Discharge Disposition Patient is stable for discharge home, cleared by cardiology. Patient will resume home dose lasix Hospital Course This is a pleasant 86 year old male with medical history of atrial fibrillation anticoagulated with xarelto, coronary artery disease, hypertension, hyperlipidemia, hypothyroid who presents to the with complaints of cough with chest pain and rib pain. Patient was found to be in heart failure exacerbation with proBNP of 7610. He did have mild elevated troponin at 0.068. and was started on IV lasix. cardiology was consulted. He had creatinine of 1.99 on admission. He is also complaining of gouty attack which he does take colchicine for however we will hold colchicine due to kidney disease and will start patient on prednisone and will discharge on short course of oral prednisone. Patient was switched to low dose eliquis however cardiology recommending to continue on xarelto on discharge. Nose bleed has resolved. Echocardiogram completed shows EF of 55 to 60% and moderate mitral regurgitation. On admission patient was febrile, heart rate 65, blood pressure 128/61, 97% room air. 12/21/2021 Patient evaluated today sitting up at bedside. He is anticipating discharge today. Cardiology has cleared patient and he will be resumed on oral lasix. Will hold metalozone. No acute events overnight. He is euvolemic. He denies chest pain, denies shortness of breath. His lungs are clear, S1 S2 auscultated, abdomen is soft and nontender. He is alert x 3 focal neurological exam is negative. Creatinine did increase with IV lasix it is 2.5 today and scripts were given for repeat BMP outpatient. Vitals are stable. He will be discharged today. Please see medication reconciliation for a list of current medication. Thank you for allowing us to participate in the care of this patient Total time taken in discharge planning greater than 35 minutes. The impression and plan of care has been dictated by Kadie Nur, Nurse Practitioner as directed. Dr. Clara MD I have performed a history and physical examination and medical decision making of this patient, discussed the same with the dictator, and agree with the dictators assessment and plan as written, documented as a scribe. Based on total visit time, I have performed more than 50% of this visit. Patient Condition at Discharge: Stable Plan - Discharge Summary Discharge Rx Participant: No New Discharge Prescriptions: New predniSONE [Deltasone] 20 mg PO DAILY 3 Days #3 tab Furosemide [Lasix] 40 mg PO BID@0900,1600 tab Famotidine [Pepcid] 20 mg PO DAILY #30 tab Continue Aspirin EC [Ecotrin Low Dose] 81 mg PO DAILY #30 tablet. Senhebersidemary carmen [Senokot] 8.6 mg PO DAILY PRN PRN Reason: Constipation Levothyroxine Sodium [Euthyrox] 150 mcg PO DAILY Atorvastatin [Lipitor] 20 mg PO DAILY Donepezil [Aricept] 5 mg PO DAILY Meclizine HCl [Antivert] 25 mg PO TID PRN PRN Reason: Vertigo Rivaroxaban [Xarelto] 15 mg PO W/SUPPER tab Tamsulosin HCl [Flomax] 0.4 mg PO DAILY Multivitamins, Thera [Multivitamin (formulary)] 1 tab PO DAILY Metoprolol Tartrate [Lopressor] 50 mg PO TID-W/MEALS Finasteride [Proscar] 5 mg PO DAILY Discontinued Colchicine See Taper PO DIRECTED PRN PRN Reason: GOUT FLARE UP Pantoprazole [Protonix] 40 mg PO DAILY PRN PRN Reason: gerds Furosemide [Lasix] 40 mg PO BID Discharge Medication List Rivaroxaban [Xarelto] 15 mg PO W/SUPPER tab 11/23/20 [Rx] Aspirin EC [Ecotrin Low Dose] 81 mg PO DAILY #30 tablet. 12/04/20 [Rx] Tamsulosin HCl [Flomax] 0.4 mg PO DAILY 06/18/21 [History] Multivitamins, Thera [Multivitamin (formulary)] 1 tab PO DAILY 08/06/21 [History] Sennosides [Senokot] 8.6 mg PO DAILY PRN 08/06/21 [History] Atorvastatin [Lipitor] 20 mg PO DAILY 12/19/21 [History] Donepezil [Aricept] 5 mg PO DAILY 12/19/21 [History] Finasteride [Proscar] 5 mg PO DAILY 12/19/21 [History] Levothyroxine Sodium [Euthyrox] 150 mcg PO DAILY 12/19/21 [History] Meclizine HCl [Antivert] 25 mg PO TID PRN 12/19/21 [History] Metoprolol Tartrate [Lopressor] 50 mg PO TID-W/MEALS 12/19/21 [History] Famotidine [Pepcid] 20 mg PO DAILY #30 tab 12/21/21 [Rx] Furosemide [Lasix] 40 mg PO BID@0900,1600 tab 12/21/21 [Rx] predniSONE [Deltasone] 20 mg PO DAILY 3 Days #3 tab 12/21/21 [Rx] Follow up Appointment(s)/Referral(s): Erendira Funes MD [STAFF PHYSICIAN] - 01/15/22 10:00 am (with Vinod LEWIS) Salbador Messer MD [STAFF PHYSICIAN] - 2 Weeks (office will call you with an appointment) Bhavana Dailey MD [Primary Care Provider] - 1-2 days (please call on Friday to schedule an appointment) Ambulatory/Diagnostic Orders: Basic Metabolic Panel [LAB.AMB] Time Frame: 3 Days, Location: None Selected Complete Blood Count w/diff [LAB.AMB] Time Frame: 3 Days, Location: None Selected Patient Instructions/Handouts: Heart Failure (DC) Activity/Diet/Wound Care/Special Instructions: Follow up with primary care in 1-2 days Repeat CBC and BMP in 2 to 3 days Hold metalazone and follow up with Dr Funes on discharge Resume xarelto 15 mg PO HS Discharge Disposition: HOME SELF-CARE
== END 2021-12-21 15:27 | disposition home or self-care (01) | DRG 291 ==
LOC: EC 10:47 → 3SCARD 16:26
PROVIDERS: ADMIT Hospitalist; ATTEND Hospitalist
DX: I13.0 Hypertensive heart and chronic kidney disease with heart failure and stage 1 through stage 4 chronic kidney disease, or unspecified chronic kidney disease (principal); I50.33 Acute on chronic diastolic (congestive) heart failure; N18.4 Chronic kidney disease, stage 4 (severe); I48.19 Other persistent atrial fibrillation; Z20.822 Contact with and (suspected) exposure to COVID-19; R04.0 Epistaxis; I25.10 Atherosclerotic heart disease of native coronary artery without angina pectoris; I08.0 Rheumatic disorders of both mitral and aortic valves; I45.10 Unspecified right bundle-branch block; K21.9 Gastro-esophageal reflux disease without esophagitis; E78.5 Hyperlipidemia, unspecified; D56.3 Thalassemia minor; I27.29 Other secondary pulmonary hypertension; R42 Dizziness and giddiness; M10.9 Gout, unspecified; N40.0 Benign prostatic hyperplasia without lower urinary tract symptoms; I25.2 Old myocardial infarction; Z95.5 Presence of coronary angioplasty implant and graft; Z95.2 Presence of prosthetic heart valve; Z95.1 Presence of aortocoronary bypass graft; Z98.42 Cataract extraction status, left eye; Z98.41 Cataract extraction status, right eye; Z96.1 Presence of intraocular lens; Z89.021 Acquired absence of right finger(s); Z79.01 Long term (current) use of anticoagulants; Z79.899 Other long term (current) drug therapy; Z79.890 Hormone replacement therapy; Z79.82 Long term (current) use of aspirin; Z86.73 Personal history of transient ischemic attack (TIA), and cerebral infarction without residual deficits; Z87.891 Personal history of nicotine dependence; E03.9 Hypothyroidism, unspecified; Z98.61 Coronary angioplasty status; J06.9 Acute upper respiratory infection, unspecified
CPT/HCPCS: 36415; 71046; 80048; 80053; 83605; 83735; 83880; 84484; 85025; 85610; 85730; 87635; 93005; 93306; 94760; 96374; 96375; 99285

== ENCOUNTER → 2021-12-26 | Outpatient (CLI) | payer MEDICARE, BC | END | disposition home or self-care (01) | LOC: RADECHMAIN 08:28 | PROVIDERS: ATTEND Family Medicine | DX: Z53.9 Procedure and treatment not carried out, unspecified reason (principal) ==

== ENCOUNTER 2022-03-01 11:12 | Observation (INO) | payer MEDICARE, BC ==
[2022-03-01] MEDS ORDERED: ASPIRIN 81 MG PO STA (12:19)
[2022-03-01] MEDS ORDERED: NITROGLYCERIN OINT 1 INCH/GM PACKET TOPICAL STA (12:19)
--- NOTE | 2022-03-01 12:34 | ED ---
General Adult HPI - General Chief complaint: Chest Pain Stated complaint: sob Time Seen by Provider: 03/01/22 11:57 Source: patient, family, RN notes reviewed Mode of arrival: ambulatory Limitations: no limitations - History of Present Illness Initial comments: Patient is a pleasant 87-year-old male presenting to the emergency department with family with concerns for exertional dyspnea. Symptoms have progressed over the past several weeks. Patient has occasional chest discomfort, none at this time. Patient is becoming fatigued and short of breath after around 15 feet of ambulation. Chest discomfort sometimes accompanies this. Patient is having episodes of dizziness. Symptoms are somewhat similar to episodes prior to having his heart valve done around a year ago. Patient is having some leg edema. Patient did receive his booster vaccination COVID-19 a couple weeks ago. - Related Data Home Medications Medication Instructions Recorded Confirmed Tamsulosin HCl [Flomax] 0.4 mg PO DAILY 06/18/21 12/19/21 Multivitamins, Thera [Multivitamin 1 tab PO DAILY 08/06/21 12/19/21 (formulary)] Sennosides [Senokot] 8.6 mg PO DAILY PRN 08/06/21 12/19/21 Atorvastatin [Lipitor] 20 mg PO DAILY 12/19/21 12/19/21 Donepezil [Aricept] 5 mg PO DAILY 12/19/21 12/19/21 Finasteride [Proscar] 5 mg PO DAILY 12/19/21 12/19/21 Levothyroxine Sodium [Euthyrox] 150 mcg PO DAILY 12/19/21 12/19/21 Meclizine HCl [Antivert] 25 mg PO TID PRN 12/19/21 12/19/21 Metoprolol Tartrate [Lopressor] 50 mg PO TID-W/MEALS 12/19/21 12/19/21 Previous Rx's Medication Instructions Recorded Rivaroxaban [Xarelto] 15 mg PO W/SUPPER tab 11/23/20 Aspirin EC [Ecotrin Low Dose] 81 mg PO DAILY #30 tablet. 12/04/20 Famotidine [Pepcid] 20 mg PO DAILY #30 tab 12/21/21 Furosemide [Lasix] 40 mg PO BID@0900,1600 tab 12/21/21 predniSONE [Deltasone] 20 mg PO DAILY 3 Days #3 tab 12/21/21 Allergies Allergy/AdvReac Type Severity Reaction Status Date / Time No Known Allergies Allergy Verified 03/01/22 11:26 Review of Systems ROS Statement: Those systems with pertinent positive or pertinent negative responses have been documented in the HPI. ROS Other: All systems not noted in ROS Statement are negative. Constitutional: Denies: fever Eyes: Denies: eye pain ENT: Denies: ear pain Respiratory: Reports: as per HPI, dyspnea Cardiovascular: Reports: as per HPI, chest pain, dyspnea on exertion, orthopnea, edema Endocrine: Reports: fatigue Gastrointestinal: Denies: abdominal pain Genitourinary: Denies: dysuria Musculoskeletal: Denies: back pain Skin: Denies: rash Neurological: Denies: weakness Past Medical History Past Medical History: Atrial Fibrillation, Coronary Artery Disease (CAD), Chest Pain / Angina, CVA/TIA, GERD/Reflux, Hyperlipidemia, Hypertension, Myocardial Infarction ([place]), Thyroid Disorder Additional Past Medical History / Comment(s): Thalassemia trait, chronic kidney disease stage III, elevated PSA in the past, hx vertigo, Last Myocardial Infarction Date:: 2000 History of Any Multi-Drug Resistant Organisms: None Reported Past Surgical History: Coronary Bypass/CABG, Heart Catheterization With Stent, Tonsillectomy Additional Past Surgical History / Comment(s): CABG May 2000, angioplasty in 2000 and February 2004, bilateral cataract removal and intraocular lens implants,, 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 valve replacement Past Anesthesia/Blood Transfusion Reactions: No Reported Reaction Date of Last Stent Placement:: unknown Past Psychological History: No Psychological Hx Reported Smoking Status: Former smoker Past Alcohol Use History: None Reported Past Drug Use History: None Reported - Past Family History Father Family Medical History: No Reported History Mother Family Medical History: No Reported History Additional Family Medical History / Comment(s): . Brother(s) Additional Family Medical History / Comment(s): Patient has 3 brothers and all 3 have passed. Unknown causes. Sister(s) Additional Family Medical History / Comment(s): Patient has has 4 sister that of all from old age. Daughter(s) Additional Family Medical History / Comment(s): Patient has 4 children, 2 boys and 2 girls with no major medical problems. General Exam Limitations: no limitations General appearance: alert, in no apparent distress Head exam: Present: normocephalic Eye exam: Present: normal appearance Neck exam: Present: normal inspection Respiratory exam: Present: normal lung sounds bilaterally Cardiovascular Exam: Present: irregular rhythm GI/Abdominal exam: Present: soft. Absent: tenderness Extremities exam: Present: pedal edema (+1 bilateral). Absent: calf tenderness Neurological exam: Present: alert Psychiatric exam: Present: normal affect, normal mood Skin exam: Present: normal color Course Vital Signs 03/01/22 03/01/22 11:23 13:25 Temperature 98 F Pulse Rate 71 69 Respiratory 20 18 Rate Blood Pressure 143/71 134/80 O2 Sat by Pulse 98 96 Oximetry EKG Findings - EKG Comments: EKG Findings:: A. fib with rate of 69. QRS 165. QT 461. QTC 48. Left axis. Right bundle branch block. LVH. Nonspecific T waves. Medical Decision Making - Medical Decision Making Patient evaluated. Patient and family updated. Case discussed with Dr. Dailey, who will admit his patient. - Lab Data Result diagrams: 03/01/22 12:24 03/01/22 12:24 Lab Results 03/01/22 03/01/22 03/01/22 Range/Units 12:24 12:24 12:24 WBC 9.0 (3.8-10.6) k/uL RBC 3.41 L (4.30-5.90) m/uL Hgb 7.9 L (13.0-17.5) gm/dL Hct 25.3 L (39.0-53.0) % MCV 74.1 L (80.0-100.0) fL MCH 23.3 L (25.0-35.0) pg MCHC 31.4 (31.0-37.0) g/dL RDW 21.1 H (11.5-15.5) % Plt Count 172 (150-450) k/uL MPV 7.8 Neutrophils % (Manual) 70 % Band Neuts % (Manual) 1 % Lymphocytes % (Manual) 18 % Monocytes % (Manual) 6 % Eosinophils % (Manual) 4 % Basophils % (Manual) 1 % Metamyelocytes % 1 % Neutrophils # (Manual) 6.30 (1.3-7.7) k/uL Lymphocytes # (Manual) 1.62 (1.0-4.8) k/uL Monocytes # (Manual) 0.54 (0-1.0) k/uL Eosinophils # (Manual) 0.36 (0-0.7) k/uL Basophils # (Manual) 0.09 (0-0.2) k/uL Metamyelocytes # (Man) 0.09 H (0) k/uL Nucleated RBCs 5 H (0-0) /100 WBC Manual Slide Review Performed Polychromasia Present Hypochromasia Marked Poikilocytosis Slight Anisocytosis Moderate Microcytosis Moderate Tear Drop Cells Present Fragmented RBCs Present PT 16.4 H (9.0-12.0) sec INR 1.6 H (<1.2) APTT 35.0 H (22.0-30.0) sec Sodium 139 (137-145) mmol/L Potassium 4.8 (3.5-5.1) mmol/L Chloride 103 (98-107) mmol/L Carbon Dioxide 24 (22-30) mmol/L Anion Gap 12 mmol/L BUN 38 H (9-20) mg/dL Creatinine 1.91 H (0.66-1.25) mg/dL Est GFR (CKD-EPI)AfAm 35 (>60 ml/min/1.73 sqM) Est GFR (CKD-EPI)NonAf 31 (>60 ml/min/1.73 sqM) Glucose 124 H (74-99) mg/dL Calcium 8.7 (8.4-10.2) mg/dL Magnesium 1.9 (1.6-2.3) mg/dL Total Bilirubin 2.5 H (0.2-1.3) mg/dL AST 116 H (17-59) U/L ALT 73 H (4-49) U/L Alkaline Phosphatase 78 (38-126) U/L Troponin I (0.000-0.034) ng/mL NT-Pro-B Natriuret Pep pg/mL Total Protein 7.4 (6.3-8.2) g/dL Albumin 4.1 (3.5-5.0) g/dL Coronavirus (PCR) (Not Detectd) 03/01/22 03/01/22 03/01/22 Range/Units 12:24 12:24 12:26 WBC (3.8-10.6) k/uL RBC (4.30-5.90) m/uL Hgb (13.0-17.5) gm/dL Hct (39.0-53.0) % MCV (80.0-100.0) fL MCH (25.0-35.0) pg MCHC (31.0-37.0) g/dL RDW (11.5-15.5) % Plt Count (150-450) k/uL MPV Neutrophils % (Manual) % Band Neuts % (Manual) % Lymphocytes % (Manual) % Monocytes % (Manual) % Eosinophils % (Manual) % Basophils % (Manual) % Metamyelocytes % % Neutrophils # (Manual) (1.3-7.7) k/uL Lymphocytes # (Manual) (1.0-4.8) k/uL Monocytes # (Manual) (0-1.0) k/uL Eosinophils # (Manual) (0-0.7) k/uL Basophils # (Manual) (0-0.2) k/uL Metamyelocytes # (Man) (0) k/uL Nucleated RBCs (0-0) /100 WBC Manual Slide Review Polychromasia Hypochromasia Poikilocytosis Anisocytosis Microcytosis Tear Drop Cells Fragmented RBCs PT (9.0-12.0) sec INR (<1.2) APTT (22.0-30.0) sec Sodium (137-145) mmol/L Potassium (3.5-5.1) mmol/L Chloride (98-107) mmol/L Carbon Dioxide (22-30) mmol/L Anion Gap mmol/L BUN (9-20) mg/dL Creatinine (0.66-1.25) mg/dL Est GFR (CKD-EPI)AfAm (>60 ml/min/1.73 sqM) Est GFR (CKD-EPI)NonAf (>60 ml/min/1.73 sqM) Glucose (74-99) mg/dL Calcium (8.4-10.2) mg/dL Magnesium (1.6-2.3) mg/dL Total Bilirubin (0.2-1.3) mg/dL AST (17-59) U/L ALT (4-49) U/L Alkaline Phosphatase (38-126) U/L Troponin I 0.021 (0.000-0.034) ng/mL NT-Pro-B Natriuret Pep 9910 pg/mL Total Protein (6.3-8.2) g/dL Albumin (3.5-5.0) g/dL Coronavirus (PCR) Not Detected (Not Detectd) - Radiology Data Radiology results: image reviewed (Chest x-ray shows cardiomegaly. Small effusion. Right lower atelectasis versus infiltrate.) Disposition Clinical Impression: Congestive heart failure Disposition: ADMITTED IP TO THIS HOSP Is patient prescribed a controlled substance at d/c from ED?: No Referrals: Bhavana Dailey MD [Primary Care Provider] - 1-2 days Time of Disposition: 14:50
--- NOTE | 2022-03-01 12:56 | XR ---
EXAMINATION TYPE: XR chest 2V DATE OF EXAM: 03/01/2022 COMPARISON: 12/19/2021 INDICATION: Chest pain short of breath TECHNIQUE: Frontal and lateral views of the chest are obtained. FINDINGS: The heart size is enlarged. The pulmonary vasculature is normal. Minimal posterior pleural effusions are present.. No suspicious focal consolidation. Some minimal li ttle infiltrate over the right diaphragm may be present. IMPRESSION: 1. Cardiomegaly. 2. Small posterior pleural effusions. 3. Suggestion of minimal infiltrate along the right diaphragm. Correlate for atelectasis.
[2022-03-01 13:05] LABS: Anisocytosis Moderate; HCT 25.3 % (39.0-53.0); HGB 7.9 gm/dL (13.0-17.5); Hypochromasia Marked; MCH 23.3 pg (25.0-35.0); MCHC 31.4 g/dL (31.0-37.0); MCV 74.1 fL (80.0-100.0); Mean Platelet Volume 7.8; Microcytosis Moderate; Platelet Count 172 k/uL (150-450); Poikilocytosis Slight; RBC 3.41 m/uL (4.30-5.90); RDW 21.1 % (11.5-15.5)
[2022-03-01 13:07] LABS: Albumin 4.1 g/dL (3.5-5.0); Calcium 8.7 mg/dL (8.4-10.2); Magnesium 1.9 mg/dL (1.6-2.3); Total Bilirubin 2.5 mg/dL (0.2-1.3); Total Protein 7.4 g/dL (6.3-8.2)
[2022-03-01 13:09] LABS: Potassium 4.8 mmol/L (3.5-5.1)
[2022-03-01 13:15] LABS: INR 1.6 (<1.2); Prothrombin Time 16.4 sec (9.0-12.0)
[2022-03-01 14:29] LABS: Band Neutrophils % 1 %; Metamyelocytes % 1 %; Neutrophils % (M) 70 %; Nucleated Red Blood Cells 5 /100 WBC (0-0); Total Cells Counted 200
[2022-03-01 14:30] LABS: Basophils # (M) 0.09 k/uL (0-0.2); Eosinophils # (M) 0.36 k/uL (0-0.7); Lymphocytes # (M) 1.62 k/uL (1.0-4.8); Metamyelocytes # (M) 0.09 k/uL (0); Monocytes # (M) 0.54 k/uL (0-1.0); Polychromasia Present; RBC Fragments Present
[2022-03-01 14:31] LABS: Tear Drop Cells Present
[2022-03-01] MEDS ORDERED: ASPIRIN 325 MG TAB PO STA (14:51)
[2022-03-01] MEDS: NITROGLYCERIN OINT 1 INCH/GM PACKET TOPICAL SCH ×3 (16:37→20:48)
[2022-03-01] MEDS: METOPROLOL TARTRATE 50 MG TAB PO SCH (16:46)
[2022-03-01] MEDS: FUROSEMIDE 10 MG/ML 4 ML VIAL IV SCH ×2 (16:46→20:49)
[2022-03-02] MEDS: METOPROLOL TARTRATE 50 MG TAB PO SCH ×2 (04:36→12:10)
[2022-03-02] MEDS: FUROSEMIDE 10 MG/ML 4 ML VIAL IV SCH (04:36)
[2022-03-02] MEDS ORDERED: LEVOTHYROXINE 75 MCG TAB PO SCH (06:30)
--- NOTE | 2022-03-02 08:36 | P.HPIM ---
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 Sethi, patient presented to the ER at [facility] because of increased shortness of breath and orthopne associated with chest pain, initial work up was negative but CXR showed pleural effusion and labs showed elevated BNP so he was admitted for acute diastolic heart failure with cardiology consult REVIEW OF SYSTEMS Constitutional: No fever, no chills, no night sweats. No weight change. No weakness, fatigue or lethargy. No daytime sleepiness. HEENT: No headache. No blurred vision or double vision, no loss of vision. No loss of Hearing, no ringing in the ears, no dizziness. No nasal drainage or congestion. No epistaxis. No sore throat. Lungs: positive for shortness of breath, cough, no sputum production. No wheezing. Cardiovascular: positive for chest pain, no lower extremity edema. No palpitations. No paroxysmal nocturnal dyspnea. positive for orthopnea. No lightheadedness or dizziness. Reported to ER physician as syncopal episodes. Abdominal: No abdominal pain. No nausea, vomiting. No diarrhea. No con stipation. No bloody or tarry stools. No loss of appetite. Genitourinary: No dysuria, increased frequency, urgency. No urinary retention. Musculoskeletal: No myalgias. No muscle weakness, no gait dysfunction, no frequent falls. No back pain. No neck pain. Integumentary: No wounds, no lesions. No rash or pruritus. No unusual bruising. No change in hair or nails. Neurologic: No aphasia. No facial droop. No change in mentation. No head injury. No headache. No paralysis. No paresthesia. Psychiatric: No depression. No anxiety. Endocrine: No abnormal blood sugars. MEDICAL HISTORY Thalassemia trait Hypothyroidism Chronic atrial fibrillation Moderate to severe aortic stenosis and moderate to severe mitral regurgitation Chronic kidney disease stage IV Coronary artery disease CVA with no residual deficits Hyperlipidemia Hypertension Elevated AERIAL PHOTOGRAMMETRIST being monitored. 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 No marijuana, street drug or alcohol use. FAMILY HISTORY Father at age 87 from myocardial infarction. Mother at age 82 from old age. Patient has 3 brothers and all have of unknown causes. Patient has 4 sisters and all from old age. Patient's 4 children, 2 boys and 2 girls with no major medical problems. PHYSICAL EXAMINATION Gen: This is an 81-year-old male. He is sitting up in bed appears to be in no acute distress. HEENT: Head is atraumatic, normocephalic. Pupils equal, round. Sclerae is anicteric. Conjunctiva pink. Mucous members of the mouth are slightly dry. NECK: Supple. No JVD. No lymphadenopathy. No thyromegaly. LUNGS: decreased breath sounds at the bases with few ronchi no expiratory wheezes, no chest wall tenderness or intercostal retractions HEART: First heart sound is depressed, second heart sound is normal there is TAMIKO 2/6 located at the left sternal border, irregularly irregular. ABDOMEN: Soft. Bowel sounds are present. No masses. No tenderness. EXTREMITIES: No pedal edema. No calf tenderness, DP+2 bilaterally NEUROLOGICAL: Patient is awake, alert and oriented x3. Cranial nerves 2 through 12 are grossly intact. Speech is clear. Short-term memory intact, muscle power 5/5 in upper and lower extremities bilaterally ASSESSMENT AND PLAN 1. Acute diastolic heart failure. we will continue with Metoprolol 50 mg po tid and we will continue with Lasix 40 mg IVP q 12 hours, we will continue to monitor input and output and daily weight, Cardiology consult. 2. Moderate to severe aortic stenosis status post TAVR 11/22/2021. stable 3. Chronic atrial fibrillation. Continue Lopressor 50 mg 3 times daily, we will continue with xarelto 15 mg po daily. 4. Hypothyroidism. Continue levothyroxine 150 g daily. 5. Chronic kidney disease stage IV. Avoid nephrotoxic agents, monitor renal function. 6. Coronary artery disease, stable. we will continue with Metoprolol 50 mg po tid and Atorvastatin 20 mg po daily, we will continue with ASA 81 mg po daily 7. Hypertension. Continue Metoprolol 50 mg po tid 8. Hyperlipidemia. Continue Lipitor 20 mg daily. 9. History of CVA, stable without new deficits. 10. Anemia of chronic kidney disease.we will continue with Procrit as outpatient 11. Thalassemia trait. 12. Benign prostatic hypertrophy. Continue Flomax 0.4 mg at bedtime and Finasteride 5mg po daily 13. Gastroesophageal reflux disease and GI prophylaxis. Continue Protonix 40 mg daily 14. DVT prophylaxis. we will continue with Xarelto 15 mg po daily. Patient admitted to the hospital for a minimum of 2 night stay. CODE STATUS: FULL Past Medical History Past Medical History: Atrial Fibrillation, Coronary Artery Disease (CAD), Chest Pain / Angina, CVA/TIA, GERD/Reflux, Hyperlipidemia, Hypertension, Myocardial Infarction ([place]), Thyroid Disorder Additional Past Medical History / Comment(s): Thalassemia trait, chronic kidney disease stage III, elevated PSA in the past, hx vertigo, Last Myocardial Infarction Date:: 2000 History of Any Multi-Drug Resistant Organisms: None Reported Past Surgical History: Coronary Bypass/CABG, Heart Catheterization With Stent, Tonsillectomy Additional Past Surgical History / Comment(s): CABG May 2000, angioplasty in 2000 and February 2004, bilateral cataract removal and intraocular lens implants,, 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 valve replacement Past Anesthesia/Blood Transfusion Reactions: No Reported Reaction Date of Last Stent Placement:: unknown Past Psychological History: No Psychological Hx Reported Smoking Status: Former smoker Past Alcohol Use History: None Reported Past Drug Use History: None Reported - Past Family History Father Family Medical History: No Reported History Mother Family Medical History: No Reported History Additional Family Medical History / Comment(s): . Brother(s) Additional Family Medical History / Comment(s): Patient has 3 brothers and all 3 have passed. Unknown causes. Sister(s) Additional Family Medical History / Comment(s): Patient has has 4 sister that of all from old age. Daughter(s) Additional Family Medical History / Comment(s): Patient has 4 children, 2 boys and 2 girls with no major medical problems. Medications and Allergies Home Medications Medication Instructions Recorded Confirmed Type Tamsulosin HCl [Flomax] 0.4 mg PO HS 06/18/21 03/01/22 History Multivitamins, Thera [Multivitamin 1 tab PO DAILY 08/06/21 03/01/22 History (formulary)] Sennosides [Senokot] 17.2 mg PO HS 08/06/21 03/01/22 History Atorvastatin [Lipitor] 20 mg PO HS 12/19/21 03/01/22 History Finasteride [Proscar] 5 mg PO DAILY 12/19/21 03/01/22 History Levothyroxine Sodium [Euthyrox] 150 mcg PO DAILY 12/19/21 03/01/22 History Metoprolol Tartrate [Lopressor] 50 mg PO TID-W/MEALS 12/19/21 03/01/22 History Aspirin EC [Ecotrin Low Dose] 81 mg PO HS 03/01/22 03/01/22 History Famotidine [Pepcid] 20 mg PO DAILY PRN 03/01/22 03/01/22 History Furosemide [Lasix] 40 mg PO DAILY 03/01/22 03/01/22 History Rivaroxaban [Xarelto] 15 mg PO HS 03/01/22 03/01/22 History Sertraline [Zoloft] 50 mg PO DAILY 03/01/22 03/01/22 History allopurinoL [Zyloprim] 100 mg PO DAILY 03/01/22 03/01/22 History Allergies Allergy/AdvReac Type Severity Reaction Status Date / Time No Known Allergies Allergy Verified 03/01/22 15:07 Physical Exam Vitals: Vital Signs Temp Pulse Pulse Resp BP BP Pulse Ox 03/02/22 04:00 97.9 F 72 19 152/76 95 03/01/22 23:26 75 19 149/77 95 03/01/22 20:00 74 19 155/78 93 L 03/01/22 17:59 97.5 F L 93 18 167/93 96 03/01/22 16:44 79 18 157/88 98 03/01/22 13:25 69 18 134/80 96 03/01/22 11:23 98 F 71 20 143/71 98 Intake and Output 03/01/22 03/02/22 03/02/22 22:59 06:59 14:59 Output Total 1050 Balance -1050 Output: Urine 1050 Other: # Voids 1 Weight 97.069 kg 92.8 kg Results CBC & Chem 7: 03/01/22 12:24 03/01/22 12:24 Labs: Abnormal Lab Results - Last 24 Hours (Table) 03/01/22 03/01/22 03/01/22 Range/Units 12:24 12:24 12:24 RBC 3.41 L (4.30-5.90) m/uL Hgb 7.9 L (13.0-17.5) gm/dL Hct 25.3 L (39.0-53.0) % MCV 74.1 L (80.0-100.0) fL MCH 23.3 L (25.0-35.0) pg RDW 21.1 H (11.5-15.5) % Metamyelocytes # (Man) 0.09 H (0) k/uL Nucleated RBCs 5 H (0-0) /100 WBC PT 16.4 H (9.0-12.0) sec INR 1.6 H (<1.2) APTT 35.0 H (22.0-30.0) sec BUN 38 H (9-20) mg/dL Creatinine 1.91 H (0.66-1.25) mg/dL Glucose 124 H (74-99) mg/dL Total Bilirubin 2.5 H (0.2-1.3) mg/dL AST 116 H (17-59) U/L ALT 73 H (4-49) U/L Thrombosis Risk Factor Assmnt - Choose All That Apply Any of the Below Risk Factors Present?: Yes Each Factor Represents 1 point: Obesity (BMI >25) Each Risk Factor Represents 3 Points: Age 75 years or older Thrombosis Risk Factor Assessment Total Risk Factor Score: 4 Thrombosis Risk Factor Assessment Level: Moderate Risk
[2022-03-02] MEDS ORDERED: SERTRALINE 50 MG TAB PO SCH (09:00)
[2022-03-02] MEDS ORDERED: MULTIVITAMINS, THERA 1 EACH TAB PO SCH (09:00)
[2022-03-02] MEDS ORDERED: FUROSEMIDE 40 MG TAB PO SCH (09:00)
[2022-03-02] MEDS ORDERED: FAMOTIDINE 20 MG TAB PO PRN (09:00)
[2022-03-02] MEDS ORDERED: ASPIRIN 325 MG TAB PO SCH (09:00)
[2022-03-02] MEDS ORDERED: allopurinoL 100 MG TAB PO SCH (09:00)
[2022-03-02] MEDS ORDERED: FINASTERIDE 5 MG TAB PO SCH (09:00)
[2022-03-02] MEDS: NITROGLYCERIN OINT 1 INCH/GM PACKET TOPICAL SCH ×2 (09:04→12:10)
[2022-03-02 09:16] VITALS: RESP 18
[2022-03-02] MEDS ORDERED: amLODIPine 5 MG TAB PO SCH (09:45)
[2022-03-02 11:17] LABS: Albumin 4.5 g/dL (3.5-5.0); Calcium 8.8 mg/dL (8.4-10.2); Potassium 3.8 mmol/L (3.5-5.1); Total Bilirubin 2.3 mg/dL (0.2-1.3); Total Protein 7.9 g/dL (6.3-8.2)
[2022-03-02 11:46] LABS: Anisocytosis Moderate; Basophils # (A) 0.1 k/uL (0-0.2); Basophils % (A) 1 %; Eosinophils # (A) 0.3 k/uL (0-0.7); Eosinophils % (A) 3 %; HCT 27.5 % (39.0-53.0); HGB 8.4 gm/dL (13.0-17.5); Hypochromasia Marked; Lymphocytes % (A) 17 %; MCH 22.9 pg (25.0-35.0); MCHC 30.5 g/dL (31.0-37.0); Mean Platelet Volume 8.3; Microcytosis Moderate; Monocytes # (A) 0.6 k/uL (0-1.0); Monocytes % (A) 5 %; Neutrophils # (A) 8.5 k/uL (1.3-7.7); Neutrophils % (A) 72 %; Platelet Count 170 k/uL (150-450); Poikilocytosis Slight; RBC 3.67 m/uL (4.30-5.90); RDW 21.8 % (11.5-15.5); WBC 11.8 k/uL (3.8-10.6)
--- NOTE | 2022-03-02 11:58 | P.CRDCN ---
History of Present Illness Consult date: 03/02/22 Consult reason: congestive heart failure History of present illness: This is Eliu Davila NP, I'm dictating on behalf of Dr. Calderon's H&P and A&P The patient was interviewed and examined. HPI: [Patient is a pleasant 87-year-old male who we were consult and on for congestive heart failure. Patient states that he was having progressively wo rsening shortness of breath over the last month. He states he's been following closely with both his primary care provider and his hvac r tech. He states that yesterday he was only able to walk around 12 feet, and after contacting his primary care provider, he was told to come to the hospital for evaluation. Initial workup was relatively negative, but a chest x-ray did demonstrate pleural effusions, and his labs showed an elevated BNP. Patient has a past medical history that includes thalassemia, hypothyroidism, chronic A. fib, moderate-severe aortic stenosis status post TAVR, moderate to severe mitral regurgitation, CKD stage IV, CAD status post CABG, CVA, hyperlipidemia, hypertension. Patient reports this morning that he feels fine. He states that he is back to his baseline. Patient does demonstrate elevated blood pressures. He is currently on Lasix every 8 hours IV push.] ROS: [No fever, chills, or rigors] [no cough, phlegm, or expectoration] [no nausea, vomiting, or diarrhea] [no hematuria, dysuria] [no musculoskelatal complaints] [no strokes or seizures] [no skin lesions] EXAMINATION: GENERAL: Well-appearing, well-nourished and in no acute distress. NECK: Supple, no thyromegaly, significant hepatojugular reflux noted. LUNGS: Breath sounds clear to auscultation bilaterally. Respiration equal and unlabored. No wheezes, rales or rhonchi. HEART: Regular rate and rhythm without murmurs, rubs or gallops. S1 and S2 heard. EXTREMITIES: Normal range of motion, mild nonpitting edema in the bilateral lower extremities. No clubbing or cyanosis. Peripheral pulses intact and strong. REVIEW OF LABS, ECG & MEDICAL DATA: LABS: White count 11.8, hemoglobin 8.4, platelet 70, sodium 141, potassium 3.8, B1 40, creatinine 2.06 EKG: Atrial fibrillation with controlled ventricular response, right bundle branch block IMAGING: Chest x-ray dated 03/01/2022 shows cardiomegaly, small posterior pleural effusions, and suggestion of minimal infiltrate along the right diaph ragm. VITALS: Temp 98.2, pulse 68, respirations 18, blood pressure 160/79, O2 saturation 99% on room air IMPRESSION: 1. Hypertension, uncontrolled 2. Congestive heart failure, resolving exacerbation 3. Status post TAVR 4. Moderate to severe mitral regurgitation 5. Exertional dyspnea PLAN: Decrease Lasix to every 12 hours IV push. 2-D echocardiogram. Start amlodipine 5 mg daily. Check basic metabolic panel daily. Further recommendations based on patient's clinical course. Thank you for the consult and allowing us to participate in the care of this patient. Past Medical History Past Medical History: Atrial Fibrillation, Coronary Artery Disease (CAD), Chest Pain / Angina, CVA/TIA, GERD/Reflux, Hyperlipidemia, Hypertension, Myocardial I nfarction ([place]), Thyroid Disorder Additional Past Medical History / Comment(s): Thalassemia trait, chronic kidney disease stage III, elevated PSA in the past, hx vertigo, Last Myocardial Infarction Date:: 2000 History of Any Multi-Drug Resistant Organisms: None Reported Past Surgical History: Coronary Bypass/CABG, Heart Catheterization With Stent, Tonsillectomy Additional Past Surgical History / Comment(s): CABG May 2000, angioplasty in 2000 and February 2004, bilateral cataract removal and intraocular lens implants,, 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 valve replacement Past Anesthesia/Blood Transfusion Reactions: No Reported Reaction Date of Last Stent Placement:: unknown Past Psychological History: No Psychological Hx Reported Smoking Status: Former smoker Past Alcohol Use History: None Reported Past Drug Use History: None Reported - Past Family History Father Family Medical History: No Reported History Mother Family Medical History: No Reported History Additional Family Medical History / Comment(s): . Brother(s) Additional Family Medical History / Comment(s): Patient has 3 brothers and all 3 have passed. Unknown causes. Sister(s) Additional Family Medical History / Comment(s): Patient has has 4 sister that of all from old age. Daughter(s) Additional Family Medical History / Comment(s): Patient has 4 children, 2 boys and 2 girls with no major medical problems. Medications and Allergies Home Medications Medication Instructions Recorded Confirmed Type Tamsulosin HCl [Flomax] 0.4 mg PO HS 06/18/21 03/01/22 History Multivitamins, Thera [Multivitamin 1 tab PO DAILY 08/06/21 03/01/22 History (formulary)] Sennosides [Senokot] 17.2 mg PO HS 08/06/21 03/01/22 History Atorvastatin [Lipitor] 20 mg PO HS 12/19/21 03/01/22 History Finasteride [Proscar] 5 mg PO DAILY 12/19/21 03/01/22 History Levothyroxine Sodium [Euthyrox] 150 mcg PO DAILY 12/19/21 03/01/22 History Metoprolol Tartrate [Lopressor] 50 mg PO TID-W/MEALS 12/19/21 03/01/22 History Aspirin EC [Ecotrin Low Dose] 81 mg PO HS 03/01/22 03/01/22 History Famotidine [Pepcid] 20 mg PO DAILY PRN 03/01/22 03/01/22 History Furosemide [Lasix] 40 mg PO DAILY 03/01/22 03/01/22 History Rivaroxaban [Xarelto] 15 mg PO HS 03/01/22 03/01/22 History Sertraline [Zoloft] 50 mg PO DAILY 03/01/22 03/01/22 History allopurinoL [Zyloprim] 100 mg PO DAILY 03/01/22 03/01/22 History Allergies Allergy/AdvReac Type Severity Reaction Status Date / Time No Known Allergies Allergy Verified 03/01/22 15:07 Physical Exam Vitals: Vital Signs Temp Pulse Pulse Resp BP BP Pulse Ox 03/02/22 08:00 98.2 F 68 18 160/79 99 03/02/22 04:00 97.9 F 72 19 152/76 95 03/01/22 23:26 75 19 149/77 95 03/01/22 20:00 74 19 155/78 93 L 03/01/22 17:59 97.5 F L 93 18 167/93 96 03/01/22 16:44 79 18 157/88 98 03/01/22 13:25 69 18 134/80 96 Intake and Output 03/01/22 03/02/22 03/02/22 22:59 06:59 14:59 Output Total 1050 Balance -1050 Output: Urine 1050 Other: # Voids 1 Weight 97.069 kg 92.8 kg Results 03/01/22 12:24 03/02/22 10:18 Cardiac Enzymes 03/01/22 03/01/22 03/02/22 Range/Units 12:24 12:24 10:18 AST 116 H 97 H (17-59) U/L Troponin I 0.021 (0.000-0.034) ng/mL Coagulation 03/01/22 Range/Units 12:24 PT 16.4 H (9.0-12.0) sec APTT 35.0 H (22.0-30.0) sec CBC 03/01/22 Range/Units 12:24 WBC 9.0 (3.8-10.6) k/uL RBC 3.41 L (4.30-5.90) m/uL Hgb 7.9 L (13.0-17.5) gm/dL Hct 25.3 L (39.0-53.0) % Plt Count 172 (150-450) k/uL Comprehensive Metabolic Panel 03/01/22 03/02/22 Range/Units 12:24 10:18 Sodium 139 141 (137-145) mmol/L Potassium 4.8 3.8 (3.5-5.1) mmol/L Chloride 103 98 (98-107) mmol/L Carbon Dioxide 24 26 (22-30) mmol/L BUN 38 H 40 H (9-20) mg/dL Creatinine 1.91 H 2.06 H (0.66-1.25) mg/dL Glucose 124 H 98 (74-99) mg/dL Calcium 8.7 8.8 (8.4-10.2) mg/dL AST 116 H 97 H (17-59) U/L ALT 73 H 88 H (4-49) U/L Alkaline Phosphatase 78 83 (38-126) U/L Total Protein 7.4 7.9 (6.3-8.2) g/dL Albumin 4.1 4.5 (3.5-5.0) g/dL Current Medications Generic Name Dose Route Start Last Admin Trade Name Freq PRN Reason Stop Dose Admin Allopurinol 100 mg 03/02/22 09:00 03/02/22 09:04 Allopurinol 100 Mg Tab PO 100 mg DAILY SARAH Administration Amlodipine Besylate 5 mg 03/02/22 09:45 Amlodipine 5 Mg Tab PO DAILY [facility] Aspirin 81 mg 03/02/22 21:00 Aspirin 81 Mg PO HS [facility] Atorvastatin Calcium 20 mg 03/02/22 21:00 Atorvastatin 20 Mg Tab PO HS [facility] Famotidine 20 mg 03/02/22 09:00 Famotidine 20 Mg Tab PO DAILY PRN GI Upset Finasteride 5 mg 03/02/22 09:00 03/02/22 09:04 Finasteride 5 Mg Tab PO 5 mg DAILY SARAH Administration Furosemide 40 mg 03/02/22 21:00 Furosemide 10 Mg/Ml 4 Ml Vial IV Q12HR [facility] Levothyroxine Sodium 150 mcg 03/02/22 06:30 03/02/22 04:36 Levothyroxine 75 Mcg Tab PO 150 mcg DAILY@0630 [facility] Administration Metoprolol Tartrate 50 mg 03/01/22 17:30 03/02/22 04:36 Metoprolol Tartrate 50 Mg Tab PO 50 mg TID-W/MEALS [facility] Administration Multivitamins 1 each 03/02/22 09:00 03/02/22 09:04 Multivitamins, Thera 1 Each Tab PO 1 each DAILY [facility] Administration Nitroglycerin 1 inch 03/01/22 15:00 03/02/22 09:04 Nitroglycerin Oint 1 Inch/Gm Packet TOPICAL 1 inch QID [facility] Administration Rivaroxaban 15 mg 03/02/22 21:00 Rivaroxaban 15 Mg Tab PO HS [facility] Protocol Senna 17.2 mg 03/02/22 21:00 Sennosides 8.6 Mg Tab PO HS [facility] Sertraline HCl 50 mg 03/02/22 09:00 03/02/22 09:04 Sertraline 50 Mg Tab PO 50 mg DAILY [facility] Administration Sodium Chloride 10 ml 03/01/22 21:00 03/01/22 20:50 Sodium Chloride 0.9% Flush 10 Ml Syringe IV 10 ml BID [facility] Administration Tamsulosin HCl 0.4 mg 03/02/22 21:00 Tamsulosin 0.4 Mg Cap.Er.24h PO HS [facility] Intake and Output 03/01/22 03/02/22 03/02/22 22:59 06:59 14:59 Output Total 1050 Balance -1050 Output: Urine 1050 Other: # Voids 1 Weight 97.069 kg 92.8 kg 03/01/22 12:24 03/02/22 10:18
--- NOTE | 2022-03-02 11:58 | P.CRDCN ---
History of Present Illness Consult date: 03/02/22 Consult reason: congestive heart failure History of present illness: This is Eliu Davila NP, I'm dictating on behalf of Dr. Calderon's H&P and A&P The patient was interviewed and examined. HPI: [Patient is a pleasant 87-year-old male who we were consult and on for congestive heart failure. Patient states that he was having progressively wo rsening shortness of breath over the last month. He states he's been following closely with both his primary care provider and his wellness program coordinator. He states that yesterday he was only able to walk around 12 feet, and after contacting his primary care provider, he was told to come to the hospital for evaluation. Initial workup was relatively negative, but a chest x-ray did demonstrate pleural effusions, and his labs showed an elevated BNP. Patient has a past medical history that includes thalassemia, hypothyroidism, chronic A. fib, moderate-severe aortic stenosis status post TAVR, moderate to severe mitral regurgitation, CKD stage IV, CAD status post CABG, CVA, hyperlipidemia, hypertension. Patient reports this morning that he feels fine. He states that he is back to his baseline. Patient does demonstrate elevated blood pressures. He is currently on Lasix every 8 hours IV push.] ROS: [No fever, chills, or rigors] [no cough, phlegm, or expectoration] [no nausea, vomiting, or diarrhea] [no hematuria, dysuria] [no musculoskelatal complaints] [no strokes or seizures] [no skin lesions] EXAMINATION: GENERAL: Well-appearing, well-nourished and in no acute distress. NECK: Supple, no thyromegaly, significant hepatojugular reflux noted. LUNGS: Breath sounds clear to auscultation bilaterally. Respiration equal and unlabored. No wheezes, rales or rhonchi. HEART: Regular rate and rhythm without murmurs, rubs or gallops. S1 and S2 heard. EXTREMITIES: Normal range of motion, mild nonpitting edema in the bilateral lower extremities. No clubbing or cyanosis. Peripheral pulses intact and strong. REVIEW OF LABS, ECG & MEDICAL DATA: LABS: White count 11.8, hemoglobin 8.4, platelet 70, sodium 141, potassium 3.8, B1 40, creatinine 2.06 EKG: Atrial fibrillation with controlled ventricular response, right bundle branch block IMAGING: Chest x-ray dated 03/01/2022 shows cardiomegaly, small posterior pleural effusions, and suggestion of minimal infiltrate along the right diaph ragm. VITALS: Temp 98.2, pulse 68, respirations 18, blood pressure 160/79, O2 saturation 99% on room air IMPRESSION: 1. Hypertension, uncontrolled 2. Congestive heart failure, resolving exacerbation 3. Status post TAVR 4. Moderate to severe mitral regurgitation 5. Exertional dyspnea PLAN: Decrease Lasix to every 12 hours IV push. 2-D echocardiogram. Start amlodipine 5 mg daily. Check basic metabolic panel daily. Further recommendations based on patient's clinical course. Thank you for the consult and allowing us to participate in the care of this patient. Past Medical History Past Medical History: Atrial Fibrillation, Coronary Artery Disease (CAD), Chest Pain / Angina, CVA/TIA, GERD/Reflux, Hyperlipidemia, Hypertension, Myocardial I nfarction ([place]), Thyroid Disorder Additional Past Medical History / Comment(s): Thalassemia trait, chronic kidney disease stage III, elevated PSA in the past, hx vertigo, Last Myocardial Infarction Date:: 2000 History of Any Multi-Drug Resistant Organisms: None Reported Past Surgical History: Coronary Bypass/CABG, Heart Catheterization With Stent, Tonsillectomy Additional Past Surgical History / Comment(s): CABG May 2000, angioplasty in 2000 and February 2004, bilateral cataract removal and intraocular lens implants,, 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 valve replacement Past Anesthesia/Blood Transfusion Reactions: No Reported Reaction Date of Last Stent Placement:: unknown Past Psychological History: No Psychological Hx Reported Smoking Status: Former smoker Past Alcohol Use History: None Reported Past Drug Use History: None Reported - Past Family History Father Family Medical History: No Reported History Mother Family Medical History: No Reported History Additional Family Medical History / Comment(s): . Brother(s) Additional Family Medical History / Comment(s): Patient has 3 brothers and all 3 have passed. Unknown causes. Sister(s) Additional Family Medical History / Comment(s): Patient has has 4 sister that of all from old age. Daughter(s) Additional Family Medical History / Comment(s): Patient has 4 children, 2 boys and 2 girls with no major medical problems. Medications and Allergies Home Medications Medication Instructions Recorded Confirmed Type Tamsulosin HCl [Flomax] 0.4 mg PO HS 06/18/21 03/01/22 History Multivitamins, Thera [Multivitamin 1 tab PO DAILY 08/06/21 03/01/22 History (formulary)] Sennosides [Senokot] 17.2 mg PO HS 08/06/21 03/01/22 History Atorvastatin [Lipitor] 20 mg PO HS 12/19/21 03/01/22 History Finasteride [Proscar] 5 mg PO DAILY 12/19/21 03/01/22 History Levothyroxine Sodium [Euthyrox] 150 mcg PO DAILY 12/19/21 03/01/22 History Metoprolol Tartrate [Lopressor] 50 mg PO TID-W/MEALS 12/19/21 03/01/22 History Aspirin EC [Ecotrin Low Dose] 81 mg PO HS 03/01/22 03/01/22 History Famotidine [Pepcid] 20 mg PO DAILY PRN 03/01/22 03/01/22 History Furosemide [Lasix] 40 mg PO DAILY 03/01/22 03/01/22 History Rivaroxaban [Xarelto] 15 mg PO HS 03/01/22 03/01/22 History Sertraline [Zoloft] 50 mg PO DAILY 03/01/22 03/01/22 History allopurinoL [Zyloprim] 100 mg PO DAILY 03/01/22 03/01/22 History Allergies Allergy/AdvReac Type Severity Reaction Status Date / Time No Known Allergies Allergy Verified 03/01/22 15:07 Physical Exam Vitals: Vital Signs Temp Pulse Pulse Resp BP BP Pulse Ox 03/02/22 08:00 98.2 F 68 18 160/79 99 03/02/22 04:00 97.9 F 72 19 152/76 95 03/01/22 23:26 75 19 149/77 95 03/01/22 20:00 74 19 155/78 93 L 03/01/22 17:59 97.5 F L 93 18 167/93 96 03/01/22 16:44 79 18 157/88 98 03/01/22 13:25 69 18 134/80 96 Intake and Output 03/01/22 03/02/22 03/02/22 22:59 06:59 14:59 Output Total 1050 Balance -1050 Output: Urine 1050 Other: # Voids 1 Weight 97.069 kg 92.8 kg Results 03/01/22 12:24 03/02/22 10:18 Cardiac Enzymes 03/01/22 03/01/22 03/02/22 Range/Units 12:24 12:24 10:18 AST 116 H 97 H (17-59) U/L Troponin I 0.021 (0.000-0.034) ng/mL Coagulation 03/01/22 Range/Units 12:24 PT 16.4 H (9.0-12.0) sec APTT 35.0 H (22.0-30.0) sec CBC 03/01/22 Range/Units 12:24 WBC 9.0 (3.8-10.6) k/uL RBC 3.41 L (4.30-5.90) m/uL Hgb 7.9 L (13.0-17.5) gm/dL Hct 25.3 L (39.0-53.0) % Plt Count 172 (150-450) k/uL Comprehensive Metabolic Panel 03/01/22 03/02/22 Range/Units 12:24 10:18 Sodium 139 141 (137-145) mmol/L Potassium 4.8 3.8 (3.5-5.1) mmol/L Chloride 103 98 (98-107) mmol/L Carbon Dioxide 24 26 (22-30) mmol/L BUN 38 H 40 H (9-20) mg/dL Creatinine 1.91 H 2.06 H (0.66-1.25) mg/dL Glucose 124 H 98 (74-99) mg/dL Calcium 8.7 8.8 (8.4-10.2) mg/dL AST 116 H 97 H (17-59) U/L ALT 73 H 88 H (4-49) U/L Alkaline Phosphatase 78 83 (38-126) U/L Total Protein 7.4 7.9 (6.3-8.2) g/dL Albumin 4.1 4.5 (3.5-5.0) g/dL Current Medications Generic Name Dose Route Start Last Admin Trade Name Freq PRN Reason Stop Dose Admin Allopurinol 100 mg 03/02/22 09:00 03/02/22 09:04 Allopurinol 100 Mg Tab PO 100 mg DAILY [facility] Administration Amlodipine Besylate 5 mg 03/02/22 09:45 Amlodipine 5 Mg Tab PO DAILY [facility] Aspirin 81 mg 03/02/22 21:00 Aspirin 81 Mg PO HS [facility] Atorvastatin Calcium 20 mg 03/02/22 21:00 Atorvastatin 20 Mg Tab PO HS [facility] [place] Famotidine 20 mg 03/02/22 09:00 Famotidine 20 Mg Tab PO DAILY PRN GI Upset Finasteride 5 mg 03/02/22 09:00 03/02/22 09:04 Finasteride 5 Mg Tab PO 5 mg DAILY [facility] Administration Furosemide 40 mg 03/02/22 21:00 Furosemide 10 Mg/Ml 4 Ml Vial IV Q12HR [facility] [place] Levothyroxine Sodium 150 mcg 03/02/22 06:30 03/02/22 04:36 Levothyroxine 75 Mcg Tab PO 150 mcg DAILY@0630 [facility] [place] Administration Metoprolol Tartrate 50 mg 03/01/22 17:30 03/02/22 04:36 Metoprolol Tartrate 50 Mg Tab PO 50 mg TID-W/MEALS [facility] Administration Multivitamins 1 each 03/02/22 09:00 03/02/22 09:04 Multivitamins, Thera 1 Each Tab PO 1 each DAILY [facility] Administration Nitroglycerin 1 inch 03/01/22 15:00 03/02/22 09:04 Nitroglycerin Oint 1 Inch/Gm Packet TOPICAL 1 inch QID [facility] Administration Rivaroxaban 15 mg 03/02/22 21:00 Rivaroxaban 15 Mg Tab PO HS [facility] [place] Protocol Senna 17.2 mg 03/02/22 21:00 Sennosides 8.6 Mg Tab PO HS [facility] Sertraline HCl 50 mg 03/02/22 09:00 03/02/22 09:04 Sertraline 50 Mg Tab PO 50 mg DAILY [facility] [place] Administration Sodium Chloride 10 ml 03/01/22 21:00 03/01/22 20:50 Sodium Chloride 0.9% Flush 10 Ml Syringe IV 10 ml BID [facility] Administration Tamsulosin HCl 0.4 mg 03/02/22 21:00 Tamsulosin 0.4 Mg Cap.Er.24h PO HS [facility] Intake and Output 03/01/22 03/02/22 03/02/22 22:59 06:59 14:59 Output Total 1050 Balance -1050 Output: Urine 1050 Other: # Voids 1 Weight 97.069 kg 92.8 kg 03/01/22 12:24 03/02/22 10:18
[2022-03-02 13:47] LABS: Ovalocytes Present; RBC Fragments Present; Target Cells Present
[2022-03-02 14:43] VITALS: BP 156/66; PULSE 64; TEMP 98
[2022-03-02] MEDS ORDERED: SENNOSIDES 8.6 MG TAB PO SCH (21:00)
[2022-03-02] MEDS ORDERED: ASPIRIN 81 MG PO SCH (21:00)
[2022-03-02] MEDS ORDERED: ATORVASTATIN 20 MG TAB PO SCH (21:00)
[2022-03-02] MEDS ORDERED: RIVAROXABAN 15 MG TAB PO SCH (21:00)
[2022-03-02] MEDS ORDERED: FUROSEMIDE 10 MG/ML 4 ML VIAL IV SCH (21:00)
[2022-03-02] MEDS ORDERED: TAMSULOSIN 0.4 MG CAP.ER.24H PO SCH (21:00)
== END 2022-03-02 15:29 | disposition left against medical advice (07) ==
LOC: EC 11:12 → 3SCARD 14:51
PROVIDERS: ADMIT Internal Medicine; ATTEND Internal Medicine
DX: I13.0 Hypertensive heart and chronic kidney disease with heart failure and stage 1 through stage 4 chronic kidney disease, or unspecified chronic kidney disease (principal); I50.31 Acute diastolic (congestive) heart failure; N18.4 Chronic kidney disease, stage 4 (severe); N40.0 Benign prostatic hyperplasia without lower urinary tract symptoms; D63.1 Anemia in chronic kidney disease; I48.20 Chronic atrial fibrillation, unspecified; I25.10 Atherosclerotic heart disease of native coronary artery without angina pectoris; E78.5 Hyperlipidemia, unspecified; I25.2 Old myocardial infarction; K21.9 Gastro-esophageal reflux disease without esophagitis; E03.9 Hypothyroidism, unspecified; I08.0 Rheumatic disorders of both mitral and aortic valves; D56.3 Thalassemia minor; E66.9 Obesity, unspecified; Z20.822 Contact with and (suspected) exposure to COVID-19; Z68.34 Body mass index [BMI] 34.0-34.9, adult; Z79.890 Hormone replacement therapy; Z79.01 Long term (current) use of anticoagulants; Z79.82 Long term (current) use of aspirin; Z79.899 Other long term (current) drug therapy; Z86.73 Personal history of transient ischemic attack (TIA), and cerebral infarction without residual deficits; Z95.2 Presence of prosthetic heart valve; Z95.1 Presence of aortocoronary bypass graft; Z95.5 Presence of coronary angioplasty implant and graft; Z98.42 Cataract extraction status, left eye; Z98.41 Cataract extraction status, right eye; Z96.1 Presence of intraocular lens; Z89.021 Acquired absence of right finger(s); Z87.891 Personal history of nicotine dependence; Z98.890 Other specified postprocedural states; Z82.49 Family history of ischemic heart disease and other diseases of the circulatory system
CPT/HCPCS: 96376 ×2; 96374; 99285; 36415; 93005; 83880; 80053 ×2; 83735; 84484; 85025 ×2; 85610; 85730; 87635; 71046; G0378 ×2; S0138; J1940 ×2

== ENCOUNTER 2022-03-22 12:07 | Inpatient (IN) | payer MEDICARE, BC ==
--- NOTE | 2022-03-22 13:12 | ED ---
General Adult HPI - General Chief complaint: Chest Pain Stated complaint: Difficulty Breathing Time Seen by Provider: 03/22/22 12:48 Source: patient Mode of arrival: ambulatory Limitations: no limitations - History of Present Illness Initial comments: Dictation was produced using [email or web address] dictation software. please excuse any grammatical, word or spelling errors. Chief Complaint: 87-year-old male presents to the emergency department with exertional dyspnea History of Present Illness: 87-year-old male is been dyspneic for the last m onth. Patient has history of valve replacement. Over the last 4-5 weeks she's been having exertional dyspnea with shortness of breath walking shorter and shorter distances. He called the cardiology office and was told to come to the emergency room for evaluation. Patient has any cough. States that today he felt like his symptoms were so severe that he decided to come patient has no coughing. Denies any leg pain or leg swelling. Patient states that his dyspnea goes away with sitting. The ROS documented in this emergency department record has been reviewed and confirmed by me. Those systems with pertinent positive or negative responses have been documented in the HPI. All other systems are other negative and/or noncontributory. PHYSICAL EXAM: General Impression: Alert and oriented x3, not in acute distress HEENT: Normocephalic atraumatic, extra-ocular movements intact, pupils equal and reactive to light bilaterally, mucous membranes moist. Cardiovascular: Heart regular rate and rhythm Chest: Able to complete full sentences, no retractions, no tachypnea, clear to auscultation bilaterally Abdomen: abdomen soft, non-tender, non-distended, no organomegaly Musculoskeletal: Pulses present and equal in all extremities, no peripheral edema Motor: no focal deficits noted Neurological: CN II-XII grossly intact, no focal motor or sensory deficits noted Skin: Intact with no visualized rashes Psych: Normal affect and mood ED course:. 87-year-old male presents to the emergency department for exertional dyspnea times one month. He does report worsening severity and duration of the symptoms over the last several weeks. Laboratory evaluation obtained. Hemoglobin is 8.2. This is around patient's baseline. No leukocytosis. Rest of CBC within acceptable limits. Coag panel negative. Metabolic panel shows brain atrophy peptide of 15,000. This is well above his usual baseline. Chest x-ray shows evidence of common a venous congestion. Patient reevaluated at bedside after being observed in emergency department for 3 hours. Patient appears to be well at rest. Patient however will be admitted for diuresis and cardiac consultation. EKG interpretation: Ventricular rate 67, A. fib, QS 170, QTc 454. No NM prolongation, no QTC prolongation, no ST or T-wave changes noted. EKG compared to 03/01/2022 showing no changes. Overall, this EKG is unremarkable - Related Data Home Medications Medication Instructions Recorded Confirmed Tamsulosin HCl [Flomax] 0.4 mg PO HS 06/18/21 03/22/22 Multivitamins, Thera [Multivitamin 1 tab PO DAILY 08/06/21 03/22/22 (formulary)] Sennosides [Senokot] 17.2 mg PO HS 08/06/21 03/22/22 Atorvastatin [Lipitor] 20 mg PO HS 12/19/21 03/22/22 Finasteride [Proscar] 5 mg PO DAILY 12/19/21 03/22/22 Levothyroxine Sodium [Euthyrox] 150 mcg PO DAILY 12/19/21 03/22/22 Metoprolol Tartrate [Lopressor] 50 mg PO TID-W/MEALS 12/19/21 03/22/22 Aspirin EC [Ecotrin Low Dose] 81 mg PO HS 03/01/22 03/22/22 Famotidine [Pepcid] 20 mg PO DAILY PRN 03/01/22 03/22/22 Furosemide [Lasix] 40 mg PO DAILY 03/01/22 03/22/22 Rivaroxaban [Xarelto] 15 mg PO HS 03/01/22 03/22/22 Sertraline [Zoloft] 50 mg PO DAILY 03/01/22 03/22/22 allopurinoL [Zyloprim] 100 mg PO DAILY 03/01/22 03/22/22 Allergies Allergy/AdvReac Type Severity Reaction Status Date / Time No Known Allergies Allergy Verified 03/22/22 15:14 Review of Systems ROS Statement: Those systems with pertinent positive or pertinent negative responses have been documented in the HPI. ROS Other: All systems not noted in ROS Statement are negative. Past Medical History Past Medical History: Atrial Fibrillation, Coronary Artery Disease (CAD), Chest Pain / Angina, CVA/TIA, GERD/Reflux, Hyperlipidemia, Hypertension, Myocardial Infarction ([place]), Thyroid Disorder Additional Past Medical History / Comment(s): Thalassemia trait, chronic kidney disease stage III, elevated PSA in the past, hx vertigo, Last Myocardial Infarction Date:: 2000 History of Any Multi-Drug Resistant Organisms: None Reported Past Surgical History: Coronary Bypass/CABG, Heart Catheterization With Stent, Tonsillectomy Additional Past Surgical History / Comment(s): CABG May 2000, angioplasty in 2000 and February 2004, bilateral cataract removal and intraocular lens implan ts,, 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 valve replacement Past Anesthesia/Blood Transfusion Reactions: No Reported Reaction Date of Last Stent Placement:: unknown Past Psychological History: No Psychological Hx Reported Smoking Status: Former smoker Past Alcohol Use History: None Reported Past Drug Use History: None Reported - Past Family History Father Family Medical History: No Reported History Mother Family Medical History: No Reported History Additional Family Medical History / Comment(s): . Brother(s) Additional Family Medical History / Comment(s): Patient has 3 brothers and all 3 have passed. Unknown causes. Sister(s) Additional Family Medical History / Comment(s): Patient has has 4 sister that of all from old age. Daughter(s) Additional Family Medical History / Comment(s): Patient has 4 children, 2 boys and 2 girls with no major medical problems. General Exam Limitations: no limitations Course Vital Signs 03/22/22 03/22/22 03/22/22 12:42 13:34 14:39 Temperature 97.9 F Pulse Rate 67 74 67 Respiratory 20 20 16 Rate Blood Pressure 131/74 160/82 O2 Sat by Pulse 97 97 100 Oximetry Medical Decision Making - Lab Data Result diagrams: 03/22/22 13:33 03/22/22 13:33 Lab Results 03/22/22 03/22/22 03/22/22 Range/Units 13:33 13:33 13:33 WBC 8.1 (3.8-10.6) k/uL RBC 3.76 L (4.30-5.90) m/uL Hgb 8.2 L (13.0-17.5) gm/dL Hct 27.9 L (39.0-53.0) % MCV 74.1 L (80.0-100.0) fL MCH 21.9 L (25.0-35.0) pg MCHC 29.5 L (31.0-37.0) g/dL RDW 20.2 H (11.5-15.5) % Plt Count 141 L (150-450) k/uL MPV 7.9 Neutrophils % (Manual) 73 % Band Neuts % (Manual) 4 % Lymphocytes % (Manual) 15 % Monocytes % (Manual) 5 % Eosinophils % (Manual) 3 % Basophils % (Manual) 2 % Neutrophils # (Manual) 6.20 (1.3-7.7) k/uL Lymphocytes # (Manual) 1.22 (1.0-4.8) k/uL Monocytes # (Manual) 0.41 (0-1.0) k/uL Eosinophils # (Manual) 0.24 (0-0.7) k/uL Basophils # (Manual) 0.16 (0-0.2) k/uL Nucleated RBCs 6 H (0-0) /100 WBC Manual Slide Review Performed Polychromasia Present Hypochromasia Marked Hypochromasia (manual) Present Poikilocytosis Slight Poikilocytosis (manual Present Anisocytosis Moderate Anisocytosis (manual) Present Microcytosis Moderate Target Cells Present Tear Drop Cells Present Fragmented RBCs Present PT 16.5 H (9.0-12.0) sec INR 1.6 H (<1.2) APTT 35.0 H (22.0-30.0) sec Sodium 142 (137-145) mmol/L Potassium 5.3 H (3.5-5.1) mmol/L Chloride 108 H (98-107) mmol/L Carbon Dioxide 22 (22-30) mmol/L Anion Gap 12 mmol/L BUN 27 H (9-20) mg/dL Creatinine 1.75 H (0.66-1.25) mg/dL Est GFR (CKD-EPI)AfAm 39 (>60 ml/min/1.73 sqM) Est GFR (CKD-EPI)NonAf 34 (>60 ml/min/1.73 sqM) Glucose 104 H (74-99) mg/dL Plasma Lactic Acid Lalit (0.7-2.0) mmol/L Calcium 8.7 (8.4-10.2) mg/dL Magnesium 1.7 (1.6-2.3) mg/dL Total Bilirubin 1.9 H (0.2-1.3) mg/dL AST 49 (17-59) U/L ALT 36 (4-49) U/L Alkaline Phosphatase 81 (38-126) U/L Troponin I (0.000-0.034) ng/mL NT-Pro-B Natriuret Pep pg/mL Total Protein 7.2 (6.3-8.2) g/dL Albumin 4.1 (3.5-5.0) g/dL 03/22/22 03/22/22 03/22/22 Range/Units 13:33 13:33 13:33 WBC (3.8-10.6) k/uL RBC (4.30-5.90) m/uL Hgb (13.0-17.5) gm/dL Hct (39.0-53.0) % MCV (80.0-100.0) fL MCH (25.0-35.0) pg MCHC (31.0-37.0) g/dL RDW (11.5-15.5) % Plt Count (150-450) k/uL MPV Neutrophils % (Manual) % Band Neuts % (Manual) % Lymphocytes % (Manual) % Monocytes % (Manual) % Eosinophils % (Manual) % Basophils % (Manual) % Neutrophils # (Manual) (1.3-7.7) k/uL Lymphocytes # (Manual) (1.0-4.8) k/uL Monocytes # (Manual) (0-1.0) k/uL Eosinophils # (Manual) (0-0.7) k/uL Basophils # (Manual) (0-0.2) k/uL Nucleated RBCs (0-0) /100 WBC Manual Slide Review Polychromasia Hypochromasia Hypochromasia (manual) Poikilocytosis Poikilocytosis (manual Anisocytosis Anisocytosis (manual) Microcytosis Target Cells Tear Drop Cells Fragmented RBCs PT (9.0-12.0) sec INR (<1.2) APTT (22.0-30.0) sec Sodium (137-145) mmol/L Potassium (3.5-5.1) mmol/L Chloride (98-107) mmol/L Carbon Dioxide (22-30) mmol/L Anion Gap mmol/L BUN (9-20) mg/dL Creatinine (0.66-1.25) mg/dL Est GFR (CKD-EPI)AfAm (>60 ml/min/1.73 sqM) Est GFR (CKD-EPI)NonAf (>60 ml/min/1.73 sqM) Glucose (74-99) mg/dL Plasma Lactic Acid Lalit 1.2 (0.7-2.0) mmol/L Calcium (8.4-10.2) mg/dL Magnesium (1.6-2.3) mg/dL Total Bilirubin (0.2-1.3) mg/dL AST (17-59) U/L ALT (4-49) U/L Alkaline Phosphatase (38-126) U/L Troponin I 0.024 (0.000-0.034) ng/mL NT-Pro-B Natriuret Pep 04882 pg/mL Total Protein (6.3-8.2) g/dL Albumin (3.5-5.0) g/dL Disposition Clinical Impression: Heart failure Disposition: ADMITTED IP TO THIS HOSP Condition: Fair Referrals: Bhavana Dailey MD [Primary Care Provider] - 1-2 days Decision Time: 15:25
[2022-03-22 14:02] LABS: Albumin 4.1 g/dL (3.5-5.0); Calcium 8.7 mg/dL (8.4-10.2); Magnesium 1.7 mg/dL (1.6-2.3); Potassium 5.3 mmol/L (3.5-5.1); Total Bilirubin 1.9 mg/dL (0.2-1.3); Total Protein 7.2 g/dL (6.3-8.2)
[2022-03-22 14:16] LABS: Anisocytosis Moderate; HCT 27.9 % (39.0-53.0); HGB 8.2 gm/dL (13.0-17.5); Hypochromasia Marked; MCH 21.9 pg (25.0-35.0); MCHC 29.5 g/dL (31.0-37.0); MCV 74.1 fL (80.0-100.0); Mean Platelet Volume 7.9; Microcytosis Moderate; Platelet Count 141 k/uL (150-450); Poikilocytosis Slight; RBC 3.76 m/uL (4.30-5.90); RDW 20.2 % (11.5-15.5)
[2022-03-22 14:23] LABS: INR 1.6 (<1.2); Prothrombin Time 16.5 sec (9.0-12.0)
[2022-03-22 14:45] LABS: Band Neutrophils % 4 %; Neutrophils % (M) 73 %; Nucleated Red Blood Cells 6 /100 WBC (0-0); Total Cells Counted 200
[2022-03-22 14:46] LABS: Anisocytosis (M) Present; Basophils # (M) 0.16 k/uL (0-0.2); Eosinophils # (M) 0.24 k/uL (0-0.7); Hypochromasia (M) Present; Lymphocytes # (M) 1.22 k/uL (1.0-4.8); Monocytes # (M) 0.41 k/uL (0-1.0); Poikilocytosis (M) Present; Polychromasia Present; RBC Fragments Present; Target Cells Present; Tear Drop Cells Present; WBC 8.1 k/uL (3.8-10.6)
--- NOTE | 2022-03-22 14:56 | XR ---
EXAMINATION TYPE: XR chest 2V DATE OF EXAM: 03/22/2022 COMPARISON: 03/01/2022 HISTORY: Shortness of breath TECHNIQUE: Frontal and lateral views of the chest are obtained. FINDINGS: Scattered senescent parenchymal changes noted. Hyperinflation compatible with COPD. No evidence for infiltrate. No evidence for atelectasis. Persistent cardiomegaly with pulmonary venous congestion and interstitial edema. The overall appearan ce is slightly improved relative to the prior study. Mediastinal structures are stable and grossly unremarkable. No evidence for hilar prominence. Degenerative changes dorsal spine. IMPRESSION: 1. Persistent cardiomegaly with pulmonary venous congestion and interstitial edema. The overall appea frank is slightly improved relative to the prior study.
[2022-03-22] MEDS ORDERED: FUROSEMIDE 10 MG/ML 4 ML VIAL IV STA (15:06)
[2022-03-22] MEDS ORDERED: FAMOTIDINE 20 MG TAB PO PRN (19:52)
[2022-03-22] MEDS: TAMSULOSIN 0.4 MG CAP.ER.24H PO SCH (20:42)
[2022-03-22] MEDS: SENNOSIDES 8.6 MG TAB PO SCH (20:42)
[2022-03-22] MEDS: RIVAROXABAN 15 MG TAB PO SCH (20:42)
[2022-03-22] MEDS: ATORVASTATIN 20 MG TAB PO SCH (20:43)
[2022-03-22] MEDS: ASPIRIN 81 MG PO SCH (20:43)
[2022-03-23] MEDS ORDERED: FUROSEMIDE 40 MG TAB PO SCH (09:00)
[2022-03-23] MEDS: FINASTERIDE 5 MG TAB PO SCH (09:47)
[2022-03-23] MEDS: MULTIVITAMINS, THERA 1 EACH TAB PO SCH (09:47)
[2022-03-23] MEDS: allopurinoL 100 MG TAB PO SCH (09:47)
[2022-03-23] MEDS: SERTRALINE 50 MG TAB PO SCH (09:47)
[2022-03-23] MEDS: LEVOTHYROXINE 75 MCG TAB PO SCH (10:49)
[2022-03-23] MEDS: METOPROLOL TARTRATE 50 MG TAB PO SCH ×3 (10:50→17:27)
--- NOTE | 2022-03-23 11:00 | P.CRDCN ---
History of Present Illness Consult date: 03/23/22 Requesting physician: Bhavana Dailey Reason for Consult (text): Heart Failure Chief complaint: progressively worsening shortness of breath History of present illness: Is a pleasant 87-year-old gentleman who follows in the office with Dr. NADJA Messer. He has a history of CAD status post 3 vessel CABG in 2001, prior PCI, severe aortic stenosis status post TAVR in November 2020, persistent atrial fibrillation anticoagulated on Xarelto, retention, hyperlipidemia, mitral regurgitation shown to be moderate to severe on echocardiogram in December of this year he was being evaluated in the past for possible mitral valve clip procedure as an outpatient apparently after discussion with Dr. Messer was decided to manage this conservatively. Presented to the emergency department complaint of progressively worsening shortness of breath over the last 6 weeks or so. He was admitted in February with similar symptoms at which time his BNP was around 9000. According to him he has been compliant with his medications and diet. He denies any weight gain but does have some mild lower extremity edema and has be en experiencing some orthopnea and PND. She apparently called the office and was directed to come to the emergency department for further evaluation. His laboratory values showed a hemoglobin of 8.2 which is running around where his baseline is he runs in the range of anywhere from 8-10. BUN and creatinine 27 and 1.75 respectively which appear to be his baseline. Troponin 1 was drawn yesterday afternoon and was 0.024. NT proBNP was more elevated than previous at 15,800. One dose of IV Lasix and has been placed back on his oral home dose of Lasix. Her pressure has been elevated. He was initiated on amlodipine during his last hospitalization it appears this has been discontinued and he is not been placed on this in the hospital is admission. He is currently on aspirin 81 mg by mouth daily at bedtime, atorvastatin 20 mg by mouth daily at bedtime, Lasix 40 mg by mouth daily, metoprolol tartrate 50 mg by mouth 3 times a day and Xarelto 15 mg by mouth daily. Upon examination he is sitting up in bed. Continues to complain of some shortness of breath but at this time denies any o rthopnea. Continues to have some lower extremity edema. He also complains of some abdominal bloating and bilateral upper quadrant discomfort but does not appear to have any tenderness on palpation. Past Medical History Past Medical History: Atrial Fibrillation, Coronary Artery Disease (CAD), Chest Pain / Angina, CVA/TIA, GERD/Reflux, Hyperlipidemia, Hypertension, Myocardial Infarction ([place]), Thyroid Disorder Additional Past Medical History / Comment(s): Thalassemia trait, chronic kidney disease stage III, elevated PSA in the past, hx vertigo, Last Myocardial Infarction Date:: 2000 History of Any Multi-Drug Resistant Organisms: None Reported Past Surgical History: Coronary Bypass/CABG, Heart Catheterization With Stent, Tonsillectomy Additional Past Surgical History / Comment(s): CABG May 2000, angioplasty in 2000 and February 2004, bilateral cataract removal and intraocular lens implants,, 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 valve replacement Past Anesthesia/Blood Transfusion Reactions: No Reported Reaction Date of Last Stent Placement:: unknown Past Psychological History: No Psychological Hx Reported Smoking Status: Former smoker Past Alcohol Use History: None Reported Additional Past Alcohol Use History / Comment(s): Patient is a lifelong nonsmoker. No medical marijuana, marijuana, street drug or alcohol use. Past Drug Use History: None Reported - Past Family History Father Family Medical History: No Reported History Mother Family Medical History: No Reported History Additional Family Medical History / Comment(s): . Brother(s) Additional Family Medical History / Comment(s): Patient has 3 brothers and all 3 have passed. Unknown causes. Sister(s) Additional Family Medical History / Comment(s): Patient has has 4 sister that of all from old age. Daughter(s) Additional Family Medical History / Comment(s): Patient has 4 children, 2 boys and 2 girls with no major medical problems. Medications and Allergies Home Medications Medication Instructions Recorded Confirmed Type Tamsulosin HCl [Flomax] 0.4 mg PO HS 06/18/21 03/22/22 History Multivitamins, Thera [Multivitamin 1 tab PO DAILY 08/06/21 03/22/22 History (formulary)] Sennosides [Senokot] 17.2 mg PO HS 08/06/21 03/22/22 History Atorvastatin [Lipitor] 20 mg PO HS 12/19/21 03/22/22 History Finasteride [Proscar] 5 mg PO DAILY 12/19/21 03/22/22 History Levothyroxine Sodium [Euthyrox] 150 mcg PO DAILY 12/19/21 03/22/22 History Metoprolol Tartrate [Lopressor] 50 mg PO TID-W/MEALS 12/19/21 03/22/22 History Aspirin EC [Ecotrin Low Dose] 81 mg PO HS 03/01/22 03/22/22 History Famotidine [Pepcid] 20 mg PO DAILY PRN 03/01/22 03/22/22 History Furosemide [Lasix] 40 mg PO DAILY 03/01/22 03/22/22 History Rivaroxaban [Xarelto] 15 mg PO HS 03/01/22 03/22/22 History Sertraline [Zoloft] 50 mg PO DAILY 03/01/22 03/22/22 History allopurinoL [Zyloprim] 100 mg PO DAILY 03/01/22 03/22/22 History Allergies Allergy/AdvReac Type Severity Reaction Status Date / Time No Known Allergies Allergy Verified 03/22/22 15:14 Physical Exam Vitals: Vital Signs Temp Pulse Pulse Resp BP BP Pulse Ox 03/22/22 19:00 97.6 F 68 18 156/76 98 03/22/22 17:26 97.6 F 82 14 157/81 98 03/22/22 16:55 68 18 148/88 98 03/22/22 15:25 79 20 170/87 99 03/22/22 14:39 67 16 160/82 100 03/22/22 13:34 74 20 131/74 97 03/22/22 12:42 97.9 F 67 20 97 Intake and Output 03/22/22 03/23/22 03/23/22 22:59 06:59 14:59 Intake Total 240 Balance 240 Intake: Oral 240 Other: Voiding Method Toilet # Voids 2 0 Weight 97.069 kg PHYSICAL EXAMINATION: This is a 87-year-old 11 in no apparent distress at the time of my examination. VITAL SIGNS: Viewed HEENT: Head is atraumatic, normocephalic. Pupils are equal, round. Sclerae anicteric. Conjunctivae are clear. Mucous membranes of the mouth are moist. Neck is supple. There is no elevated jugular venous pressure. No carotid bruit is heard. CHEST EXAMINATION: Clear to auscultation bilaterally. No wheezes rales or rhonchi. Respirations even and nonlabored. HEART EXAMINATION: Heart regular, positive S1 and S2. With a systolic ejection murmur at the base and holosystolic murmur at the apex. ABDOMEN: Soft, nontender. Bowel sounds are heard. No organomegaly noted. EXTREMITIES: 2+ peripheral pulses with evidence of 1-2+ peripheral edema and no calf tenderness noted. NEUROLOGIC EXAMINATION: Patient is awake, alert and oriented x3. Results 03/22/22 13:33 03/22/22 13:33 Cardiac Enzymes 03/22/22 03/22/22 Range/Units 13:33 13:33 AST 49 (17-59) U/L Troponin I 0.024 (0.000-0.034) ng/mL Coagulation 03/22/22 Range/Units 13:33 PT 16.5 H (9.0-12.0) sec APTT 35.0 H (22.0-30.0) sec CBC 03/22/22 Range/Units 13:33 WBC 8.1 (3.8-10.6) k/uL RBC 3.76 L (4.30-5.90) m/uL Hgb 8.2 L (13.0-17.5) gm/dL Hct 27.9 L (39.0-53.0) % Plt Count 141 L (150-450) k/uL Comprehensive Metabolic Panel 03/22/22 Range/Units 13:33 Sodium 142 (137-145) mmol/L Potassium 5.3 H (3.5-5.1) mmol/L Chloride 108 H (98-107) mmol/L Carbon Dioxide 22 (22-30) mmol/L BUN 27 H (9-20) mg/dL Creatinine 1.75 H (0.66-1.25) mg/dL Glucose 104 H (74-99) mg/dL Calcium 8.7 (8.4-10.2) mg/dL AST 49 (17-59) U/L ALT 36 (4-49) U/L Alkaline Phosphatase 81 (38-126) U/L Total Protein 7.2 (6.3-8.2) g/dL Albumin 4.1 (3.5-5.0) g/dL Current Medications Generic Name Dose Route Start Last Admin Trade Name Freq PRN Reason Stop Dose Admin Allopurinol 100 mg 03/23/22 09:00 03/23/22 09:47 Allopurinol 100 Mg Tab PO 100 mg DAILY SARAH Administration Aspirin 81 mg 03/22/22 21:00 03/22/22 20:43 Aspirin 81 Mg PO 81 mg HS [facility] Administration Atorvastatin Calcium 20 mg 03/22/22 21:00 03/22/22 20:43 Atorvastatin 20 Mg Tab PO 20 mg HS SARAH Administration Famotidine 20 mg 03/22/22 19:52 Famotidine 20 Mg Tab PO DAILY PRN GI Upset Finasteride 5 mg 03/23/22 09:00 03/23/22 09:47 Finasteride 5 Mg Tab PO 5 mg DAILY SARAH Administration Furosemide 40 mg 03/23/22 09:00 03/23/22 09:47 Furosemide 40 Mg Tab PO 40 mg DAILY [facility] Administration Levothyroxine Sodium 150 mcg 03/23/22 06:30 Levothyroxine 75 Mcg Tab PO DAILY@0630 [facility] Metoprolol Tartrate 50 mg 03/23/22 07:30 Metoprolol Tartrate 50 Mg Tab PO TID-W/MEALS [facility] Multivitamins 1 each 03/23/22 09:00 03/23/22 09:47 Multivitamins, Thera 1 Each Tab PO 1 each DAILY [facility] Administration Rivaroxaban 15 mg 03/22/22 21:00 03/22/22 20:42 Rivaroxaban 15 Mg Tab PO 15 mg HS [facility] Administration Protocol Senna 17.2 mg 03/22/22 21:00 03/22/22 20:42 Sennosides 8.6 Mg Tab PO 17.2 mg HS [facility] Administration Sertraline HCl 50 mg 03/23/22 09:00 03/23/22 09:47 Sertraline 50 Mg Tab PO 50 mg DAILY [facility] Administration Tamsulosin HCl 0.4 mg 03/22/22 21:00 03/22/22 20:42 Tamsulosin 0.4 Mg Cap.Er.24h PO 0.4 mg HS [facility] Administration Intake and Output 03/22/22 03/23/22 03/23/22 22:59 06:59 14:59 Intake Total 240 Balance 240 Intake: Oral 240 Other: Voiding Method Toilet # Voids 2 0 Weight 97.069 kg 03/22/22 13:33 03/22/22 13:33 EKG Interpretations (text) Atrial fibrillation with controlled ventricular response and a right bundle branch block Assessment and Plan Assessment: #1 acute congestive heart failure with preserved ejection fraction #2 history of aortic stenosis status post TAVR #3 CAD status post CABG and stenting #4 hypertension uncontrolled 5 hyperlipidemia 6 Chronic persistent atrial fibrillation, rate controlled, anticoagulated Plan: Digital Marketing Program Manager perspective will repeat the 2-D echo with Doppler study since his symptoms of shortness of breath are new over the last 6 weeks and significantly worsened compared to December. We will add Farxiga. We will switch him to IV Lasix for today and reevaluate in the morning. Monitor renal function and electrolytes as well as daily weight and intake and output. We will continue to follow the patient and provide further recommendations accordingly. EVP AND CHIEF OPERATING OFFICER note has been reviewed, I agree with a documented findings and plan of care. Patient was seen and examined.
[2022-03-23] MEDS: FUROSEMIDE 10 MG/ML 4 ML VIAL IV SCH ×2 (12:53→20:31)
[2022-03-23] MEDS: DAPAGLIFLOZIN PROPANEDIOL 10 MG TABLET PO SCH (12:54)
--- NOTE | 2022-03-23 13:22 | P.HPIM ---
History of Present Illness H&P Date: 03/23/22 HISTORY OF PRESENT ILLNESS This is an 85-year-old male patient of mine with past medical history for thalassemia trait, hypothyroidism, chronic atrial fibrillation on Xarelto, moderate to severe aortic stenosis s/p TAVR and moderate to severe mitral regurgitation,chronic kidney disease stage IV, coronary artery disease status post coronary artery bypass graft in 2001 and angioplasty in 2000 and 2003, 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 Sethi, patient presented to the ER at [facility] because of increased shortness of breath and orthopnea associated with increased swelling in both lower extremities, patient also was complaining of increased dyspnea on exertion, orthopnea PND, he had contacted Dr. jermaine gtz and he sent him to the ER for evaluation, chest x-ray showed minimal pulmonary vascular congestion his BNP was elevated, patient was admitted to the hospital for acute diastolic heart failure and was subsequently 6 IV push, [facility] for the next 2-3 days. REVIEW OF SYSTEMS Constitutional: No fever, no chills, no night sweats. No weight change. No weakness, fatigue or lethargy. No daytime sleepiness. HEENT: No headache. No blurred vision or double vision, no loss of vision. No loss of Hearing, no ringing in the ears, no dizziness. No nasal drainage or congestion. No epistaxis. No sore throat. Lungs: positive for shortness of breath, no cough, no sputum production. No wheezing. Cardiovascular: no chest pain, positive for lower extremity edema. No palpitations. No paroxysmal nocturnal dyspnea. positive for orthopnea. No l ightheadedness or dizziness. Reported to ER physician as syncopal episodes. Abdominal: No abdominal pain. No nausea, vomiting. No diarrhea. No constipation. No bloody or tarry stools. No loss of appetite. Genitourinary: No dysuria, increased frequency, urgency. No urinary retention. Musculoskeletal: No myalgias. No muscle weakness, no gait dysfunction, no frequent falls. No back pain. No neck pain. Integumentary: No wounds, no lesions. No rash or pruritus. No unusual bruising. No change in hair or nails. Neurologic: No aphasia. No facial droop. No change in mentation. No head injury. No headache. No paralysis. No paresthesia. Psychiatric: No depression. No anxiety. Endocrine: No abnormal blood sugars. MEDICAL HISTORY Thalassemia trait Hypothyroidism Chronic atrial fibrillation Moderate to severe aortic stenosis and moderate to severe mitral regurgitation Chronic kidney disease stage IV Coronary artery disease CVA with no residual deficits Hyperlipidemia Hypertension Elevated PRIVATE WATCH[employer] being monitored. Gastroesophageal reflux disease SURGICAL HISTORY Coronary artery bypass graft in 2001 Coronary angioplasty in 2000 and 2004 Tonsillectomy Bilateral cataract removal and intraocular lens implants Right index finger to monitor amputation as a child TAVR 11/22/2021 SOCIAL HISTORY Patient is a lifelong nonsmoker. No marijuana, street drug or alcohol use. FAMILY HISTORY Father at age 87 from myocardial infarction. Mother at age 82 from old age. Patient has 3 brothers and all have of unknown causes. Patient has 4 sisters and all from old age. Patient's 4 children, 2 boys and 2 girls with no major medical problems. PHYSICAL EXAMINATION Gen: This is an 81-year-old male. He is sitting up in bed appears to be in no acute distress. HEENT: Head is atraumatic, normocephalic. Pupils equal, round. Sclerae is anicteric. Conjunctiva pink. Mucous members of the mouth are slightly dry. NECK: Supple. No JVD. No lymphadenopathy. No thyromegaly. LUNGS: decreased breath sounds at the bases with few ronchi no expiratory wheezes, no chest wall tenderness or intercostal retractions HEART: First heart sound is depressed, second heart sound is normal there is TAMIKO 2/6 located at the left sternal border, irregularly irregular. ABDOMEN: Soft. Bowel sounds are present. No masses. No tenderness. EXTREMITIES: +2 pedal edema. No calf tenderness, DP+2 bilaterally NEUROLOGICAL: Patient is awake, alert and oriented x3. Cranial nerves 2 through 12 are grossly intact. Speech is clear. Short-term memory intact, muscle power 5/5 in upper and lower extremities bilaterally ASSESSMENT AND PLAN 1. Acute diastolic heart failure. we will continue with Metoprolol 50 mg po tid and we will continue with Lasix 40 mg IVP q 12 hours, we will continue patient on Farxiga 10 mg orally once every day, monitor the patient and output and elevated, echogram was ordered by cardiology, to evaluate his aortic valve as well as mitral valve. 2. Moderate to severe aortic stenosis status post TAVR 11/22/2021. patient does appear to have an U aortic diastolic murmur. 3. Chronic atrial fibrillation. Continue Lopressor 50 mg 3 times daily, we will continue with xarelto 15 mg po daily. 4. Hypothyroidism. Continue levothyroxine 150 g daily. 5. Chronic kidney disease stage IV. Avoid nephrotoxic agents, monitor renal function. 6. Coronary artery disease, stable. we will continue with Metoprolol 50 mg po tid and Atorvastatin 20 mg po daily, we will continue with ASA 81 mg po daily 7. Hypertension. Continue Metoprolol 50 mg po tid 8. Hyperlipidemia. Continue Lipitor 20 mg daily. 9. History of CVA, stable without new deficits. 10. Anemia of chronic kidney disease.we will continue with Procrit as outpatient 11. Thalassemia trait. 12. Benign prostatic hypertrophy. Continue Flomax 0.4 mg at bedtime and Finasteride 5mg po daily 13. Gastroesophageal reflux disease and GI prophylaxis. Continue Protonix 40 mg daily 14. DVT prophylaxis. we will continue with Xarelto 15 mg po daily. Patient admitted to the hospital for a minimum of 2 night stay. Past Medical History Past Medical History: Atrial Fibrillation, Coronary Artery Disease (CAD), Chest Pain / Angina, CVA/TIA, GERD/Reflux, Hyperlipidemia, Hypertension, Myocardial Infarction (NM), Thyroid Disorder Additional Past Medical History / Comment(s): Thalassemia trait, chronic kidney disease stage III, elevated PSA in the past, hx vertigo, Last Myocardial Infarction Date:: 2000 History of Any Multi-Drug Resistant Organisms: None Reported Past Surgical History: Coronary Bypass/CABG, Heart Catheterization With Stent, Tonsillectomy Additional Past Surgical History / Comment(s): CABG May 2000, angioplasty in 2000 and February 2004, bilateral cataract removal and intraocular lens implants,, 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 valve replacement Past Anesthesia/Blood Transfusion Reactions: No Reported Reaction Date of Last Stent Placement:: unknown Past Psychological History: No Psychological Hx Reported Smoking Status: Former smoker Past Alcohol Use History: None Reported Additional Past Alcohol Use History / Comment(s): Patient is a lifelong nonsmoker. No medical marijuana, marijuana, street drug or alcohol use. Past Drug Use History: None Reported - Past Family History Father Family Medical History: No Reported History Mother Family Medical History: No Reported History Additional Family Medical History / Comment(s): . Brother(s) Additional Family Medical History / Comment(s): Patient has 3 brothers and all 3 have passed. Unknown causes. Sister(s) Additional Family Medical History / Comment(s): Patient has has 4 sister that of all from old age. Daughter(s) Additional Family Medical History / Comment(s): Patient has 4 children, 2 boys and 2 girls with no major medical problems. Medications and Allergies Home Medications Medication Instructions Recorded Confirmed Type Tamsulosin HCl [Flomax] 0.4 mg PO HS 06/18/21 03/22/22 History Multivitamins, Thera [Multivitamin 1 tab PO DAILY 08/06/21 03/22/22 History (formulary)] Sennosides [Senokot] 17.2 mg PO HS 08/06/21 03/22/22 History Atorvastatin [Lipitor] 20 mg PO HS 12/19/21 03/22/22 History Finasteride [Proscar] 5 mg PO DAILY 12/19/21 03/22/22 History Levothyroxine Sodium [Euthyrox] 150 mcg PO DAILY 12/19/21 03/22/22 History Metoprolol Tartrate [Lopressor] 50 mg PO TID-W/MEALS 12/19/21 03/22/22 History Aspirin EC [Ecotrin Low Dose] 81 mg PO HS 03/01/22 03/22/22 History Famotidine [Pepcid] 20 mg PO DAILY PRN 03/01/22 03/22/22 History Furosemide [Lasix] 40 mg PO DAILY 03/01/22 03/22/22 History Rivaroxaban [Xarelto] 15 mg PO HS 03/01/22 03/22/22 History Sertraline [Zoloft] 50 mg PO DAILY 03/01/22 03/22/22 History allopurinoL [Zyloprim] 100 mg PO DAILY 03/01/22 03/22/22 History Allergies Allergy/AdvReac Type Severity Reaction Status Date / Time No Known Allergies Allergy Verified 03/22/22 15:14 Physical Exam Vitals: Vital Signs Temp Pulse Pulse Resp BP BP Pulse Ox 03/22/22 19:00 97.6 F 68 18 156/76 98 03/22/22 17:26 97.6 F 82 14 157/81 98 03/22/22 16:55 68 18 148/88 98 03/22/22 15:25 79 20 170/87 99 03/22/22 14:39 67 16 160/82 100 03/22/22 13:34 74 20 131/74 97 Intake and Output 03/22/22 03/23/22 03/23/22 22:59 06:59 14:59 Intake Total 240 Balance 240 Intake: Oral 240 Other: Voiding Method Toilet # Voids 2 0 Weight 97.069 kg Results CBC & Chem 7: 03/22/22 13:33 03/22/22 13:33 Labs: Abnormal Lab Results - Last 24 Hours (Table) 03/22/22 03/22/22 03/22/22 Range/Units 13:33 13:33 13:33 RBC 3.76 L (4.30-5.90) m/uL Hgb 8.2 L (13.0-17.5) gm/dL Hct 27.9 L (39.0-53.0) % MCV 74.1 L (80.0-100.0) fL MCH 21.9 L (25.0-35.0) pg MCHC 29.5 L (31.0-37.0) g/dL RDW 20.2 H (11.5-15.5) % Plt Count 141 L (150-450) k/uL Nucleated RBCs 6 H (0-0) /100 WBC PT 16.5 H (9.0-12.0) sec INR 1.6 H (<1.2) APTT 35.0 H (22.0-30.0) sec Potassium 5.3 H (3.5-5.1) mmol/L Chloride 108 H (98-107) mmol/L BUN 27 H (9-20) mg/dL Creatinine 1.75 H (0.66-1.25) mg/dL Glucose 104 H (74-99) mg/dL Total Bilirubin 1.9 H (0.2-1.3) mg/dL Thrombosis Risk Factor Assmnt - Choose All That Apply Any of the Below Risk Factors Present?: Yes Each Factor Represents 1 point: Obesity (BMI >25) Other Risk Factors: Yes Each Risk Factor Represents 3 Points: Age 75 years or older Thrombosis Risk Factor Assessment Total Risk Factor Score: 4 Thrombosis Risk Factor Assessment Level: Moderate Risk
--- NOTE | 2022-03-23 14:47 | CA ---
Transthoracic Echo Report Name: Zoran Camp Age: 87 Gender: M : 1935 Exam Date: 03/23/2022 11:26 Exam Location: [facility] Ht (in): 65 Wt (lb): 214 Ordering Physician: Caroline Iqbal Attending/Referring Phys: [id number], [address] In Teller Meche Tomlin, [id number] Procedure CPT: Indications: chf, s/p TAVR, known MR Cardiac Hx: Technical Quality: Fair Contrast 1: Total Dose (mL): Contrast 2: Total Dose (mL): MEASUREMENTS (Male / Female) Normal Values 2D ECHO LV Diastolic Diameter PLAX 5.4 cm 4.2 - 5.9 / 3.9 - 5.3 cm LV Systolic Diameter PLAX 4.1 cm IVS Diastolic Thickness 1.7 cm 0.6 - 1.0 / 0.6 - 0.9 cm LVPW Diastolic Thickness 1.7 cm 0.6 - 1.0 / 0.6 - 0.9 cm LV Relative Wall Thickness 0.6 RV Internal Dim ED PLAX 4.5 cm LA Systolic Diameter LX 4.4 cm 3.0 - 4.0 / 2.7 - 3.8 cm LV Diastolic Volume MOD 4C 129.7 cm??? LV Systolic Volume MOD 4C 74.4 cm??? LV Ejection Fraction MOD 4C 42.6 % LV Diastolic Length 4C 8.8 cm LV Systolic Length 4C 7.8 cm LV Diastolic Volume MOD 2C 100.4 cm??? LV Systolic Volume MOD 2C 60.4 cm??? LV Ejection Fraction MOD 2C 39.8 % LV Diastolic Length 2C 8.3 cm LV Systolic Length 2C 7.2 cm LA Volume 126.0 cm??? 18 - 58 / 22 - 52 cm??? M-MODE IVS Diastolic Thickness MM 2.5 cm 0.6 - 1.0 / 0.6 - 0.9 cm Aortic Root Diameter MM 3.3 cm MV E Point Septal Separation 1.4 cm DOPPLER AV Peak Velocity 181.3 cm/s AV Peak Gradient 13.2 mmHg AV Mean Velocity 118.2 cm/s AV Mean Gradient 6.3 mmHg AV Velocity Time Integral 35.5 cm AI Peak Velocity 389.4 cm/s AI Peak Gradient 60.7 mmHg AI Pressure Half Time 676.3 ms LVOT Peak Velocity 101.7 cm/s LVOT Peak Gradient 4.1 mmHg MV Peak Velocity 98.0 cm/s MV Peak Gradient 3.8 mmHg MV Mean Velocity 54.5 cm/s MV Mean Gradient 2.1 mmHg MV Velocity Time Integral 14.1 cm MV Area PHT 6.4 cm??? MV Deceleration Time 82.8 ms TR Peak Velocity 337.6 cm/s TR Peak Gradient 45.6 mmHg Right Ventricular Systolic Press 49.3 mmHg FINDINGS Left Ventricle Left ventricular ejection fraction is estimated at 50-55 %. Left ventricular cavity size normal. Severely increased septal wall thickness. The ventricle systolic function borderline normal. Right Ventricle Severe right ventricular dilatation. Moderate pulmonary hypertension. Right Atrium Normal right atrial size. Left Atrium Mildly increased left atrial diameter. Severely increased left atrial volume. Moderately increased left atrial area. No evidence for an atrial septal defect. Mitral Valve Mitral valve thickened. Severe mitral annular calcification. Severe mitral regurgitation. Aortic Valve TAVR .Mild paravalvular aortic regurgitation. Max gradient 13 mmHg, mean gradient 6 mmHg. No stenosis, thickening of the valve, valve not well visualized Tricuspid Valve Severe tricuspid regurgitation. No tricuspid prolapse. No tricuspid stenosis. Pulmonic Valve Pulmonic valve not well visualized. Pericardium No pericardial effusion. Aorta Normal size aortic root and proximal ascending aorta. CONCLUSIONS 1. Left ventricular systolic function borderline normal 2. Severe mitral and tricuspid regurgitation with moderate pulmonary hypertension 3. TAVR aortic valve with thickening of the valve and mild perivalvular leak 4. No pericardial effusion Previewed by: Dr. Jose Antonio Roca MD (Electronically Signed) Final Date: 23 March 2022 14:47
[2022-03-23 17:46] VITALS: BMI 35.6
[2022-03-23] MEDS: ATORVASTATIN 20 MG TAB PO SCH (20:32)
[2022-03-23] MEDS: TAMSULOSIN 0.4 MG CAP.ER.24H PO SCH (20:32)
[2022-03-23] MEDS: RIVAROXABAN 15 MG TAB PO SCH (20:32)
[2022-03-23] MEDS: ASPIRIN 81 MG PO SCH (20:32)
[2022-03-23] MEDS: SENNOSIDES 8.6 MG TAB PO SCH (20:32)
[2022-03-24] MEDS: METOPROLOL TARTRATE 50 MG TAB PO SCH ×3 (06:41→18:10)
[2022-03-24] MEDS: LEVOTHYROXINE 75 MCG TAB PO SCH (06:41)
[2022-03-24] MEDS: FUROSEMIDE 10 MG/ML 4 ML VIAL IV SCH ×2 (09:10→20:23)
[2022-03-24] MEDS: FINASTERIDE 5 MG TAB PO SCH (09:10)
[2022-03-24] MEDS: MULTIVITAMINS, THERA 1 EACH TAB PO SCH (09:10)
[2022-03-24] MEDS: SERTRALINE 50 MG TAB PO SCH (09:10)
[2022-03-24] MEDS: allopurinoL 100 MG TAB PO SCH (09:10)
[2022-03-24] MEDS: DAPAGLIFLOZIN PROPANEDIOL 10 MG TABLET PO SCH (09:10)
--- NOTE | 2022-03-24 10:49 | P.PN ---
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 Sethi, patient presented to the ER at [facility] because of increased shortness of breath and orthopnea associated with increased swelling in both lower extremities, patient also was complaining of increased dyspnea on exertion, orthopnea PND, he had contacted Dr. jermaine gtz and he sent him to the ER for evaluation, chest x-ray showed minimal pulmonary vascular congestion his BNP was elevated, patient was admitted to the hospital for acute diastolic heart failure and was subsequently 6 IV push, [facility] for the next 2-3 days. 03/24: Patient is sitting at the edge of the bed is feeling better today he continues to have significant diuresis, he continues to have edema both lower extremity is, his less short of breath with activity, he continues to have minimal orthopnea no PND, he denies any hemoptysis, patient underwent echocardiogram that showed severe mitral regurgitation and severe tricuspid regurgitation. Is not a surgical candidate for mitral valve replacement or tricuspid valve annuloplasty and he is not even a candidate for mitral valve clip due to significantly calcified mitral valve apparatus. We'll continue current medical management continue Lasix 40 mg IV push every 12 hours, continue Farxiga 10 mg orally once every day. REVIEW OF SYSTEMS Constitutional: No fever, no chills, no night sweats. No weight change. No weakness, fatigue or lethargy. No daytime sleepiness. HEENT: No headache. No blurred vision or double vision, no loss of vision. No loss of Hearing, no ringing in the ears, no dizziness. No nasal drainage or congestion. No epistaxis. No sore throat. Lungs: positive for shortness of breath, no cough, no sputum production. No wheezing. Cardiovascular: no chest pain, positive for lower extremity edema. No palpitations. No paroxysmal nocturnal dyspnea. positive for orthopnea. No lightheadedness or dizziness. Reported to ER physician as syncopal episodes. Abdominal: No abdominal pain. No nausea, vomiting. No diarrhea. No constipation. No bloody or tarry stools. No loss of appetite. Genitourinary: No dysuria, increased frequency, urgency. No urinary retention. Musculoskeletal: No myalgias. No muscle weakness, no gait dysfunction, no frequent falls. No back pain. No neck pain. Integumentary: No wounds, no lesions. No rash or pruritus. No unusual bruising. No change in hair or nails. Neurologic: No aphasia. No facial droop. No change in mentation. No head injury. No headache. No paralysis. No paresthesia. Psychiatric: No depression. No anxiety. Endocrine: No abnormal blood sugars. PHYSICAL EXAMINATION Gen: This is an 81-year-old male. He is sitting up in bed appears to be in no acute distress. HEENT: Head is atraumatic, normocephalic. Pupils equal, round. Sclerae is anicteric. Conjunctiva pink. Mucous members of the mouth are slightly dry. NECK: Supple. No JVD. No lymphadenopathy. No thyromegaly. LUNGS: decreased breath sounds at the bases with few ronchi no expiratory wheezes, no chest wall tenderness or intercostal retractions HEART: First heart sound is depressed, second heart sound is normal there is TAMIKO 2/6 located at the left sternal border, irregularly irregular. ABDOMEN: Soft. Bowel sounds are present. No masses. No tenderness. EXTREMITIES: +2 pedal edema. No calf tenderness, DP+2 bilaterally NEUROLOGICAL: Patient is awake, alert and oriented x3. Cranial nerves 2 through 12 are grossly intact. Speech is clear. Short-term memory intact, muscle power 5/5 in upper and lower extremities bilaterally ASSESSMENT AND PLAN 1. Acute diastolic heart failure. we will continue with Metoprolol 50 mg po tid and we will continue with Lasix 40 mg IVP q 12 hours, we will continue patient on Farxiga 10 mg orally once every day, monitor the patient and output and elevated, echocardiogram as above severe mitral regurgitation and severe tricuspid regurgitation moderate pulmonary hypertension and mild AI. 2. Moderate to severe aortic stenosis status post TAVR 11/22/2021 there is mild perivalvular leak. 3. Chronic atrial fibrillation. Continue Lopressor 50 mg 3 times daily, we will continue with xarelto 15 mg po daily. 4. Hypothyroidism. Continue levothyroxine 150 g daily. 5. Chronic kidney disease stage IV. Avoid nephrotoxic agents, monitor renal function. 6. Coronary artery disease, stable. we will continue with Metoprolol 50 mg po tid and Atorvastatin 20 mg po daily, we will continue with ASA 81 mg po daily 7. Hypertension. Continue Metoprolol 50 mg po tid 8. Hyperlipidemia. Continue Lipitor 20 mg daily. 9. History of CVA, stable without new deficits. 10. Anemia of chronic kidney disease.we will continue with Procrit as outpatient 11. Thalassemia trait. 12. Benign prostatic hypertrophy. Continue Flomax 0.4 mg at bedtime and Finasteride 5mg po daily 13. Gastroesophageal reflux disease and GI prophylaxis. Continue Protonix 40 mg daily 14. DVT prophylaxis. we will continue with Xarelto 15 mg po daily. 15. Increase activity. Objective - Vital Signs Vital signs: Vital Signs Temp 97.8 F 03/24/22 06:43 Pulse 75 03/24/22 06:43 Resp 18 03/24/22 06:43 BP 165/82 03/24/22 06:43 Pulse Ox 97 03/24/22 06:43 FiO2 Intake & Output 03/23/22 03/24/22 03/24/22 19:59 06:59 18:59 Intake Total Balance Weight Intake: Oral Other: Voiding Method # Voids - Labs CBC & Chem 7: 03/22/22 13:33 03/22/22 13:33
--- NOTE | 2022-03-24 10:58 | P.PN ---
Subjective Progress Note Date: 03/24/22 This is a pleasant 87-year-old gentleman who follows in the office with Dr. NADJA Messer. He has a history of CAD status post 3 vessel CABG in 2001, prior PCI, severe aortic stenosis status post TAVR in November 2020, persistent atrial fibrillation anticoagulated on Xarelto, retention, hyperlipidemia, mitral regu rgitation shown to be moderate to severe on echocardiogram in December of this year he was being evaluated in the past for possible mitral valve clip procedure as an outpatient apparently after discussion with Dr. Messer was decided to manage this conservatively. Presented to the emergency department with complaint of progressively worsening shortness of breath over the last 6 weeks or so. He was admitted in February with similar symptoms at which time his BNP was around 9000. According to him he has been compliant with his medications and diet. He denies any weight gain but does have some mild lower extremity edema and has been experiencing some orthopnea and PND. He apparently called the office and was directed to come to the emergency department for further evaluation. His laboratory values showed a hemoglobin of 8.2 which is running around where his baseline is he runs in the range of anywhere from 8-10. BUN and creatinine 27 and 1.75 respectively which appear to be his baseline. Troponin 1 was drawn yesterday afternoon and was 0.024. NT proBNP was more elevated than previous at 15,800. 03/24/2022 Upon examination the patient is sitting up beside the bed. He is overall feeling quite a bit better. He is currently on Lasix 40 mg IV push every 12 hours. He is tolerating this well. Awaiting labs from this morning. Echocardiogram with Doppler study done yesterday showed borderline normal LV systolic function with an ejection fraction of 50-55%, severe MR and TR with moderate pulmonary hypertension, TAVR aortic valve with thickening of the valve and mild perivalvular leak, no pericardial effusion. Was initiated on Farxiga yesterday. His blood pressure remains elevated. Objective - Vital Signs Vital signs: Vital Signs Temp 97.8 F 03/24/22 06:43 Pulse 75 03/24/22 06:43 Resp 18 03/24/22 06:43 BP 165/82 03/24/22 06:43 Pulse Ox 97 03/24/22 06:43 FiO2 Intake & Output 11/05/22 11/06/22 11/06/22 19:59 06:59 18:59 Intake Total Balance Weight Intake: Oral Other: Voiding Method # Voids - Exam HEENT: Head is atraumatic, normocephalic. Pupils are equal, round. Sclerae anicteric. Conjunctivae are clear. Mucous membranes of the mouth are moist. Neck is supple. There is no elevated jugular venous pressure. No carotid bruit is heard. CHEST EXAMINATION: Clear to auscultation bilaterally. No wheezes rales or rhonchi. Respirations even and nonlabored. HEART EXAMINATION: Heart regular, positive S1 and S2. With a systolic ejection murmur at the base and holosystolic murmur at the apex. ABDOMEN: Soft, nontender. Bowel sounds are heard. No organomegaly noted. EXTREMITIES: 2+ peripheral pulses with evidence of 1+ peripheral edema and no calf tenderness noted. NEUROLOGIC EXAMINATION: Patient is awake, alert and oriented x3. - Labs CBC & Chem 7: 03/22/22 13:33 03/22/22 13:33 Assessment and Plan Assessment: #1 acute congestive heart failure with preserved ejection fraction #2 history of aortic stenosis status post TAVR #3 CAD status post CABG and stenting #4 hypertension uncontrolled 5 hyperlipidemia 6 Chronic persistent atrial fibrillation, rate controlled, anticoagulated #7 severe mitral and tricuspid regurgitation Plan: From cardiology perspective we will continue IV Lasix as long as the renal function is stable. We will add hydralazine for better blood pressure control. Avoid calcium channel blockers. Patient will require assistance with obtaining the Farxiga upon discharge as he has no prescription drug coverage. We will continue to follow the patient and provide further recommendations accordingly. PROFESSOR OF MUSIC note has been reviewed, I agree with a documented findings and plan of care. Patient was seen and examined.
[2022-03-24 11:33] LABS: Glucose,Whole Blood 138 mg/dL (70-110)
[2022-03-24 11:48] LABS: African American GFR (CKD) 31.6 (60.0-200.0); Albumin 4.3 g/dL (3.8-4.9); Albumin/Globulin Ratio 1.26 (1.60-3.17); Anion Gap 16.3 mmol/L (10.00-18.00); BUN/Creat Ratio 15.19 Ratio (12.00-20.00); Blood Urea Nitrogen 31.9 mg/dL (9.0-27.0); Calcium 9.2 mg/dL (8.7-10.3); Carbon Dioxide 21.7 mmol/L (20.0-27.5); Globulin 3.4 g/dL (1.6-3.3); Non-African American GFR(CKD) 27.3 (60.0-200.0); Potassium 3.9 mmol/L (3.5-5.5); Total Bilirubin 2.2 mg/dL (0.30-1.20); Total Protein 7.7 g/dL (6.2-8.2)
[2022-03-24] MEDS: hydrALAZINE HCL 25 MG TAB PO SCH ×2 (12:02→20:22)
[2022-03-24 12:37] LABS: Basophils # (A) 0.12 X 10*3/uL (0.00-0.10); Basophils % (A) 1.4 %; Eosinophils # (A) 0.22 X 10*3/uL (0.04-0.35); Eosinophils % (A) 2.5 %; HCT 27.1 % (39.6-50.0); HGB 8.3 g/dL (13.0-17.0); Lymphocytes % (A) 17.1 %; MCH 21.7 pg (27.0-32.0); MCHC 30.6 g/dL (32.0-37.0); MCV 70.9 fL (80.0-97.0); Monocytes # (A) 0.75 X 10*3/uL (0.20-1.00); Monocytes % (A) 8.5 %; NRBC Per 100 WBC 3.1 /100 WBCS (0.0-0.0); Neutrophils # (A) 6.11 X 10*3/uL (1.80-7.70); Neutrophils % (A) 69.5 %; Platelet Count 195 X 10*3/uL (140-440); RBC 3.82 X 10*6/uL (4.40-5.60); WBC 8.79 X 10*3/uL (4.50-10.00)
[2022-03-24] MEDS: SENNOSIDES 8.6 MG TAB PO SCH (20:22)
[2022-03-24] MEDS: RIVAROXABAN 15 MG TAB PO SCH (20:22)
[2022-03-24] MEDS: TAMSULOSIN 0.4 MG CAP.ER.24H PO SCH (20:23)
[2022-03-24] MEDS: ASPIRIN 81 MG PO SCH (20:23)
[2022-03-24] MEDS: ATORVASTATIN 20 MG TAB PO SCH (20:23)
[2022-03-25 06:53] LABS: ALT 52 U/L (4-49); AST 62 U/L (17-59); African American GFR (CKD) 29 (>60 ml/min/1.73 sqM); Albumin 4.1 g/dL (3.5-5.0); Albumin/Globulin Ratio 1.3; Alkaline Phosphatase 81 U/L (38-126); Anion Gap 11 mmol/L; Blood Urea Nitrogen 39 mg/dL (9-20); Calcium 8.9 mg/dL (8.4-10.2); Carbon Dioxide 25 mmol/L (22-30); Chloride 101 mmol/L (98-107); Globulin 3.2 g/dL; Glucose 96 mg/dL (74-99); Non-African American GFR(CKD) 25 (>60 ml/min/1.73 sqM); Potassium 3.6 mmol/L (3.5-5.1); Sodium 137 mmol/L (137-145); Total Bilirubin 1.9 mg/dL (0.2-1.3); Total Protein 7.3 g/dL (6.3-8.2)
[2022-03-25] MEDS: METOPROLOL TARTRATE 50 MG TAB PO SCH ×3 (07:26→17:13)
[2022-03-25] MEDS: LEVOTHYROXINE 75 MCG TAB PO SCH (07:26)
[2022-03-25] MEDS: DAPAGLIFLOZIN PROPANEDIOL 10 MG TABLET PO SCH (08:07)
[2022-03-25] MEDS: allopurinoL 100 MG TAB PO SCH (08:08)
[2022-03-25] MEDS: SERTRALINE 50 MG TAB PO SCH (08:08)
[2022-03-25] MEDS: FINASTERIDE 5 MG TAB PO SCH (08:08)
[2022-03-25] MEDS: MULTIVITAMINS, THERA 1 EACH TAB PO SCH (08:08)
[2022-03-25] MEDS: hydrALAZINE HCL 25 MG TAB PO SCH ×2 (08:08→20:24)
[2022-03-25] MEDS: FUROSEMIDE 40 MG TAB PO SCH (08:08)
[2022-03-25] MEDS: IOPAMIDOL CONTRAST (ORAL USE) VIAL PO PRN ×2 (09:35→10:19)
[2022-03-25 09:39] LABS: Basophils # (A) 0.11 X 10*3/uL (0.00-0.10); Basophils % (A) 1.2 %; Eosinophils # (A) 0.42 X 10*3/uL (0.04-0.35); Eosinophils % (A) 4.5 %; HCT 27.8 % (39.6-50.0); HGB 8.8 g/dL (13.0-17.0); Immature Grans, Automated 1.1 %; Lymphocytes # (A) 1.76 X 10*3/uL (0.90-5.00); Lymphocytes % (A) 18.9 %; MCH 22.4 pg (27.0-32.0); MCHC 31.7 g/dL (32.0-37.0); MCV 70.7 fL (80.0-97.0); Monocytes # (A) 0.87 X 10*3/uL (0.20-1.00); Monocytes % (A) 9.4 %; NRBC Per 100 WBC 1.4 /100 WBCS (0.0-0.0); Neutrophils # (A) 6.04 X 10*3/uL (1.80-7.70); Neutrophils % (A) 64.9 %; Platelet Count 187 X 10*3/uL (140-440); RBC 3.93 X 10*6/uL (4.40-5.60); RDW 20.7 % (11.5-14.5)
--- NOTE | 2022-03-25 09:43 | P.PN ---
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 Sethi, patient presented to the ER at [facility] because of increased shortness of breath and orthopnea associated with increased swelling in both lower extremities, patient also was complaining of increased dyspnea on exertion, orthopnea PND, he had contacted Dr. jermaine gtz and he sent him to the ER for evaluation, chest x-ray showed minimal pulmonary vascular congestion his BNP was elevated, patient was admitted to the hospital for acute diastolic heart failure and was subsequently 6 IV push, [facility] for the next 2-3 days. 03/24: Patient is sitting at the edge of the bed is feeling better today he continues to have significant diuresis, he continues to have edema both lower extremity is, his less short of breath with activity, he continues to have minimal orthopnea no PND, he denies any hemoptysis, patient underwent echocardiogram that showed severe mitral regurgitation and severe tricuspid regurgitation. Is not a surgical candidate for mitral valve replacement or tricuspid valve annuloplasty and he is not even a candidate for mitral valve clip due to significantly calcified mitral valve apparatus. We'll continue current medical management continue Lasix 40 mg IV push every 12 hours, continue Farxiga 10 mg orally once every day. 03/25: This morning, patient is complaining of some right upper quadrant abdominal discomfort. Patient noticed to be slightly jaundice in the sclera. Liver function tests are slightly elevated. A CAT scan of the abdomen and pelvis with oral contrast only will be ordered to further evaluate. Patient is scheduled for Procrit injection tomorrow at 10:30. We will plan to monitor overnight, recheck lab work in the morning, obtain CAT scan and discharge home tomorrow. Cardiology has transition IV Lasix to oral 40 mg daily. WBC 9.3, hemoglobin 8.8, platelet count 187. Electrolytes are normal, BUN 39 creatinine 2.25. Calcium 8.9. Total bilirubin 1.9, AST 62, ALT 52. Alkaline phosphatase 81. REVIEW OF SYSTEMS Constitutional: No fever, no chills, no night sweats. No weight change. No weakness, fatigue or lethargy. No daytime sleepiness. HEENT: No headache. No blurred vision or double vision, no loss of vision. No loss of Hearing, no ringing in the ears, no dizziness. No nasal drainage or congestion. No epistaxis. No sore throat. Lungs: positive for shortness of breath, no cough, no sputum production. No wheezing. Cardiovascular: no chest pain, positive for lower extremity edema. No palpitations. No paroxysmal nocturnal dyspnea. positive for orthopnea. No lightheadedness or dizziness. Reported to ER physician as syncopal episodes. Abdominal: Mild right upper quadrant discomfort. No nausea, vomiting. No diarrhea. No constipation. No bloody or tarry stools. No loss of appetite. Genitourinary: No dysuria, increased frequency, urgency. No urinary retention. Musculoskeletal: No myalgias. No muscle weakness, no gait dysfunction, no frequent falls. No back pain. No neck pain. Integumentary: No wounds, no lesions. No rash or pruritus. No unusual bruising. No change in hair or nails. Neurologic: No aphasia. No facial droop. No change in mentation. No head injury. No headache. No paralysis. No paresthesia. Psychiatric: No depression. No anxiety. Endocrine: No abnormal blood sugars. PHYSICAL EXAMINATION Gen: This is an 81-year-old male. He is sitting up on the edge of the bed bed appears to be in no acute distress. HEENT: Head is atraumatic, normocephalic. Pupils equal, round. Sclerae is icteric. Conjunctiva pink. Mucous members of the mouth are slightly dry. NECK: Supple. No JVD. No lymphadenopathy. No thyromegaly. LUNGS: decreased breath sounds at the bases with few ronchi no expiratory wheezes, no chest wall tenderness or intercostal retractions HEART: First heart sound is depressed, second heart sound is normal there is TAMIKO 2/6 located at the left sternal border, irregularly irregular. ABDOMEN: Soft. Bowel sounds are present. No masses. Mild right upper quadrant tenderness. EXTREMITIES: +2 pedal edema. No calf tenderness, DP+2 bilaterally NEUROLOGICAL: Patient is awake, alert and oriented x3. Cranial nerves 2 through 12 are grossly intact. Speech is clear. Short-term memory intact, muscle power 5/5 in upper and lower extremities bilaterally ASSESSMENT AND PLAN 1. Acute diastolic heart failure. we will continue with Metoprolol 50 mg po tid, IV Lasix transitioned to oral, we will continue patient on Farxiga 10 mg orally once every day, monitor the patient and output and elevated, echocardiogram as above severe mitral regurgitation and severe tricuspid regurgitation moderate pulmonary hypertension and mild AI. 2. Moderate to severe aortic stenosis status post TAVR 11/22/2021 there is mild perivalvular leak. 3. Chronic atrial fibrillation. Continue Lopressor 50 mg 3 times daily, we will continue with xarelto 15 mg po daily. 4. Hypothyroidism. Continue levothyroxine 150 g daily. 5. Chronic kidney disease stage IV. Avoid nephrotoxic agents, monitor renal function. 6. Coronary artery disease, stable. we will continue with Metoprolol 50 mg po tid and Atorvastatin 20 mg po daily, we will continue with ASA 81 mg po daily 7. Hypertension. Continue Metoprolol 50 mg po tid 8. Hyperlipidemia. Continue Lipitor 20 mg daily. 9. History of CVA, stable without new deficits. 10. Anemia of chronic kidney disease.we will continue with Procrit as outpatient, scheduled for Friday. 11. Thalassemia trait. 12. Benign prostatic hypertrophy. Continue Flomax 0.4 mg at bedtime and Finasteride 5mg po daily 13. Gastroesophageal reflux disease and GI prophylaxis. Continue Protonix 40 mg daily 14. DVT prophylaxis. we will continue with Xarelto 15 mg po daily. 15. Right upper quadrant discomfort, elevated liver function tests, jaundice. CAT scan of the abdomen and pelvis with oral contrast only ordered. DISCHARGE PLAN Home Friday Impression and plan of care have been directed as dictated by the signing physician. Ladonna Werner nurse practitioner acting as scribe for signing physician. Objective - Vital Signs Vital signs: Vital Signs Temp 97.2 F L 03/25/22 07:57 Pulse 70 03/25/22 07:57 Resp 14 03/25/22 07:57 BP 154/82 03/25/22 07:57 Pulse Ox 98 03/25/22 07:57 FiO2 Intake & Output 03/24/22 03/25/22 03/25/22 18:59 06:59 18:59 Intake Total 360 500 Balance 360 500 Intake: Oral 360 500 Other: Voiding Method Toilet # Voids 3 - Labs CBC & Chem 7: 03/24/22 08:48 03/25/22 05:59 Labs: Abnormal Lab Results - Last 24 Hours (Table) 03/24/22 03/24/22 03/24/22 Range/Units 08:48 08:48 11:32 RBC 3.82 L (4.40-5.60) X 10*6/uL Hgb 8.3 L (13.0-17.0) g/dL Hct 27.1 L (39.6-50.0) % MCV 70.9 L (80.0-97.0) fL MCH 21.7 L (27.0-32.0) pg MCHC 30.6 L (32.0-37.0) g/dL RDW 20.0 H (11.5-14.5) % Absolute Nucleated RBC 0.27 H (0.00-0.00) X 10*3/uL Immature Gran # 0.09 H (0.00-0.04) X 10*3/uL Basophils # 0.12 H (0.00-0.10) X 10*3/uL NRBC/100 WBC Diff 3.1 H (0.0-0.0) /100 WBCS BUN 31.9 H (9.0-27.0) mg/dL Creatinine 2.1 H (0.6-1.5) mg/dL Est GFR (CKD-EPI)AfAm 31.6 L (60.0-200.0) Est GFR (CKD-EPI)NonAf 27.3 L (60.0-200.0) POC Glucose (mg/dL) 138 H (70-110) mg/dL Total Bilirubin 2.20 H (0.30-1.20) mg/dL AST 70 H (14-35) U/L ALT 62 H (10-49) U/L Globulin 3.4 H (1.6-3.3) g/dL Albumin/Globulin Ratio 1.26 L (1.60-3.17) g/dL 03/25/22 Range/Units 05:59 RBC (4.40-5.60) X 10*6/uL Hgb (13.0-17.0) g/dL Hct (39.6-50.0) % MCV (80.0-97.0) fL MCH (27.0-32.0) pg MCHC (32.0-37.0) g/dL RDW (11.5-14.5) % Absolute Nucleated RBC (0.00-0.00) X 10*3/uL Immature Gran # (0.00-0.04) X 10*3/uL Basophils # (0.00-0.10) X 10*3/uL NRBC/100 WBC Diff (0.0-0.0) /100 WBCS BUN 39 H (9.0-27.0) mg/dL Creatinine 2.25 H (0.6-1.5) mg/dL Est GFR (CKD-EPI)AfAm (60.0-200.0) Est GFR (CKD-EPI)NonAf (60.0-200.0) POC Glucose (mg/dL) (70-110) mg/dL Total Bilirubin 1.9 H (0.30-1.20) mg/dL AST 62 H (14-35) U/L ALT 52 H (10-49) U/L Globulin (1.6-3.3) g/dL Albumin/Globulin Ratio (1.60-3.17) g/dL
--- NOTE | 2022-03-25 09:47 | P.PN ---
Subjective Progress Note Date: 03/25/22 HISTORY OF PRESENT ILLNESS: This is a pleasant 87-year-old gentleman who follows in the office with Dr. NADJA Messer. He has a history of CAD status post 3 vessel CABG in 2001, prior PCI, severe aortic stenosis status post TAVR in November 2020, persistent atrial fibrillation anticoagulated on Xarelto, retention, hyperlipidemia, mitral regurgitation shown to be moderate to severe on echocardiogram in December of this year he was being evaluated in the past for possible mitral valve clip procedure as an outpatient apparently after discussion with Dr. Messer was decided to manage this conservatively. Presented to the emergency department with complaint of progressively worsening shortness of breath over the last 6 weeks or so. He was admitted in February with similar symptoms at which time his BNP was around 9000. According to him he has been compliant with his medications and diet. He denies any weight gain but does have some mild lower extremity edema and has been experiencing some orthopnea and PND. He apparently called the office and was directed to come to the emergency department for further evaluation. His laboratory values showed a hemoglobin of 8.2 which is running around where his baseline is he runs in the range of anywhere from 8-10. BUN and creatinine 27 and 1.75 respectively which appear to be his baseline. Troponin 1 was drawn yesterday afternoon and was 0.024. NT proBNP was more elevated than previous at 15,800. 03/24/2022 Upon examination the patient is sitting up beside the bed. He is overall feeling quite a bit better. He is currently on Lasix 40 mg IV push every 12 hours. He is tolerating this well. Awaiting labs from this morning. Echocardiogram with Doppler study done yesterday showed borderline normal LV systolic function with an ejection fraction of 50-55%, severe MR and TR with moderate pulmonary hypertension, TAVR aortic valve with thickening of the valve and mild perivalvular leak, no pericardial effusion. Was initiated on Farxiga yesterday. His blood pressure remains elevated. 03/25/2022 Patient examined this morning. He is sitting up in the chair. He denies chest pain or pressure. Denies SOB. He remains on IV lasix. Vital signs are stable. PHYSICAL EXAM: VITAL SIGNS: Reviewed. GENERAL: Well-developed in no acute distress. NECK: Supple. No JVD or thyromegaly LUNGS: Respirations even and unlabored. Lungs essentially clear to auscultation bilaterally. HEART: Irregular rate and rhythm. S1 and S2 heard. + systolic murmur. EXTREMITIES: Normal range of motion. No clubbing or cyanosis. Peripheral pulses intact. No lower extremity edema ASSESSMENT: #1 acute congestive heart failure with preserved ejection fraction #2 history of aortic stenosis status post TAVR #3 CAD status post CABG and stenting #4 hypertension uncontrolled #5 hyperlipidemia #6 Chronic persistent atrial fibrillation, rate controlled, anticoagulated #7 severe mitral and tricuspid regurgitation PLAN: Discontinue IV lasix Begin oral lasix Apparently, patient has no prescription drug coverage. If he is unable to afford Farxiga, this may be discontinued at discharge Patient is stable for discharge home today from a cardiac standpoint Patient to follow up outpatient post discharge Nurse practitioner note has been reviewed by physician. Signing provider agrees with the documented findings, assessment, and plan of care. Objective - Vital Signs Vital signs: Vital Signs Temp 97.2 F L 03/25/22 07:57 Pulse 70 03/25/22 07:57 Resp 14 03/25/22 07:57 BP 154/82 03/25/22 07:57 Pulse Ox 98 03/25/22 07:57 FiO2 Intake & Output 03/24/22 03/25/22 03/25/22 18:59 06:59 18:59 Intake Total 360 500 Balance 360 500 Intake: Oral 360 500 Other: Voiding Method Toilet # Voids 3 - Labs CBC & Chem 7: 03/25/22 05:59 03/25/22 05:59 Labs: Abnormal Lab Results - Last 24 Hours (Table) 03/24/22 03/24/22 03/24/22 Range/Units 08:48 08:48 11:32 RBC 3.82 L (4.40-5.60) X 10*6/uL Hgb 8.3 L (13.0-17.0) g/dL Hct 27.1 L (39.6-50.0) % MCV 70.9 L (80.0-97.0) fL MCH 21.7 L (27.0-32.0) pg MCHC 30.6 L (32.0-37.0) g/dL RDW 20.0 H (11.5-14.5) % Absolute Nucleated RBC 0.27 H (0.00-0.00) X 10*3/uL Immature Gran # 0.09 H (0.00-0.04) X 10*3/uL Eosinophils # (0.04-0.35) X 10*3/uL Basophils # 0.12 H (0.00-0.10) X 10*3/uL NRBC/100 WBC Diff 3.1 H (0.0-0.0) /100 WBCS BUN 31.9 H (9.0-27.0) mg/dL Creatinine 2.1 H (0.6-1.5) mg/dL Est GFR (CKD-EPI)AfAm 31.6 L (60.0-200.0) Est GFR (CKD-EPI)NonAf 27.3 L (60.0-200.0) POC Glucose (mg/dL) 138 H (70-110) mg/dL Total Bilirubin 2.20 H (0.30-1.20) mg/dL AST 70 H (14-35) U/L ALT 62 H (10-49) U/L Globulin 3.4 H (1.6-3.3) g/dL Albumin/Globulin Ratio 1.26 L (1.60-3.17) g/dL 03/25/22 03/25/22 Range/Units 05:59 05:59 RBC 3.93 L (4.40-5.60) X 10*6/uL Hgb 8.8 L (13.0-17.0) g/dL Hct 27.8 L (39.6-50.0) % MCV 70.7 L (80.0-97.0) fL MCH 22.4 L (27.0-32.0) pg MCHC 31.7 L (32.0-37.0) g/dL RDW 20.7 H (11.5-14.5) % Absolute Nucleated RBC 0.13 H (0.00-0.00) X 10*3/uL Immature Gran # 0.10 H (0.00-0.04) X 10*3/uL Eosinophils # 0.42 H (0.04-0.35) X 10*3/uL Basophils # 0.11 H (0.00-0.10) X 10*3/uL NRBC/100 WBC Diff 1.4 H (0.0-0.0) /100 WBCS BUN 39 H (9.0-27.0) mg/dL Creatinine 2.25 H (0.6-1.5) mg/dL Est GFR (CKD-EPI)AfAm (60.0-200.0) Est GFR (CKD-EPI)NonAf (60.0-200.0) POC Glucose (mg/dL) (70-110) mg/dL Total Bilirubin 1.9 H (0.30-1.20) mg/dL AST 62 H (14-35) U/L ALT 52 H (10-49) U/L Globulin (1.6-3.3) g/dL Albumin/Globulin Ratio (1.60-3.17) g/dL
--- NOTE | 2022-03-25 11:32 | CT ---
EXAMINATION TYPE: CT abdomen pelvis wo con DATE OF EXAM: 03/25/2022 HISTORY: abd pain right upper quadrant. Elevated liver enzymes. CT DLP: 1251 mGycm. Automated Exposure Control for Dose Reduction was Utilized. TECHNIQUE: CT scan of the abdomen and pelvis is performed with oral but without IV contrast. COMPARISON: Prior CT June 04, 2020 FINDINGS: Within the limitations of a non-contrast study, the following observations are made. LUNG BASES: Overlying sternal wires are partially imaged. [place] coronary artery calcification redemo nstrated. There is stent graft in the aortic root on current study. Cardiomegaly again seen. LIVER/GB: Tiny calcified gallstone suspected axial image 27 when correlating with coronal images. No surrounding fat stranding or fluid. No new biliary dilatation. Normal size liver redemonstrated. PANCREAS: No significant abnormality is seen. SPLEEN: Stable small splenule axial image 29. ADRENALS: No significant abnormality is seen. KIDNEYS: Cortical thinning in both kidneys redemonstrated. Stable mild distention of bladder. Anterio r superior diverticulum axial image 67 is smaller in size or less well-distended versus prior. BOWEL: Diverticula in the left and sigmoid colon. No CT evidence for acute diverticulitis. Oral contr ast reaches level of cecum. No suspicious small or large bowel dilatation. GENITAL ORGANS: Markedly enlarged prostate consistent with BPH bulging into the bladder base redemons trated.. LYMPH NODES: No greater than 1cm abdominal or pelvic lymph nodes are appreciated. OSSEOUS STRUCTURES: Scoliotic curvature with mild to moderate multilevel disc space narrowing and spu rring redemonstrated. Most prominent disc space narrowing lumbosacral junction with vacuum disc pheno kristen redemonstrated. Facet Arthropathy lower lumbar levels. OTHER: Moderate calcified plaque of the aorta extends into branch vessels. Small to moderate-sized fa t-containing bilateral inguinal hernias. IMPRESSION: Normal size liver without biliary dilatation redemonstrated. No suspicious new or acute f indings evident.
[2022-03-25] MEDS: RIVAROXABAN 15 MG TAB PO SCH (20:23)
[2022-03-25] MEDS: SENNOSIDES 8.6 MG TAB PO SCH (20:23)
[2022-03-25] MEDS: ATORVASTATIN 20 MG TAB PO SCH (20:24)
[2022-03-25] MEDS: TAMSULOSIN 0.4 MG CAP.ER.24H PO SCH (20:24)
[2022-03-25] MEDS: ASPIRIN 81 MG PO SCH (20:24)
[2022-03-26] MEDS: METOPROLOL TARTRATE 50 MG TAB PO SCH ×2 (06:34→12:42)
[2022-03-26] MEDS: LEVOTHYROXINE 75 MCG TAB PO SCH (06:34)
--- NOTE | 2022-03-26 08:26 | P.DS ---
Providers Date of admission: 03/25/22 00:19 Expected date of discharge: 03/26/22 Attending physician: Bhavana Dailey Consults: 03/22/22 15:06 Consult Physician Routine Consulting Provider: Roby Green Consult Reason/Comments: heart failure Do you want consulting provider notified?: Yes Primary care physician: Bhavana Dailey [facility] Course: HISTORY OF PRESENT ILLNESS This is an 85-year-old male patient of mine with past medical history for thalassemia trait, hypothyroidism, chronic atrial fibrillation on Xarelto, moderate to severe aortic stenosis s/p TAVR and moderate to severe mitral regurgitation,chronic kidney disease stage IV, coronary artery disease status post coronary artery bypass graft in 2001 and angioplasty in 2000 and 2003, 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 Sethi, patient presented to the ER at [facility] because of increased shortness of breath and orthopnea associated with increased swelling in both lower extremities, patient also was complaining of increased dyspnea on exertion, orthopnea PND, he had contacted Dr. jermaine gtz and he sent him to the ER for evaluation, chest x-ray showed minimal pulmonary vascular congestion his BNP was elevated, patient was admitted to the hospital for acute diastolic heart failure and was subsequently [address] [facility] for the next 2-3 days. 03/24: Patient is sitting at the edge of the bed is feeling better today he continues to have significant diuresis, he continues to have edema both lower extremity is, his less short of breath with activity, he continues to have minimal orthopnea no PND, he denies any hemoptysis, patient underwent echocardiogram that showed severe mitral regurgitation and severe tricuspid regurgitation. Is not a surgical candidate for mitral valve replacement or tricuspid valve annuloplasty and he is not even a candidate for mitral valve clip due to significantly calcified mitral valve apparatus. We'll continue current medical management continue Lasix 40 mg IV push every 12 hours, continue Farxiga 10 mg orally once every day. 03/25: This morning, patient is complaining of some right upper quadrant abdominal discomfort. Patient noticed to be slightly jaundice in the sclera. Liver function tests are slightly elevated. A CAT scan of the abdomen and p roel with oral contrast only will be ordered to further evaluate. Patient is scheduled for Procrit injection tomorrow at 10:30. We will plan to monitor overnight, recheck lab work in the morning, obtain CAT scan and discharge home tomorrow. Cardiology has transition IV Lasix to oral 40 mg daily. WBC 9.3, hemoglobin 8.8, platelet count 187. Electrolytes are normal, BUN 39 creatinine 2.25. Calcium 8.9. Total bilirubin 1.9, AST 62, ALT 52. Alkaline phosphatase 81. 03/26: CAT scan of the abdomen and pelvis with oral contrast revealed normal- sized liver without biliary dilatation redemonstrated. No suspicious new or acute findings evident. Reviewed results of the CAT scan with patient. He denies having any abdominal pain or tenderness today. No decreased appetite, no nausea, vomiting or diarrhea. Patient has been afebrile, heart rate in the 60s and 70s, blood pressure 108/57, pulse ox 95% on room air. Patient denies any new concerns. Patient will be discharged home today in stable condition. Regarding [employer] coverage, this is a $650 per month [id number] cost for the patient. This will be placed on hold and will be addressed at patient's follow- up appointment next week. DISCHARGE DIAGNOSES 1. Acute diastolic heart failure. 2. Moderate to severe aortic stenosis status post TAVR 11/22/2021 there is mild perivalvular leak. 3. Chronic atrial fibrillation. 4. Hypothyroidism. 5. Chronic kidney disease stage IV. 6. Coronary artery disease, stable. 7. Hypertension. 8. Hyperlipidemia. 9. History of CVA, stable without new deficits. 10. Anemia of chronic kidney disease. 11. Thalassemia trait. 12. Benign prostatic hypertrophy. 13. Gastroesophageal reflux disease. 14. Right upper quadrant discomfort, elevated liver function tests, jaundice. DISCHARGE PLAN Home Greater than 35 minutes was utilized and coordinating patient's discharge. Impression and plan of care have been directed as dictated by the signing physician. Ladonna Werner nurse practitioner acting as scribe for signing physician. Patient Condition at Discharge: Good Plan - Discharge Summary Discharge Rx Participant: No New Discharge Prescriptions: New hydrALAZINE HCL [Apresoline] 25 mg PO BID #180 tab Continue Sennosides [Senokot] 17.2 mg PO HS Levothyroxine Sodium [Euthyrox] 150 mcg PO DAILY Atorvastatin [Lipitor] 20 mg PO HS Rivaroxaban [Xarelto] 15 mg PO HS Famotidine [Pepcid] 20 mg PO DAILY PRN PRN Reason: Gi Upset Aspirin EC [Ecotrin Low Dose] 81 mg PO HS allopurinoL [Zyloprim] 100 mg PO DAILY Furosemide [Lasix] 40 mg PO DAILY Tamsulosin HCl [Flomax] 0.4 mg PO HS Multivitamins, Thera [Multivitamin (formulary)] 1 tab PO DAILY Metoprolol Tartrate [Lopressor] 50 mg PO TID-W/MEALS Finasteride [Proscar] 5 mg PO DAILY Sertraline [Zoloft] 50 mg PO DAILY Discharge Medication List Tamsulosin HCl [Flomax] 0.4 mg PO HS 06/18/21 [History] Multivitamins, Thera [Multivitamin (formulary)] 1 tab PO DAILY 08/06/21 [History ] Sennosides [Senokot] 17.2 mg PO HS 08/06/21 [History] Atorvastatin [Lipitor] 20 mg PO HS 12/19/21 [History] Finasteride [Proscar] 5 mg PO DAILY 12/19/21 [History] Levothyroxine Sodium [Euthyrox] 150 mcg PO DAILY 12/19/21 [History] Metoprolol Tartrate [Lopressor] 50 mg PO TID-W/MEALS 12/19/21 [History] Aspirin EC [Ecotrin Low Dose] 81 mg PO HS 03/01/22 [History] Famotidine [Pepcid] 20 mg PO DAILY PRN 03/01/22 [History] Furosemide [Lasix] 40 mg PO DAILY 03/01/22 [History] Rivaroxaban [Xarelto] 15 mg PO HS 03/01/22 [History] Sertraline [Zoloft] 50 mg PO DAILY 03/01/22 [History] allopurinoL [Zyloprim] 100 mg PO DAILY 03/01/22 [History] hydrALAZINE HCL [Apresoline] 25 mg PO BID #180 tab 03/26/22 [Rx] Follow up Appointment(s)/Referral(s): Salbador Messer MD [STAFF PHYSICIAN] - 04/09/22 1:45 pm ([facility] [place]) Bhavana Dailey MD [Primary Care Provider] - 04/02/22 1:00 pm Discharge Disposition: HOME SELF-CARE
[2022-03-26 08:44] VITALS: BP 121/65; PULSE 72; RESP 12; TEMP 98
[2022-03-26] MEDS: hydrALAZINE HCL 25 MG TAB PO SCH (09:05)
[2022-03-26] MEDS: MULTIVITAMINS, THERA 1 EACH TAB PO SCH (09:05)
[2022-03-26] MEDS: allopurinoL 100 MG TAB PO SCH (09:05)
[2022-03-26] MEDS: FINASTERIDE 5 MG TAB PO SCH (09:05)
[2022-03-26] MEDS: SERTRALINE 50 MG TAB PO SCH (09:05)
[2022-03-26] MEDS: FUROSEMIDE 40 MG TAB PO SCH (09:05)
--- NOTE | 2022-03-26 09:56 | P.PN ---
Subjective Progress Note Date: 03/26/22 HISTORY OF PRESENT ILLNESS: This is a pleasant 87-year-old gentleman who follows in the office with Dr. NADJA Messer. He has a history of CAD status post 3 vessel CABG in 2001, prior PCI, severe aortic stenosis status post TAVR in November 2020, persistent atrial fibrillation anticoagulated on Xarelto, retention, hyperlipidemia, mitral regurgitation shown to be moderate to severe on echocardiogram in December of this year he was being evaluated in the past for possible mitral valve clip procedure as an outpatient apparently after discussion with Dr. Messer was decided to manage this conservatively. Presented to the emergency department with complaint of progressively worsening shortness of breath over the last 6 weeks or so. He was admitted in February with similar symptoms at which time his BNP was around 9000. According to him he has been compliant with his medications and diet. He denies any weight gain but does have some mild lower extremity edema and has been experiencing some orthopnea and PND. He apparently called the office and was directed to come to the emergency department for further evaluation. His laboratory values showed a hemoglobin of 8.2 which is running around where his baseline is he runs in the range of anywhere from 8-10. BUN and creatinine 27 and 1.75 respectively which appear to be his baseline. Troponin 1 was drawn yesterday afternoon and was 0.024. NT proBNP was more elevated than previous at 15,800. 03/24/2022 Upon examination the patient is sitting up beside the bed. He is overall feeling quite a bit better. He is currently on Lasix 40 mg IV push every 12 hours. He is tolerating this well. Awaiting labs from this morning. Echocardiogram with Doppler study done yesterday showed borderline normal LV systolic function with an ejection fraction of 50-55%, severe MR and TR with moderate pulmonary hypertension, TAVR aortic valve with thickening of the valve and mild perivalvular leak, no pericardial effusion. Was initiated on Farxiga yesterday. His blood pressure remains elevated. 03/25/2022 Patient examined this morning. He is sitting up in the chair. He denies chest pain or pressure. Denies SOB. He remains on IV lasix. Vital signs are stable. 03/26/2022 Patient examined this morning at the bedside. Patient denies chest pain or pressure. He denies shortness of breath. Patient has been transitioned to oral Lasix. Discussed Farxiga with case management yesterday. Patients out of pocket cost will be $650 for a 30 day supply. The patient also stated he had no intention of adding a prescription plan to his insurance. Per case management, this comes are only offered to patients who have government insurance. The patient also stated he did not have any interest in taking this medication on an outpatient basis. PHYSICAL EXAM: VITAL SIGNS: Reviewed. GENERAL: Well-developed in no acute distress. NECK: Supple. No JVD or thyromegaly LUNGS: Respirations even and unlabored. Lungs essentially clear to auscultation bilaterally. HEART: Irregular rate and rhythm. S1 and S2 heard. + systolic murmur. EXTREMITIES: Normal range of motion. No clubbing or cyanosis. Peripheral pulses intact. No lower extremity edema ASSESSMENT: #1 acute congestive heart failure with preserved ejection fraction #2 history of aortic stenosis status post TAVR #3 CAD status post CABG and stenting #4 hypertension uncontrolled #5 hyperlipidemia #6 Chronic persistent atrial fibrillation, rate controlled, anticoagulated #7 severe mitral and tricuspid regurgitation PLAN: Continue current cardiac medications Patient is stable for discharge home today from a cardiac standpoint Patient to follow up outpatient post discharge We will sign off. Please reconsult if needed Nurse practitioner note has been reviewed by physician. Signing provider agrees with the documented findings, assessment, and plan of care. Objective - Vital Signs Vital signs: Vital Signs Temp 98 F 03/26/22 08:43 Pulse 72 03/26/22 08:43 Resp 12 03/26/22 08:43 BP 121/65 03/26/22 08:43 Pulse Ox 95 03/26/22 08:43 FiO2 Intake & Output 03/25/22 03/26/22 03/26/22 18:59 06:59 18:59 Intake Total 240 298 Balance 240 298 Intake: Oral 240 298 Other: Voiding Method Toilet # Voids 2 2 # Bowel Movements 1 - Labs CBC & Chem 7: 03/25/22 05:59 03/25/22 05:59
== END 2022-03-26 13:50 | disposition home or self-care (01) | DRG 291 ==
LOC: EC 12:07 → 6NMEDSUR 15:06 → OBSVTOIN 03-25 00:19
PROVIDERS: ADMIT Internal Medicine; ATTEND Internal Medicine
DX: I13.0 Hypertensive heart and chronic kidney disease with heart failure and stage 1 through stage 4 chronic kidney disease, or unspecified chronic kidney disease (principal); I50.31 Acute diastolic (congestive) heart failure; I48.19 Other persistent atrial fibrillation; N18.4 Chronic kidney disease, stage 4 (severe); R17 Unspecified jaundice; T82.330A Leakage of aortic (bifurcation) graft (replacement), initial encounter; D56.3 Thalassemia minor; D63.1 Anemia in chronic kidney disease; E03.9 Hypothyroidism, unspecified; E78.5 Hyperlipidemia, unspecified; G31.9 Degenerative disease of nervous system, unspecified; I08.1 Rheumatic disorders of both mitral and tricuspid valves; I25.10 Atherosclerotic heart disease of native coronary artery without angina pectoris; I25.2 Old myocardial infarction; I27.20 Pulmonary hypertension, unspecified; Z68.35 Body mass index [BMI] 35.0-35.9, adult; Z95.1 Presence of aortocoronary bypass graft; Z79.01 Long term (current) use of anticoagulants; E66.9 Obesity, unspecified; K21.9 Gastro-esophageal reflux disease without esophagitis; N40.0 Benign prostatic hyperplasia without lower urinary tract symptoms; Z79.82 Long term (current) use of aspirin; Z79.890 Hormone replacement therapy; Z79.899 Other long term (current) drug therapy; Z82.49 Family history of ischemic heart disease and other diseases of the circulatory system; Z86.73 Personal history of transient ischemic attack (TIA), and cerebral infarction without residual deficits; Z87.891 Personal history of nicotine dependence; Z89.021 Acquired absence of right finger(s); Z98.61 Coronary angioplasty status; Z71.3 Dietary counseling and surveillance
CPT/HCPCS: 36415; 71046; 74176; 80053; 83605; 83735; 83880; 84484; 85025; 85610; 85730; 93005; 93306; 96374; 99285

== ENCOUNTER → 2022-05-22 | Outpatient (CLI) | payer MEDICARE, BC ==
[2022-05-22 16:51] LABS: Anisocytosis (M) 2+; Basophils # (A) 0.12 X 10*3/uL (0.00-0.10); Basophils % (A) 1.7 %; Elliptocytes 2+; Eosinophils # (A) 0.36 X 10*3/uL (0.04-0.35); Eosinophils % (A) 5.2 %; HCT 25.8 % (39.6-50.0); HGB 8.1 g/dL (13.0-17.0); Immature Grans, Automated 0.6 %; Lymphocytes # (A) 1.43 X 10*3/uL (0.90-5.00); Lymphocytes % (A) 20.5 %; MCH 22.3 pg (27.0-32.0); MCHC 31.4 g/dL (32.0-37.0); MCV 71.1 fL (80.0-97.0); Microcytosis (M) 2+; Monocytes # (A) 0.65 X 10*3/uL (0.20-1.00); Monocytes % (A) 9.3 %; NRBC Per 100 WBC 0.9 /100 WBCS (0.0-0.0); Neutrophils # (A) 4.37 X 10*3/uL (1.80-7.70); Neutrophils % (A) 62.7 %; Platelet Count 159 X 10*3/uL (140-440); Polychromasia 2+; RBC 3.63 X 10*6/uL (4.40-5.60); RDW 22.2 % (11.5-14.5); Schistocytes 2+; WBC 6.97 X 10*3/uL (4.50-10.00)
[2022-05-22 17:03] LABS: Appearance,Urine Clear (Clear); Bilirubin,Urine Negative (Negative); Blood,Urine Large (Negative); Color,Urine Yellow (Yellow); Ketones,Urine Negative (Negative); Nitrite,Urine Negative (Negative); Specific Gravity,Urine 1.016 (1.001-1.030)
[2022-05-22 17:06] LABS: Bacteria,Urine None Seen /HPF (None Seen)
[2022-05-22 17:47] LABS: % Iron Saturation 21.3 (15.00-50.00); Anion Gap 14.9 mmol/L (10.00-18.00); BUN/Creat Ratio 18.37 Ratio (12.00-20.00); Blood Urea Nitrogen 38.2 mg/dL (9.0-27.0); Calcium 8.8 mg/dL (8.7-10.3); Magnesium 2.1 mg/dL (1.5-2.4); Non-African American GFR(CKD) 27.6 (60.0-200.0); Phosphorus 2.9 mg/dL (2.4-5.1); Uric Acid 8.5 mg/dL (3.7-8.7)
[2022-05-22 21:57] LABS: Urine Creatinine 85.8 mg/dL (39.0-259.0)
== END | disposition home or self-care (01) ==
LOC: LABWHC1 08:50
PROVIDERS: ATTEND Internal Medicine Nephrology
DX: N25.89 Other disorders resulting from impaired renal tubular function (principal); N18.32 Chronic kidney disease, stage 3b; D63.1 Anemia in chronic kidney disease; E55.9 Vitamin D deficiency, unspecified; M10.9 Gout, unspecified; N39.0 Urinary tract infection, site not specified
CPT/HCPCS: 36415; 80048; 81001; 82040; 82043; 82306; 82570; 83540; 83550; 83735; 83970; 84100; 84550; 85025

== ENCOUNTER → 2022-08-22 | Outpatient (CLI) | payer MEDICARE, BC ==
[2022-08-22 16:47] LABS: Albumin 4.2 g/dL (3.8-4.9)
[2022-08-22 16:51] LABS: Appearance,Urine Cloudy (Clear); Bilirubin,Urine Negative (Negative); Blood,Urine Negative (Negative); Color,Urine Yellow (Yellow); Ketones,Urine Negative (Negative); Nitrite,Urine Negative (Negative); Specific Gravity,Urine 1.014 (1.001-1.030)
[2022-08-22 16:58] LABS: Bacteria,Urine None Seen /HPF (None Seen)
[2022-08-22 17:12] LABS: HCT 27.8 % (39.6-50.0); HGB 8.7 g/dL (13.0-17.0); MCH 22.3 pg (27.0-32.0); MCHC 31.3 g/dL (32.0-37.0); MCV 71.1 fL (80.0-97.0); NRBC Per 100 WBC 0.5 /100 WBCS (0.0-0.0); Platelet Count 166 X 10*3/uL (140-440); RBC 3.91 X 10*6/uL (4.40-5.60); RDW 18.1 % (11.5-14.5); WBC 6.48 X 10*3/uL (4.50-10.00)
[2022-08-22 17:13] LABS: Acanthocytes 2+; Anisocytosis (M) 2+; Basophils # (M) 0.26 X 10*3/uL (0.00-0.10); Elliptocytes 2+; Eosinophils # (M) 0.19 X 10*3/uL (0.04-0.35); Hypochromasia (M) 2+; Monocytes # (M) 0.32 X 10*3/uL (0.20-1.00); Neutrophils % (M) 71 %; Schistocytes 2+; Target Cells 2+; Tear Drop Cells 2+
[2022-08-22 18:09] LABS: % Iron Saturation 48.94 (15.00-50.00); Magnesium 2.1 mg/dL (1.5-2.4); Uric Acid 7.6 mg/dL (3.7-8.7)
[2022-08-22 18:18] LABS: African American GFR (CKD) 30.9 (60.0-200.0); Anion Gap 13.2 mmol/L (10.00-18.00); BUN/Creat Ratio 20.05 Ratio (12.00-20.00); Blood Urea Nitrogen 42.9 mg/dL (9.0-27.0); Calcium 9.2 mg/dL (8.7-10.3); Carbon Dioxide 23.7 mmol/L (20.0-27.5); Non-African American GFR(CKD) 26.7 (60.0-200.0)
[2022-08-22 18:33] LABS: Microalbumin Creatinine Ratio <30 mg/g Creat (0-30); Urine Creatinine 77.2 mg/dL (39.0-259.0)
== END | disposition home or self-care (01) ==
LOC: LABWHC1 10:17
PROVIDERS: ATTEND Nurse Practitioner Family
DX: E55.9 Vitamin D deficiency, unspecified (principal); N25.81 Secondary hyperparathyroidism of renal origin; M10.9 Gout, unspecified; D63.1 Anemia in chronic kidney disease; N18.4 Chronic kidney disease, stage 4 (severe); R80.9 Proteinuria, unspecified
CPT/HCPCS: 36415; 80048; 81001; 82040; 82043; 82306; 82570; 82728; 83540; 83550; 83735; 83970; 84100; 84550; 85025

== ENCOUNTER → 2023-02-25 | Outpatient (CLI) | payer MEDICARE, BC ==
--- NOTE | 2023-02-25 13:29 | XR ---
EXAMINATION TYPE: XR lumbar spine 2 or 3V DATE OF EXAM: 02/25/2023 CLINICAL HISTORY: M47.816 SPONDYLOSIS W/O MYELOPATHY OR RADICULOPATH TECHNIQUE: Three views of the lumbar spine are submitted. COMPARISON: CT abdomen and pelvis 03/25/2022 FINDINGS: There are 5 lumbar type vertebral bodies identified. No acute fracture. Dextroconvex scoliotic curvat ure with apex at L3. Vertebral body heights are within normal limits. Multilevel disc space narrowi ng with endplate sclerosis. This is most pronounced at L5-S1. Multilevel facet arthropathy of the lo wer lumbar spine most pronounced at L5-S1. The overlying soft tissue appears unremarkable. Atheroscle rotic calcification of the aorta. IMPRESSION: 1. No acute fracture. 2. Mild to moderate multilevel degenerative disc disease and facet arthropathy, most pronounced at L 5-S1. 3. Dextroscoliotic curvature of the lumbar spine.
== END | disposition home or self-care (01) ==
LOC: RADXRMAIN 12:39
PROVIDERS: ATTEND Internal Medicine
DX: M47.816 Spondylosis without myelopathy or radiculopathy, lumbar region (principal); M47.817 Spondylosis without myelopathy or radiculopathy, lumbosacral region; M51.37 Other intervertebral disc degeneration, lumbosacral region; M41.86 Other forms of scoliosis, lumbar region
CPT/HCPCS: 72100

== ENCOUNTER 2023-05-07 12:29 | Emergency (ER) | payer MEDICARE, BC ==
[2023-05-07] MEDS ORDERED: SODIUM CHLORIDE 0.9% 1,000 ML IV ONE (13:26)
[2023-05-07 13:42] VITALS: BP 120/95
[2023-05-07 13:42] LABS: Anisocytosis Slight; HCT 28.6 % (39.0-53.0); HGB 9.1 gm/dL (13.0-17.5); Hypochromasia Moderate; MCH 23.2 pg (25.0-35.0); MCHC 31.8 g/dL (31.0-37.0); MCV 73.1 fL (80.0-100.0); Mean Platelet Volume 8.1; Microcytosis Moderate; Platelet Count 133 k/uL (150-450); Poikilocytosis Moderate; RBC 3.91 m/uL (4.30-5.90); RDW 19.6 % (11.5-15.5)
--- NOTE | 2023-05-07 13:52 | XR ---
EXAMINATION TYPE: XR chest 2V DATE OF EXAM: 05/07/2023 COMPARISON: 03/22/2022 HISTORY: Shortness of breath TECHNIQUE: Frontal and lateral views of the chest are obtained. FINDINGS: Scattered senescent parenchymal changes noted. Hyperinflation compatible with COPD. No evidence for infiltrate. No evidence for atelectasis. Heart size is stable. Mediastinal structures are stable and grossly unremarkable. No evidence for hilar prominence. Degenerative changes dorsal spine. IMPRESSION: 1. No evidence for acute pulmonary disease.
[2023-05-07 14:10] LABS: ALT 25 U/L (4-49); AST 41 U/L (17-59); African American GFR (CKD) 33 (>60 ml/min/1.73 sqM); Albumin 4.2 g/dL (3.5-5.0); Alkaline Phosphatase 64 U/L (38-126); Anion Gap 10 mmol/L; Blood Urea Nitrogen 39 mg/dL (9-20); Calcium 8.7 mg/dL (8.4-10.2); Carbon Dioxide 25 mmol/L (22-30); Chloride 108 mmol/L (98-107); Glucose 96 mg/dL (74-99); Non-African American GFR(CKD) 29 (>60 ml/min/1.73 sqM); Potassium 4.8 mmol/L (3.5-5.1); Sodium 143 mmol/L (137-145); Total Bilirubin 1.3 mg/dL (0.2-1.3); Total Protein 7.5 g/dL (6.3-8.2)
[2023-05-07 14:34] LABS: Band Neutrophils % 1 %; Eosinophils # (M) 0.45 k/uL (0-0.7); Lymphocytes # (M) 0.85 k/uL (1.0-4.8); Neutrophils % (M) 63 %; Nucleated Red Blood Cells 0 /100 WBC (0-0); Total Cells Counted 100
[2023-05-07 14:36] LABS: Target Cells Present
[2023-05-07 14:38] LABS: RBC Fragments Present
--- NOTE | 2023-05-07 15:07 | ED ---
General Adult HPI - General Chief complaint: Upper Respiratory Infection Stated complaint: Cough, COVID+ 05/05 Time Seen by Provider: 05/07/23 12:47 Source: patient, RN notes reviewed Mode of arrival: ambulatory Limitations: no limitations - History of Present Illness Initial comments: 88-year-old male presents to the emergency department with a complaint of cough. Patient was recently diagnosed with Covid on 05/05/[address] Dailey's office. He reports that his primary care recommended he be evaluated in the emergency department "make sure that he is okay. " He does report having a slight cough and sore throat. He denies any known fevers however has felt chilled. Denies chest pain or palpitations, nausea or vomiting, abdominal pain. - Related Data Home Medications Medication Instructions Recorded Confirmed Tamsulosin HCl [Flomax] 0.4 mg PO HS 06/18/21 04/29/23 Multivitamins, Thera [Multivitamin 1 tab PO DAILY 08/06/21 04/29/23 (formulary)] Sennosides [Senokot] 17.2 mg PO HS 08/06/21 04/29/23 Atorvastatin [Lipitor] 20 mg PO HS 12/19/21 04/29/23 Finasteride [Proscar] 5 mg PO DAILY 12/19/21 04/29/23 Levothyroxine Sodium [Euthyrox] 150 mcg PO DAILY 12/19/21 04/29/23 Metoprolol Tartrate [Lopressor] 50 mg PO TID-W/MEALS 12/19/21 04/29/23 Aspirin EC [Ecotrin Low Dose] 81 mg PO HS 03/01/22 04/29/23 Famotidine [Pepcid] 20 mg PO DAILY PRN 03/01/22 04/29/23 Furosemide [Lasix] 40 mg PO DAILY 03/01/22 04/29/23 Rivaroxaban [Xarelto] 15 mg PO HS 03/01/22 04/29/23 Sertraline [Zoloft] 50 mg PO DAILY 03/01/22 04/29/23 allopurinoL [Zyloprim] 100 mg PO DAILY 03/01/22 04/29/23 Previous Rx's Medication Instructions Recorded hydrALAZINE HCL [Apresoline] 25 mg PO BID #180 tab 11/08/22 Allergies Allergy/AdvReac Type Severity Reaction Status Date / Time No Known Allergies Allergy Verified 05/07/23 12:43 Review of Systems ROS Statement: Those systems with pertinent positive or pertinent negative responses have been documented in the HPI. ROS Other: All systems not noted in ROS Statement are negative. Past Medical History Past Medical History: Atrial Fibrillation, Coronary Artery Disease (CAD), Chest Pain / Angina, CVA/TIA, GERD/Reflux, Hyperlipidemia, Hypertension, Myocardial Infarction (AL), Thyroid Disorder Additional Past Medical History / Comment(s): Thalassemia trait, chronic kidney disease stage III, elevated PSA in the past, hx vertigo, Last Myocardial Infarction Date:: 2000 History of Any Multi-Drug Resistant Organisms: None Reported Past Surgical History: Coronary Bypass/CABG, Heart Catheterization With Stent, Tonsillectomy Additional Past Surgical History / Comment(s): CABG May 2000, angioplasty in 2000 and February 2004, bilateral cataract removal and intraocular lens implants,, 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 valve replacement Past Anesthesia/Blood Transfusion Reactions: No Reported Reaction Date of Last Stent Placement:: unknown Past Psychological History: No Psychological Hx Reported Smoking Status: Former smoker Past Alcohol Use History: None Reported Past Drug Use History: None Reported - Past Family History Father Family Medical History: No Reported History Mother Family Medical History: No Reported History Additional Family Medical History / Comment(s): . Brother(s) Additional Family Medical History / Comment(s): Patient has 3 brothers and all 3 have passed. Unknown causes. Sister(s) Additional Family Medical History / Comment(s): Patient has has 4 sister that of all from old age. Daughter(s) Additional Family Medical History / Comment(s): Patient has 4 children, 2 boys and 2 girls with no major medical problems. General Exam - General Exam Comments Initial Comments: General: Alert, in no acute distress Head: atraumatic normocephalic. Eyes PERRL, EOMI intact, mucous membranes moist Respiratory: Lungs clear to auscultation bilaterally Cardiovascular: Rate regular rate and rhythm Abdominal: Soft without guarding or rebound Extremities: Normal inspection with full range of motion and normal capillary refill Neuroogic: alert and oriented 3, CN II-XII intact, able to ambulate with steady gait Skin: warm dry and intact with normal color Limitations: no limitations Course Vital Signs 05/07/23 05/07/23 05/07/23 12:41 13:27 15:44 Temperature 97.2 F L 97.5 F L Pulse Rate 71 94 83 Respiratory 18 24 20 Rate Blood Pressure 147/72 120/95 120/95 O2 Sat by Pulse 100 96 95 Oximetry - Reevaluation(s) Reevaluation #1: 05/07/23 14:[address] Dailey who recommends having the patient stop taking atorvastatin and switching patients Xarelto to Eliquis for 5 days in order to take paxlovid Reevaluation #2: 05/07/23 16:07 Dr. Ortiz, ED attending at bedside to evaluate the patient Medical Decision Making - Medical Decision Making Was pt. sent in by a medical professional or institution (, PA, MIDDLE SCHOOL HISTORY TEACHER, urgent care, hospital, or shelter...) When possible be specific @ -[No] Did you speak to anyone other than the patient for history (EMS, parent, family, police, friend...)? What history was obtained from this source @ -[No] Did you review nursing and triage notes (agree or disagree)? Why? @ -[I reviewed and agree with nursing and triage notes] Were old charts reviewed (outside hosp., previous admission, EMS record, old EKG, old radiological studies, urgent care reports/EKG's, shelter records)? Report findings @ -[No old charts were reviewed] Differential Diagnosis (chest pain, altered mental status, abdominal pain women, abdominal pain men, vaginal bleeding, weakness, fever, dyspnea, syncope, headache, dizziness, GI bleed, back pain, seizure, CVA, palpatations, mental health, musculoskeletal)? @ -[not applicable] EKG interpreted by me (3pts min.). @ -[As above] X-rays interpreted by me (1pt min.). @ -X-ray does not reveal any focal consolidation. There are some mild changes consistent with COPD CT interpreted by me (1pt min.). @ -[None done] U/S interpreted by me (1pt. min.). @ -[None done] What testing was considered but not performed or refused? (CT, X-rays, U/S, labs)? Why? @ -[None] What meds were considered but not given or refused? Why? @ -[None] Did you discuss the management of the patient with other professionals (p rofessionals i.e. , PA, MIDDLE SCHOOL HISTORY TEACHER, lab, RT, psych nurse, clinical social work aide, neurodiagnostic tech, teacher, licensing officer, director of casework)? Give summary @ -[No] Was smoking cessation discussed for >3mins.? @ -[No] Was critical care preformed (if so, how long)? @ -[No] Were there social determinants of health that impacted care today? How? (Homelessness, low income, unemployed, alcoholism, drug addiction, tr ansportation, low edu. Level, literacy, decrease access to med. care, [facility], rehab)? @ -[No] Was there de-escalation of care discussed even if they declined (Discuss DNR or withdrawal of care, Hospice)? DNR status @ -[No] What co-morbidities impacted this encounter? (DM, HTN, Smoking, COPD, CAD, Cancer, CVA, ARF, Chemo, Hep., AIDS, mental health diagnosis, sleep apnea, morbid obesity)? @ -[None] Was patient admitted / discharged? Hospital course, mention meds given and route, prescriptions, significant lab abnormalities, going to OR and other pertinent info. @ -Discharged. This is a pleasant 88-year-old male who presents to the emergency department with cough. Patient had a thorough history and physical exam performed. Patient is afebrile. Vital signs are stable. Heart rate regular rate and rhythm, lungs clear to auscultation bilaterally abdomen soft and nontender. Patient had laboratory studies and chest x-ray which were unremarkable. There is no evidence of focal consolidation. Case was discussed with Dr. Dailey, who recommends discharging the patient and he will follow-up with him in his office. Return precautions were discussed. Dr. Ortiz outside to evaluate the patient who agrees with plan of care Undiagnosed new problem with uncertain prognosis? @ -[No] Drug Therapy requiring intensive monitoring for toxicity (Heparin, Nitro, Insulin, Cardizem)? @ -[No] Were any procedures done? @ -[No] Diagnosis/symptom? @ - Cough - COVID-19 Acute, or Chronic, or Acute on Chronic? @ -Acute Uncomplicated (without systemic symptoms) or Complicated (systemic symptoms)? @ -Uncomplicated Side effects of treatment? @ -[No] Exacerbation, Progression, or Severe Exacerbation? @ -[No] Poses a threat to life or bodily function? How? (Chest pain, USA, AL, pneumonia, PE, COPD, DKA, ARF, appy, cholecystitis, CVA, Diverticulitis, Homicidal, Suicidal, threat to staff... and all critical care pts) @ -Low likelihood - Lab Data Result diagrams: 05/07/23 13:25 05/07/23 13:25 Lab Results 05/07/23 05/07/23 Range/Units 13:25 13:25 WBC 5.0 (3.8-10.6) k/uL RBC 3.91 L (4.30-5.90) m/uL Hgb 9.1 L (13.0-17.5) gm/dL Hct 28.6 L (39.0-53.0) % MCV 73.1 L (80.0-100.0) fL MCH 23.2 L (25.0-35.0) pg MCHC 31.8 (31.0-37.0) g/dL RDW 19.6 H (11.5-15.5) % Plt Count 133 L (150-450) k/uL MPV 8.1 Neutrophils % (Manual) 63 % Band Neuts % (Manual) 1 % Lymphocytes % (Manual) 17 % Monocytes % (Manual) 10 % Eosinophils % (Manual) 9 % Neutrophils # (Manual) 3.20 (1.3-7.7) k/uL Lymphocytes # (Manual) 0.85 L (1.0-4.8) k/uL Monocytes # (Manual) 0.50 (0-1.0) k/uL Eosinophils # (Manual) 0.45 (0-0.7) k/uL Nucleated RBCs 0 (0-0) /100 WBC Manual Slide Review Performed Hypochromasia Moderate Poikilocytosis Moderate Anisocytosis Slight Microcytosis Moderate Target Cells Present Fragmented RBCs Present Sodium 143 (137-145) mmol/L Potassium 4.8 (3.5-5.1) mmol/L Chloride 108 H (98-107) mmol/L Carbon Dioxide 25 (22-30) mmol/L Anion Gap 10 mmol/L BUN 39 H (9-20) mg/dL Creatinine 2.01 H (0.66-1.25) mg/dL Est GFR (CKD-EPI)AfAm 33 (>60 ml/min/1.73 sqM) Est GFR (CKD-EPI)NonAf 29 (>60 ml/min/1.73 sqM) Glucose 96 (74-99) mg/dL Calcium 8.7 (8.4-10.2) mg/dL Total Bilirubin 1.3 (0.2-1.3) mg/dL AST 41 (17-59) U/L ALT 25 (4-49) U/L Alkaline Phosphatase 64 (38-126) U/L Total Protein 7.5 (6.3-8.2) g/dL Albumin 4.2 (3.5-5.0) g/dL Disposition Clinical Impression: Cough, COVID-19 Disposition: HOME SELF-CARE Additional Instructions: Please do not take Atorvastatin (Lipitor) starting on 05/08 to 05/13 On 05/14 begin taking atorvastatin (Lipitor) Start taking Mulnupiravir, 4 pills in the morning and 4 pills at night for [address] Dailey's office 05/13 to follow up Return to the nearest emergency department if worsening symptoms Is patient prescribed a controlled substance at d/c from ED?: No Referrals: Bhavana Dailey MD [Primary Care Provider] - 1-2 days Time of Disposition: 15:07
[2023-05-07 15:47] VITALS: PULSE 83; RESP 20; TEMP 97.5
[2023-05-07] MEDS ORDERED: BENZONATATE 100 MG CAP PO STA (16:00)
== END 2023-05-07 16:25 | disposition home or self-care (01) ==
LOC: EC 12:29
DX: U07.1 COVID-19 (principal); I12.9 Hypertensive chronic kidney disease with stage 1 through stage 4 chronic kidney disease, or unspecified chronic kidney disease; I25.10 Atherosclerotic heart disease of native coronary artery without angina pectoris; I25.2 Old myocardial infarction; I48.91 Unspecified atrial fibrillation; E07.9 Disorder of thyroid, unspecified; E78.5 Hyperlipidemia, unspecified; K21.9 Gastro-esophageal reflux disease without esophagitis; N18.30 Chronic kidney disease, stage 3 unspecified; Z87.891 Personal history of nicotine dependence; Z79.899 Other long term (current) drug therapy; Z79.82 Long term (current) use of aspirin; Z79.890 Hormone replacement therapy; Z95.1 Presence of aortocoronary bypass graft; Z86.73 Personal history of transient ischemic attack (TIA), and cerebral infarction without residual deficits; Z79.01 Long term (current) use of anticoagulants
CPT/HCPCS: 36415; 71046; 80053; 85025; 96360; 96361; 99283

== ENCOUNTER → 2023-06-12 | Outpatient (CLI) | payer MEDICARE, BC ==
--- NOTE | 2023-06-12 11:59 | CT ---
EXAMINATION TYPE: CT brain wo con DATE OF EXAM: 06/12/2023 COMPARISON: 07/30/2022 INDICATION: Acute post traumatic headache, not intractable, pt states he has fallen several times hit ting his head, c/o dizziness DLP: 1281 mGycm, Automated exposure control for dose reduction was used. CONTRAST: None CT of the brain is performed utilizing 3 mm thick sections through the posterior fossa and 3 mm thick sections through the remaining calvarium. Study is performed within 24 hours of arrival to the hosp ital. No abnormal hyperdensity is present to suggest an acute intracranial hemorrhage. No mass lesion is evident. Bilateral physiologic basal ganglion calcification is present No acute infarcts are evident. There may be an old inferior medial cerebellar infarct unchanged from comparison Ventricles and sulci are appropriate for the patient age. Mild mucosal thickening is within the right maxillary sinus may be an old fracture of the nasal bridg e. There is septal deviation anteriorly towards the left, stable. No acute fractures are identified. IMPRESSION: 1. Atrophy. 2. 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 3. No acute posttraumatic changes identified. MRI can be performed as clinically indicated
== END | disposition home or self-care (01) ==
LOC: RADCTMAIN 10:43
PROVIDERS: ATTEND Internal Medicine
DX: G31.9 Degenerative disease of nervous system, unspecified (principal); I63.89 Other cerebral infarction; G44.319 Acute post-traumatic headache, not intractable; R29.6 Repeated falls
CPT/HCPCS: 70450